=== PATIENT | male | born 1965 | race Caucasian/White ===

== ENCOUNTER 2018-03-26 11:37 | Emergency (ER) | payer OTHER ==
[2018-03-26] MEDS ORDERED: LACTATED RINGERS 2,000 ML IV ONE (14:16)
[2018-03-26] MEDS ORDERED: ONDANSETRON 4 MG/2 ML VIAL IVP STA (14:18)
[2018-03-26 14:56] LABS: BASOPHILS % (AUTO) 0.3 %; EOSINOPHILS # (AUTO) 0.1 10^3/uL (0.0-0.7); EOSINOPHILS % (AUTO) 0.7 %; HGB - HEMOGLOBIN 13.1 g/dL (14.0-18.0); LYMPHOCYTES # (AUTO) 2.2 10^3/uL (1.5-3.5); LYMPHOCYTES % (AUTO) 20.8 %; MEAN CORPUSCULAR HEMOGLOBIN 31.8 pg (27.0-31.0); MEAN CORPUSCULAR HGB CONC 33.4 g/dL (32.0-36.0); MEAN CORPUSCULAR VOLUME 95.2 fL (80.0-94.0); MEAN PLATELET VOLUME 7.7 fL (7.4-11.4); MONOCYTES # (AUTO) 0.6 10^3/uL (0.0-1.0); MONOCYTES % (AUTO) 5.6 %; NEUTROPHILS # (AUTO) 7.8 10^3/uL (1.5-6.6); NEUTROPHILS % (AUTO) 72.6 %; PLT - PLATELET COUNT 188 10^3/uL (130-450); RED BLOOD COUNT 4.12 10^6/uL (4.70-6.10); RED CELL DISTRIBUTION WIDTH 14.1 % (12.0-15.0); WHITE BLOOD COUNT 10.7 x10^3/uL (4.8-10.8)
[2018-03-26 15:07] LABS: ALBUMIN 4.1 g/dL (3.2-5.5); ALBUMIN/GLOBULIN RATIO 0.9 (1.0-2.2); BILIRUBIN,TOTAL 1.1 mg/dL (0.2-1.0); CALCIUM 7.1 mg/dL (8.5-10.3); CREATININE 2.9 mg/dL (0.6-1.2); TOTAL PROTEIN 8.6 g/dL (6.7-8.2)
[2018-03-26 15:08] LABS: MAGNESIUM 0.7 mg/dL (1.7-2.8)
[2018-03-26] MEDS ORDERED: MAGNESIUM SULFATE 2 GRAM 2 GM/50 ML BAG IV ONE (15:35)
--- NOTE | 2018-03-26 16:18 | ED Physician Documentation ---
PD HPI NVD - Stated complaint Stated Complaint: ABNORMAL LABS - Chief complaint Chief Complaint: General - History obtained from History obtained from: Patient - History of Present Illness Timing - onset: How many days ago (he has had Crohns flare up the past several days and was seen by PCP with labs drawn yeesterday. It was noted his creatinine was elelvated to 3.3 (with last one 2.5 4 days prior, and was below 2 prior to that. Has had less oral intake the past week or more, and feeling was that it was dehydration.) Timing - duration: Days Timing - details: Gradual onset Associated symptoms: Dizzy, Loss of appetite. No: Fever, Weight loss, Dysuria Contributing factors: Other (in Crohns flare up currently.). 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 Has not had elevated creatinine previously.) Recently seen: Clinic Review of Systems Constitutional: reports: Myalgias, Fatigue. denies: Fever, Chills Nose: denies: Rhinorrhea / runny nose, Congestion Throat: denies: Sore throat Cardiac: denies: Chest pain / pressure Respiratory: denies: Dyspnea PD PAST MEDICAL HISTORY - Past Medical History Past Medical History: No Cardiovascular: None Respiratory: None Neuro: None Endocrine/Autoimmune: None GI: Crohn's disease : None HEENT: None Psych: None Musculoskeletal: None Derm: None - Past Surgical History Past Surgical History: No General: Other HEENT: Detached retina repair - Present Medications Home Medications: Ambulatory Orders Medication Instructions Recorded Confirmed Magnesium Oxide [Mag Ox] 400 mg PO DAILY #30 tablet 03/26/18 - Allergies Allergies/Adverse Reactions: Allergies Allergy/AdvReac Type Severity Reaction Status Date / Time No Known Drug Allergies Allergy Verified 03/27/18 11:05 - Social History Does the pt smoke?: No Smoking Status: Never smoker Does the pt drink ETOH?: Yes Does the pt have substance abuse?: Yes Substance Use and Type: Marijuana - Immunizations Immunizations are current?: Yes - POLST Patient has POLST: No PD ED PE NORMAL - Vitals Vital signs reviewed: Yes - General General: Alert and oriented X 3, No acute distress, Well developed/nourished - HEENT HEENT: Pharynx benign - Neck Neck: Supple, no meningeal sign, No adenopathy - Cardiac Cardiac: RRR, No murmur - Respiratory Respiratory: Clear bilaterally - Abdomen Abdomen: Normal bowel sounds, Soft, Non distended, No organomegaly - Male Male : Deferred - Derm Derm: Normal color, Warm and dry - Extremities Extremities: No tenderness to palpate, Normal ROM s pain, No edema, No calf tenderness / cord - Neuro Neuro: Alert and oriented X 3, No motor deficit, Normal speech Eye Opening: Spontaneous Motor: Obeys Commands Verbal: Oriented GCS Score: 15 Results - Vitals Vitals: Oxygen O2 Source Room air - Labs Labs: Laboratory Tests 03/26/18 03/26/18 03/26/18 14:30 14:30 14:30 WBC 10.7 RBC 4.12 L Hgb 13.1 L Hct 39.3 L MCV 95.2 H MCH 31.8 H MCHC 33.4 RDW 14.1 Plt Count 188 MPV 7.7 Neut # (Auto) 7.8 H Lymph # (Auto) 2.2 [place] # (Auto) 0.6 Eos # (Auto) 0.1 Baso # (Auto) 0.0 Absolute Nucleated RBC 0.01 Nucleated RBC % 0.1 Sodium 137 Potassium 3.6 Chloride 111 Carbon Dioxide 13 L Anion Gap 13.0 BUN 31 H Creatinine 2.9 H Estimated GFR (MDRD) 23 L Glucose 145 H Calcium 7.1 L Phosphorus 2.0 L Magnesium 0.7 L* Total Bilirubin 1.1 H AST 55 H ALT 37 Alkaline Phosphatase 501 H Total Protein 8.6 H Albumin 4.1 Globulin 4.5 H Albumin/Globulin Ratio 0.9 L Lipase 34 PD MEDICAL DECISION MAKING - ED course Complexity details: considered differential (given IV fluids and also some Mag replacement. He is feeling okay. He is wanting to get going. Can have him back tomorrow to recheck labs and see if more IVs needed. ), d/w patient Departure - Departure Disposition: 01 Home, Self Care Clinical Impression: Dehydration, Elevated serum creatinine, Hypomagnesemia Condition: Stable Record reviewed to determine appropriate education?: Yes Instructions: ED Dehydration Follow-Up: Jordy Ramos MD [Primary Care Provider] - Prescriptions: Magnesium Oxide [Mag Ox] 400 mg PO DAILY #30 tablet Comments: Recheck your labs in a day to ensure that you are having improvement in your creatinine level with the fluids and such. Drink lots of fluids. Hold your potassium supplement for now while you are under hydrated. Your magnesium level was low as well and you will want to start a supplement of that though again I would hold it until tomorrow since she got a dose here today. Assuming your kidney function is improved on repeat tests, would have you resume your normal medications and follow-up with your primary care. Discharge Date/Time: 03/26/18 16:42
[2018-03-26 16:37] VITALS: BP 99/79
== END 2018-03-26 16:42 | disposition home or self-care (01) ==
LOC: ED 11:37
DX: E86.0 Dehydration (principal); R79.89 Other specified abnormal findings of blood chemistry; E83.42 Hypomagnesemia
CPT/HCPCS: 36415; 80053; 83690; 83735; 84100; 85025; 96365; 96375; 99283; J7120

== ENCOUNTER 2018-03-27 10:55 | Emergency (ER) | payer OTHER ==
[2018-03-27 11:05] VITALS: BP 113/83
--- NOTE | 2018-03-27 11:38 | ED Physician Documentation ---
PD HPI NVD - Stated complaint Stated Complaint: LAB - Chief complaint Chief Complaint: General - History obtained from History obtained from: Patient - History of Present Illness Timing - duration: Other (chronic diarrhea) Recently seen: Emergency Dept, Other (He was here yesterday to do dehydration and elevated creatinine. He has ongoing diarrhea from colitis and irritable b owel. He had been referred in for IV fluids. His creatinine was starting to decrease from 3.3-2.9. I had him return today for repeat blood test to ensure its still improving and to evaluate his electrolytes as well.) PD PAST MEDICAL HISTORY - Past Medical History Cardiovascular: None Respiratory: None Neuro: None Endocrine/Autoimmune: None GI: Crohn's disease : None HEENT: None Psych: None Musculoskeletal: None Derm: None - Past Surgical History Past Surgical History: No General: Other HEENT: Detached retina repair - Present Medications Home Medications: Ambulatory Orders Medication Instructions Recorded Confirmed Magnesium Oxide [Mag Ox] 400 mg PO DAILY #30 tablet 03/26/18 - Allergies Allergies/Adverse Reactions: Allergies Allergy/AdvReac Type Severity Reaction Status Date / Time No Known Drug Allergies Allergy Verified 03/27/18 11:05 - Social History Does the pt smoke?: No Smoking Status: Never smoker Does the pt drink ETOH?: Yes Does the pt have substance abuse?: Yes - Immunizations Immunizations are current?: Yes - POLST Patient has POLST: No Results - Vitals Vitals: Vital Signs - 24 hr 03/27/18 11:04 Temperature 36.0 C L Heart Rate 94 Respiratory 15 Rate Blood Pressure 113/83 H O2 Saturation 100 Oxygen O2 Source Room air - Labs Labs: Laboratory Tests 03/27/18 11:29 Sodium 139 Potassium 3.1 L Chloride 113 H Carbon Dioxide 15 L Anion Gap 11.0 BUN 28 H Creatinine 2.2 H Estimated GFR (MDRD) 32 L Glucose 138 H Calcium 7.1 L Magnesium 1.2 L Total Bilirubin 0.9 AST 40 ALT 30 Alkaline Phosphatase 407 H Total Protein 7.2 Albumin 3.6 Globulin 3.6 Albumin/Globulin Ratio 1.0 Lipase 43 PD MEDICAL DECISION MAKING - ED course Complexity details: reviewed results, other (The patient eloped from the waiting room after bloods were drawn and asked that we call him. I will have the nurses call him and tell him to resume his potassium supplement and add the magnesium supplement. His creatinine is improving so hydration is better and he should continue good hydration. The elevated creatinine presumably was just from dehydration. He should follow-up with his primary care in the next several days for a recheck again.) Departure - Departure Disposition: 01 Home, Self Care Clinical Impression: Elevated serum creatinine, Electrolyte and fluid disorder Condition: Stable Record reviewed to determine appropriate education?: Yes Follow-Up: Jordy Ramos MD [Primary Care Provider] - Comments: Your creatinine level is improving down to 2.2 today. He still want to continue with good hydration. Your electrolytes replacement can be resumed of the potassium as usual and also add a magnesium supplement. That level is also improved from yesterday. Follow-up with your primary care in the next few days for a check again to ensure things are still improving.
[2018-03-27 11:45] LABS: ALBUMIN 3.6 g/dL (3.2-5.5); BILIRUBIN,TOTAL 0.9 mg/dL (0.2-1.0); CALCIUM 7.1 mg/dL (8.5-10.3); CREATININE 2.2 mg/dL (0.6-1.2); MAGNESIUM 1.2 mg/dL (1.7-2.8); TOTAL PROTEIN 7.2 g/dL (6.7-8.2)
== END 2018-03-27 12:00 | disposition home or self-care (01) ==
LOC: ED 10:55
DX: E87.8 Other disorders of electrolyte and fluid balance, not elsewhere classified (principal); E86.0 Dehydration; R79.89 Other specified abnormal findings of blood chemistry
CPT/HCPCS: 36415; 80053; 83690; 83735; 99281; 99282

== ENCOUNTER 2018-04-01 13:38 | Outpatient (CLI) | payer OTHER ==
[2018-04-01 18:57] LABS: CALCIUM 8.2 mg/dL (8.5-10.3); CREATININE 3.1 mg/dL (0.6-1.2); MAGNESIUM 1.1 mg/dL (1.7-2.8)
== END 2018-04-01 13:39 | disposition home or self-care (01) ==
LOC: LAB.F 13:38
PROVIDERS: ATTEND Internal Medicine
DX: K50.812 Crohn's disease of both small and large intestine with intestinal obstruction (principal)
CPT/HCPCS: 36415; 80048; 83735

== ENCOUNTER 2018-10-10 10:30 | Outpatient (CLI) | payer MEDICARE, BC ==
[2018-10-10 12:45] LABS: CALCIUM 7.9 mg/dL (8.5-10.3); CREATININE 2.5 mg/dL (0.6-1.2)
== END 2018-10-10 23:59 | disposition home or self-care (01) ==
LOC: LAB.R 10:30
PROVIDERS: ATTEND Surgery
DX: K50.813 Crohn's disease of both small and large intestine with fistula (principal)
CPT/HCPCS: 80048

== ENCOUNTER 2018-11-05 08:00 | Outpatient (CLI) | payer MEDICARE, BC ==
[2018-11-05 17:00] LABS: CALCIUM 7.9 mg/dL (8.5-10.3); CREATININE 2.1 mg/dL (0.6-1.2); PHOSPHORUS 1.9 mg/dL (2.5-4.6)
[2018-11-05 17:01] LABS: MAGNESIUM 0.9 mg/dL (1.7-2.8)
== END 2018-11-05 23:59 | disposition home or self-care (01) ==
LOC: LAB.R 08:00
DX: K50.813 Crohn's disease of both small and large intestine with fistula (principal)
CPT/HCPCS: 80048; 83735; 84100

== ENCOUNTER 2018-12-02 09:32 | Outpatient (CLI) | payer MEDICARE, BC ==
[2018-12-02 17:22] LABS: BASOPHILS % (AUTO) 0.4 %; EOSINOPHILS # (AUTO) 0.3 10^3/uL (0.0-0.7); EOSINOPHILS % (AUTO) 2.9 %; HGB - HEMOGLOBIN 9.8 g/dL (14.0-18.0); LYMPHOCYTES # (AUTO) 1.6 10^3/uL (1.5-3.5); LYMPHOCYTES % (AUTO) 18.4 %; MEAN CORPUSCULAR HEMOGLOBIN 25.9 pg (27.0-31.0); MEAN CORPUSCULAR HGB CONC 29.8 g/dL (32.0-36.0); MEAN PLATELET VOLUME 10.1 fL (7.4-11.4); MONOCYTES # (AUTO) 0.6 10^3/uL (0.0-1.0); MONOCYTES % (AUTO) 7.2 %; NEUTROPHILS % (AUTO) 70.7 %; PLT - PLATELET COUNT 219 10^3/uL (130-450); RED BLOOD COUNT 3.78 10^6/uL (4.70-6.10); RED CELL DISTRIBUTION WIDTH 19.5 % (12.0-15.0); WHITE BLOOD COUNT 8.5 x10^3/uL (4.8-10.8)
[2018-12-02 18:41] LABS: ALBUMIN 3.4 g/dL (3.2-5.5); ALBUMIN/GLOBULIN RATIO 0.9 (1.0-2.2); BILIRUBIN,TOTAL 0.5 mg/dL (0.2-1.0); CALCIUM 8.8 mg/dL (8.5-10.3); CREATININE 2.1 mg/dL (0.6-1.2); MAGNESIUM 1.6 mg/dL (1.7-2.8)
== END 2018-12-02 09:33 | disposition home or self-care (01) ==
LOC: LAB.S 09:32
PROVIDERS: ATTEND Internal Medicine
DX: K50.812 Crohn's disease of both small and large intestine with intestinal obstruction (principal); E83.42 Hypomagnesemia; E83.51 Hypocalcemia; K50.90 Crohn's disease, unspecified, without complications
CPT/HCPCS: 36415; 80053; 83735; 85025

== ENCOUNTER 2018-12-30 | Outpatient (CLI) | payer MEDICARE, BC | END 2018-12-30 09:32 | disposition home or self-care (01) | DX: N18.2 Chronic kidney disease, stage 2 (mild) (principal) ==

== ENCOUNTER 2018-12-30 11:21 | Emergency (ER) | payer MEDICARE, BC ==
--- NOTE | 2018-12-30 11:43 | ED Physician Documentation ---
History of Present Illness - Stated complaint Stated Complaint: TINGLING IN HANDS AND FEET - Chief complaint Chief Complaint: General - Additonal information Additional information: This is a 53-year-old male with a history of Crohn's disease status post multiple abdominal resections who presents with some tingling in his hands and concern for electrolyte abnormality. Patient has a extensive history of malabsorption as well as hypokalemia, he takes 45 mEq of potassium daily. He also takes magnesium and calcium. He states that when he gets low potassium and magnesium he oftentimes will have tingling in his fingertips. He typically has labs weekly, but recently got a new PCP and changed to [facility]. His symptoms have been progressive over several days, so he came in today for evaluation. He also feels dehydrated and nauseated. He denies any abdominal pain, he has not vomited yet. He denies any weakness or numbness. He follows with physicians at [facility]. Review of Systems Constitutional: denies: Fever Cardiac: denies: Chest pain / pressure GI: reports: Nausea. denies: Abdominal Pain Neurologic: reports: Other (paresthesia in distal fingers) PD PAST MEDICAL HISTORY - Past Medical History Cardiovascular: None Respiratory: None Neuro: None Endocrine/Autoimmune: None GI: Crohn's disease : None HEENT: None Psych: None Musculoskeletal: None Derm: None - Past Surgical History Past Surgical History: No General: Other HEENT: Detached retina repair - Present Medications Home Medications: Ambulatory Orders Medication Instructions Recorded Confirmed Magnesium Oxide [Mag Ox] 400 mg PO DAILY #30 tablet 03/26/18 RX: Calcium Citrate 400 mg PO BID #30 tablet 12/30/18 RX: Potassium Chloride 45 meq PO DAILY #200 ml 12/30/18 - Allergies Allergies/Adverse Reactions: Allergies Allergy/AdvReac Type Severity Reaction Status Date / Time No Known Drug Allergies Allergy Verified 12/30/18 11:31 - Social History Does the pt smoke?: No Smoking Status: Never smoker Does the pt drink ETOH?: Yes Does the pt have substance abuse?: Yes - Immunizations Immunizations are current?: Yes - POLST Patient has POLST: No PD ED PE NORMAL - Vitals Vital signs reviewed: Yes - General General: Alert and oriented X 3 - Cardiac Cardiac: RRR - Respiratory Respiratory: Clear bilaterally - Abdomen Abdomen: Soft, Non tender, Other (Multiple well-healed surgical incisional scars) - Derm Derm: Warm and dry - Extremities Extremities: No deformity - Neuro Neuro: Alert and oriented X 3, No motor deficit, Other (Sensation is intact to light touch over all fingers. Patient states he has an paresthesias over the distal fingertips. Strength of hands agrees to your abduction elbow flexion extension is 5 out of 5.) - Psych Psych: Normal mood, Normal affect Results - Vitals Vitals: Vital Signs - 24 hr 12/30/18 12/30/18 12/30/18 11:27 14:09 16:40 Temperature 36.4 C L Heart Rate 101 H 50 L 74 Respiratory 16 19 19 Rate Blood Pressure 116/90 H 139/81 H 128/78 O2 Saturation 100 99 99 12/30/18 18:12 Temperature Heart Rate 86 Respiratory 18 Rate Blood Pressure 129/77 O2 Saturation 98 Oxygen O2 Source Room air - EKG (time done) 11:30 Rate: Rate (enter#) (96) Rhythm: NSR [place]: LAD Intervals: Normal LA QRS: Normal Ischemia: Normal ST segments - Labs Labs: Laboratory Tests 12/30/18 12/30/18 12/30/18 11:45 11:45 13:40 WBC 9.6 RBC 3.87 L Hgb 10.6 L Hct 33.7 L MCV 87.1 MCH 27.4 MCHC 31.5 L RDW 19.9 H Plt Count 158 MPV 8.9 Neut # (Auto) 6.9 H Lymph # (Auto) 1.8 [place] # (Auto) 0.7 Eos # (Auto) 0.1 Baso # (Auto) 0.0 Absolute Nucleated RBC 0.00 Nucleated RBC % 0.0 VBG pH 7.306 L VBG pCO2 34.1 L VBG pO2 25.2 VBG HCO3 16.6 L VBG Total CO2 17.7 L VBG O2 Saturation 44.1 L VBG Base Excess -8.8 L Sodium 142 Potassium 3.6 Chloride 112 H Carbon Dioxide 15 L Anion Gap 15.0 H BUN 17 Creatinine 2.0 H Estimated GFR (MDRD) 35 L Glucose 118 H Calcium 6.0 L* Phosphorus 1.9 L Magnesium 0.3 L* Total Bilirubin 0.7 AST 33 ALT 19 Alkaline Phosphatase 318 H Total Protein 7.0 Albumin 3.1 L Globulin 3.9 Albumin/Globulin Ratio 0.8 L Lipase 21 L 12/30/18 16:51 WBC RBC Hgb Hct MCV MCH MCHC RDW Plt Count MPV Neut # (Auto) Lymph # (Auto) [place] # (Auto) Eos # (Auto) Baso # (Auto) Absolute Nucleated RBC Nucleated RBC % VBG pH VBG pCO2 VBG pO2 VBG HCO3 VBG Total CO2 VBG O2 Saturation VBG Base Excess Sodium 143 Potassium 3.3 L Chloride 114 H Carbon Dioxide 16 L Anion Gap 13.0 BUN 16 Creatinine 1.8 H Estimated GFR (MDRD) 40 L Glucose 102 H Calcium 7.2 L Phosphorus 2.4 L Magnesium 2.2 Total Bilirubin 0.8 AST 26 ALT 17 Alkaline Phosphatase 285 H Total Protein 6.1 L Albumin 2.7 L Globulin 3.4 Albumin/Globulin Ratio 0.8 L Lipase 22 PD MEDICAL DECISION MAKING - ED course Complexity details: considered differential (electrolyte abnormality, dehydration, ACS, neuropathy) ED course: On exam patient is neurologically intact,but he does have paresthesias in his fingertips and bottoms of his feet. He is mildly tachycardic, IV inserted and zofran and LR given. EKG shows no obvious signs of hyper or hypokalemia, normal QRS interval. Labs are notable for severe hypocalcemia, hypomagnesemia. He also has hypophosphatemia and mild hypokalemia. These were repleted IV PO. Patient was given a total of 4g magnesium and g calcium gluconate. After repletion he is feeling back to normal, paresthesias have resolved, and he would like to go home. Repeat electrolytes showed normal magnesium, mild hypokalemia, but continued hypocalcemia. An additional 2 g calcium gluconate given. I prescribed him calcium citrate and refilled his potassium. He is taking magnesium supplements, which he should continue. He will follow up with repeat labs with his PCP this week, and return to the ED with any new or worsening symptoms. Departure - Departure Disposition: 01 Home, Self Care Clinical Impression: Hypokalemia, Hypocalcemia, Hypomagnesemia Condition: Good Instructions: Hypokalemia Dc, Hypomagnesemia Dc Prescriptions: RX: Calcium Citrate 400 mg PO BID #30 tablet RX: Potassium Chloride 45 meq PO DAILY #200 ml Comments: You have a possible left upper lobe pulmonary nodule. Please follow up on this with your PCP. You had low potassium, calcium, phosphorus, and magnesium. These were repleted today. Please continue taking your magnesium and potassium supplements as prescribed. Follow-up for repeat labs this week, and return to emergency department if you are having any recurrent or worsening symptoms Discharge Date/Time: 12/30/18 18:48
[2018-12-30 11:51] LABS: BASOPHILS % (AUTO) 0.2 %; EOSINOPHILS # (AUTO) 0.1 10^3/uL (0.0-0.7); EOSINOPHILS % (AUTO) 1.4 %; HGB - HEMOGLOBIN 10.6 g/dL (14.0-18.0); LYMPHOCYTES # (AUTO) 1.8 10^3/uL (1.5-3.5); MEAN CORPUSCULAR HEMOGLOBIN 27.4 pg (27.0-31.0); MEAN CORPUSCULAR HGB CONC 31.5 g/dL (32.0-36.0); MEAN CORPUSCULAR VOLUME 87.1 fL (80.0-94.0); MEAN PLATELET VOLUME 8.9 fL (7.4-11.4); MONOCYTES # (AUTO) 0.7 10^3/uL (0.0-1.0); MONOCYTES % (AUTO) 7.1 %; NEUTROPHILS # (AUTO) 6.9 10^3/uL (1.5-6.6); NEUTROPHILS % (AUTO) 71.6 %; PLT - PLATELET COUNT 158 10^3/uL (130-450); RED BLOOD COUNT 3.87 10^6/uL (4.70-6.10); RED CELL DISTRIBUTION WIDTH 19.9 % (12.0-15.0); WHITE BLOOD COUNT 9.6 x10^3/uL (4.8-10.8)
--- NOTE | 2018-12-30 12:22 | XRAY Report ---
Reason: numbness/tingling Procedure Date: 12/30/2018 Accession Number: [id number] / [id number] Procedure: XR - Chest 1 View X-Ray CPT Code: 56635 FULL RESULT: EXAM: CHEST RADIOGRAPHY EXAM DATE: 12/30/2018 11:58 AM. CLINICAL HISTORY: Numbness/tingling. COMPARISON: None. TECHNIQUE: 1 view. FINDINGS: Lungs/Pleura: Bronchial wall thickening. Possible 1.2 cm right upper lobe nodule. No new consolidation, effusion or pneumothorax. Mediastinum: No cardiac enlargement. Atheromatous disease is noted in the thoracic aorta. Other: None. IMPRESSION: 1. Nonspecific bronchial wall thickening could represent bronchitis or reactive airways disease. No consolidation, effusions or pneumothorax. 2. Possible 1.2 cm right upper lobe nodule. Recommend contrast enhanced CT for further evaluation on an outpatient basis. RADIA
[2018-12-30] MEDS ORDERED: LACTATED RINGERS 1,000 ML IV STA (13:03)
[2018-12-30] MEDS ORDERED: ONDANSETRON 4 MG/2 ML VIAL IVP STA (13:03)
[2018-12-30 13:05] LABS: PHOSPHORUS 1.9 mg/dL (2.5-4.6)
[2018-12-30 13:06] LABS: ALBUMIN 3.1 g/dL (3.2-5.5); ALBUMIN/GLOBULIN RATIO 0.8 (1.0-2.2); BILIRUBIN,TOTAL 0.7 mg/dL (0.2-1.0)
[2018-12-30 13:09] LABS: MAGNESIUM 0.3 mg/dL (1.7-2.8)
[2018-12-30] MEDS ORDERED: MAGNESIUM SULFATE 2 GRAM 2 GM/50 ML BAG IV ONE ×2 (13:30→13:53)
[2018-12-30] MEDS ORDERED: CALCIUM GLUCONATE IV STA (13:33)
[2018-12-30] MEDS ORDERED: SODIUM CHLORIDE 0.9% IV STA (13:33)
[2018-12-30 13:49] LABS: VBG BASE EXCESS -8.8 mmol/L (-2 - +2); VBG PH 7.306 (7.31-7.41); VBG PO2 25.2 mmHg (25-47); VBG TOTAL CO2 17.7 mmol/L (24-29)
[2018-12-30 13:50] LABS: VBG PCO2 34.1 mmHg (41-51)
[2018-12-30] MEDS ORDERED: CALCIUM GLUCONATE 1000 MG/10 ML VIAL ONE (14:03)
[2018-12-30] MEDS ORDERED: NEUTRA-PHOS 250 MG TABLET PO ONE (15:00)
[2018-12-30 17:12] LABS: ALBUMIN 2.7 g/dL (3.2-5.5); ALBUMIN/GLOBULIN RATIO 0.8 (1.0-2.2); BILIRUBIN,TOTAL 0.8 mg/dL (0.2-1.0); CALCIUM 7.2 mg/dL (8.5-10.3); CREATININE 1.8 mg/dL (0.6-1.2); MAGNESIUM 2.2 mg/dL (1.7-2.8); PHOSPHORUS 2.4 mg/dL (2.5-4.6); TOTAL PROTEIN 6.1 g/dL (6.7-8.2)
[2018-12-30] MEDS ORDERED: CALCIUM GLUCONATE 2,000 MG in SODIUM CHLORIDE 0.9% 100ML 100 ML IV STA (17:38)
[2018-12-30 18:14] VITALS: BP 129/77
== END 2018-12-30 18:48 | disposition home or self-care (01) ==
LOC: ED 11:21
DX: E83.51 Hypocalcemia (principal); E83.42 Hypomagnesemia; E87.6 Hypokalemia; E83.39 Other disorders of phosphorus metabolism; R00.0 Tachycardia, unspecified; R91.8 Other nonspecific abnormal finding of lung field; K50.90 Crohn's disease, unspecified, without complications; K91.2 Postsurgical malabsorption, not elsewhere classified; N18.2 Chronic kidney disease, stage 2 (mild)
CPT/HCPCS: 36415; 71045; 80053; 82803; 83690; 83735; 84100; 85025; 93005; 96365; 96368; 96375; 99284; A9270; J7120; 81001; 81003; 81599; 82570; 84133; 84156; 84300; 84484

== ENCOUNTER 2019-01-15 13:23 | Emergency (ER) | payer MEDICARE, BC ==
[2019-01-15 13:55] LABS: BASOPHILS % (AUTO) 0.2 %; EOSINOPHILS # (AUTO) 0.2 10^3/uL (0.0-0.7); EOSINOPHILS % (AUTO) 1.5 %; HGB - HEMOGLOBIN 9.5 g/dL (14.0-18.0); LYMPHOCYTES # (AUTO) 1.6 10^3/uL (1.5-3.5); LYMPHOCYTES % (AUTO) 16.5 %; MEAN CORPUSCULAR HEMOGLOBIN 28.6 pg (27.0-31.0); MEAN CORPUSCULAR HGB CONC 31.3 g/dL (32.0-36.0); MEAN CORPUSCULAR VOLUME 91.6 fL (80.0-94.0); MEAN PLATELET VOLUME 8.8 fL (7.4-11.4); MONOCYTES # (AUTO) 0.7 10^3/uL (0.0-1.0); MONOCYTES % (AUTO) 6.9 %; NEUTROPHILS # (AUTO) 7.2 10^3/uL (1.5-6.6); NEUTROPHILS % (AUTO) 74.4 %; PLT - PLATELET COUNT 126 10^3/uL (130-450); RED BLOOD COUNT 3.32 10^6/uL (4.70-6.10); WHITE BLOOD COUNT 9.7 x10^3/uL (4.8-10.8)
--- NOTE | 2019-01-15 14:07 | ED Physician Documentation ---
History of Present Illness - Stated complaint Stated Complaint: [id number] TINGLY,PRESSURE - Chief complaint Chief Complaint: Cardiac - Additonal information Additional information: This is a 53-year-old male who is known to me from a previous visit, with a history of inflammatory bowel disease with a history of multiple abdominal surgeries and resections and resultant poor absorption, who has frequent electrolyte disturbances. He presents today because he has had some tingling over his fingers, and somewhat over his chest and lips, which is been present for the last day. When he feels this way he typically has low calcium, mag nesium or potassium. He presented several weeks ago with similar complaints and was found to be severely low and his calcium and magnesium, as well as potassium. He denies any palpitations, chest pain, shortness of breath. He does feel some generalized weakness. He is established with a primary care provider, he saw him recently but at that time he was asymptomatic. Patient is currently taking 20 mEq of potassium citrate, 800 mg of magnesium, and calcium citrate. Review of Systems Constitutional: denies: Fever Cardiac: denies: Chest pain / pressure Respiratory: denies: Dyspnea GI: denies: Abdominal Pain, Vomiting Skin: denies: Rash Neurologic: reports: Generalized weakness, Other (Tingling over fingertips) PD PAST MEDICAL HISTORY - Past Medical History Cardiovascular: None Respiratory: None Neuro: None Endocrine/Autoimmune: None GI: Crohn's disease : None HEENT: None Psych: None Musculoskeletal: None Derm: None - Past Surgical History Past Surgical History: No General: Other HEENT: Detached retina repair - Present Medications Home Medications: Ambulatory Orders Medication Instructions Recorded Confirmed Magnesium Oxide [Mag Ox] 400 mg PO DAILY #30 tablet 03/26/18 Calcium Citrate 400 mg PO BID #30 tablet 12/30/18 Potassium Chloride 45 meq PO DAILY #200 ml 12/30/18 - Allergies Allergies/Adverse Reactions: Allergies Allergy/AdvReac Type Severity Reaction Status Date / Time No Known Drug Allergies Allergy Verified 12/30/18 11:31 - Social History Does the pt smoke?: No Smoking Status: Never smoker Does the pt drink ETOH?: Yes Does the pt have substance abuse?: Yes - Immunizations Immunizations are current?: Yes - POLST Patient has POLST: No PD ED PE NORMAL - Vitals Vital signs reviewed: Yes - General General: Alert and oriented X 3, No acute distress - HEENT HEENT: PERRL - Cardiac Cardiac: RRR - Respiratory Respiratory: No respiratory distress - Abdomen Abdomen: Soft, Non tender, Non distended, Other (Multiple well-healed abdominal incisional scars) - Derm Derm: Warm and dry - Extremities Extremities: No deformity - Neuro Neuro: Alert and oriented X 3, Other (5 out of 5 strength with fingerAbduction,/hand squeeze, finger elbow extension. 5 out of 5 strength ankle dorsiflexion and plantarflexion. Sensation to light touch is intact over the bilateral hands and feet. ) - Psych Psych: Normal mood, Normal affect Results - Vitals Vitals: Vital Signs - 24 hr 01/15/19 01/15/19 01/15/19 15:48 20:31 20:41 Temperature 36.8 C Heart Rate 65 61 59 L Respiratory 20 20 20 Rate Blood Pressure 113/68 132/95 H 138/85 H O2 Saturation 99 99 100 01/15/19 21:21 Temperature 36.8 C Heart Rate 59 L Respiratory 20 Rate Blood Pressure 138/85 H O2 Saturation 100 Oxygen O2 Source Room air - EKG (time done) 13:31 Other comments: Other comments (Rate 67, rhythm sinus, borderline left axis deviation. There is no U wave, no ST segment elevation or depression, QTC 446. QRS is 87 ms) - Labs Labs: Laboratory Tests 01/15/19 01/15/19 01/15/19 13:46 13:46 14:24 WBC 9.7 RBC 3.32 L Hgb 9.5 L Hct 30.4 L MCV 91.6 MCH 28.6 MCHC 31.3 L RDW 19.0 H Plt Count 126 L MPV 8.8 Neut # (Auto) 7.2 H Lymph # (Auto) 1.6 [place] # (Auto) 0.7 Eos # (Auto) 0.2 Baso # (Auto) 0.0 Absolute Nucleated RBC 0.00 Nucleated RBC % 0.0 VBG pH 7.285 L Ionized Calcium 0.75 L* Sodium 141 Potassium 4.2 Chloride 111 Carbon Dioxide 18 L Anion Gap 12.0 BUN 16 Creatinine 2.4 H Estimated GFR (MDRD) 29 L Glucose 100 Calcium 5.5 L* Phosphorus 2.2 L Magnesium 0.3 L* Total Bilirubin 0.9 AST 23 ALT 14 Alkaline Phosphatase 251 H Total Protein 6.8 Albumin 3.2 Globulin 3.6 Albumin/Globulin Ratio 0.9 L Lipase 24 01/15/19 01/15/19 18:30 18:30 WBC RBC Hgb Hct MCV MCH MCHC RDW Plt Count MPV Neut # (Auto) Lymph # (Auto) [place] # (Auto) Eos # (Auto) Baso # (Auto) Absolute Nucleated RBC Nucleated RBC % VBG pH 7.317 Ionized Calcium YES 1.08 L Sodium 140 Potassium 4.1 Chloride 111 Carbon Dioxide 17 L Anion Gap 12.0 BUN 15 Creatinine 2.3 H Estimated GFR (MDRD) 30 L Glucose 102 H Calcium 7.5 L Phosphorus Magnesium 1.9 Total Bilirubin AST ALT Alkaline Phosphatase Total Protein Albumin Globulin Albumin/Globulin Ratio Lipase PD MEDICAL DECISION MAKING - ED course Complexity details: considered differential (Hypomagnesemia, hypocalcemia, hypokalemia, electrolyte disturbance, dehydration) ED course: Pt presents with symptoms of electrolyte disturbance. EKG shows no acute ch anges. Labs reveal a severe hypocalcemia, and hypomagnesemia, as well as mild hypophosphotemia. He also has creatinine that is slightly above his baseline. He declines admission. He was given calcium gluconate 4g, magnesium sulfate 4g, his symptoms resolved and electrolytes were rechecked. His magnesium was within normal range and his calcium improved, but still slightly low. He was given an additional 2g calcium gluconate. He is now feeling well and would like to go home. We discussed that he should probably have electrolytes checked weekly until he has stability in his electrolytes, as this is a recurring problem and his electrolyte disturbances were severe. It sounds like he has been unable to develop an adequate plan with his PCP to address this as-of-yet. He would likely benefit from consultation with a foundry technician as well given the complexity of his history. He is already on extensive supplementation but has poor absorption. I discussed that he should talk with his PCP again, and if he is unable to have labs drawn for a recheck this week he can return to the ED for a recheck and potential supplementation. Pt agrees with this plan. He will also return if he develops any new symptoms. Patient was discharged in the care of his . Departure - Departure Disposition: 01 Home, Self Care Clinical Impression: Hypocalcemia, Hypomagnesemia Condition: Stable Follow-Up: Ryan Bergeron MD [Primary Care Provider] - Within 1 week (For recheck of electrolytes and discussion of careful monitoring. It seems prudent to get labs weekly until a stable regimen of oral repletion is established.) Comments: Your potassium and magnesium levels were severely low today. These were repleted. Please follow-up with your primary care provider within the week for discussion of your electrolytes and for repeat testing. Return to the emergency department if you develop any of your symptoms of electrolyte disturbance, Or if she cannot get into see your primary care. Discharge Date/Time: 01/15/19 21:21
[2019-01-15 14:11] LABS: ALBUMIN 3.2 g/dL (3.2-5.5); ALBUMIN/GLOBULIN RATIO 0.9 (1.0-2.2); BILIRUBIN,TOTAL 0.9 mg/dL (0.2-1.0); CREATININE 2.4 mg/dL (0.6-1.2); PHOSPHORUS 2.2 mg/dL (2.5-4.6); TOTAL PROTEIN 6.8 g/dL (6.7-8.2)
[2019-01-15 14:12] LABS: CALCIUM 5.5 mg/dL (8.5-10.3); MAGNESIUM 0.3 mg/dL (1.7-2.8)
[2019-01-15] MEDS ORDERED: MAGNESIUM SULFATE 2 GRAM 2 GM/50 ML BAG IV ONE ×2 (14:13→14:57)
[2019-01-15] MEDS ORDERED: CALCIUM GLUCONATE 2,000 MG in SODIUM CHLORIDE 0.9% 100ML 100 ML IV STA ×3 (14:13→19:32)
[2019-01-15 14:37] LABS: VBG PH 7.285 (7.31-7.41)
[2019-01-15 19:10] LABS: BUN - BLOOD UREA NITROGEN 15 mg/dL (6-20); CALCIUM 7.5 mg/dL (8.5-10.3); CARBON DIOXIDE - CO2 17 mmol/L (21-32); CHLORIDE 111 mmol/L (101-111); CREATININE 2.3 mg/dL (0.6-1.2); GFR - MDRD 30 (>89); GLUCOSE 102 mg/dL (70-100); MAGNESIUM 1.9 mg/dL (1.7-2.8); SODIUM 140 mmol/L (135-145)
[2019-01-15 19:19] LABS: VBG PH 7.317 (7.31-7.41)
[2019-01-15 20:41] VITALS: BP 138/85
== END 2019-01-15 21:21 | disposition home or self-care (01) ==
LOC: ED 13:23
DX: E83.51 Hypocalcemia (principal); E83.42 Hypomagnesemia; E83.39 Other disorders of phosphorus metabolism; R79.89 Other specified abnormal findings of blood chemistry
CPT/HCPCS: 36415; 80048; 80053; 82330; 83690; 83735; 84100; 85025; 93005; 96365; 96366; 96368; 99284

== ENCOUNTER 2019-01-20 12:47 | Outpatient (CLI) | payer MEDICARE, BC ==
[2019-01-20 13:34] LABS: CALCIUM 7.3 mg/dL (8.5-10.3)
[2019-01-20 13:36] LABS: MAGNESIUM 0.7 mg/dL (1.7-2.8)
== END 2019-01-20 12:48 | disposition home or self-care (01) ==
LOC: LAB 12:47
PROVIDERS: ATTEND Internal Medicine
DX: K50.812 Crohn's disease of both small and large intestine with intestinal obstruction (principal); Z79.899 Other long term (current) drug therapy; K50.813 Crohn's disease of both small and large intestine with fistula; E46 Unspecified protein-calorie malnutrition; K86.1 Other chronic pancreatitis
CPT/HCPCS: 36415; 80048; 83735

== ENCOUNTER 2019-01-21 10:32 | Emergency (ER) | payer MEDICARE, BC ==
[2019-01-21] MEDS ORDERED: CALCIUM GLUCONATE 1,000 MG in SODIUM CHLORIDE 0.9% 50 ML IV STA (11:10)
[2019-01-21] MEDS ORDERED: MAGNESIUM SULFATE 4 GM in SODIUM CHLORIDE 0.9% 50 ML IV ONE (11:10)
[2019-01-21] MEDS ORDERED: SODIUM PHOSPHATE 15 MMOL in SODIUM CHLORIDE 0.9% 250 ML IV ONE (11:11)
--- NOTE | 2019-01-21 12:56 | ED Physician Documentation ---
PD HPI FOCAL NEURO - Stated complaint Stated Complaint: BLOOD WORK RESULTS LOW - Chief complaint Chief Complaint: General - History obtained from History obtained from: Patient - History of Present Illness Timing - onset: Yesterday (had routine labs done yesterday due to history of frequent electrolyte problems. Had low Mag and Ca. Here for infusions. Does not have symptoms of weakness nor numbness like with prior times of even lower levels. He is hoping to get replacement of lytes prior to symptoms.) Timing - details: Gradual onset Weakness: No: Arm, Hand, Leg Numbness: No: Arm, Hand, Leg Associated symptoms: No: Headache, Nausea / vomiting, Syncope Baseline status: positive: A&OX3, ambulatory, indep Similar symptoms before: Diagnosis (electrolyte problems due to malabsorption from UC.) Recently seen: Clinic (labs yesterday), Emergency Dept (couple weeks ago.) Review of Systems Constitutional: denies: Chills, Myalgias, Fatigue Nose: denies: Rhinorrhea / runny nose, Congestion Throat: denies: Sore throat Cardiac: denies: Chest pain / pressure Respiratory: denies: Dyspnea Neurologic: denies: Generalized weakness, Focal weakness, Numbness, Near syncope, Headache PD PAST MEDICAL HISTORY - Past Medical History Cardiovascular: None Respiratory: None Neuro: None Endocrine/Autoimmune: None GI: Crohn's disease : None HEENT: None Psych: None Musculoskeletal: None Derm: None - Past Surgical History Past Surgical History: No General: Other HEENT: Detached retina repair - Present Medications Home Medications: Ambulatory Orders Medication Instructions Recorded Confirmed Magnesium Oxide [Mag Ox] 400 mg PO DAILY #30 tablet 03/26/18 Calcium Citrate 400 mg PO BID #30 tablet 12/30/18 Potassium Chloride 45 meq PO DAILY #200 ml 12/30/18 - Allergies Allergies/Adverse Reactions: Allergies Allergy/AdvReac Type Severity Reaction Status Date / Time No Known Drug Allergies Allergy Verified 01/21/19 10:40 - Social History Does the pt smoke?: No Smoking Status: Never smoker Does the pt drink ETOH?: Yes Does the pt have substance abuse?: Yes - Immunizations Immunizations are current?: Yes - POLST Patient has POLST: No PD ED PE NORMAL - Vitals Vital signs reviewed: Yes - General General: Alert and oriented X 3, Well developed/nourished - HEENT HEENT: Atraumatic, Pharynx benign - Neck Neck: Supple, no meningeal sign, No adenopathy - Cardiac Cardiac: RRR, No murmur - Respiratory Respiratory: Clear bilaterally - Abdomen Abdomen: Soft, Non tender - Derm Derm: Normal color, Warm and dry - Extremities Extremities: No tenderness to palpate, No edema, No calf tenderness / cord - Neuro Neuro: Alert and oriented X 3, magento web developer 2-12 intact, No motor deficit, No sensory deficit, Normal speech Results - Vitals Vitals: Vital Signs - 24 hr 01/21/19 01/21/19 01/21/19 10:37 11:48 13:00 Temperature 36.4 C L Heart Rate 99 85 83 Respiratory 19 18 20 Rate Blood Pressure 130/87 H 118/89 H 125/78 O2 Saturation 99 100 10 L Oxygen O2 Source Room air - Labs Labs: Laboratory Tests 01/21/19 13:04 Calcium 7.4 L Magnesium 2.4 PD MEDICAL DECISION MAKING - ED course Complexity details: reviewed old records, reviewed results, considered differential (given IV supplements to Mag and Ca. ), d/w patient Departure - Departure Disposition: 01 Home, Self Care Clinical Impression: Hypomagnesemia, Electrolyte and fluid disorder, Hypocalcemia Condition: Stable Record reviewed to determine appropriate education?: Yes Follow-Up: Ryan Bergeron MD [Primary Care Provider] - Comments: Continue with usual medications. Follow-up with your primary care and doubler helper regarding ongoing electrolyte replacements. Discharge Date/Time: 01/21/19 13:21
[2019-01-21 13:01] VITALS: BP 125/78
[2019-01-21 13:17] LABS: CALCIUM 7.4 mg/dL (8.5-10.3); MAGNESIUM 2.4 mg/dL (1.7-2.8)
== END 2019-01-21 13:21 | disposition home or self-care (01) ==
LOC: ED 10:32
DX: E83.42 Hypomagnesemia (principal); E83.51 Hypocalcemia
CPT/HCPCS: 36415; 82310; 83735; 96365; 96368; 99283; 99284; J7040

== ENCOUNTER 2019-01-30 09:05 | Outpatient (CLI) | payer MEDICARE, BC ==
[2019-01-30 09:26] LABS: CALCIUM 8.2 mg/dL (8.5-10.3); MAGNESIUM 1.4 mg/dL (1.7-2.8)
== END 2019-01-30 09:06 | disposition home or self-care (01) ==
LOC: LAB 09:05
PROVIDERS: ATTEND Internal Medicine
DX: K50.812 Crohn's disease of both small and large intestine with intestinal obstruction (principal); K50.813 Crohn's disease of both small and large intestine with fistula; E46 Unspecified protein-calorie malnutrition; K86.1 Other chronic pancreatitis; K63.2 Fistula of intestine; Z79.899 Other long term (current) drug therapy
CPT/HCPCS: 36415; 80048; 83735

== ENCOUNTER 2019-02-06 10:36 | Outpatient (CLI) | payer MEDICARE, BC ==
[2019-02-06 11:13] LABS: CALCIUM 7.3 mg/dL (8.5-10.3); CREATININE 1.9 mg/dL (0.6-1.2)
[2019-02-06 12:05] LABS: MAGNESIUM 0.9 mg/dL (1.7-2.8)
== END 2019-02-06 10:37 | disposition home or self-care (01) ==
LOC: LAB 10:36
PROVIDERS: ATTEND Internal Medicine
DX: K50.813 Crohn's disease of both small and large intestine with fistula (principal); K50.812 Crohn's disease of both small and large intestine with intestinal obstruction; Z79.899 Other long term (current) drug therapy; E46 Unspecified protein-calorie malnutrition; K86.1 Other chronic pancreatitis; K63.2 Fistula of intestine
CPT/HCPCS: 36415; 80048; 83735

== ENCOUNTER 2019-02-12 11:46 | Outpatient (CLI) | payer MEDICARE, BC ==
[2019-02-12 17:49] LABS: ALBUMIN 2.9 g/dL (3.2-5.5); ALBUMIN/GLOBULIN RATIO 0.8 (1.0-2.2); BILIRUBIN,TOTAL 0.4 mg/dL (0.2-1.0); CALCIUM 7.2 mg/dL (8.5-10.3); CREATININE 2.1 mg/dL (0.6-1.2); TOTAL PROTEIN 6.4 g/dL (6.7-8.2)
== END 2019-02-12 11:47 | disposition home or self-care (01) ==
LOC: LAB.S 11:46
PROVIDERS: ATTEND Internal Medicine
DX: E83.42 Hypomagnesemia (principal); E83.51 Hypocalcemia; K50.90 Crohn's disease, unspecified, without complications
CPT/HCPCS: 36415; 80053; 83735

== ENCOUNTER 2019-02-19 13:45 | Emergency (ER) | payer MEDICARE, BC ==
[2019-02-19 14:16] LABS: BASOPHILS % (AUTO) 0.4 %; EOSINOPHILS # (AUTO) 0.2 10^3/uL (0.0-0.7); EOSINOPHILS % (AUTO) 1.8 %; HGB - HEMOGLOBIN 9.9 g/dL (14.0-18.0); LYMPHOCYTES # (AUTO) 1.4 10^3/uL (1.5-3.5); LYMPHOCYTES % (AUTO) 16.2 %; MEAN CORPUSCULAR HEMOGLOBIN 29.2 pg (27.0-31.0); MEAN CORPUSCULAR HGB CONC 31.1 g/dL (32.0-36.0); MEAN CORPUSCULAR VOLUME 93.8 fL (80.0-94.0); MEAN PLATELET VOLUME 8.7 fL (7.4-11.4); MONOCYTES # (AUTO) 0.4 10^3/uL (0.0-1.0); MONOCYTES % (AUTO) 4.5 %; NEUTROPHILS # (AUTO) 6.4 10^3/uL (1.5-6.6); NEUTROPHILS % (AUTO) 76.6 %; PLT - PLATELET COUNT 116 10^3/uL (130-450); RED BLOOD COUNT 3.39 10^6/uL (4.70-6.10); RED CELL DISTRIBUTION WIDTH 16.3 % (12.0-15.0); WHITE BLOOD COUNT 8.3 x10^3/uL (4.8-10.8)
[2019-02-19 14:21] LABS: VBG BASE EXCESS -8.7 mmol/L (-2 - +2); VBG PCO2 41.9 mmHg (41-51); VBG PH 7.251 (7.31-7.41); VBG PO2 22.5 mmHg (25-47); VBG TOTAL CO2 19.3 mmol/L (24-29)
[2019-02-19] MEDS ORDERED: CALCIUM GLUCONATE 1,000 MG in SODIUM CHLORIDE 0.9% 50 ML IV STA (14:25)
[2019-02-19] MEDS ORDERED: MAGNESIUM SULFATE 2 GRAM 2 GM/50 ML BAG IV ONE (14:25)
[2019-02-19] MEDS ORDERED: CALCIUM GLUCONATE 2,000 MG in SODIUM CHLORIDE 0.9% 100ML 100 ML IV STA (14:25)
--- NOTE | 2019-02-19 14:27 | ED Physician Documentation ---
History of Present Illness - Stated complaint Stated Complaint: TINGLING - Chief complaint Chief Complaint: General - History obtained from History obtained from: Patient - History of Present Illness Timing: Today (53-year-old gentleman with long-standing Crohn's disease, several bowel resections. He presents with tingling and generalized weakness consistent with prior episodes of severe hypomagnesemia and hypocalcemia. He is taking supplementation, but it is often not enough.) Review of Systems Constitutional: reports: Fatigue. denies: Fever, Chills Throat: reports: Reviewed and negative Cardiac: reports: Reviewed and negative PD PAST MEDICAL HISTORY - Past Medical History Cardiovascular: None Respiratory: None Neuro: None Endocrine/Autoimmune: None GI: Crohn's disease : None HEENT: None Psych: None Musculoskeletal: None Derm: None - Past Surgical History Past Surgical History: No General: Other HEENT: Detached retina repair - Present Medications Home Medications: Ambulatory Orders Medication Instructions Recorded Confirmed Magnesium Oxide [Mag Ox] 400 mg PO DAILY #30 tablet 03/26/18 Calcium Citrate 400 mg PO BID #30 tablet 12/30/18 Potassium Chloride 45 meq PO DAILY #200 ml 12/30/18 Calcium Citrate/Vitamin D3 5 ml PO QID #600 ml 02/19/19 [Calcium Citrate-Vitamin D3 Liq] - Allergies Allergies/Adverse Reactions: Allergies Allergy/AdvReac Type Severity Reaction Status Date / Time No Known Drug Allergies Allergy Verified 02/19/19 13:52 - Social History Does the pt smoke?: No Smoking Status: Never smoker Does the pt drink ETOH?: Yes Does the pt have substance abuse?: Yes - Immunizations Immunizations are current?: Yes - POLST Patient has POLST: No PD ED PE NORMAL - Vitals Vital signs reviewed: Yes - General General: Alert and oriented X 3, No acute distress - Abdomen Abdomen: Soft, Non tender - Extremities Extremities: Other (Almost absent lower extremity reflexes) - Neuro Neuro: Alert and oriented X 3, Normal speech Results - Vitals Vitals: Vital Signs - 24 hr 02/19/19 02/19/19 02/19/19 13:52 14:46 16:59 Temperature 36.7 C 36.4 C L Heart Rate 66 62 61 Respiratory 17 18 15 Rate Blood Pressure 130/74 130/90 H 128/90 H O2 Saturation 100 100 100 Oxygen O2 Source Room air - Labs Labs: Laboratory Tests 02/19/19 02/19/19 02/19/19 14:12 14:12 14:12 WBC 8.3 RBC 3.39 L Hgb 9.9 L Hct 31.8 L MCV 93.8 MCH 29.2 MCHC 31.1 L RDW 16.3 H Plt Count 116 L MPV 8.7 Neut # (Auto) 6.4 Lymph # (Auto) 1.4 L [place] # (Auto) 0.4 Eos # (Auto) 0.2 Baso # (Auto) 0.0 Absolute Nucleated RBC 0.00 Nucleated RBC % 0.0 VBG pH 7.251 L VBG pCO2 41.9 VBG pO2 22.5 L VBG HCO3 18.0 L VBG Total CO2 19.3 L VBG O2 Saturation 33.2 L VBG Base Excess -8.7 L Sodium 142 Potassium 4.4 Chloride 113 H Carbon Dioxide 20 L Anion Gap 9.0 BUN 14 Creatinine 2.4 H Estimated GFR (MDRD) 29 L Glucose 139 H Calcium 6.2 L* Phosphorus 3.1 Magnesium 0.6 L* Total Bilirubin 0.6 AST 42 ALT 25 Alkaline Phosphatase 276 H Total Protein 6.7 Albumin 3.0 L Globulin 3.7 Albumin/Globulin Ratio 0.8 L Lipase 25 PD MEDICAL DECISION MAKING - ED course ED course: 53-year-old gentleman with recurrent significant electrolyte abnormalities presents for same and he received 3 g of calcium and 2 g of magnesium IV here with improvement in his symptoms. Departure - Departure Disposition: 01 Home, Self Care Clinical Impression: Electrolyte and fluid disorder, Hypomagnesemia, Hypocalcemia Condition: Good Record reviewed to determine appropriate education?: Yes Prescriptions: Calcium Citrate/Vitamin D3 [Calcium Citrate-Vitamin D3 Liq] 5 ml PO QID #600 ml Comments: Talk with your physician about potentially report and standing orders for electrolyte replacement. Return for new worsening symptoms. With the litigation counsel as discussed given the chronic renal insufficiency and potential electrolyte replacement needs. Discharge Date/Time: 02/19/19 17:02
[2019-02-19] MEDS ORDERED: CALCIUM GLUCONATE 3,000 MG in SODIUM CHLORIDE 0.9% 250 ML IV STA (14:30)
[2019-02-19 14:36] LABS: ALBUMIN/GLOBULIN RATIO 0.8 (1.0-2.2); BILIRUBIN,TOTAL 0.6 mg/dL (0.2-1.0); CREATININE 2.4 mg/dL (0.6-1.2); PHOSPHORUS 3.1 mg/dL (2.5-4.6); TOTAL PROTEIN 6.7 g/dL (6.7-8.2)
[2019-02-19 14:37] LABS: CALCIUM 6.2 mg/dL (8.5-10.3); MAGNESIUM 0.6 mg/dL (1.7-2.8)
[2019-02-19 16:59] VITALS: BP 128/90
== END 2019-02-19 17:02 | disposition home or self-care (01) ==
LOC: ED 13:45
DX: E83.42 Hypomagnesemia (principal); E83.51 Hypocalcemia; K50.90 Crohn's disease, unspecified, without complications; Z90.49 Acquired absence of other specified parts of digestive tract
CPT/HCPCS: 36415; 80053; 82803; 83690; 83735; 84100; 85025; 96365; 96366; 96368; 99283

== ENCOUNTER 2019-02-27 10:32 | Outpatient (CLI) | payer MEDICARE, BC ==
[2019-02-27 11:33] LABS: ALBUMIN 3.4 g/dL (3.2-5.5); ALBUMIN/GLOBULIN RATIO 0.9 (1.0-2.2); BILIRUBIN,TOTAL 0.6 mg/dL (0.2-1.0); CALCIUM 7.7 mg/dL (8.5-10.3); CREATININE 2.1 mg/dL (0.6-1.2); TOTAL PROTEIN 7.1 g/dL (6.7-8.2)
[2019-02-27 11:34] LABS: MAGNESIUM 0.7 mg/dL (1.7-2.8)
== END 2019-02-27 10:33 | disposition home or self-care (01) ==
LOC: LAB 10:32
PROVIDERS: ATTEND Internal Medicine
DX: E83.42 Hypomagnesemia (principal); E83.51 Hypocalcemia; K50.90 Crohn's disease, unspecified, without complications
CPT/HCPCS: 36415; 80053; 83735

== ENCOUNTER 2019-03-07 09:57 | Outpatient (CLI) | payer MEDICARE, BC ==
[2019-03-07 10:28] LABS: ALBUMIN 3.2 g/dL (3.2-5.5); ALBUMIN/GLOBULIN RATIO 0.8 (1.0-2.2); BILIRUBIN,TOTAL 0.6 mg/dL (0.2-1.0); CALCIUM 8.5 mg/dL (8.5-10.3); CREATININE 2.2 mg/dL (0.6-1.2); MAGNESIUM 1.2 mg/dL (1.7-2.8)
== END 2019-03-07 09:58 | disposition home or self-care (01) ==
LOC: LAB 09:57
PROVIDERS: ATTEND Internal Medicine
DX: E83.42 Hypomagnesemia (principal); E83.51 Hypocalcemia; K50.90 Crohn's disease, unspecified, without complications
CPT/HCPCS: 36415; 80053; 83735

== ENCOUNTER 2019-03-13 10:08 | Outpatient (CLI) | payer MEDICARE, BC ==
[2019-03-13 10:57] LABS: ALBUMIN 3.1 g/dL (3.2-5.5); ALBUMIN/GLOBULIN RATIO 0.9 (1.0-2.2); BILIRUBIN,TOTAL 0.8 mg/dL (0.2-1.0); CREATININE 2.2 mg/dL (0.6-1.2); MAGNESIUM 0.9 mg/dL (1.7-2.8); TOTAL PROTEIN 6.7 g/dL (6.7-8.2)
== END 2019-03-13 10:09 | disposition home or self-care (01) ==
LOC: LAB 10:08
PROVIDERS: ATTEND Internal Medicine
DX: E83.42 Hypomagnesemia (principal); E83.51 Hypocalcemia; K50.90 Crohn's disease, unspecified, without complications
CPT/HCPCS: 36415; 80053; 83735

== ENCOUNTER 2019-03-21 18:22 | Emergency (ER) | payer MEDICARE, BC ==
[2019-03-21] MEDS ORDERED: CALCIUM GLUCONATE 2,000 MG in SODIUM CHLORIDE 0.9% 100ML 100 ML IV STA (18:30)
[2019-03-21] MEDS ORDERED: MAGNESIUM SULFATE 2 GRAM 2 GM/50 ML BAG IV ONE (18:30)
[2019-03-21 18:45] LABS: BASOPHILS % (AUTO) 0.5 %; EOSINOPHILS # (AUTO) 0.2 10^3/uL (0.0-0.7); HGB - HEMOGLOBIN 11.3 g/dL (14.0-18.0); LYMPHOCYTES # (AUTO) 1.4 10^3/uL (1.5-3.5); LYMPHOCYTES % (AUTO) 18.1 %; MEAN CORPUSCULAR HGB CONC 30.4 g/dL (32.0-36.0); MEAN CORPUSCULAR VOLUME 92.1 fL (80.0-94.0); MONOCYTES # (AUTO) 0.7 10^3/uL (0.0-1.0); MONOCYTES % (AUTO) 8.4 %; NEUTROPHILS # (AUTO) 5.5 10^3/uL (1.5-6.6); NEUTROPHILS % (AUTO) 70.6 %; PLT - PLATELET COUNT 148 10^3/uL (130-450); RED BLOOD COUNT 4.04 10^6/uL (4.70-6.10); RED CELL DISTRIBUTION WIDTH 14.4 % (12.0-15.0); WHITE BLOOD COUNT 7.8 x10^3/uL (4.8-10.8)
[2019-03-21 19:08] LABS: ALBUMIN 3.8 g/dL (3.2-5.5); ALBUMIN/GLOBULIN RATIO 0.9 (1.0-2.2); BILIRUBIN,TOTAL 1.3 mg/dL (0.2-1.0); CALCIUM 8.5 mg/dL (8.5-10.3); CREATININE 3.5 mg/dL (0.6-1.2); PHOSPHORUS 2.9 mg/dL (2.5-4.6); TOTAL PROTEIN 7.9 g/dL (6.7-8.2)
[2019-03-21 19:11] LABS: VBG PH 7.585 (7.31-7.41)
[2019-03-21] MEDS ORDERED: SODIUM CHLORIDE 0.9% 1,000 ML IV ONE ×2 (19:15)
--- NOTE | 2019-03-21 19:20 | ED Physician Documentation ---
History of Present Illness - Stated complaint Stated Complaint: NUMBESS & DIARRHEA - Chief complaint Chief Complaint: General - History obtained from History obtained from: Patient - History of Present Illness Timing: Today Pain level max: 0 Pain level now: 0 - Additonal information Additional information: 53-year-old gentleman with long-standing Crohn's disease, several bowel resections and recurrent hypomagnesemia and hypocalcemia. He is feeling tingling in his fingers and hands again today. Has had diarrhea as well. Review of Systems Ten Systems: 10 systems reviewed and negative Constitutional: denies: Fever, Chills Ears: denies: Ear pain Nose: denies: Rhinorrhea / runny nose, Congestion Cardiac: denies: Chest pain / pressure Respiratory: denies: Cough GI: reports: Diarrhea. denies: Nausea, Vomiting Skin: denies: Rash Musculoskeletal: denies: Neck pain, Back pain Neurologic: denies: Headache PD PAST MEDICAL HISTORY - Past Medical History Cardiovascular: None Respiratory: None Neuro: None Endocrine/Autoimmune: None GI: Crohn's disease : None HEENT: None Psych: None Musculoskeletal: None Derm: None - Past Surgical History Past Surgical History: No General: Other HEENT: Detached retina repair - Present Medications Home Medications: Ambulatory Orders Medication Instructions Recorded Confirmed Magnesium Oxide [Mag Ox] 400 mg PO DAILY #30 tablet 03/26/18 Calcium Citrate 400 mg PO BID #30 tablet 12/30/18 Potassium Chloride 45 meq PO DAILY #200 ml 12/30/18 Calcium Citrate/Vitamin D3 5 ml PO QID #600 ml 02/19/19 [Calcium Citrate-Vitamin D3 Liq] - Allergies Allergies/Adverse Reactions: Allergies Allergy/AdvReac Type Severity Reaction Status Date / Time No Known Drug Allergies Allergy Verified 03/21/19 18:26 - Social History Does the pt smoke?: No Smoking Status: Never smoker Does the pt drink ETOH?: Yes Does the pt have substance abuse?: Yes - Immunizations Immunizations are current?: Yes - POLST Patient has POLST: No PD ED PE NORMAL - Vitals Vital signs reviewed: Yes - General General: Alert and oriented X 3, No acute distress - HEENT HEENT: Moist mucous membranes - Neck Neck: Supple, no meningeal sign - Cardiac Cardiac: RRR - Respiratory Respiratory: No respiratory distress, Clear bilaterally - Abdomen Abdomen: Soft, Non tender, Non distended - Derm Derm: Warm and dry - Extremities Extremities: No edema - Neuro Neuro: Alert and oriented X 3, No motor deficit, No sensory deficit - Psych Psych: Normal mood, Normal affect Results - Vitals Vitals: Oxygen O2 Source Room air - Labs Labs: Laboratory Tests 03/21/19 03/21/19 03/21/19 18:40 18:40 19:03 WBC 7.8 RBC 4.04 L Hgb 11.3 L Hct 37.2 L MCV 92.1 MCH 28.0 MCHC 30.4 L RDW 14.4 Plt Count 148 MPV 9.0 Neut # (Auto) 5.5 Lymph # (Auto) 1.4 L [place] # (Auto) 0.7 Eos # (Auto) 0.2 Baso # (Auto) 0.0 Absolute Nucleated RBC 0.00 Nucleated RBC % 0.0 VBG pH 7.585 H Ionized Calcium 0.92 L Sodium 139 Potassium 3.3 L Chloride 82 L Carbon Dioxide 41 H* Anion Gap 16.0 H BUN 25 H Creatinine 3.5 H Estimated GFR (MDRD) 19 L Glucose 162 H Calcium 8.5 Phosphorus 2.9 Magnesium 2.0 Total Bilirubin 1.3 H AST 26 ALT 16 Alkaline Phosphatase 308 H Total Protein 7.9 Albumin 3.8 Globulin 4.1 Albumin/Globulin Ratio 0.9 L Lipase 33 PD MEDICAL DECISION MAKING - ED course Complexity details: reviewed results, considered differential, d/w patient ED course: Patient with hypocalcemia and dehydration. Feels better after replacement of magnesium, calcium and IV fluids. Does have chronic renal insufficiency. He would like to go home at this time. Patient counseled regarding signs and symptoms for which I believe and urgent re-evaluation would be necessary. Patient with good understanding of and agreement to plan and is comfortable going home at this time This document was made in part using voice recognition software. While efforts are made to proofread this document, sound alike and grammatical errors may occur. Departure - Departure Disposition: 01 Home, Self Care Clinical Impression: Hypocalcemia, Hypomagnesemia, Dehydration, Elevated serum creatinine Condition: Good Instructions: ED Dehydration Follow-Up: Ryan Bergeron MD [Primary Care Provider] - Within 1 week Comments: Follow-up with your doctor for further care. Return if you worsen. You should have your electrolytes and creatinine rechecked in a week with your doctor Discharge Date/Time: 03/21/19 22:52
[2019-03-21 19:57] VITALS: BP 118/78
== END 2019-03-21 22:52 | disposition home or self-care (01) ==
LOC: ED 18:22
DX: E83.51 Hypocalcemia (principal); E86.0 Dehydration; E83.42 Hypomagnesemia; N18.9 Chronic kidney disease, unspecified; K50.90 Crohn's disease, unspecified, without complications; Z90.49 Acquired absence of other specified parts of digestive tract; Z79.899 Other long term (current) drug therapy
CPT/HCPCS: 36415; 80053; 82330; 83690; 83735; 84100; 85025; 96365; 96366; 96368; 99284

== ENCOUNTER 2019-03-26 11:52 | Outpatient (CLI) | payer MEDICARE, BC ==
[2019-03-26 12:30] LABS: ALBUMIN 3.5 g/dL (3.2-5.5); ALBUMIN/GLOBULIN RATIO 0.9 (1.0-2.2); BILIRUBIN,TOTAL 0.7 mg/dL (0.2-1.0); CALCIUM 8.7 mg/dL (8.5-10.3); CREATININE 2.2 mg/dL (0.6-1.2); MAGNESIUM 1.9 mg/dL (1.7-2.8); TOTAL PROTEIN 7.2 g/dL (6.7-8.2)
== END 2019-03-26 11:53 | disposition home or self-care (01) ==
LOC: LAB 11:52
PROVIDERS: ATTEND Internal Medicine
DX: E83.42 Hypomagnesemia (principal); E83.51 Hypocalcemia; K50.90 Crohn's disease, unspecified, without complications
CPT/HCPCS: 36415; 80053; 83735

== ENCOUNTER 2019-03-31 07:00 | Outpatient (CLI) | payer MEDICARE, BC | END 2019-03-31 23:59 | disposition home or self-care (01) | LOC: LAB.R 07:00 | PROVIDERS: ATTEND Internal Medicine | DX: K50.812 Crohn's disease of both small and large intestine with intestinal obstruction (principal); Z79.899 Other long term (current) drug therapy | CPT/HCPCS: 81599; 83993 ==

== ENCOUNTER 2019-05-06 10:28 | Outpatient (CLI) | payer MEDICARE, BC ==
[2019-05-06 11:01] LABS: ALBUMIN 3.4 g/dL (3.2-5.5); ALBUMIN/GLOBULIN RATIO 0.9 (1.0-2.2); BILIRUBIN,TOTAL 0.8 mg/dL (0.2-1.0); CREATININE 2.2 mg/dL (0.6-1.2); MAGNESIUM 1.6 mg/dL (1.7-2.8); TOTAL PROTEIN 7.1 g/dL (6.7-8.2)
== END 2019-05-06 10:29 | disposition home or self-care (01) ==
LOC: LAB 10:28
PROVIDERS: ATTEND Internal Medicine
DX: E83.42 Hypomagnesemia (principal); E83.51 Hypocalcemia; K50.90 Crohn's disease, unspecified, without complications
CPT/HCPCS: 36415; 80053; 83735

== ENCOUNTER 2019-05-09 14:14 | Emergency (ER) | payer MEDICARE, BC ==
[2019-05-09] MEDS ORDERED: HYDROmorphone 1 MG/ML CARPUJECT IVP STA ×2 (14:42→20:39)
--- NOTE | 2019-05-09 14:44 | ED Physician Documentation ---
PD HPI ABD PAIN - Stated complaint Stated Complaint: ABD PX - Chief complaint Chief Complaint: Abd Pain - History obtained from History obtained from: Patient (54-year-old gentleman with history of severe Crohn's, he developed epigastric pain after quite a bit of lifting 3 to 4 days ago. It is worse when stretching out his ribs and worse after swallowing. Yesterday he had upper and lower endoscopies done with biopsies. Its not worse since the endoscopies, but it certainly is not better either. He is been trying Tylenol without relief. Of note he cannot take NSAIDs due to chronic renal insufficiency.) Review of Systems Constitutional: denies: Fever, Chills Cardiac: denies: Chest pain / pressure, Palpitations Respiratory: denies: Dyspnea, Cough GI: reports: Abdominal Pain. denies: Nausea, Vomiting, Diarrhea PD PAST MEDICAL HISTORY - Past Medical History Cardiovascular: None Respiratory: None Neuro: None Endocrine/Autoimmune: None GI: Crohn's disease : None HEENT: None Psych: None Musculoskeletal: None Derm: None - Past Surgical History Past Surgical History: No General: Other HEENT: Detached retina repair - Present Medications Home Medications: Ambulatory Orders Medication Instructions Recorded Confirmed Magnesium Oxide [Mag Ox] 400 mg PO DAILY #30 tablet 03/26/18 Calcium Citrate 400 mg PO BID #30 tablet 12/30/18 Potassium Chloride 45 meq PO DAILY #200 ml 12/30/18 Calcium Citrate/Vitamin D3 5 ml PO QID #600 ml 02/19/19 [Calcium Citrate-Vitamin D3 Liq] - Allergies Allergies/Adverse Reactions: Allergies Allergy/AdvReac Type Severity Reaction Status Date / Time No Known Drug Allergies Allergy Verified 05/09/19 14:27 - Social History Does the pt smoke?: No Smoking Status: Never smoker Does the pt drink ETOH?: Yes Does the pt have substance abuse?: Yes - Immunizations Immunizations are current?: Yes - POLST Patient has POLST: No PD ED PE NORMAL - Vitals Vital signs reviewed: Yes - General General: Alert and oriented X 3, No acute distress - HEENT HEENT: PERRL, EOMI - Neck Neck: Supple, no meningeal sign, No bony TTP - Cardiac Cardiac: RRR, No murmur - Respiratory Respiratory: No respiratory distress, Clear bilaterally, Other (Tender to the low sternum and it reproduces his pain if you press on the lower ribs anteriorly) - Abdomen Abdomen: Other (Mild upper abdominal tenderness, no surgical signs, multiple old surgical scars, slightly hyperactive bowel tones.) - Neuro Neuro: Alert and oriented X 3, Normal speech Results - Vitals Vitals: Vital Signs - 24 hr 05/09/19 05/09/19 05/09/19 14:27 15:24 16:45 Temperature 37 C Heart Rate 95 73 73 Respiratory 17 18 18 Rate Blood Pressure 123/87 H 115/84 H 113/80 O2 Saturation 99 100 98 05/09/19 17:16 Temperature Heart Rate 68 Respiratory 18 Rate Blood Pressure 124/93 H O2 Saturation 98 Oxygen O2 Source Room air - EKG (time done) 1451 Rate: Rate (enter#) (83) Rhythm: NSR [place]: Normal Intervals: Normal [place] QRS: Normal Ischemia: Non specific changes. No: ST elevation c/w ischemia, ST depression Computer interpretation: Agree with computer - Labs Labs: Laboratory Tests 05/09/19 05/09/19 05/09/19 14:48 14:48 14:48 WBC 9.2 RBC 4.01 L Hgb 11.1 L Hct 35.5 L MCV 88.5 MCH 27.7 MCHC 31.3 L RDW 15.3 H Plt Count 150 MPV 8.9 Neut # (Auto) 7.0 H Lymph # (Auto) 0.9 L [place] # (Auto) 1.1 H Eos # (Auto) 0.0 Baso # (Auto) 0.0 Absolute Nucleated RBC 0.00 Nucleated RBC % 0.0 Sodium 142 Potassium 3.7 Chloride 101 Carbon Dioxide 29 Anion Gap 12.0 BUN 19 Creatinine 2.2 H Estimated GFR (MDRD) 32 L Glucose 119 H Calcium 9.3 Magnesium 1.9 Total Bilirubin 1.8 H AST 21 ALT 14 Alkaline Phosphatase 331 H Troponin I High Sens 4.7 Total Protein 8.6 H Albumin 4.1 Globulin 4.5 H Albumin/Globulin Ratio 0.9 L Lipase 26 - Rads (name of study) CT A/P Radiology: EMP read contemporaneously (Cholecystitis, left renal obstruction due to obstructing calculus in the mid left ureter there) Sono Radiology: EMP read contemporaneously (Cholecystitis, normal bile duct) PD MEDICAL DECISION MAKING - ED course ED course: 54-year-old gentleman with history of severe Crohn's on immunosuppressants presents with epigastric pain that he thought was musculoskeletal. Started before upper and lower endoscopies which were done yesterday. CT concerning for cholecystitis, also probably a chronic left renal obstruction from a stone. Confirmed on ultrasound without evidence of common bile duct dilatation. Case discussed by phone with Dr. Webb the surgeon here who felt that given his comorbidities, history of complicated surgeries, renal insufficiency he would be better served at a tertiary facility and after discussion with the patient a call was placed to [facility] at about 5:07 PM. He was administered Cipro. He declined Flagyl noting previous side effects. Spoke with the hospitalist at 1743, deferred to the surgery team for admit. Accepted by Dr. Boo, the surgeon to [facility] at 5:57 PM. Cobras were completed. He is stable to transport for higher level of care given his complicated nature. Departure - Departure Disposition: 02 Transfer Acute Care Hosp Clinical Impression: Cholecystitis, Elevated serum creatinine, Ureteral obstruction, left Condition: Serious
[2019-05-09 14:57] LABS: BASOPHILS % (AUTO) 0.2 %; EOSINOPHILS % (AUTO) 0.4 %; HGB - HEMOGLOBIN 11.1 g/dL (14.0-18.0); LYMPHOCYTES # (AUTO) 0.9 10^3/uL (1.5-3.5); LYMPHOCYTES % (AUTO) 10.2 %; MEAN CORPUSCULAR HEMOGLOBIN 27.7 pg (27.0-31.0); MEAN CORPUSCULAR HGB CONC 31.3 g/dL (32.0-36.0); MEAN CORPUSCULAR VOLUME 88.5 fL (80.0-94.0); MEAN PLATELET VOLUME 8.9 fL (7.4-11.4); MONOCYTES # (AUTO) 1.1 10^3/uL (0.0-1.0); MONOCYTES % (AUTO) 12.1 %; NEUTROPHILS % (AUTO) 76.7 %; PLT - PLATELET COUNT 150 10^3/uL (130-450); RED BLOOD COUNT 4.01 10^6/uL (4.70-6.10); RED CELL DISTRIBUTION WIDTH 15.3 % (12.0-15.0); WHITE BLOOD COUNT 9.2 x10^3/uL (4.8-10.8)
[2019-05-09 15:10] LABS: ALBUMIN 4.1 g/dL (3.2-5.5); ALBUMIN/GLOBULIN RATIO 0.9 (1.0-2.2); BILIRUBIN,TOTAL 1.8 mg/dL (0.2-1.0); CALCIUM 9.3 mg/dL (8.5-10.3); CREATININE 2.2 mg/dL (0.6-1.2); MAGNESIUM 1.9 mg/dL (1.7-2.8); TOTAL PROTEIN 8.6 g/dL (6.7-8.2)
--- NOTE | 2019-05-09 15:59 | CT Report ---
Reason: Post c scope pain Procedure Date: 05/09/2019 Accession Number: [id number] / [id number] Procedure: CT - Abdomen/Pelvis WO CPT Code: Final Report FULL RESULT: EXAM: CT ABDOMEN AND PELVIS EXAM DATE: 05/09/2019 03:18 PM. CLINICAL HISTORY: History of Crohn's. Recent colonoscopy. Upper abdominal pain inferior to sternum today. COMPARISONS: None. TECHNIQUE: Routine helical CT imaging was performed through the abdomen and pelvis. IV contrast: None. Enteric contrast: No. Reconstructions: Coronal and sagittal. In accordance with CT protocol optimization, one or more of the following dose reduction techniques were utilized for this exam: automated exposure control, adjustment of mA and/or KV based on patient size, or use of iterative reconstructive technique. FINDINGS: Lung Bases: Unremarkable. Liver: Normal. No masses. Gallbladder/Bile Ducts: Gallbladder is markedly distended and demonstrates cholelithiasis. A few calcifications are seen in the region of the pancreatic head near the displaced second duodenum, choledocholithiasis would be difficult to exclude. Spleen: Mild splenomegaly, 13 cm. Pancreas: Atrophied and calcified, chronic pancreatitis. Adrenal Glands: Normal. Kidneys: Nonobstructing right lower pole calculus, 1.1 cm. 3 mm nonobstructing left lower pole calculus with moderate left-sided hydronephrosis due to 1.3 cm obstructing calculi in the left ureter with partial atrophy of the left kidney, presumed to be known and chronic. Peritoneal Cavity/Bowel: The patient is status post partial ascending colectomy as well as partial small bowel section. There is focal fat stranding near the surgical bed. Small amount of fluid is seen near the inferior margin of the liver without surrounding stranding, appearances subcapsular 2.7 x 4.0 cm on image 25/5. No large quantity of free fluid. No extraintestinal gas. No bowel obstruction. Pelvic Organs: Bladder is within normal limits. Vasculature: No aneurysms or other significant abnormality. Bones: No significant abnormality. Other: None. IMPRESSION: Markedly distended gallbladder with surrounding stranding. Potentially chronic left renal obstruction at the mid ureter due to obstructing calculi as above. RADIA The call report notification system was initiated by Dr. Amos Valencia at 03:49 PM on 05/09/2019. The above call report findings were discussed with Sai Cramer by Dr. Amos Valencia at 03:54 PM on 05/09/2019.
--- NOTE | 2019-05-09 16:40 | Ultrasound Report ---
Reason: upper abd pain Procedure Date: 05/09/2019 Accession Number: [id number] / [id number] Procedure: US - Abdomen Limited CPT Code: Final Report FULL RESULT: EXAM: ABDOMEN ULTRASOUND LIMITED, RUQ EXAM DATE: 05/09/2019 04:28 PM. CLINICAL HISTORY: Upper abd pain. COMPARISON: ABDOMEN/PELVIS W/O 05/09/2019 3:13 PM. TECHNIQUE: Real-time scanning was performed with static images obtained. FINDINGS: Liver: Coarse liver parenchyma. No definite mass. Normal overall size, 17.2 cm. Main portal vein flow: Hepatopetal. Gallbladder: Distended, with sludge, stones, wall thickening measuring 4.1 mm, small amounts of pericholecystic fluid, and localized tenderness over the gallbladder. Biliary System: CBD measures 6 mm. No intrahepatic or extrahepatic ductal dilatation. Other: Right kidney with nonobstructing stone measuring 5 mm. No hydronephrosis. Pancreas not well seen. IMPRESSION: 1. Cholelithiasis with associated findings of cholecystitis. 2. Coarse liver parenchyma, nonobstructing right renal stone. RADIA
[2019-05-09] MEDS ORDERED: CIPROFLOXACIN 400 MG/200 ML 200 ML IV ONE (17:04)
[2019-05-09] MEDS ORDERED: HYDROmorphone 2 MG/ML VIAL IVP STA (17:04)
[2019-05-09] MEDS ORDERED: ONDANSETRON 4 MG/2 ML VIAL IVP STA (18:03)
[2019-05-09 20:21] VITALS: BP 116/74
== END 2019-05-09 20:48 | disposition short-term general hospital (02) ==
LOC: ED 14:14
DX: N13.2 Hydronephrosis with renal and ureteral calculous obstruction (principal); K80.10 Calculus of gallbladder with chronic cholecystitis without obstruction; R79.89 Other specified abnormal findings of blood chemistry; N18.9 Chronic kidney disease, unspecified; K50.90 Crohn's disease, unspecified, without complications; Z79.899 Other long term (current) drug therapy
CPT/HCPCS: 36415; 74176; 76705; 80053; 83690; 83735; 84484; 85025; 93005; 96365; 96375; 96376; 99284; 99285; J1170

== ENCOUNTER 2019-05-09 20:48 | Outpatient (CLI) | payer MEDICARE, BC | END 2019-05-09 20:49 | disposition short-term general hospital (02) | LOC: EMS 20:48 | PROVIDERS: ATTEND Surgery | DX: K80.10 Calculus of gallbladder with chronic cholecystitis without obstruction (principal); K50.90 Crohn's disease, unspecified, without complications | CPT/HCPCS: A0425; A0426 ==

== ENCOUNTER 2019-08-25 08:00 | Outpatient (CLI) | payer MEDICARE, BC | END 2019-08-25 23:59 | disposition home or self-care (01) | LOC: LAB.R 08:00 | PROVIDERS: ATTEND Physician Assistant | DX: T81.43XA Infection following a procedure, organ and space surgical site, initial encounter (principal) | CPT/HCPCS: 81599; 87070; 87075; 87147; 87186; 87205 ==

== ENCOUNTER 2019-09-18 10:04 | Outpatient (CLI) | payer MEDICARE, BC ==
[2019-09-18 10:47] LABS: ALBUMIN 3.6 g/dL (3.2-5.5); BILIRUBIN,TOTAL 0.7 mg/dL (0.2-1.0); CREATININE 2.5 mg/dL (0.6-1.2); TOTAL PROTEIN 7.3 g/dL (6.7-8.2)
[2019-09-18 10:54] LABS: CALCIUM 5.7 mg/dL (8.5-10.3); MAGNESIUM 0.4 mg/dL (1.7-2.8)
== END 2019-09-18 10:05 | disposition home or self-care (01) ==
LOC: LAB 10:04
PROVIDERS: ATTEND Internal Medicine
DX: R19.7 Diarrhea, unspecified (principal); E83.42 Hypomagnesemia; E83.51 Hypocalcemia; K50.90 Crohn's disease, unspecified, without complications; Z79.2 Long term (current) use of antibiotics
CPT/HCPCS: 36415; 80053; 83735; 87493

== ENCOUNTER 2019-09-18 14:35 | Emergency (ER) | payer MEDICARE, BC ==
--- NOTE | 2019-09-18 14:51 | ED Physician Documentation ---
History of Present Illness - Stated complaint Stated Complaint: TINGLING IN HANDS / FACE - Chief complaint Chief Complaint: General - History obtained from History obtained from: Patient (This is a very pleasant 54-year-old gentleman with longstanding Crohn's disease. To some extent your has some dumping and has chronic renal insufficiency from same. He had a routine lab draw this morning that he looked up on the patient portal notable for a potassium of 2.9, chloride 121, bicarb of 12, calcium 5.7, magnesium 0.4. He has not heard from his physician yet but was thinking he should probably come in and get this treated. Of note he has had similar electrolyte abnormalities in the past and says he does not feel as bad as he usually does with such significant abnormalities and as such did not want to be hospitalized.) Review of Systems Constitutional: denies: Fever, Chills, Myalgias, Fatigue GI: reports: Diarrhea (No worse than normal). denies: Abdominal Pain, Nausea, Vomiting PD PAST MEDICAL HISTORY - Past Medical History Cardiovascular: None Respiratory: None Neuro: None Endocrine/Autoimmune: None GI: Crohn's disease : None HEENT: None Psych: None Musculoskeletal: None Derm: None - Past Surgical History Past Surgical History: No General: Other HEENT: Detached retina repair - Present Medications Home Medications: Ambulatory Orders Medication Instructions Recorded Confirmed Magnesium Oxide [Mag Ox] 400 mg PO DAILY #30 tablet 03/26/18 09/17/19 Calcium Citrate/Vitamin D3 5 ml PO QID #600 ml 02/19/19 09/17/19 [Calcium Citrate-Vitamin D3 Liq] Calcium Citrate 3,000 mg PO BID 09/17/19 09/17/19 Potassium Chloride 10 meq PO DAILY 09/17/19 09/17/19 - Allergies Allergies/Adverse Reactions: Allergies Allergy/AdvReac Type Severity Reaction Status Date / Time No Known Drug Allergies Allergy Verified 09/17/19 16:07 - Social History Does the pt smoke?: No Smoking Status: Never smoker Does the pt drink ETOH?: Yes Does the pt have substance abuse?: Yes - Immunizations Immunizations are current?: Yes - POLST Patient has POLST: No PD ED PE NORMAL - Vitals Vital signs reviewed: Yes - General General: Alert and oriented X 3, No acute distress - HEENT HEENT: PERRL, EOMI - Neck Neck: Supple, no meningeal sign, No bony TTP - Cardiac Cardiac: RRR, No murmur - Abdomen Abdomen: Non tender - Neuro Neuro: Alert and oriented X 3, Normal speech Results - Vitals Vitals: Vital Signs - 24 hr 09/18/19 09/18/19 09/18/19 14:39 16:03 16:44 Temperature 36.4 C L Heart Rate 68 69 67 Respiratory 17 16 16 Rate Blood Pressure 123/74 113/82 H 113/82 H O2 Saturation 100 97 100 Oxygen O2 Source Room air PD MEDICAL DECISION MAKING - ED course ED course: 54-year-old gentleman with chronic electrolyte abnormalities presents with a worsening of same due to an increase in diarrhea recently and had outpatient labs notable for significant hypokalemia, hypomagnesemia, hyperchloremia. In the emergency department he received 1 L of D5 with 3 A of sodium bicarbonate and 20 mEq of potassium, 4 g of magnesium sulfate and 2 g of calcium gluconate. His electrolyte abnormalities are profound and I recommended hospitalization. He did not want to be hospitalized so we compromised and he will return to the department tomorrow for recheck of his labs. Departure - Departure Disposition: 01 Home, Self Care Clinical Impression: Hypomagnesemia, Hypocalcemia, Electrolyte and fluid disorder, Elevated serum creatinine, Dehydration Condition: Good Instructions: ED Dehydration Comments: Return tomorrow for repeat labs, sooner if feeling more symptomatic or worsenin g.
[2019-09-18] MEDS ORDERED: DEXTROSE 5% IV ONE (14:52)
[2019-09-18] MEDS ORDERED: POTASSIUM CHLORIDE IV ONE (14:52)
[2019-09-18] MEDS ORDERED: SODIUM BICARBONATE IV ONE (14:52)
[2019-09-18] MEDS ORDERED: CALCIUM GLUCONATE 2,000 MG in SODIUM CHLORIDE 0.9% 100ML 100 ML IV STA (14:53)
[2019-09-18] MEDS ORDERED: MAGNESIUM SULFATE 2 GRAM 2 GM/50 ML BAG IV ONE ×2 (14:53)
[2019-09-18 17:47] VITALS: BP 111/78
== END 2019-09-18 18:12 | disposition home or self-care (01) ==
LOC: ED 14:35
DX: E86.0 Dehydration (principal); E87.6 Hypokalemia; E83.42 Hypomagnesemia; E87.8 Other disorders of electrolyte and fluid balance, not elsewhere classified; R79.89 Other specified abnormal findings of blood chemistry; N18.9 Chronic kidney disease, unspecified; K50.90 Crohn's disease, unspecified, without complications; R19.7 Diarrhea, unspecified; E83.51 Hypocalcemia; Z79.2 Long term (current) use of antibiotics
CPT/HCPCS: 36415; 80053; 83735; 87493; 96365; 96366; 96368; 99283

== ENCOUNTER 2019-09-19 10:29 | Emergency (ER) | payer MEDICARE, BC ==
[2019-09-19 11:25] LABS: BASOPHILS % (AUTO) 0.5 %; EOSINOPHILS # (AUTO) 0.1 10^3/uL (0.0-0.7); EOSINOPHILS % (AUTO) 1.7 %; HGB - HEMOGLOBIN 9.1 g/dL (14.0-18.0); LYMPHOCYTES # (AUTO) 1.3 10^3/uL (1.5-3.5); LYMPHOCYTES % (AUTO) 18.8 %; MEAN CORPUSCULAR HEMOGLOBIN 29.8 pg (27.0-31.0); MEAN CORPUSCULAR VOLUME 90.5 fL (80.0-94.0); MEAN PLATELET VOLUME 9.3 fL (7.4-11.4); MONOCYTES # (AUTO) 0.4 10^3/uL (0.0-1.0); MONOCYTES % (AUTO) 6.6 %; NEUTROPHILS # (AUTO) 4.8 10^3/uL (1.5-6.6); NEUTROPHILS % (AUTO) 71.8 %; PLT - PLATELET COUNT 115 10^3/uL (130-450); RED BLOOD COUNT 3.05 10^6/uL (4.70-6.10); RED CELL DISTRIBUTION WIDTH 20.9 % (12.0-15.0); WHITE BLOOD COUNT 6.6 x10^3/uL (4.8-10.8)
[2019-09-19 11:38] LABS: ALBUMIN 3.6 g/dL (3.2-5.5); BILIRUBIN,TOTAL 0.7 mg/dL (0.2-1.0); CALCIUM 6.7 mg/dL (8.5-10.3); CREATININE 2.3 mg/dL (0.6-1.2); TOTAL PROTEIN 7.2 g/dL (6.7-8.2)
[2019-09-19 11:49] LABS: PLATELET ESTIMATE, MANUAL DECREASED (<130,000) (NORMAL); PLATELET MORPHOLOGY NORMAL APPEARANCE (NORMAL); RBC MORPHOLOGY (MULTIPLE) 2+ ANISOCYTOSIS (NORMAL)
[2019-09-19] MEDS ORDERED: SODIUM CHLORIDE 0.9% 1,000 ML IV ONE (12:19)
[2019-09-19] MEDS ORDERED: CALCIUM GLUCONATE 1,000 MG in SODIUM CHLORIDE 0.9% 50 ML IV STA (12:20)
[2019-09-19] MEDS ORDERED: POTASSIUM CHLOR 10 MEQ/100 ML 10 MEQ/100 ML BAG IV ONE (12:20)
[2019-09-19] MEDS ORDERED: MAGNESIUM SULFATE 2 GRAM 2 GM/50 ML BAG IV ONE (12:20)
--- NOTE | 2019-09-19 12:23 | ED Physician Documentation ---
History of Present Illness - Stated complaint Stated Complaint: FOLLOW UP - Chief complaint Chief Complaint: General - History obtained from History obtained from: Patient - History of Present Illness Timing: Yesterday - Additonal information Additional information: 54-year-old male with a history of Crohn's disease has chronic diarrhea and periodically have electrolyte abnormalities requiring intravenous infusions. He was here in the emergency department yesterday with symptoms his symptoms generally consist of tingling in his fingers his potassium calcium and magnesium were all low. He was given calcium and magnesium as well as D5 and bicarbonate. He has complete resolution of his symptoms feels well today has come back at the insistence of the prior physician for repeat of his labs. On discussion with the patient today his values he would like further IV infusion. It is not currently ill beyond his usual. Review of Systems Constitutional: denies: Fever Eyes: denies: Decreased vision Ears: denies: Ear pain Nose: denies: Congestion Throat: denies: Sore throat Cardiac: denies: Chest pain / pressure, Palpitations Respiratory: denies: Dyspnea, Cough GI: reports: Diarrhea. denies: Abdominal Pain, Nausea, Vomiting : denies: Dysuria, Frequency Skin: denies: Rash Musculoskeletal: denies: Neck pain, Back pain, Extremity pain Neurologic: denies: Generalized weakness, Focal weakness, Numbness PD PAST MEDICAL HISTORY - Past Medical History Cardiovascular: None Respiratory: None Neuro: None Endocrine/Autoimmune: None GI: Crohn's disease : None HEENT: None Psych: None Musculoskeletal: None Derm: None - Past Surgical History Past Surgical History: No General: Other HEENT: Detached retina repair - Present Medications Home Medications: Ambulatory Orders Medication Instructions Recorded Confirmed Magnesium Oxide [Mag Ox] 400 mg PO DAILY #30 tablet 03/26/18 09/17/19 Calcium Citrate/Vitamin D3 5 ml PO QID #600 ml 02/19/19 09/17/19 [Calcium Citrate-Vitamin D3 Liq] Calcium Citrate 3,000 mg PO BID 09/17/19 09/17/19 Potassium Chloride 10 meq PO DAILY 09/17/19 09/17/19 - Allergies Allergies/Adverse Reactions: Allergies Allergy/AdvReac Type Severity Reaction Status Date / Time No Known Drug Allergies Allergy Verified 09/19/19 10:44 - Social History Does the pt smoke?: No Smoking Status: Never smoker Does the pt drink ETOH?: Yes Does the pt have substance abuse?: Yes - Immunizations Immunizations are current?: Yes - POLST Patient has POLST: No PD ED PE NORMAL - Vitals Vital signs reviewed: Yes (hyopertensive mild) - General General: Alert and oriented X 3, No acute distress, Well developed/nourished - HEENT HEENT: Atraumatic, PERRL, EOMI - Neck Neck: Supple, no meningeal sign, No bony TTP - Cardiac Cardiac: RRR, No murmur - Respiratory Respiratory: No respiratory distress, Clear bilaterally - Abdomen Abdomen: Normal bowel sounds, Soft, Non tender, Non distended, No organomegaly, Other (well healed surgical scars. ) - Back Back: No CVA TTP - Derm Derm: Normal color, No rash - Extremities Extremities: No deformity, No edema, No calf tenderness / cord - Neuro Neuro: Alert and oriented X 3, research management associate 2-12 intact, No motor deficit, No sensory deficit, Normal speech Eye Opening: Spontaneous Motor: Obeys Commands Verbal: Oriented GCS Score: 15 - Psych Psych: Normal mood, Normal affect Results - Vitals Vitals: Vital Signs - 24 hr 09/19/19 10:35 Temperature 35.9 C L Heart Rate 68 Respiratory 16 Rate Blood Pressure 114/82 H O2 Saturation 100 Oxygen O2 Source Room air - Labs Labs: Laboratory Tests 09/19/19 09/19/19 11:00 11:00 WBC 6.6 RBC 3.05 L Hgb 9.1 L Hct 27.6 L MCV 90.5 MCH 29.8 MCHC 33.0 RDW 20.9 H Plt Count 115 L MPV 9.3 Neut # (Auto) 4.8 Lymph # (Auto) 1.3 L [place] # (Auto) 0.4 Eos # (Auto) 0.1 Baso # (Auto) 0.0 Absolute Nucleated RBC 0.00 Nucleated RBC % 0.0 Manual Slide Review Indicated Platelet Estimate DECREASED (<130,000) Platelet Morphology NORMAL APPEARANCE RBC Morph Micro Appear 2+ ANISOCYTOSIS Sodium 142 Potassium 2.9 L Chloride 119 H Carbon Dioxide 14 L Anion Gap 9.0 BUN 18 Creatinine 2.3 H Estimated GFR (MDRD) 30 L Glucose 115 H Calcium 6.7 L Total Bilirubin 0.7 AST 55 H ALT 42 Alkaline Phosphatase 537 H Total Protein 7.2 Albumin 3.6 Globulin 3.6 Albumin/Globulin Ratio 1.0 Lipase 29 PD MEDICAL DECISION MAKING - ED course Complexity details: reviewed old records, reviewed results, re-evaluated patient, considered differential, d/w patient ED course: 54-year-old male with Crohn's electrolyte abnormalities returns to the emergency department today for reevaluation and he continues to have low calcium and bicarbonate as well as potassium. He is administered calcium gluconate intravenously as well as magnesium potassium and bicarbonate. Departure - Departure Disposition: 01 Home, Self Care Clinical Impression: Electrolyte and fluid disorder Condition: Stable Instructions: Electrolytes Follow-Up: DONOVAN SOUZA PA-C [Primary Care Provider] - Stella Cunningham MD [Provider Admit Priv/Credential] -
[2019-09-19] MEDS ORDERED: SODIUM BICARBONATE 100 MEQ in DEXTROSE 5% 1,000 ML IV STA (12:25)
[2019-09-19] MEDS ORDERED: SODIUM BICARBONATE 8.4% 50 MEQ/50 ML VIAL ONE (12:31)
[2019-09-19 15:14] VITALS: BP 111/74
== END 2019-09-19 15:10 | disposition home or self-care (01) ==
LOC: ED 10:29
DX: E87.6 Hypokalemia (principal); E83.42 Hypomagnesemia; E83.51 Hypocalcemia; E87.8 Other disorders of electrolyte and fluid balance, not elsewhere classified; K50.90 Crohn's disease, unspecified, without complications
CPT/HCPCS: 36415; 80053; 83690; 85025; 96374; 96375; 99284; J7040

== ENCOUNTER 2019-10-01 11:01 | Outpatient (CLI) | payer MEDICARE, BC ==
[2019-10-01 11:27] LABS: ALBUMIN 3.4 g/dL (3.2-5.5); ALBUMIN/GLOBULIN RATIO 0.9 (1.0-2.2); BILIRUBIN,TOTAL 0.7 mg/dL (0.2-1.0); CALCIUM 7.4 mg/dL (8.5-10.3); CREATININE 2.3 mg/dL (0.6-1.2); TOTAL PROTEIN 7.2 g/dL (6.7-8.2)
[2019-10-01 11:32] LABS: MAGNESIUM 0.8 mg/dL (1.7-2.8)
== END 2019-10-01 11:02 | disposition home or self-care (01) ==
LOC: LAB 11:01
PROVIDERS: ATTEND Internal Medicine
DX: E83.42 Hypomagnesemia (principal); E83.51 Hypocalcemia; K50.90 Crohn's disease, unspecified, without complications
CPT/HCPCS: 36415; 80053; 83735

== ENCOUNTER 2019-10-13 12:00 | Emergency (ER) | payer MEDICARE, BC ==
[2019-10-13 13:14] LABS: BASOPHILS % (AUTO) 0.4 %; EOSINOPHILS # (AUTO) 0.1 10^3/uL (0.0-0.7); HGB - HEMOGLOBIN 10.7 g/dL (14.0-18.0); LYMPHOCYTES # (AUTO) 1.6 10^3/uL (1.5-3.5); LYMPHOCYTES % (AUTO) 21.2 %; MEAN CORPUSCULAR HEMOGLOBIN 29.7 pg (27.0-31.0); MEAN CORPUSCULAR HGB CONC 31.1 g/dL (32.0-36.0); MEAN CORPUSCULAR VOLUME 95.6 fL (80.0-94.0); MEAN PLATELET VOLUME 8.4 fL (7.4-11.4); MONOCYTES # (AUTO) 0.5 10^3/uL (0.0-1.0); MONOCYTES % (AUTO) 5.9 %; NEUTROPHILS # (AUTO) 5.5 10^3/uL (1.5-6.6); NEUTROPHILS % (AUTO) 70.9 %; PLT - PLATELET COUNT 103 10^3/uL (130-450); RED CELL DISTRIBUTION WIDTH 16.7 % (12.0-15.0); WHITE BLOOD COUNT 7.7 x10^3/uL (4.8-10.8)
[2019-10-13 13:28] LABS: ALBUMIN 3.4 g/dL (3.2-5.5); ALBUMIN/GLOBULIN RATIO 0.9 (1.0-2.2); BILIRUBIN,TOTAL 0.5 mg/dL (0.2-1.0); CALCIUM 7.1 mg/dL (8.5-10.3); CREATININE 2.3 mg/dL (0.6-1.2)
[2019-10-13] MEDS ORDERED: MAGNESIUM SULFATE 2 GRAM 2 GM/50 ML BAG IV ONE ×2 (13:51→13:52)
[2019-10-13] MEDS ORDERED: CALCIUM GLUCONATE 1,000 MG in SODIUM CHLORIDE 0.9% 50 ML IV STA (13:59)
--- NOTE | 2019-10-13 14:01 | ED Physician Documentation ---
History of Present Illness - Stated complaint Stated Complaint: TINGLING HANDS/FEET - Chief complaint Chief Complaint: General - History obtained from History obtained from: Patient (54-year-old gentleman with chronic recurrent electrolyte abnormalities from Crohn's disease presents with tingling hands similar to prior episodes of electrolyte abnormalities particularly hypomagnesemia.) Review of Systems Constitutional: reports: Reviewed and negative Cardiac: reports: Reviewed and negative Respiratory: reports: Reviewed and negative PD PAST MEDICAL HISTORY - Past Medical History Cardiovascular: None Respiratory: None Neuro: None Endocrine/Autoimmune: None GI: Crohn's disease : None HEENT: None Psych: None Musculoskeletal: None Derm: None - Past Surgical History Past Surgical History: No General: Other HEENT: Detached retina repair - Present Medications Home Medications: Ambulatory Orders Medication Instructions Recorded Confirmed Magnesium Oxide [Mag Ox] 400 mg PO DAILY #30 tablet 03/26/18 09/17/19 Calcium Citrate/Vitamin D3 5 ml PO QID #600 ml 02/19/19 09/17/19 [Calcium Citrate-Vitamin D3 Liq] Calcium Citrate 3,000 mg PO BID 09/17/19 09/17/19 Potassium Chloride 10 meq PO DAILY 09/17/19 09/17/19 Magnesium Oxide 2 tab PO TID #120 tablet 10/13/19 - Allergies Allergies/Adverse Reactions: Allergies Allergy/AdvReac Type Severity Reaction Status Date / Time No Known Drug Allergies Allergy Verified 10/13/19 12:32 - Social History Does the pt smoke?: No Smoking Status: Never smoker Does the pt drink ETOH?: Yes Does the pt have substance abuse?: Yes - Immunizations Immunizations are current?: Yes - POLST Patient has POLST: No PD ED PE NORMAL - Vitals Vital signs reviewed: Yes - General General: Alert and oriented X 3, No acute distress - Derm Derm: Normal color, Warm and dry - Extremities Extremities: No edema, No calf tenderness / cord - Neuro Neuro: Alert and oriented X 3, No motor deficit, No sensory deficit, Normal speech - Psych Psych: Normal mood, Normal affect Results - Vitals Vitals: Vital Signs - 24 hr 10/13/19 12:32 Temperature 36.5 C Heart Rate 75 Respiratory 14 Rate Blood Pressure 123/86 H O2 Saturation 100 Oxygen O2 Source Room air - Labs Labs: Laboratory Tests 10/13/19 10/13/19 10/13/19 13:05 13:05 13:05 WBC 7.7 RBC 3.60 L Hgb 10.7 L Hct 34.4 L MCV 95.6 H MCH 29.7 MCHC 31.1 L RDW 16.7 H Plt Count 103 L MPV 8.4 Neut # (Auto) 5.5 Lymph # (Auto) 1.6 [place] # (Auto) 0.5 Eos # (Auto) 0.1 Baso # (Auto) 0.0 Absolute Nucleated RBC 0.00 Nucleated RBC % 0.0 Sodium 141 Potassium 4.0 Chloride 114 H Carbon Dioxide 20 L Anion Gap 7.0 BUN 18 Creatinine 2.3 H Estimated GFR (MDRD) 30 L Glucose 131 H Calcium 7.1 L Magnesium 0.7 L* Total Bilirubin 0.5 AST 22 ALT 15 Alkaline Phosphatase 421 H Total Protein 7.0 Albumin 3.4 Globulin 3.6 Albumin/Globulin Ratio 0.9 L Lipase 26 PD MEDICAL DECISION MAKING - ED course ED course: This is a gentleman with well-known and recurrent significant electrolyte abnormalities presents today with severe hypomagnesemia and modest hypocalcemia. Potassium is okay. He is administered 4 g of magnesium sulfate and 1 g of calcium gluconate IV. Departure - Departure Disposition: 01 Home, Self Care Clinical Impression: Hypocalcemia, Electrolyte and fluid disorder, Hypomagnesemia Condition: Stable Record reviewed to determine appropriate education?: Yes Instructions: Electrolytes Prescriptions: Magnesium Oxide 2 tab PO TID #120 tablet Comments: I would substitute the higher dose magnesium oxide supplements for the [id number] when you are taking. Continue your calcium supplementation. Follow-up with the test tech as scheduled. Return for new or worsening symptoms.
[2019-10-13 15:40] VITALS: BP 118/74
[2019-10-13 16:17] LABS: BILIRUBIN,URINE NEGATIVE (NEGATIVE); GLUCOSE, URINE (UA) NEGATIVE (NEGATIVE); KETONES,URINE (UA) NEGATIVE (NEGATIVE); LEUKOCYTE ESTERASE, URINE NEGATIVE (NEGATIVE); NITRITE,URINE NEGATIVE (NEGATIVE); OCCULT BLOOD,URINE TRACE-INTA (NEGATIVE); PH,URINE 5.5 PH (5.0-7.5); PROTEIN,URINE TRACE mg/dL (NEGATIVE); UROBILINOGEN,URINE 0.2 (NORMAL) E.U./dL (NORMAL)
[2019-10-13 16:25] LABS: CLARITY,URINE CLEAR (CLEAR)
== END 2019-10-13 15:45 | disposition home or self-care (01) ==
LOC: ED 12:00
DX: E83.51 Hypocalcemia (principal); E83.42 Hypomagnesemia; K50.90 Crohn's disease, unspecified, without complications
CPT/HCPCS: 36415; 80053; 81003; 83690; 83735; 85025; 96365; 96367; 99283; 99284; J7040; 81001; 87086

== ENCOUNTER 2019-10-21 11:38 | Outpatient (CLI) | payer MEDICARE, BC ==
[2019-10-21 12:09] LABS: CREATININE,URINE 210.4 mg/dL; PROTEIN/CREATININE RATIO,URINE 0.6 (<=0.2)
== END 2019-10-21 11:39 | disposition home or self-care (01) ==
LOC: LAB 11:38
PROVIDERS: ATTEND Internal Medicine Nephrology
DX: D70.9 Neutropenia, unspecified (principal); R80.9 Proteinuria, unspecified; D63.1 Anemia in chronic kidney disease; N18.9 Chronic kidney disease, unspecified
CPT/HCPCS: 82570; 84156

== ENCOUNTER 2019-11-26 07:00 | Outpatient (CLI) | payer MEDICARE, BC | END 2019-11-26 23:59 | disposition home or self-care (01) | LOC: LAB.R 07:00 | PROVIDERS: ATTEND Physician Assistant | DX: K65.1 Peritoneal abscess (principal); T81.42XD Infection following a procedure, deep incisional surgical site, subsequent encounter | CPT/HCPCS: 87070; 87075; 87181; 87205 ==

== ENCOUNTER 2019-11-29 14:44 | Emergency (ER) | payer MEDICARE, BC ==
[2019-11-29] MEDS ORDERED: MAGNESIUM SULFATE 2 GRAM 2 GM/50 ML BAG IV ONE ×2 (15:03→15:44)
--- NOTE | 2019-11-29 15:14 | ED Physician Documentation ---
History of Present Illness - Stated complaint Stated Complaint: TINGLING HANDS/LIPS - Chief complaint Chief Complaint: General - History obtained from History obtained from: Patient - History of Present Illness Timing: Today Pain level max: 0 Pain level now: 0 - Additonal information Additional information: 54-year-old male with a history of Crohn's disease, has recurrent hypomagnesemia, hypocalcemia and often other electrolyte abnormalities. Having tingling in his hands and lips again. Nothing makes it better or worse. No fevers. No recent trauma. Review of Systems Ten Systems: 10 systems reviewed and negative Constitutional: denies: Fever, Chills Respiratory: denies: Cough GI: reports: Diarrhea (Chronic and unchanged). denies: Nausea, Vomiting, Hematemesis, Bloody / black stool Skin: denies: Rash Musculoskeletal: denies: Neck pain, Back pain Neurologic: denies: Headache PD PAST MEDICAL HISTORY - Past Medical History Cardiovascular: None Respiratory: None Neuro: None Endocrine/Autoimmune: None GI: Crohn's disease : None HEENT: None Psych: None Musculoskeletal: None Derm: None - Past Surgical History Past Surgical History: Yes General: Other HEENT: Detached retina repair - Present Medications Home Medications: Ambulatory Orders Medication Instructions Recorded Confirmed Calcium Citrate/Vitamin D3 5 ml PO QID #600 ml 02/19/19 09/17/19 [Calcium Citrate-Vitamin D3 Liq] Calcium Citrate 3,000 mg PO BID 09/17/19 09/17/19 Potassium Chloride 10 meq PO DAILY 09/17/19 09/17/19 Magnesium Oxide 2 tab PO TID #120 tablet 10/13/19 Colestipol HCl 1 gm ORAL DAILY 11/12/19 11/12/19 Ergocalciferol (Vitamin D2) 1 cap ORAL DAILY 11/12/19 11/12/19 [Vitamin D2] Lipase/Protease/Amylase [Creon Dr 1 tab ORAL DAILY 11/12/19 11/12/19 12,000 Units Capsule] Magnesium Oxide [Mag Ox] 1,200 mg PO TID 11/12/19 11/12/19 Mirtazapine 45 mg ORAL DAILY 11/12/19 11/12/19 Pantoprazole Sodium [Protonix] 40 mg PO DAILY 11/12/19 11/12/19 Potassium Citrate/Citric Acid 10 ml ORAL BID 11/12/19 11/12/19 [Potassium Cit-Citric Acid Soln] Zolpidem Tartrate 10 mg ORAL DAILY 11/12/19 11/12/19 - Allergies Allergies/Adverse Reactions: Allergies Allergy/AdvReac Type Severity Reaction Status Date / Time No Known Drug Allergies Allergy Verified 11/29/19 14:49 - Social History Does the pt smoke?: No Smoking Status: Never smoker Does the pt drink ETOH?: Yes Does the pt have substance abuse?: Yes - Immunizations Immunizations are current?: Yes - POLST Patient has POLST: No PD ED PE NORMAL - Vitals Vital signs reviewed: Yes - General General: Alert and oriented X 3, No acute distress - HEENT HEENT: PERRL, Moist mucous membranes - Neck Neck: Supple, no meningeal sign - Cardiac Cardiac: RRR, Strong equal pulses - Respiratory Respiratory: No respiratory distress, Clear bilaterally - Abdomen Abdomen: Soft, Non tender, Non distended - Derm Derm: Warm and dry - Extremities Extremities: No edema - Neuro Neuro: Alert and oriented X 3, mosaic technician 2-12 intact, No motor deficit, No sensory deficit - Psych Psych: Normal mood, Normal affect Results - Vitals Vitals: Vital Signs - 24 hr 11/29/19 11/29/19 11/29/19 14:49 15:52 17:00 Temperature 36.2 C L Heart Rate 78 75 72 Respiratory 18 16 16 Rate Blood Pressure 92/60 101/65 111/68 O2 Saturation 100 100 100 11/29/19 18:51 Temperature 36.8 C Heart Rate 55 L Respiratory 16 Rate Blood Pressure 109/65 O2 Saturation 100 Oxygen O2 Source Room air - Labs Labs: Laboratory Tests 11/29/19 11/29/19 11/29/19 15:27 15:27 15:27 WBC 10.4 RBC 3.28 L Hgb 10.1 L Hct 31.2 L MCV 95.1 H MCH 30.8 MCHC 32.4 RDW 16.0 H Plt Count 106 L MPV 9.2 Neut # (Auto) 7.3 H Lymph # (Auto) 2.2 [place] # (Auto) 0.6 Eos # (Auto) 0.2 Baso # (Auto) 0.0 Absolute Nucleated RBC 0.00 Nucleated RBC % 0.0 VBG pH 7.242 L Ionized Calcium 0.85 L Sodium 139 Potassium 3.6 Chloride 114 H Carbon Dioxide 16 L Anion Gap 9.0 BUN 19 Creatinine 2.3 H Estimated GFR (MDRD) 30 L Glucose 90 Calcium 6.0 L* Phosphorus 2.8 Magnesium 0.4 L* Total Bilirubin 0.5 AST 21 ALT 17 Alkaline Phosphatase 426 H Total Protein 7.1 Albumin 3.5 Globulin 3.6 Albumin/Globulin Ratio 1.0 Lipase 33 PD MEDICAL DECISION MAKING - ED course Complexity details: reviewed old records, reviewed results, re-evaluated patient, considered differential, d/w patient ED course: 54 year old male with hypomagnesemia, hypocalcemia. These were both replaced. Symptoms resolved. This is a chronic condition for the patient. He does not want to stay in the hospital. Given IV fluids as well. He will follow-up with his doctor for further care. Patient counseled regarding signs and symptoms for which I believe and urgent re-evaluation would be necessary. Patient with good understanding of and agreement to plan and is comfortable going home at this time This document was made in part using voice recognition software. While efforts are made to proofread this document, sound alike and grammatical errors may occur. Departure - Departure Disposition: 01 Home, Self Care Clinical Impression: Hypomagnesemia, Hypocalcemia, Dehydration Condition: Good Instructions: ED Dehydration Follow-Up: Ryan Bergeron MD [Primary Care Provider] - George Webb MD [Provider Admit Priv/Credential] - Comments: Follow-up with your doctor within the next week. He can refer you to a general surgeon, such as Dr. Webb, who can discuss with you port placement. This will likely be much easier for you and you can get set up in the [facility] for infusions of magnesium and calcium every 2 weeks. Return if you worsen Discharge Date/Time: 11/29/19 18:52
[2019-11-29 15:32] LABS: BASOPHILS % (AUTO) 0.4 %; EOSINOPHILS # (AUTO) 0.2 10^3/uL (0.0-0.7); EOSINOPHILS % (AUTO) 1.8 %; HGB - HEMOGLOBIN 10.1 g/dL (14.0-18.0); LYMPHOCYTES # (AUTO) 2.2 10^3/uL (1.5-3.5); MEAN CORPUSCULAR HEMOGLOBIN 30.8 pg (27.0-31.0); MEAN CORPUSCULAR HGB CONC 32.4 g/dL (32.0-36.0); MEAN CORPUSCULAR VOLUME 95.1 fL (80.0-94.0); MEAN PLATELET VOLUME 9.2 fL (7.4-11.4); MONOCYTES # (AUTO) 0.6 10^3/uL (0.0-1.0); MONOCYTES % (AUTO) 5.4 %; NEUTROPHILS # (AUTO) 7.3 10^3/uL (1.5-6.6); NEUTROPHILS % (AUTO) 70.7 %; PLT - PLATELET COUNT 106 10^3/uL (130-450); RED BLOOD COUNT 3.28 10^6/uL (4.70-6.10); VBG PH 7.242 (7.31-7.41); WHITE BLOOD COUNT 10.4 x10^3/uL (4.8-10.8)
[2019-11-29] MEDS ORDERED: CALCIUM GLUCONATE 2,000 MG in SODIUM CHLORIDE 0.9% 100ML 100 ML IV STA (15:44)
[2019-11-29 15:46] LABS: ALBUMIN 3.5 g/dL (3.2-5.5); BILIRUBIN,TOTAL 0.5 mg/dL (0.2-1.0); CREATININE 2.3 mg/dL (0.6-1.2); PHOSPHORUS 2.8 mg/dL (2.5-4.6); TOTAL PROTEIN 7.1 g/dL (6.7-8.2)
[2019-11-29 15:50] LABS: MAGNESIUM 0.4 mg/dL (1.7-2.8)
[2019-11-29] MEDS ORDERED: SODIUM CHLORIDE 0.9% 1,000 ML IV STA (16:16)
[2019-11-29 18:52] VITALS: BP 109/65
== END 2019-11-29 18:52 | disposition home or self-care (01) ==
LOC: ED 14:44
DX: E83.42 Hypomagnesemia (principal); E83.51 Hypocalcemia; E86.0 Dehydration; K50.90 Crohn's disease, unspecified, without complications
CPT/HCPCS: 36415; 80053; 82330; 83690; 83735; 84100; 85025; 96365; 96366; 96368; 99284

== ENCOUNTER 2019-12-26 13:07 | Inpatient (IN) | payer MEDICARE, BC ==
[2019-12-26] MEDS ORDERED: ONDANSETRON 4 MG/2 ML VIAL IVP STA ×2 (13:18→13:59)
--- NOTE | 2019-12-26 13:21 | ED Physician Documentation ---
PD HPI DYSPNEA - Stated complaint Stated Complaint: SOA, FATIGUE, NAUSEA - History obtained from History obtained from: Patient - Additional information Additional information: 54-year-old gentleman with Crohn's disease and short gut syndrome, comes to the emergency department relatively frequently for electrolyte imbalances. Was here for same a few days ago. Since then he says he is just has felt like "crap." He says he is short of breath, especially exertional and while Supine. There is no associated cough, fevers, or chest pain. He relates that he is felt bad also for the last month because he is been on a prolonged course of Bactrim for an MRSA wound infection.No pedal edema or calf pain. No history of heart or lung disease. Review of Systems Constitutional: reports: Fatigue. denies: Fever, Chills Nose: denies: Rhinorrhea / runny nose, Congestion Throat: denies: Sore throat Cardiac: denies: Chest pain / pressure, Palpitations, Pedal edema, Calf pain Respiratory: reports: Dyspnea. denies: Cough, Hemoptysis, Wheezing GI: reports: Nausea. denies: Abdominal Pain (mild ruq) PD PAST MEDICAL HISTORY - Past Medical History Cardiovascular: None Respiratory: None Neuro: None Endocrine/Autoimmune: None GI: Crohn's disease : None HEENT: None Psych: None Musculoskeletal: None Derm: None - Past Surgical History Past Surgical History: Yes General: Other HEENT: Detached retina repair - Present Medications Home Medications: Ambulatory Orders Medication Instructions Recorded Confirmed Calcium Citrate/Vitamin D3 5 ml PO QID #600 ml 02/19/19 09/17/19 [Calcium Citrate-Vitamin D3 Liq] Calcium Citrate 3,000 mg PO BID 09/17/19 09/17/19 Potassium Chloride 10 meq PO DAILY 09/17/19 09/17/19 Magnesium Oxide 2 tab PO TID #120 tablet 10/13/19 Colestipol HCl 1 gm ORAL DAILY 11/12/19 11/12/19 Ergocalciferol (Vitamin D2) 1 cap ORAL DAILY 11/12/19 11/12/19 [Vitamin D2] Lipase/Protease/Amylase [Creon Dr 1 tab ORAL DAILY 11/12/19 11/12/19 12,000 Units Capsule] Magnesium Oxide [Mag Ox] 1,200 mg PO TID 11/12/19 11/12/19 Mirtazapine 45 mg ORAL DAILY 11/12/19 11/12/19 Pantoprazole Sodium [Protonix] 40 mg PO DAILY 11/12/19 11/12/19 Potassium Citrate/Citric Acid 10 ml ORAL BID 11/12/19 11/12/19 [Potassium Cit-Citric Acid Soln] Zolpidem Tartrate 10 mg ORAL DAILY 11/12/19 11/12/19 - Allergies Allergies/Adverse Reactions: Allergies Allergy/AdvReac Type Severity Reaction Status Date / Time No Known Drug Allergies Allergy Verified 12/26/19 13:21 - Social History Does the pt smoke?: No Smoking Status: Never smoker Does the pt drink ETOH?: Yes Does the pt have substance abuse?: Yes - Family History Family history: reports: Non contributory - Immunizations Immunizations are current?: Yes - POLST Patient has POLST: No PD ED PE NORMAL - Vitals Vital signs reviewed: Yes - General General: Alert and oriented X 3, No acute distress - HEENT HEENT: PERRL, EOMI - Neck Neck: Supple, no meningeal sign, No bony TTP - Cardiac Cardiac: RRR, No murmur - Respiratory Respiratory: No respiratory distress, Clear bilaterally - Abdomen Abdomen: Other (Extensive surgical scars, soft and nontender.) - Back Back: No CVA TTP, No spinal TTP - Derm Derm: Normal color, Warm and dry, No rash - Extremities Extremities: No edema, No calf tenderness / cord - Neuro Neuro: Alert and oriented X 3, Normal speech Results - Vitals Vitals: Vital Signs - 24 hr 12/26/19 12/26/19 12/26/19 13:10 13:21 14:12 Temperature 36.5 C Heart Rate 97 90 89 Respiratory 19 16 20 Rate Blood Pressure 119/94 H 122/65 105/84 H O2 Saturation 100 100 100 Oxygen O2 Source Room air - EKG (time done) 1314 Rate: Rate (enter#) (87) Rhythm: NSR [place]: Normal Intervals: Other (lafb) QRS: Normal Ischemia: Normal ST segments Computer interpretation: Agree with computer - Labs Labs: Laboratory Tests 12/26/19 12/26/19 12/26/19 13:23 13:23 13:23 WBC 19.3 H RBC 3.94 L Hgb 12.8 L Hct 38.8 L MCV 98.5 H MCH 32.5 H MCHC 33.0 RDW 18.2 H Plt Count 218 MPV 9.2 Neut # (Auto) 15.5 H Lymph # (Auto) 2.5 [place] # (Auto) 1.1 H Eos # (Auto) 0.1 Baso # (Auto) 0.1 Absolute Nucleated RBC 0.00 Nucleated RBC % 0.0 Sodium 134 L Potassium 3.0 L Chloride 102 Carbon Dioxide 14 L Anion Gap 18.0 H BUN 40 H Creatinine 5.7 H Estimated GFR (MDRD) 11 L Glucose 138 H Calcium 8.4 L Magnesium 1.4 L Total Bilirubin 1.1 H AST 33 ALT 23 Alkaline Phosphatase 654 H Troponin I High Sens < 2.3 L B-Natriuretic Peptide Total Protein 9.7 H Albumin 4.8 Globulin 4.9 H Albumin/Globulin Ratio 1.0 Lipase 25 Ethyl Alcohol < 5.0 12/26/19 13:23 WBC RBC Hgb Hct MCV MCH MCHC RDW Plt Count MPV Neut # (Auto) Lymph # (Auto) [place] # (Auto) Eos # (Auto) Baso # (Auto) Absolute Nucleated RBC Nucleated RBC % Sodium Potassium Chloride Carbon Dioxide Anion Gap BUN Creatinine Estimated GFR (MDRD) Glucose Calcium Magnesium Total Bilirubin AST ALT Alkaline Phosphatase Troponin I High Sens B-Natriuretic Peptide 15 Total Protein Albumin Globulin Albumin/Globulin Ratio Lipase Ethyl Alcohol - Rads (name of study) 1v chest Radiology: EMP read contemporaneously (NAD) PD MEDICAL DECISION MAKING - ED course ED course: 54-year-old gentleman with history of Crohn's disease, chronic renal insufficiency, short gut syndrome, and chronic electrolyte abnormalities presents with complaints that are atypical for him with shortness of breath and nausea and general ill feeling. Work-up demonstrates no evidence of acute cardiopulmonary process but he is in acute on chronic renal failure. His creatinine today is 5.7, it usually in the low twos. His BUN is 40, it is usually normal. His electrolytes are not too bad with a potassium of 3 and a magnesium of 1.4. Note made of the alkaline phosphatase, but this is chronically elevated in this gentleman. He was placed on IV fluids and magnesium and potassium are needed IV. Call was made to the hospitalist and a message left for admission at 2 PM. 14:25- Spoke with Dr. Blank for admission, she was little worried about the lack of obvious reason for him to be short of breath since his cardiopulmonary testing at this point has been negative. D-dimer would be unlikely to be helpful and we cannot CT him because of his renal function, it is early enough in the day to do a VQ scan and she requested I order this. Also pending on admission is retroperitoneal ultrasound. 14:30- per Louie, nuc tech, not enough nuc dye to do VQ today. Departure - Departure Disposition: [facility] DC/Xfer Clinical Impression: Electrolyte and fluid disorder ARF (acute renal failure) Qualifiers: Acute renal failure type: unspecified Qualified Code(s): N17.9 - Acute kidney failure, unspecified Condition: Serious
[2019-12-26 13:29] LABS: BASOPHILS # (AUTO) 0.1 10^3/uL (0.0-0.1); BASOPHILS % (AUTO) 0.4 %; EOSINOPHILS # (AUTO) 0.1 10^3/uL (0.0-0.7); EOSINOPHILS % (AUTO) 0.3 %; HGB - HEMOGLOBIN 12.8 g/dL (14.0-18.0); LYMPHOCYTES # (AUTO) 2.5 10^3/uL (1.5-3.5); LYMPHOCYTES % (AUTO) 12.9 %; MEAN CORPUSCULAR HEMOGLOBIN 32.5 pg (27.0-31.0); MEAN CORPUSCULAR VOLUME 98.5 fL (80.0-94.0); MEAN PLATELET VOLUME 9.2 fL (7.4-11.4); MONOCYTES # (AUTO) 1.1 10^3/uL (0.0-1.0); MONOCYTES % (AUTO) 5.5 %; NEUTROPHILS # (AUTO) 15.5 10^3/uL (1.5-6.6); PLT - PLATELET COUNT 218 10^3/uL (130-450); RED BLOOD COUNT 3.94 10^6/uL (4.70-6.10); RED CELL DISTRIBUTION WIDTH 18.2 % (12.0-15.0); WHITE BLOOD COUNT 19.3 x10^3/uL (4.8-10.8)
--- NOTE | 2019-12-26 13:35 | XRAY Report ---
PROCEDURE: Chest 1 View X-Ray INDICATIONS: dyspnea TECHNIQUE: One view of the chest was acquired. COMPARISON: None. FINDINGS: Surgical changes and devices: None. Lungs and pleura: No pleural effusions or pneumothorax. Lungs are clear. Mediastinum: Mediastinal contours appear normal. Heart size is normal. Bones and chest wall: No suspicious bony lesions. Overlying soft tissues appear unremarkable. IMPRESSION: No acute disease Reviewed by: Jared Gaston MD on 12/26/2019 1:34 PM PDT Approved by: Jared Gaston MD on 12/26/2019 1:34 PM PDT Station ID: [id number]
[2019-12-26 13:41] LABS: ALBUMIN 4.8 g/dL (3.2-5.5); ALKALINE PHOSPHATASE 654 IU/L (42-121); ALT ALANINE AMINOTRANSFERASE 23 IU/L (10-60); AST ASPARTATE AMINOTRANSFERASE 33 IU/L (10-42); BILIRUBIN,TOTAL 1.1 mg/dL (0.2-1.0); BUN - BLOOD UREA NITROGEN 40 mg/dL (6-20); CALCIUM 8.4 mg/dL (8.5-10.3); CARBON DIOXIDE - CO2 14 mmol/L (21-32); CHLORIDE 102 mmol/L (101-111); CREATININE 5.7 mg/dL (0.6-1.2); LIPASE 25 U/L (22-51); MAGNESIUM 1.4 mg/dL (1.7-2.8); SODIUM 134 mmol/L (135-145); TOTAL PROTEIN 9.7 g/dL (6.7-8.2)
[2019-12-26] MEDS ORDERED: SODIUM CHLORIDE 0.9% 1,000 ML IV STA (13:59)
[2019-12-26] MEDS ORDERED: MORPHINE 2 MG/ML CARPUJECT IVP STA (13:59)
[2019-12-26] MEDS ORDERED: POTASSIUM CHLOR 10 MEQ/100 ML 10 MEQ/100 ML BAG IV ONE (13:59)
[2019-12-26] MEDS ORDERED: MAGNESIUM SULFATE 2 GRAM 2 GM/50 ML BAG IV ONE (13:59)
[2019-12-26 14:21] LABS: GLUCOSE 138 mg/dL (70-100)
[2019-12-26] MEDS ORDERED: SODIUM CHLORIDE FLUSH 0.9% 10 ML SYRINGE IVP PRN (14:37)
[2019-12-26] MEDS ORDERED: ACETAMINOPHEN 325 MG TABLET PO PRN (14:37)
[2019-12-26] MEDS: POTASSIUM CHLORIDE 20 MEQ TABLET PO ONE ×2 (15:06→16:29)
--- NOTE | 2019-12-26 15:32 | HISTORY & PHYSICAL EXAMINATION ---
Chief Complaint - Chief Complaint Chief Complaint: SOB History of Present Illness - History of Present Illness HPI Comment/Other: this is a 54-year-old gentleman with a past medical history significant of Crohn's disease, chronic renal insufficiency, short gut syndrome, and chronic electrolyte abnormalities, hx of alcoholism, who presents with complaints of shortness of breath, nausea and general ill feeling. pt report this is atypical to him. Pt reports since this Sunday he has had nausea without vomiting but causing poor PO intake, and shortness of breath on exertion, fatigue and weight loss. Pt report he has chronic electrolytes imbalance medical issue but he reports that this is off from his baseline. he feel weakness he can not walk. he denies chest pain, fever, chill, cough, abdominal pain, diarrhea. Route lab show his creatinine today is 5.7, it usually is about 2 to 2.5. His BUN is 40, it is usually normal. His potassium of 3 and a magnesium of 1.4 and elevated alkaline phosphatase, WBC is 19. UA analysis does not indicate infeciton, and chest x-ray was unremarkable. Patient is afebrile and hemodynamically stable at this point. Patient is admitted for further medical management. Discussed the care goal with the patient, patient want full code. History - Past Medical History Cardiovascular: reports: None Respiratory: reports: None Neuro: reports: None Endocrine/Autoimmune: reports: None GI: reports: Crohn's disease : reports: None HEENT: reports: None Psych: reports: None Musculoskeletal: reports: None Derm: reports: None MRSA Hx?: No - Past Surgical History General: reports: Other HEENT: reports: Detached retina repair - Family & Social History Family History Comment/Other: Patient stated he was adopted so he does not know his parents medical condition Social History Notes: Patient report he quit cigarette smoking 5 years ago, he stated he drinks alcohol 1 to 2 ounces every day but he denies he has withdrawal problem before. He is Disability status and living at the [facility] POL Patient has POLST: No Meds/Allgy - Home Medications Home Medications: Ambulatory Orders Medication Instructions Recorded Confirmed Calcium Citrate 3,000 mg PO BID 09/17/19 09/17/19 Potassium Chloride 10 meq PO DAILY 09/17/19 09/17/19 Colestipol HCl 1 gm ORAL DAILY 11/12/19 11/12/19 Ergocalciferol (Vitamin D2) 1 cap ORAL DAILY 11/12/19 11/12/19 [Vitamin D2] Lipase/Protease/Amylase [Creon Dr 1 tab ORAL DAILY 11/12/19 11/12/19 12,000 Units Capsule] Magnesium Oxide [Mag Ox] 1,200 mg PO TID 11/12/19 11/12/19 Mirtazapine 45 mg ORAL DAILY 11/12/19 11/12/19 Pantoprazole Sodium [Protonix] 40 mg PO DAILY 11/12/19 11/12/19 Potassium Citrate/Citric Acid 10 ml ORAL BID 11/12/19 11/12/19 [Potassium Cit-Citric Acid Soln] Zolpidem Tartrate 10 mg PO QPM PRN 11/12/19 12/26/19 - Allergies Allergies/Adverse Reactions: Allergies Allergy/AdvReac Type Severity Reaction Status Date / Time No Known Drug Allergies Allergy Verified 12/26/19 13:21 Review of Systems - Constitutional Constitutional: denies: Fatigue, Fever, Chills, Malaise, Weakness, Poor appetite, Diaphoresis, Night sweats - Eyes Eyes: denies: Pain, Blurred vision, Spots in vision, Field loss, Vision loss, Dipolpia - Ears, Nose & Throat Ears, Nose & Throat: denies: Ear pain, Vertigo, Nasal discharge, Nosebleeds, Nasal congestion, Postnasal drainage, Mouth lesions - Cardiovascular Cariovascular: reports: Exertional dyspnea, Decr. exercise tolerance. denies: Irregular heart rate, Palpitations, Chest pain, Edema, Lightheadedness, Syncope - Respiratory Respiratory: reports: SOB with exertion. denies: Cough, Sputum production, Wheezing, Snoring, Hemoptysis, Orthopnea, SOB at rest - Gastrointestinal Gastrointestinal: reports: Nausea. denies: Abdominal pain, Abdominal distention, Constipation, Diarrhea, Change in bowel habits, Rectal bleeding, Black stools, Bloody stools, Vomiting, Bile emesis, Chin blood emesis, Coffee grounds emesis, Reflux/heartburn - Genitourinary Genitourinary: denies: Dysuria, Frequency, Urgency, Hematuria, Incontinence, Flank pain, Urethral discharge - Musculoskeletal Musculoskeletal: denies: Muscle pain, Back pain, Muscle aches, Stiffness, Limited range of motion, Muscle weakness, Gout - Integumentary Integumentary: denies: Rash, Lesions, Dryness, Lumps - Neurological Neurological: denies: General weakness, Focal weakness, Headache, Dizziness, Numbness, Memory problems, Pre-existing deficit, Abnormal gait, Seizures, Incoordination, Slurred speech - Psychiatric Psychiatric: denies: Anxiety, Suicidal, Delusions, Hallucinations, Homicidal - Endocrine Endocrine: denies: Polyuria, Polydypsia, Polyphagia - Hematologic/Lymphatic Hematologic/Lymphatic: denies: Bruising, Petechiae, Lymphadenopathy, Bleeding tendencies Exam - Vital Signs Vital Signs: Vital Signs x48h Temp Pulse Resp BP Pulse Ox 12/26/19 15:03 90 16 110/75 98 12/26/19 14:12 89 20 105/84 H 100 12/26/19 13:21 90 16 122/65 100 12/26/19 13:10 36.5 C 97 19 119/94 H 100 - Physical Exam General Appearance: positive: No acute distress, Alert. negative: Lethargic Eyes Bilateral: positive: Normal inspection, PERRL, No lid inflammation ENT: positive: ENT inspection nml, Pharynx nml, No signs of dehydration. negative: Purulent nasal drainage Neck: positive: Nml inspection, Thyroid nml, Trachea midline. negative: Thyromegaly, Stiff neck, Tracheal deviation Respiratory: negative: Chest non-tender, No respiratory distress, Breath sounds nml, Wheezes, Rales, Rhonchi Cardiovascular: positive: No murmur. negative: Regular rate & rhythm, Tachycardia, Bradycardia, Systolic murmur, Diastolic murmur Peripheral Pulses: positive: 2+ Abdomen: positive: Non-tender, No organomegaly, Nml bowel sounds, No distention. negative: Tenderness, Guarding, Rebound Back: positive: Nml inspection. negative: CVA tenderness (R), CVA tenderness (L) Skin: positive: Color nml, No rash, Warm, Dry. negative: Cyanosis, Diaphoresis, Pallor Extremities: positive: Non-tender, Full ROM, Nml appearance. negative: Calf tenderness, Ty's sign/cords Neurologic/Psychiatric: positive: Oriented x3, Motor nml, Sensation nml, Mood/affect nml. negative: Weakness, Sensory loss, Facial droop, Slurred/abnml speech, Depressed mood/affect Sepsis Event Note (H) - Evaluation Current Stage of Sepsis: Ruled out Conclusion/Plan - Problem List (1) Acute kidney injury Conclusion/Plan: Patient creatinine 5.7 on today, usually he is a creatinine is 2-2.5. Patient reported nausea but no vomiting, patient reported He is dehydrated. however, patient EF 40 to 45% in echo, And patient present SOB although CXR is un remarkable. We will give the patient 100 cc/h intravenous IV fluids, potline monitor patient, avoid of Nephrogenic toxic agent. (2) Shortness of breath Conclusion/Plan: Patient report he has shortness of breathing in the home. He denies fever or chill or cough. Chest x-ray is unremarkable, Because the patient have a acute kidney injury, patient cannot have CTA, VQ scan is not enough radiation material. Echo show patient has reduced the EF to 40-45%. heart failure is suspicion for patient to have short of breathing. We will start a low dosage of Coreg and may start Lisinopril if patient blood pressure can tolerate, Continue ekg monitor patient, Advised patient follow-up with inspector golf ball as out patient, order lipid panel (3) Systolic heart failure Conclusion/Plan: Patient does not know he have a history of heart failure. today echo show patient has reduced the EF to 40 to 45% patient. Patient's blood pressure is slightly in the low range. We will start with Coreg now, Precaution fluids overloaded. Continue ekg monitor patient, and follow-up with inspector golf ball as outpatient (4) Short gut syndrome Conclusion/Plan: Patient has a history of short gut syndrome and hx of crohn's disease. Patient reported he has multiple surgery with resection off his bowel. Patient frequently has electrolyte imbalance and poor absorption because of this, Consult with cad engineer, Replacement of electrolytes,potline monitor (5) Hypokalemia Conclusion/Plan: Today's potassium is 3.0, we will replace and dental laboratory technician apprentice (6) Hypomagnesemia Conclusion/Plan: He have multiple time Admission because severe hypomagnesiumia. Today's magnesium is 1.4, will replace and dental laboratory technician apprentice (7) Leukocytosis Conclusion/Plan: Today patient WBC is 19, usually WBC is below 10, patient chest x-ray is unremarkable, clinically does not indication patient has a respiratory infection, urinalysis does not indication patient have a urine tract infection. It is likely distress reaction. We will continue laboratory and vital signs monitor patient - Lab Results Fish Bones: 07/31/20 13:23 12/26/19 13:23 Core Measures - Anticipated LOS I expect patient to be DC'd or transferred within 96 hours.: Yes - DVT/VTE - Prophylaxis VTE/DVT Device ordered at admit?: Yes VTE/DVT Prophylaxis med ordered at admit?: Yes
[2019-12-26] MEDS ORDERED: SODIUM CHLORIDE 0.9% 1,000 ML IV SCH (16:00)
[2019-12-26] MEDS: POTASSIUM CHLOR 10 MEQ/100 ML 10 MEQ/100 ML BAG IV SCH ×2 (16:29→18:07)
[2019-12-26] MEDS: MORPHINE 2 MG/ML CARPUJECT IVP PRN ×2 (16:29→20:49)
[2019-12-26] MEDS: SODIUM CHLORIDE FLUSH 0.9% 10 ML SYRINGE IVP SCH (16:30)
[2019-12-26 17:01] LABS: BILIRUBIN,URINE NEGATIVE (NEGATIVE); CLARITY,URINE CLEAR (CLEAR); GLUCOSE, URINE (UA) NEGATIVE (NEGATIVE); KETONES,URINE (UA) NEGATIVE (NEGATIVE); LEUKOCYTE ESTERASE, URINE NEGATIVE (NEGATIVE); NITRITE,URINE NEGATIVE (NEGATIVE); OCCULT BLOOD,URINE MODERATE (NEGATIVE); PH,URINE 5.5 PH (5.0-7.5); PROTEIN,URINE 30 mg/dL (NEGATIVE); UROBILINOGEN,URINE 0.2 (NORMAL) E.U./dL (NORMAL)
[2019-12-26 17:11] LABS: AMORPHOUS SEDIMENT,UR Rare /LPF; BACTERIA,URINE Few /HPF (None Seen); CASTS, URINE 11-25 Hyaline Casts /LPF; SQUAMOUS EPITHELIAL CELL,UR FEW Squamous (<= Few)
[2019-12-26] MEDS ORDERED: PROCHLORPERAZINE 10 MG/2 ML VIAL IVP PRN (17:46)
[2019-12-26] MEDS: SODIUM CHLORIDE 0.9% 1,000 ML IV SCH (18:07)
[2019-12-26] MEDS: carvediloL 3.125 MG TABLET PO SCH (20:48)
[2019-12-26] MEDS: ZOLPIDEM 5 MG TABLET PO PRN (20:48)
[2019-12-26] MEDS: PRENATAL VITAMIN TABLET PO SCH (20:48)
[2019-12-26] MEDS: HEPARIN 5,000 UNIT/ML VIAL SUBQ SCH (20:48)
[2019-12-26] MEDS: MAGNESIUM OXIDE 400 MG TABLET PO SCH (20:48)
[2019-12-26] MEDS: THIAMINE 100 MG TABLET PO SCH (20:48)
[2019-12-27] MEDS: SODIUM CHLORIDE FLUSH 0.9% 10 ML SYRINGE IVP SCH ×3 (00:51→17:36)
[2019-12-27] MEDS: PANTOPRAZOLE 40 MG TABLET PO SCH (05:12)
[2019-12-27 05:23] LABS: BASOPHILS % (AUTO) 0.3 %; EOSINOPHILS # (AUTO) 0.1 10^3/uL (0.0-0.7); EOSINOPHILS % (AUTO) 0.9 %; HGB - HEMOGLOBIN 8.4 g/dL (14.0-18.0); LYMPHOCYTES % (AUTO) 25.8 %; MEAN CORPUSCULAR HEMOGLOBIN 31.9 pg (27.0-31.0); MEAN CORPUSCULAR HGB CONC 31.5 g/dL (32.0-36.0); MEAN CORPUSCULAR VOLUME 101.5 fL (80.0-94.0); MEAN PLATELET VOLUME 8.7 fL (7.4-11.4); MONOCYTES # (AUTO) 0.6 10^3/uL (0.0-1.0); MONOCYTES % (AUTO) 7.3 %; NEUTROPHILS % (AUTO) 64.9 %; PLT - PLATELET COUNT 111 10^3/uL (130-450); RED BLOOD COUNT 2.63 10^6/uL (4.70-6.10); RED CELL DISTRIBUTION WIDTH 18.1 % (12.0-15.0); WHITE BLOOD COUNT 7.7 x10^3/uL (4.8-10.8)
[2019-12-27 05:39] LABS: BILIRUBIN,TOTAL 0.6 mg/dL (0.2-1.0); CALCIUM 7.5 mg/dL (8.5-10.3); CREATININE 4.6 mg/dL (0.6-1.2); PHOSPHORUS 3.2 mg/dL (2.5-4.6)
[2019-12-27 05:40] LABS: CHOL/HDL RATIO 2.2 (<5.0); CHOLESTEROL 81 mg/dL; HDL CHOLESTEROL 37 mg/dL; LDL CHOLESTEROL,CALCULATED 23 mg/dL; LDL/HDL RATIO 0.6 (<3.6); VLDL CHOLESTEROL 21 mg/dL
--- NOTE | 2019-12-27 09:31 | Ultrasound Report ---
PROCEDURE: Retroperitoneal INDICATIONS: arf TECHNIQUE: Real-time scanning was performed of the retroperitoneal organs, with image documentation. COMPARISON: Correlation is made with abdomen ultrasound 05/09/[address] 05/09/2019. FINDINGS: Kidneys: Kidneys are normal in size. Right kidney measures 9.8 cm long; left kidney measures 8.7 cm long. Right renal cortical thickness is 1.6 cm; left renal cortical thickness is 1 cm. No solid ma sses or hydronephrosis. Stones are seen at the inferior pole of the left kidney that measure up to 1.1 and up to 1.2 cm on th rodriguez images. Within the mid right kidney, there is a 1.5 cm stone seen. The prevoid bladder volume is 62 cc. The patient said he was unable to void for a postvoid measuremen t. Both ureteral jets can be seen. IMPRESSION: Nonobstructing bilateral renal stones. No hydronephrosis. Small left kidney. Likely urinary retention, with the patient unable to void, despite a prevoid bladder volume measureme nt of 62 cc. Note: No significant discrepancy from the preliminary report. Reviewed by: Zaire Bueno MD on 12/27/2019 8:30 AM YEIMI Approved by: Zaire Bueno MD on 12/27/2019 8:30 AM YEIMI Station ID: [id number]
[2019-12-27] MEDS: THIAMINE 100 MG TABLET PO SCH (10:15)
[2019-12-27] MEDS: MAGNESIUM OXIDE 400 MG TABLET PO SCH (10:15)
[2019-12-27] MEDS: PRENATAL VITAMIN TABLET PO SCH (10:15)
[2019-12-27] MEDS: carvediloL 3.125 MG TABLET PO SCH ×2 (10:15→20:57)
[2019-12-27] MEDS: HEPARIN 5,000 UNIT/ML VIAL SUBQ SCH ×2 (10:17→20:57)
[2019-12-27] MEDS ORDERED: LORazepam 2 MG/ML VIAL IVP PRN (10:22)
[2019-12-27] MEDS: SODIUM CHLORIDE 0.9% 1,000 ML IV SCH ×2 (10:23→20:06)
--- NOTE | 2019-12-27 11:36 | PROVIDER PROGRESS NOTE ---
Assessment/Plan - Problem List (1) Acute renal failure superimposed on chronic kidney disease Assessment/Plan: He has never been hospitalized here for this type of problem but described to me today that he has had admissions in [facility] and [facility] in the past and required LR for rehydration. 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 I will try to contact his specialists for updating them, I told him this (but today is Sunday and they may not be able to be reached). Will order a renal diet, but because of his short gut syndrome, he does need sodium and potassium in his food. Continue with IV hydration. Because of the new findings of systolic heart failure, careful monitoring of fluids and I's and O's is needed, to avoid fluid overload but continue hydration for improving his creatinine. He will therefore be made an Inpatient. I suspect he will need 2 more days of rehydration to achieve his baseline creatinine of 2.5. When I first told him about this plan, he was not interested in staying, but after rapport was established, he agreed to stay and was less irritable. 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 He estimated that he puts in about 5 miles of walking per day because of this job. He is not surprised that he is dehydrated after working the past 2 days in the hot daytime sunshine. Continue with oral and IV fluids for rehydration. Follow BUN/creatinine daily. (3) Short gut syndrome Assessment/Plan: Patient has had multiple prior surgeries because of his Crohn's disease and has short gut syndrome. He presents often with electrolyte abnormalities and needs replacement of potassium or magnesium. The patient also describes that he is on frequent small meals, not 3 meals a day. It was upsetting to him that this has not yet been ordered. I reassured him that I can adjust his diet to help with frequent snacks between meals. Continue his usual home medications for Crohn's disease while here. Follow BMP, magnesium, calcium and phosphorus daily. Replace if low. Nutrition consult hwas ordered last evening, but we have no RD here on the weekend (today is Sat). 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 There was no sudden onset of dyspnea however and he has no shortness of breath at rest orthopnea. There was no calf tenderness. He did not undergo work-up in the ER for PE therefore. Need pulmonary work-up, PFTs etc. should be done by his PCP. Troponins were done here and he ruled out for an CA, to explain the dyspnea. A resting Echo was done here, this shows LVEF of 40%. The patient is surprised that he has this finding. He will need work-up for ischemic heart disease, as an outpatient after discharge. He has been started on Coreg for this diagnosis. He needs careful observation of fluid status while rehydrating. I told him that alcohol use can also cause this depressed ejection fraction and that he should not be drinking more than 1-22 alcoholic drinks per day. (5) Systolic heart failure Assessment/Plan: The Echo done yesterday showed a new finding of LVEF 40%. He has been started on Coreg 3.125 twice daily. He is not on DUDLEY inhibitor because of the severely elevated creatinine. He is not on spironolactone because he is currently dehydrated. This hospital does not have Entresto on formulary. He needs to stay for management of fluid status which will be a very narrow range, not to overload him with his new cardiomyopathy, to hydrate him adequately because of his acute on chronic kidney disease with dehydration. He will be made an Inpatient as of today. Continue telemetry I will attempt to reach out to his lap checker who is his main specialists or his mis manager, who are both at [facility], to discuss this new finding (but today is a Sat and may not be able to reach them. The patient requested that he not be transferred to [place] by ambulance because he "cannot afford it", he said. He will need work-up for ischemic heart disease, as an outpatient after discharge. I told him that alcohol use can also cause this depressed ejection fraction and that he should not be drinking more than 1-22 alcoholic drinks per day. (6) Alcohol use Assessment/Plan: Patient told his admitting [employer] that he has 2 drinks per day. I requested more details of what he takes in; he drinks 2 beers per day but occasionally can go "up to 5 beers a day on a hot day", he said. LFTs have been normal on his CMP. The platelet count is low today at 111. No INR was done at admission, will obtain an INR today. Will order a CIWA protocol. He may have been getting fidgety and demanding this morning because of starting withdrawal, having had no beer yesterday. We will order beer with dinner for him, to prevent alcohol withdrawal. Daily Thiamine p.o. has been started. (7) Anemia Assessment/Plan: The admission hemoglobin was 12 which decreased to 8. He is 2.5 L positive and fluid balance since admission. This patient may have anemia of chronic disease because of his CKD. Will order B12, folate levels and check iron stores and guaiac stool. Replace if low. (8) Electrolyte and fluid disorder Assessment/Plan: Patient often gets hypomagnesemia, hypokalemia and hypocalcemia because of his short gut syndrome. He reports today that when he takes magnesium oxide he gets diarrhea. We will stop the magnesium oxide replacement. Follow his BMP, magnesium, calcium, phosphorus daily and replace if low. (9) Hx of Crohn's disease Assessment/Plan: As per history. He has had multiple surgeries resulting in short gut syndrome. Continue with his usual Crohn's meds while here. - Current Meds Current Meds: Current Medications Generic Name Dose Route Start Last Admin Trade Name Freq PRN Reason Stop Dose Admin Carvedilol 3.125 mg 12/26/19 21:00 12/27/19 10:15 Coreg PO 3.125 mg BID KAROLYN Administration Heparin Sodium (Porcine) 5,000 unit 12/26/19 21:00 12/27/19 10:17 SUBQ Not Given BID KAROLYN Sodium Chloride 1,000 mls @ 100 mls/hr 12/26/19 17:37 12/27/19 10:23 Normal Saline 0.9% IV 12/27/19 13:36 100 mls/hr .Q10H KAROLYN Administration Magnesium Oxide 400 mg 12/26/19 21:00 12/27/19 10:15 Mag Ox PO 400 mg BID KAROLYN Administration Morphine Sulfate 2 mg 12/26/19 14:37 12/26/19 20:49 Morphine (Carpuject) IVP 2 mg Q2HR PRN Administration Pain 8 to 10 Pantoprazole Sodium 40 mg 12/27/19 07:00 12/27/19 05:12 Protonix PO Not Given QDAC KAROLYN Multivit/Folic Acid/Iron 1 tab 12/26/19 18:00 12/27/19 10:15 Trinatal Rx 1 PO 1 tab DAILYWM KAROLYN Administration Sodium Chloride 10 ml 12/26/19 17:00 12/27/19 10:17 Normal Saline Flush 0.9% IVP 10 ml 0100,0900,1700 KAROLYN Administration Thiamine HCl 100 mg 12/26/19 17:44 12/27/19 10:15 Vitamin B-1 PO 100 mg DAILY KAROLYN Administration Zolpidem Tartrate 10 mg 12/26/19 20:28 12/26/19 20:48 Ambien PO 10 mg QPM PRN Administration Insomnia - Lab Result Fish Bone Diagrams: 12/27/19 05:00 12/27/19 05:00 - Additional Planning My Orders: My Active Orders 12/27/19 10:22 CIWA - AR Score Card [RC] Routine Routine Neuro Check [RC] Routine Routine Social Work Consult [CONS] Routine LORazepam INJ [Ativan Inj (Vial)] 1 mg IVP Q30M PRN 12/27/19 Lunch DIET [Hepatic/Renal Diet] [DIET] 12/27/19 Dinner DIET [Soft (Low Fiber) Diet] [DIET] 12/27/19 17:30 Beer 480 ml PO 1730 Subjective - Subjective Patient Reports: Other (Upset about not getting frequent small meals, upset about having to stay longer for IV hydration, upset that he did not get LR and instead normal saline for hydration.) Objective Vital Signs: Vital Signs - 24 hr 12/26/19 12/26/19 12/26/19 13:10 13:21 14:12 Temperature 36.5 C Heart Rate 97 90 89 Heart Rate [ Brachial] Respiratory 19 16 20 Rate Blood Pressure 119/94 H 122/65 105/84 H Blood Pressure [Right Brachial artery] O2 Saturation 100 100 100 12/26/19 12/26/19 12/26/19 15:03 16:00 20:49 Temperature 36.4 C L 36.4 C L Heart Rate 90 Heart Rate [ 70 63 Brachial] Respiratory 16 18 14 Rate Blood Pressure 110/75 Blood Pressure 103/74 106/64 [Right Brachial artery] O2 Saturation 98 99 100 0712/27/19 12/27/19 23:25 04:30 05:07 Temperature 36.4 C L 36.3 C L Heart Rate Heart Rate [ 54 L 47 L Brachial] Respiratory 16 16 Rate Blood Pressure Blood Pressure 90/59 L 88/60 L 102/57 L [Right Brachial artery] O2 Saturation 98 98 12/27/19 07:45 Temperature 36.4 C L Heart Rate Heart Rate [ 54 L Brachial] Respiratory 16 Rate Blood Pressure Blood Pressure 90/58 L [Right Brachial artery] O2 Saturation 100 Oxygen O2 Source Room air I&O (Last 24 Hrs): Intake and Output Totals x24h 12/25/19 12/26/19 12/27/19 23:59 23:59 23:59 Intake Total 1657 1860 Output Total 500 300 Balance 1157 1560 General: Alert, Oriented x3 HEENT: Mucous membr. moist/pink Neck: Supple Neuro: Alert, Non Focal Cardiovascular: Regular rate Respiratory: No respiratory distress Abdomen: Soft Extremities: No edema - Results Results: Laboratory Results WBC 7.7 x10^3/uL (4.8-10.8) 12/27/19 05:00 RBC 2.63 10^6/uL (4.70-6.10) L 12/27/19 05:00 Hgb 8.4 g/dL (14.0-18.0) L 12/27/19 05:00 Hct 26.7 % (42.0-52.0) L 12/27/19 05:00 MCV 101.5 fL (80.0-94.0) H 12/27/19 05:00 MCH 31.9 pg (27.0-31.0) H 12/27/19 05:00 MCHC 31.5 g/dL (32.0-36.0) L 12/27/19 05:00 RDW 18.1 % (12.0-15.0) H 12/27/19 05:00 Plt Count 111 10^3/uL (130-450) L 12/27/19 05:00 MPV 8.7 fL (7.4-11.4) 12/27/19 05:00 Neut # (Auto) 5.0 10^3/uL (1.5-6.6) 12/27/19 05:00 Lymph # (Auto) 2.0 10^3/uL (1.5-3.5) 12/27/19 05:00 [place] # (Auto) 0.6 10^3/uL (0.0-1.0) 12/27/19 05:00 Eos # (Auto) 0.1 10^3/uL (0.0-0.7) 12/27/19 05:00 Baso # (Auto) 0.0 10^3/uL (0.0-0.1) 12/27/19 05:00 Absolute Nucleated RBC 0.00 x10^3/uL 12/27/19 05:00 Nucleated RBC % 0.0 /100WBC 12/27/19 05:00 Sodium 135 mmol/L (135-145) 12/27/19 05:00 Potassium 3.6 mmol/L (3.5-5.0) 12/27/19 05:00 Chloride 114 mmol/L (101-111) H 12/27/19 05:00 Carbon Dioxide 15 mmol/L (21-32) L 12/27/19 05:00 Anion Gap 6.0 (6-13) 12/27/19 05:00 BUN 39 mg/dL (6-20) H 12/27/19 05:00 Creatinine 4.6 mg/dL (0.6-1.2) H 12/27/19 05:00 Estimated GFR (MDRD) 13 (>89) L 12/27/19 05:00 Glucose 96 mg/dL (70-100) 12/27/19 05:00 Calcium 7.5 mg/dL (8.5-10.3) L 12/27/19 05:00 Phosphorus 3.2 mg/dL (2.5-4.6) 12/27/19 05:00 Magnesium 2.0 mg/dL (1.7-2.8) 12/27/19 05:00 Total Bilirubin 0.6 mg/dL (0.2-1.0) 12/27/19 05:00 AST 19 IU/L (10-42) 12/27/19 05:00 ALT 15 IU/L (10-60) 12/27/19 05:00 Alkaline Phosphatase 412 IU/L (42-121) H 12/27/19 05:00 Troponin I High Sens 2.6 ng/L (2.3-19.7) 12/27/19 05:00 B-Natriuretic Peptide 15 pg/mL (5-100) 12/26/19 13:23 Total Protein 6.0 g/dL (6.7-8.2) L 12/27/19 05:00 Albumin 3.0 g/dL (3.2-5.5) L 12/27/19 05:00 Globulin 3.0 g/dL (2.1-4.2) 12/27/19 05:00 Albumin/Globulin Ratio 1.0 (1.0-2.2) 12/27/19 05:00 Triglycerides 107 mg/dL (-149) 12/27/19 05:00 Cholesterol 81 mg/dL (-199) 12/27/19 05:00 LDL Cholesterol, Calc 23 mg/dL (-129) 12/27/19 05:00 VLDL Cholesterol 21 mg/dL 12/27/19 05:00 HDL Cholesterol 37 mg/dL (60-) L 12/27/19 05:00 LDL/HDL Ratio 0.6 (<3.6) 12/27/19 05:00 Cholesterol/HDL Ratio 2.2 (<5.0) 12/27/19 05:00 Lipase 25 U/L (22-51) 12/26/19 13:23 Urine Color DARK YELLOW 12/26/19 16:50 Urine Clarity CLEAR (CLEAR) 12/26/19 16:50 Urine pH 5.5 PH (5.0-7.5) 12/26/19 16:50 Ur Specific [place] >=1.030 (1.002-1.030) H 12/26/19 16:50 Urine Protein 30 mg/dL (NEGATIVE) H 12/26/19 16:50 Urine Glucose (UA) NEGATIVE mg/dL (NEGATIVE) 12/26/19 16:50 Urine Ketones NEGATIVE mg/dL (NEGATIVE) 12/26/19 16:50 Urine Occult Blood MODERATE (NEGATIVE) H 12/26/19 16:50 Urine Nitrite NEGATIVE (NEGATIVE) 12/26/19 16:50 Urine Bilirubin NEGATIVE (NEGATIVE) 12/26/19 16:50 Urine Urobilinogen 0.2 (NORMAL) E.U./dL (NORMAL) 12/26/19 16:50 Ur Leukocyte Esterase NEGATIVE (NEGATIVE) 12/26/19 16:50 Urine RBC 11-25 /HPF (0-5) H 12/26/19 16:50 Urine WBC 11-25 /HPF (0-3) H 12/26/19 16:50 Ur Squamous Epith Cells FEW Squamous (<= Few) 12/26/19 16:50 Amorphous Sediment Rare /LPF 12/26/19 16:50 Urine Bacteria Few /HPF (None Seen) 12/26/19 16:50 Urine Casts 11-25 Hyaline Casts /LPF 12/26/19 16:50 Ur Microscopic Review INDICATED 12/26/19 16:50 Urine Culture Comments INDICATED 12/26/19 16:50 Ethyl Alcohol < 5.0 mg/dL 12/26/19 13:23 Coronavirus (PCR) NEGATIVE 12/26/19 13:46 Sepsis Event Note (H) - Evaluation Current Stage of Sepsis: Ruled out
[2019-12-27] MEDS ORDERED: ZOLPIDEM TARTRATE 10 MG PO PRN (12:03)
[2019-12-27] MEDS ORDERED: BEER 480 ML CAN PO SCH (17:30)
[2019-12-27] MEDS: BEER 355 ML BOTTLE PO SCH (17:36)
[2019-12-27] MEDS ORDERED: LIQUOR 50 ML BOTTLE PO SCH (18:00)
[2019-12-27] MEDS: ONDANSETRON 4 MG/2 ML VIAL IVP PRN (19:28)
[2019-12-27] MEDS: ZOLPIDEM 5 MG TABLET PO PRN (20:57)
[2019-12-27] MEDS ORDERED: CALCIUM CITRATE 250 MG TABLET PO SCH (21:00)
[2019-12-28] MEDS: SODIUM CHLORIDE FLUSH 0.9% 10 ML SYRINGE IVP SCH ×3 (01:28→17:28)
[2019-12-28 05:08] LABS: BASOPHILS % (AUTO) 0.3 %; EOSINOPHILS # (AUTO) 0.1 10^3/uL (0.0-0.7); HGB - HEMOGLOBIN 8.3 g/dL (14.0-18.0); LYMPHOCYTES # (AUTO) 1.8 10^3/uL (1.5-3.5); LYMPHOCYTES % (AUTO) 26.4 %; MEAN CORPUSCULAR HEMOGLOBIN 32.2 pg (27.0-31.0); MEAN CORPUSCULAR HGB CONC 31.8 g/dL (32.0-36.0); MEAN CORPUSCULAR VOLUME 101.2 fL (80.0-94.0); MEAN PLATELET VOLUME 8.7 fL (7.4-11.4); MONOCYTES # (AUTO) 0.6 10^3/uL (0.0-1.0); MONOCYTES % (AUTO) 8.2 %; NEUTROPHILS # (AUTO) 4.4 10^3/uL (1.5-6.6); NEUTROPHILS % (AUTO) 63.4 %; PLT - PLATELET COUNT 113 10^3/uL (130-450); RED BLOOD COUNT 2.58 10^6/uL (4.70-6.10); RED CELL DISTRIBUTION WIDTH 18.6 % (12.0-15.0); WHITE BLOOD COUNT 6.9 x10^3/uL (4.8-10.8)
[2019-12-28] MEDS: PANTOPRAZOLE 40 MG TABLET PO SCH (05:20)
[2019-12-28 05:32] LABS: ALBUMIN/GLOBULIN RATIO 1.1 (1.0-2.2); BILIRUBIN,TOTAL 0.7 mg/dL (0.2-1.0); MAGNESIUM 1.9 mg/dL (1.7-2.8); PHOSPHORUS 3.2 mg/dL (2.5-4.6); TOTAL PROTEIN 5.8 g/dL (6.7-8.2)
[2019-12-28] MEDS: SODIUM CHLORIDE 0.9% 1,000 ML IV SCH ×2 (05:33→19:35)
[2019-12-28] MEDS: HEPARIN 5,000 UNIT/ML VIAL SUBQ SCH ×2 (08:01→22:14)
[2019-12-28] MEDS: PRENATAL VITAMIN TABLET PO SCH (08:21)
[2019-12-28] MEDS: THIAMINE 100 MG TABLET PO SCH (08:21)
[2019-12-28] MEDS: POTASSIUM CHLOR 10 MEQ/100 ML 10 MEQ/100 ML BAG IV SCH ×4 (10:53→18:04)
[2019-12-28] MEDS ORDERED: HEPARIN 5,000 UNIT/ML VIAL SUBQ SCH (11:00)
--- NOTE | 2019-12-28 11:03 | PHARMACY PROGRESS NOTE ---
- Best Possible Medication History Admit Date and Time: 12/27/19813 Processed by: Pharmacy Medication History completed: Yes Patient Interview: Completed Secondary Source(s): Physician records, Insurance records As the person ultimately responsible for medication therapy, providers are able to order a medication from an existing home medication list in [facility] via the "Reconcile Routine" prior to Confirmation of that medication by account support associate. Such practice is discouraged except when the physician, in their clinical judgment, deems that a medical need exists for a medication without regard to previous use.
[2019-12-28] MEDS ORDERED: FERROUS SULFATE 300 MG/5 ML UDC PO SCH (12:00)
[2019-12-28] MEDS: carvediloL 3.125 MG TABLET PO SCH ×2 (12:39→20:30)
[2019-12-28] MEDS ORDERED: IRON DEXTRAN 1,000 MG in SODIUM CHLORIDE 0.9% 250 ML IV ONE (12:43)
--- NOTE | 2019-12-28 12:46 | PROVIDER PROGRESS NOTE ---
Assessment/Plan - Problem List (1) Acute renal failure superimposed on chronic kidney disease Assessment/Plan: No signs of pulmonary edema while getting rehydration via IV. Creatinine has improved daily since admission. Follow BMP daily. Plan is to achieve a creatinine near his baseline of 2.0-2.5 (2) Dehydration after exertion Assessment/Plan: Even though he knows about hydration especially in the summer, because of his 4- 6 diarrheal bowel movements a day, he gets easily dehydrated. Continue with IV hydration (3) Short gut syndrome Assessment/Plan: He has difficulty absorbing certain nutrients and minerals. He knows to take frequent meals. 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 B12 and folate levels are adequate. Frequent small meals have been ordered while here. (4) ESCALANTE (dyspnea on exertion) Assessment/Plan: LVEF was found to be 40 to 45%. He needs a work-up for CAD. Another etiology could be from alcoholic cardiomyopathy. He could also be dyspneic because of the significant anemia now. Will treat with IV iron since work-up has shown significant low iron stores. He also will need PFTs for working up dyspnea (5) Systolic heart failure Assessment/Plan: VEF was found to be 40 to 45%. He needs a work-up for CAD. Another etiology could be from alcoholic cardiomyopathy. DUDLEY inhibitor cannot be started because of his elevated creatinine. He cannot get spironolactone because of dehydration and CKD. Coreg has been started but his blood pressure is low today therefore hold parameters are in effect (6) Alcohol use Assessment/Plan: He admits to 2-5 beers a day. He has been ordered to get thiamine while here. He has been ordered to get 1 beer with dinner, to prevent alcohol withdrawal. CIWA protocol has been ordered with PRN Ativan, just in case it is needed (7) Anemia Qualifiers: Anemia type: iron deficiency Assessment/Plan: B12 and folate levels are adequate. Iron stores are extremely low. Patient stated he has had treatment with IV iron in the past because p.o. iron is poorly absorbed. We will try iron liquid form for replacement. We will also give 1 dose of IV iron. Follow CBC, if hemoglobin is under 8 and he is symptomatic (such as shortness of breath with walking) then will transfuse PRBCs. If hemoglobin goes under 7 will transfuse. (8) Electrolyte and fluid disorder Assessment/Plan: Needs replacement of potassium, magnesium and phosphate frequently, due to short gut syndrome. Today the potassium is very low at 2.9, and we will give IV K riders and p.o. potassium Follow these labs and BMP day (9) Hx of Crohn's disease Assessment/Plan: As per hx. He has a gastroenterology specialist at [facility]. - Current Meds Current Meds: Current Medications Generic Name Dose Route Start Last Admin Trade Name Freq PRN Reason Stop Dose Admin Acetaminophen 650 mg 12/26/19 14:37 12/27/19 19:26 Tylenol PO 650 mg Q4HR PRN Administration Pain 1 to 4 Beer 355 ml 12/27/19 17:30 12/27/19 17:36 Beer PO Not Given 1730 KAROLYN Carvedilol 3.125 mg 12/26/19 21:00 12/28/19 12:39 Coreg PO Not Given BID KAROLYN Ferrous Sulfate 300 mg 12/28/19 12:00 12/28/19 12:39 Feosol Liquid PO Not Given DAILYWM KAROLYN Heparin Sodium (Porcine) 5,000 unit 12/26/19 21:00 12/28/19 08:01 SUBQ Not Given BID KAROLYN Sodium Chloride 1,000 mls @ 100 mls/hr 12/26/19 17:37 12/28/19 05:33 Normal Saline 0.9% IV 12/29/19 08:00 100 mls/hr .Q10H KAROLYN Administration Potassium Chloride 10 meq in 100 mls @ 100 mls/hr 12/28/19 10:00 12/28/19 10:53 Potassium Chloride IV 12/28/19 13:59 100 mls/hr Q1H KAROLYN Administration Ondansetron HCl 4 mg 12/26/19 14:37 12/27/19 19:28 Zofran Inj IVP 4 mg Q6HR PRN Administration Nausea / Vomiting Pantoprazole Sodium 40 mg 12/27/19 07:00 12/28/19 05:20 Protonix PO Not Given QDAC KAROLYN Multivit/Folic Acid/Iron 1 tab 12/26/19 18:00 12/28/19 08:21 Trinatal Rx 1 PO 1 tab DAILYWM KAROLYN Administration Sodium Chloride 10 ml 12/26/19 17:00 12/28/19 10:42 Normal Saline Flush 0.9% IVP Not Given 0100,0900,1700 KAROLYN Thiamine HCl 100 mg 12/26/19 17:44 12/28/19 08:21 Vitamin B-1 PO 100 mg DAILY KAROLYN Administration Zolpidem Tartrate 10 mg 12/26/19 20:28 12/27/19 20:57 Ambien PO 10 mg QPM PRN Administration Insomnia - Lab Result Fish Bone Diagrams: 12/28/19 04:35 12/28/19 04:35 - Additional Planning My Orders: My Active Orders 12/27/19 Dinner DIET [Regular Diet] [DIET] 12/27/19 17:30 Beer 355 ml PO 1730 12/28/19 10:00 Potassium Chlor 10 Meq/100 ml [Potassium Chloride] 10 meq in 100 ml IV Q1H 12/28/19 10:39 Calcium Citrate 1,000 mg PO TID 12/28/19 12:00 Ferrous Sulfate Liquid [Feosol Liquid] 300 mg PO DAILYWM 12/28/19 12:43 Iron Dextran [Infed] 1,000 mg Sodium Chloride 0.9% [Normal Saline 0.9%] 250 ml IV ONCE 12/28/19 14:00 Lipase/Protease/Amylase [Pancrelipase Dr 5,000/17,000/27,000 Correction] 3 - 4 cap PO TID 12/28/19 21:00 Mirtazapine [Remeron] 45 mg PO QPM PRN Patient Own Med [Patient Own Medication] 1 each PO BID Subjective - Subjective Patient Reports: Resting Comfortably, Other (Does not like the taste of the hospital food, usually eats fresh fruits and vegetables, snharp not bland cheeses.) Objective Vital Signs: Vital Signs - 24 hr 12/27/19 12/27/19 12/27/19 13:00 15:44 20:57 Temperature 36.5 C 37.1 C 37.0 C Heart Rate [ 47 L 56 L 49 L Brachial] Respiratory 18 14 16 Rate Blood Pressure 95/59 L 97/57 L 111/67 [Right Brachial artery] O2 Saturation 100 100 99 12/27/19 12/28/19 12/28/19 23:30 04:40 08:15 Temperature 36.5 C 36.7 C 36.4 C L Heart Rate [ 88 52 L 60 Brachial] Respiratory 16 16 16 Rate Blood Pressure 94/54 L 99/60 110/62 [Right Brachial artery] O2 Saturation 99 100 100 12/28/19 08:18 Temperature Heart Rate [ 60 Brachial] Respiratory Rate Blood Pressure 99/57 L [Right Brachial artery] O2 Saturation Oxygen O2 Source Room air I&O (Last 24 Hrs): Intake and Output Totals x24h 12/26/19 12/27/19 12/28/19 23:59 23:59 23:59 Intake Total 1657 3430 1245 Output Total 500 1250 750 Balance 1157 2180 495 General: Alert, Oriented x3 HEENT: Mucous membr. moist/pink Neck: Supple, No JVD Neuro: Alert, Non Focal Cardiovascular: Regular rate, No murmurs Respiratory: No respiratory distress Abdomen: Normal bowel sounds, Soft Extremities: No edema - Results Results: Laboratory Results WBC 6.9 x10^3/uL (4.8-10.8) 12/28/19 04:35 RBC 2.58 10^6/uL (4.70-6.10) L 12/28/19 04:35 Hgb 8.3 g/dL (14.0-18.0) L 12/28/19 04:35 Hct 26.1 % (42.0-52.0) L 12/28/19 04:35 MCV 101.2 fL (80.0-94.0) H 12/28/19 04:35 MCH 32.2 pg (27.0-31.0) H 12/28/19 04:35 MCHC 31.8 g/dL (32.0-36.0) L 12/28/19 04:35 RDW 18.6 % (12.0-15.0) H 12/28/19 04:35 Plt Count 113 10^3/uL (130-450) L 12/28/19 04:35 MPV 8.7 fL (7.4-11.4) 12/28/19 04:35 Neut # (Auto) 4.4 10^3/uL (1.5-6.6) 12/28/19 04:35 Lymph # (Auto) 1.8 10^3/uL (1.5-3.5) 12/28/19 04:35 [place] # (Auto) 0.6 10^3/uL (0.0-1.0) 12/28/19 04:35 Eos # (Auto) 0.1 10^3/uL (0.0-0.7) 12/28/19 04:35 Baso # (Auto) 0.0 10^3/uL (0.0-0.1) 12/28/19 04:35 Absolute Nucleated RBC 0.00 x10^3/uL 12/28/19 04:35 Nucleated RBC % 0.0 /100WBC 12/28/19 04:35 Whole Blood INR 1.3 (0.8-1.2) H 12/27/19 12:40 Sodium 138 mmol/L (135-145) 12/28/19 04:35 Potassium 2.9 mmol/L (3.5-5.0) L 12/28/19 04:35 Chloride 113 mmol/L (101-111) H 12/28/19 04:35 Carbon Dioxide 15 mmol/L (21-32) L 12/28/19 04:35 Anion Gap 10.0 (6-13) 12/28/19 04:35 BUN 33 mg/dL (6-20) H 12/28/19 04:35 Creatinine 3.0 mg/dL (0.6-1.2) H 12/28/19 04:35 Estimated GFR (MDRD) 22 (>89) L 12/28/19 04:35 Glucose 97 mg/dL (70-100) 12/28/19 04:35 Calcium 8.0 mg/dL (8.5-10.3) L 12/28/19 04:35 Phosphorus 3.2 mg/dL (2.5-4.6) 12/28/19 04:35 Magnesium 1.9 mg/dL (1.7-2.8) 12/28/19 04:35 Iron 35 ug/dL (45-182) L 12/28/19 04:35 TIBC 223 ug/dL (250-450) L 12/28/19 04:35 % Saturation 16 % (20-50) L 12/28/19 04:35 Transferrin 159 mg/dL (180-329) L 12/28/19 04:35 Total Bilirubin 0.7 mg/dL (0.2-1.0) 12/28/19 04:35 AST 18 IU/L (10-42) 12/28/19 04:35 ALT 14 IU/L (10-60) 12/28/19 04:35 Alkaline Phosphatase 362 IU/L (42-121) H 12/28/19 04:35 Troponin I High Sens 2.6 ng/L (2.3-19.7) 12/27/19 05:00 B-Natriuretic Peptide 15 pg/mL (5-100) 12/26/19 13:23 Total Protein 5.8 g/dL (6.7-8.2) L 12/28/19 04:35 Albumin 3.0 g/dL (3.2-5.5) L 12/28/19 04:35 Globulin 2.8 g/dL (2.1-4.2) 12/28/19 04:35 Albumin/Globulin Ratio 1.1 (1.0-2.2) 12/28/19 04:35 Triglycerides 107 mg/dL (-149) 12/27/19 05:00 Cholesterol 81 mg/dL (-199) 12/27/19 05:00 LDL Cholesterol, Calc 23 mg/dL (-129) 12/27/19 05:00 VLDL Cholesterol 21 mg/dL 12/27/19 05:00 HDL Cholesterol 37 mg/dL (60-) L 12/27/19 05:00 LDL/HDL Ratio 0.6 (<3.6) 12/27/19 05:00 Cholesterol/HDL Ratio 2.2 (<5.0) 12/27/19 05:00 Lipase 25 U/L (22-51) 12/26/19 13:23 Vitamin B12 937 pg/mL (180-914) H 12/28/19 04:35 Folate 32.00 ng/mL (5.90 - >24.8) 12/28/19 04:35 Urine Color DARK YELLOW 12/26/19 16:50 Urine Clarity CLEAR (CLEAR) 12/26/19 16:50 Urine pH 5.5 PH (5.0-7.5) 12/26/19 16:50 Ur Specific [place] >=1.030 (1.002-1.030) H 12/26/19 16:50 Urine Protein 30 mg/dL (NEGATIVE) H 12/26/19 16:50 Urine Glucose (UA) NEGATIVE mg/dL (NEGATIVE) 12/26/19 16:50 Urine Ketones NEGATIVE mg/dL (NEGATIVE) 12/26/19 16:50 Urine Occult Blood MODERATE (NEGATIVE) H 12/26/19 16:50 Urine Nitrite NEGATIVE (NEGATIVE) 12/26/19 16:50 Urine Bilirubin NEGATIVE (NEGATIVE) 12/26/19 16:50 Urine Urobilinogen 0.2 (NORMAL) E.U./dL (NORMAL) 12/26/19 16:50 Ur Leukocyte Esterase NEGATIVE (NEGATIVE) 12/26/19 16:50 Urine RBC 11-25 /HPF (0-5) H 12/26/19 16:50 Urine WBC 11-25 /HPF (0-3) H 12/26/19 16:50 Ur Squamous Epith Cells FEW Squamous (<= Few) 12/26/19 16:50 Amorphous Sediment Rare /LPF 12/26/19 16:50 Urine Bacteria Few /HPF (None Seen) 12/26/19 16:50 Urine Casts 11-25 Hyaline Casts /LPF 12/26/19 16:50 Ur Microscopic Review INDICATED 12/26/19 16:50 Urine Culture Comments INDICATED 12/26/19 16:50 Ethyl Alcohol < 5.0 mg/dL 12/26/19 13:23 Coronavirus (PCR) NEGATIVE 12/26/19 13:46 Sepsis Event Note (H) - Evaluation Current Stage of Sepsis: Ruled out
[2019-12-28] MEDS: FERRIC GLUCONATE 125 MG in SODIUM CHLORIDE 0.9% 100ML 100 ML IV SCH (13:35)
[2019-12-28] MEDS ORDERED: LIPASE/PROTEASE/AMYLASE CAPSULE PO SCH (14:00)
[2019-12-28] MEDS: CALCIUM CITRATE 250 MG TABLET PO SCH ×2 (14:04→20:30)
[2019-12-28] MEDS: LIPASE/PROTEASE/AMYLASE CAPSULE PO SCH (16:41)
[2019-12-28] MEDS: ONDANSETRON 4 MG/2 ML VIAL IVP PRN (16:41)
[2019-12-28] MEDS: BEER 355 ML BOTTLE PO SCH (17:29)
[2019-12-28] MEDS ORDERED: MIRTAZAPINE 15 MG TABLET PO PRN (21:00)
[2019-12-28] MEDS: CITRIC ACID PO SCH (22:14)
[2019-12-28] MEDS: POTASSIUM CITRATE PO SCH (22:14)
[2019-12-28] MEDS: ZOLPIDEM 5 MG TABLET PO PRN (22:15)
[2019-12-29] MEDS: SODIUM CHLORIDE FLUSH 0.9% 10 ML SYRINGE IVP SCH ×3 (01:26→17:09)
[2019-12-29] MEDS: SODIUM CHLORIDE 0.9% 1,000 ML IV SCH ×2 (04:54→17:07)
[2019-12-29] MEDS: PANTOPRAZOLE 40 MG TABLET PO SCH (05:00)
[2019-12-29 05:44] LABS: BASOPHILS % (AUTO) 0.5 %; EOSINOPHILS # (AUTO) 0.1 10^3/uL (0.0-0.7); EOSINOPHILS % (AUTO) 1.2 %; HGB - HEMOGLOBIN 8.4 g/dL (14.0-18.0); LYMPHOCYTES # (AUTO) 1.8 10^3/uL (1.5-3.5); LYMPHOCYTES % (AUTO) 30.3 %; MEAN CORPUSCULAR HEMOGLOBIN 31.9 pg (27.0-31.0); MEAN CORPUSCULAR HGB CONC 31.8 g/dL (32.0-36.0); MEAN CORPUSCULAR VOLUME 100.4 fL (80.0-94.0); MEAN PLATELET VOLUME 8.8 fL (7.4-11.4); MONOCYTES # (AUTO) 0.5 10^3/uL (0.0-1.0); MONOCYTES % (AUTO) 9.2 %; NEUTROPHILS # (AUTO) 3.4 10^3/uL (1.5-6.6); NEUTROPHILS % (AUTO) 58.1 %; PLT - PLATELET COUNT 110 10^3/uL (130-450); RED BLOOD COUNT 2.63 10^6/uL (4.70-6.10); RED CELL DISTRIBUTION WIDTH 18.6 % (12.0-15.0); WHITE BLOOD COUNT 5.9 x10^3/uL (4.8-10.8)
[2019-12-29 06:09] LABS: ALBUMIN 3.1 g/dL (3.2-5.5); BILIRUBIN,TOTAL 0.8 mg/dL (0.2-1.0); CALCIUM 8.3 mg/dL (8.5-10.3); CREATININE 2.5 mg/dL (0.6-1.2); MAGNESIUM 1.7 mg/dL (1.7-2.8); TOTAL PROTEIN 6.1 g/dL (6.7-8.2)
[2019-12-29] MEDS: CALCIUM CITRATE 250 MG TABLET PO SCH ×3 (06:18→21:20)
[2019-12-29] MEDS: HEPARIN 5,000 UNIT/ML VIAL SUBQ SCH ×2 (10:41→21:21)
[2019-12-29] MEDS: LIPASE/PROTEASE/AMYLASE CAPSULE PO SCH ×3 (10:43→17:14)
[2019-12-29] MEDS: carvediloL 3.125 MG TABLET PO SCH ×2 (10:43→20:50)
[2019-12-29] MEDS: PRENATAL VITAMIN TABLET PO SCH (10:43)
[2019-12-29] MEDS: THIAMINE 100 MG TABLET PO SCH (10:43)
[2019-12-29] MEDS: POTASSIUM CITRATE PO SCH ×2 (10:45→17:50)
[2019-12-29] MEDS: CITRIC ACID PO SCH ×2 (10:45→17:50)
[2019-12-29] MEDS ORDERED: FERRIC GLUCONATE 125 MG in SODIUM CHLORIDE 0.9% 100ML 100 ML IV SCH (11:00)
[2019-12-29] MEDS: POTASSIUM CHLOR 10 MEQ/100 ML 10 MEQ/100 ML BAG IV SCH ×4 (12:50→19:57)
[2019-12-29] MEDS: FERRIC GLUCONATE 125 MG in SODIUM CHLORIDE 0.9% 100ML 100 ML IV SCH (12:59)
[2019-12-29] MEDS ORDERED: SODIUM CHLORIDE 0.9% 1,000 ML IV ONE (15:02)
[2019-12-29] MEDS ORDERED: SODIUM CHLORIDE 0.9% 1,000 ML IV SCH (16:00)
[2019-12-29] MEDS: BEER 355 ML BOTTLE PO SCH (17:16)
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
[2019-12-29] MEDS ORDERED: POTASSIUM CHLOR 10 MEQ/100 ML 10 MEQ/100 ML BAG IV ONE (19:55)
[2019-12-29] MEDS: ZOLPIDEM 5 MG TABLET PO PRN (21:27)
[2019-12-30] MEDS: SODIUM CHLORIDE FLUSH 0.9% 10 ML SYRINGE IVP SCH ×2 (01:30→11:54)
[2019-12-30] MEDS: PANTOPRAZOLE 40 MG TABLET PO SCH (01:59)
[2019-12-30 05:39] LABS: BASOPHILS % (AUTO) 0.3 %; EOSINOPHILS # (AUTO) 0.2 10^3/uL (0.0-0.7); EOSINOPHILS % (AUTO) 1.8 %; HGB - HEMOGLOBIN 10.2 g/dL (14.0-18.0); LYMPHOCYTES % (AUTO) 22.8 %; MEAN CORPUSCULAR HGB CONC 32.9 g/dL (32.0-36.0); MEAN CORPUSCULAR VOLUME 100.3 fL (80.0-94.0); MEAN PLATELET VOLUME 8.4 fL (7.4-11.4); MONOCYTES # (AUTO) 0.8 10^3/uL (0.0-1.0); MONOCYTES % (AUTO) 9.3 %; NEUTROPHILS # (AUTO) 5.6 10^3/uL (1.5-6.6); NEUTROPHILS % (AUTO) 64.9 %; PLT - PLATELET COUNT 126 10^3/uL (130-450); RED BLOOD COUNT 3.09 10^6/uL (4.70-6.10); RED CELL DISTRIBUTION WIDTH 18.6 % (12.0-15.0); WHITE BLOOD COUNT 8.7 x10^3/uL (4.8-10.8)
[2019-12-30] MEDS: CALCIUM CITRATE 250 MG TABLET PO SCH (05:43)
[2019-12-30 05:55] LABS: ALBUMIN 3.6 g/dL (3.2-5.5); BILIRUBIN,TOTAL 0.5 mg/dL (0.2-1.0); CALCIUM 8.7 mg/dL (8.5-10.3); CREATININE 2.6 mg/dL (0.6-1.2); MAGNESIUM 1.6 mg/dL (1.7-2.8); TOTAL PROTEIN 7.1 g/dL (6.7-8.2)
[2019-12-30] MEDS ORDERED: MAGNESIUM OXIDE 400 MG TABLET PO SCH (08:00)
[2019-12-30] MEDS ORDERED: POTASSIUM CHLORIDE 20 MEQ/15 ML UDC PO SCH (08:00)
[2019-12-30] MEDS: carvediloL 3.125 MG TABLET PO SCH (08:06)
[2019-12-30] MEDS: THIAMINE 100 MG TABLET PO SCH (08:06)
[2019-12-30] MEDS: PRENATAL VITAMIN TABLET PO SCH (08:06)
[2019-12-30] MEDS: LIPASE/PROTEASE/AMYLASE CAPSULE PO SCH (08:07)
[2019-12-30] MEDS: CITRIC ACID PO SCH (08:08)
[2019-12-30] MEDS: HEPARIN 5,000 UNIT/ML VIAL SUBQ SCH (08:08)
[2019-12-30] MEDS: POTASSIUM CITRATE PO SCH (08:08)
--- NOTE | 2019-12-30 09:11 | Discharge Plan ---
Discharge Plan Problem Reviewed?: Yes Disposition: Home, Self Care Condition: Stable Prescriptions: carvediloL [Coreg] 3.125 mg PO BID #60 tablet Magnesium l-Lactate [Magnesium l-Lactate Dihyd Sr] 84 mg PO DAILY #30 tablet.er Diet: Regular Activity Restrictions: Activity as Tolerated Shower Restrictions: No Driving Restrictions: No Health Concerns: You were admitted to the hospital because of renal failure due to dehydration. Your kidney numbers were significantly elevated compared to your baseline. You were treated with IV fluids and your renal function has improved back to your baseline. Your magnesium and potassium levels were also low. This has been supplemented with IV potassium and oral potassium. During this hospitalization, we did an ultrasound of your heart which showed your heart function is a little weaker compared to normal. Your heart is pumping at 40 to 45% when normally it is around 55%. We have started you on a new medication called carvedilol which you need to take twice a day. This can lower your blood pressure a little bit so if you do feel dizzy or lightheaded then please call your primary care provider. Plan of Treatment: Please take potassium citrate 10 mL twice daily. If your potassium levels remain low in the future then you may need a higher dose of this. Please continue to take the magnesium supplementation. Please take the new medication, carvedilol twice daily as prescribed. Please have repeat blood work done later this week to make sure your potassium, magnesium, kidney functions are stable. Care Goals: He is follow-up with your primary care provider in 1 to 2 weeks. It is also recommended you follow-up with your kidney specialist. Additional Instructions or Follow Up instructions: Patient expressed understanding of the treatment plan. No Smoking: If you smoke, Please STOP! Call for help. Follow-up with: Ryan Bergeron MD [Primary Care Provider] -
--- NOTE | 2019-12-30 10:49 | DISCHARGE SUMMARY ---
"Discharge Summary Admit Date: 12/26/19 Discharge Date: 12/30/19 Discharging Provider: Haroon Juarez Primary Care Provider: Ryan Bergeron Code Status: Attempt Resuscitation Condition at Discharge: Stable Discharge Disposition: 01 Home, Self Care - DIAGNOSES Admission Diagnoses: Acute kidney injury Shortness of breath Systolic heart failure Short gut syndrome Hypokalemia Hypomagnesemia Leukocytosis Discharge Diagnoses with Status of Each Condition: Acute kidney injury on chronic kidney disease - stable. Chronic systolic heart failure - stable. Anemia - stable. History of Crohn's disease - stable. Hypokalemia - stable. Hypomagnesia - stable. - HPI History of Present Illness: H&P per ASIA Faulkner: this is a 54-year-old gentleman with a past medical history significant of Crohn's disease, chronic renal insufficiency, short gut syndrome, and chronic electrolyte abnormalities, hx of alcoholism, who presents with complaints of shortness of breath, nausea and general ill feeling. pt report this is atypical to him. Pt reports since this Sunday he has had nausea without vomiting but causing poor PO intake, and shortness of breath on exertion, fatigue and weight loss. Pt report he has chronic electrolytes imbalance medical issue but he reports that this is off from his baseline. he feel weakness he can not walk. he denies chest pain, fever, chill, cough, abdominal pain, diarrhea. Route lab show his creatinine today is 5.7, it usually is about 2 to 2.5. His BUN is 40, it is usually normal. His potassium of 3 and a magnesium of 1.4 and elevated alkaline phosphatase, WBC is 19. UA analysis does not indicate infeciton, and chest x-ray was unremarkable. Patient is afebrile and hemodynamically stable at this point. Patient is admitted for further medical management. Discussed the care goal with the patient, patient want full code. - CONSULTS | PROCEDURES Consultations: Social Work Nutrition. Procedures: Echocardiogram on December 25 showed an EF of 40 to 45% with mild global hypokinesis. The left ventricle was normal in size. There was normal right ventricular size with mildly reduced function. Pulmonary pressure was normal. No significant valvular disease. - HOSPITAL COURSE Hospital Course: He was admitted for acute kidney injury on chronic kidney disease. He was treated with IV fluids with improvement in his renal function. It was felt that this was secondary to the severe diarrhea he had been having as well as overexertion in the summer heat. He unfortunate does have diarrhea at baseline due to small bowel resection for his Crohn's disease. An echocardiogram was obtained which showed ejection fraction was approximately 40 to 45%. He was started on carvedilol given these findings but at a low dose of 3.125 mg twice daily given his blood pressure is on the lower end at baseline. He was not started on spironolactone or lisinopril given his chronic kidney disease. His hemoglobin did decrease from 12.8 on admission to 8.4 the following day. This was likely due to hemoconcentration as all of his cell counts dropped significantly. His hemoglobin has since remained stable and actually increased on day of discharge. Has been no evidence of bleeding during this hospitalization. Stool was negative for occult blood. Iron studies were obtained and were suggestive of iron deficiency anemia. He was started on IV iron during this hospitalization. He had significant electrolyte derangements predominantly hypokalemia and hypomagnesemia which required intravenous replacements. On discharge, his magnesium is 1.6 and his potassium is 3.0. The patient is eager to go home and I feel this is reasonable given electrolytes have improved. I have asked him to continue his potassium supplementation at home I provided him with a pre scription for magnesium supplementation. I asked him to have labs obtained in 4 days and to follow-up with his primary care provider as he may need to increase his potassium supplementation. - ALLERGIES Allergies/Adverse Reactions: Allergies Allergy/AdvReac Type Severity Reaction Status Date / Time No Known Drug Allergies Allergy Verified 12/26/19 13:21 - MEDICATIONS Home Medications: Ambulatory Orders Medication Instructions Recorded Confirmed Calcium Citrate 1,000 mg PO TID 09/17/19 12/27/19 Ergocalciferol (Vitamin D2) 1 cap ORAL .WEEKLY 11/12/19 12/27/19 [Vitamin D2] Lipase/Protease/Amylase [Nick Yuan 3 - 4 cap ORAL TID 11/12/19 12/27/19 12,000 Units Capsule] Mirtazapine 45 mg ORAL QPM PRN 11/12/19 12/27/19 Potassium Citrate/Citric Acid 10 ml ORAL BID 11/12/19 12/27/19 [Potassium Cit-Citric Acid Soln] Zolpidem Tartrate 10 mg PO QPM PRN 11/12/19 12/26/19 Magnesium l-Lactate [Magnesium 84 mg PO DAILY #30 tablet.er 12/30/19 l-Lactate Dihyd Sr] Vitamin [Trinatal Rx 1] 1 tab PO DAILYWM tablet 12/30/19 carvediloL [Coreg] 3.125 mg PO BID #60 tablet 12/30/19 - PHYSICAL EXAM AT DISCHARGE General Appearance: positive: No acute distress, Alert Eyes Bilateral: positive: Normal inspection, Conjunctivae nml ENT: positive: ENT inspection nml Neck: positive: Nml inspection Respiratory: positive: No respiratory distress. negative: Wheezes, Rales Cardiovascular: positive: Regular rate & rhythm, No murmur. negative: Tachycardia, Systolic murmur Abdomen: positive: Non-tender, No distention, Abnml bowel sounds (Hyperactive.), Other (Prior incisional scars noted). negative: Tenderness Skin: positive: Warm, Dry Extremities: positive: Full ROM, No pedal edema Neurologic/Psychiatric: positive: Oriented x3, Motor nml. negative: Disoriented to person, Disoriented to place, Disoriented to time - LABS Result Diagrams: 12/30/19 05:31 12/30/19 05:31 - SEPSIS Current Stage of Sepsis: Ruled out - FOLLOW UP Follow Up: He was asked to follow-up with his primary care provider within 1 week and to obtain labs in 4 days. He was also asked to follow-up with his continuity coordinator at [facility]. - TIME SPENT Time Spent in Discharge (Minutes): 35"
[2019-12-30 11:46] VITALS: BP 92/73
== END 2019-12-30 13:05 | disposition home or self-care (01) | DRG 292 ==
LOC: ED 13:07 → MS2 14:37 → OBSVTOIN 12-27 08:14
PROVIDERS: ADMIT Nurse Practitioner Gerontology; ATTEND Internal Medicine
DX: I50.22 Chronic systolic (congestive) heart failure (principal); I50.20 Unspecified systolic (congestive) heart failure; N17.9 Acute kidney failure, unspecified; K91.2 Postsurgical malabsorption, not elsewhere classified; K50.90 Crohn's disease, unspecified, without complications; N18.9 Chronic kidney disease, unspecified; D72.829 Elevated white blood cell count, unspecified; E87.6 Hypokalemia; Z20.828 Contact with and (suspected) exposure to other viral communicable diseases; E83.42 Hypomagnesemia; E86.0 Dehydration; D63.1 Anemia in chronic kidney disease; D50.9 Iron deficiency anemia, unspecified; F10.20 Alcohol dependence, uncomplicated; Z79.899 Other long term (current) drug therapy; Z87.891 Personal history of nicotine dependence; Z86.14 Personal history of Methicillin resistant Staphylococcus aureus infection; Z90.49 Acquired absence of other specified parts of digestive tract
CPT/HCPCS: 36415; 71045; 76770; 80053; 80061; 81001; 82272; 82607; 82746; 83540; 83690; 83735; 83880; 84100; 84466; 84484; 85025; 85610; 87086; 87640; 93005; 93306; 96361; 96365; 96366; 96368; 96375; 96376; 99284; 99285; A9270; G0378; J2916; U0004; 80048; 80069; 80320; 81003; 83721; 84132

== ENCOUNTER 2020-01-07 09:04 | Outpatient (CLI) | payer MEDICARE, BC ==
[2020-01-07 10:05] LABS: ALBUMIN 3.9 g/dL (3.2-5.5); BILIRUBIN,TOTAL 0.8 mg/dL (0.2-1.0); CREATININE 4.7 mg/dL (0.6-1.2); TOTAL PROTEIN 7.8 g/dL (6.7-8.2)
[2020-01-07 10:13] LABS: MAGNESIUM 0.9 mg/dL (1.7-2.8)
== END 2020-01-07 09:05 | disposition home or self-care (01) ==
LOC: LAB 09:04
PROVIDERS: ATTEND Internal Medicine
DX: E83.42 Hypomagnesemia (principal); E83.51 Hypocalcemia; K50.90 Crohn's disease, unspecified, without complications
CPT/HCPCS: 36415; 80053; 83735

== ENCOUNTER 2020-01-20 13:59 | Emergency (ER) | payer MEDICARE, BC ==
[2020-01-20] MEDS ORDERED: FOLIC ACID INJ 1 MG, THIAMINE INJ 100 MG, MAGNESIUM SULFATE 2 GM, MULTIVITAMIN 10 ML in... IV STA ×5 (14:38)
--- NOTE | 2020-01-20 14:41 | ED Physician Documentation ---
History of Present Illness - Stated complaint Stated Complaint: LIGHT HEADED/POOR BALANCE - Chief complaint Chief Complaint: General - History obtained from History obtained from: Patient, Family - History of Present Illness Timing: How many weeks ago (4) - Additonal information Additional information: 54-year-old male with a history of Crohn's colitis has developed a Crohn's flare and this is been after he is taken some antibiotic for wounds on his abdominal wall. He has been into the [facility] clinic for infusion once a week and today he is presenting to the emergency department early feeling that he needs IV hydration. He is lightheaded and dizzy anytime he stands up and he feels nauseous and withdrawn. Review of Systems Constitutional: reports: Fatigue, Sweats. denies: Fever Eyes: denies: Decreased vision Ears: denies: Ear pain Nose: denies: Rhinorrhea / runny nose, Congestion Throat: denies: Sore throat Cardiac: denies: Chest pain / pressure, Palpitations Respiratory: denies: Dyspnea, Cough GI: reports: Abdominal Pain, Nausea, Vomiting, Diarrhea : denies: Dysuria, Frequency Skin: denies: Rash Musculoskeletal: denies: Neck pain, Back pain, Extremity pain Neurologic: reports: Generalized weakness. denies: Focal weakness, Numbness, Difficulty speaking Psychiatric: reports: Depressed, Anxiety PD PAST MEDICAL HISTORY - Past Medical History Cardiovascular: None Respiratory: None Neuro: None Endocrine/Autoimmune: None GI: Crohn's disease : None HEENT: None Psych: None Musculoskeletal: None Derm: None - Past Surgical History Past Surgical History: Yes General: Other HEENT: Detached retina repair - Present Medications Home Medications: Ambulatory Orders Medication Instructions Recorded Confirmed Calcium Citrate 1,000 mg PO TID 09/17/19 12/27/19 Ergocalciferol (Vitamin D2) 1 cap ORAL .WEEKLY 11/12/19 12/27/19 [Vitamin D2] Lipase/Protease/Amylase [Nick Yuan 3 - 4 cap ORAL TID 11/12/19 12/27/19 12,000 Units Capsule] Mirtazapine 45 mg ORAL QPM PRN 11/12/19 12/27/19 Potassium Citrate/Citric Acid 10 ml ORAL BID 11/12/19 12/27/19 [Potassium Cit-Citric Acid Soln] Zolpidem Tartrate 10 mg PO QPM PRN 11/12/19 12/26/19 Magnesium l-Lactate [Magnesium 84 mg PO DAILY #30 tablet.er 12/30/19 l-Lactate Dihyd Sr] Vitamin [Trinatal Rx 1] 1 tab PO DAILYWM tablet 12/30/19 carvediloL [Coreg] 3.125 mg PO BID #60 tablet 12/30/19 - Allergies Allergies/Adverse Reactions: Allergies Allergy/AdvReac Type Severity Reaction Status Date / Time No Known Drug Allergies Allergy Verified 01/20/20 14:04 - Social History Does the pt smoke?: No Smoking Status: Never smoker Does the pt drink ETOH?: Yes Does the pt have substance abuse?: Yes - Immunizations Immunizations are current?: Yes - POLST Patient has POLST: No PD ED PE NORMAL - Vitals Vital signs reviewed: Yes (Normal) - General General: Alert and oriented X 3, Well developed/nourished, Other (The patient appears withdrawn and is tearful) - HEENT HEENT: Atraumatic, PERRL, EOMI - Neck Neck: Supple, no meningeal sign, No bony TTP - Cardiac Cardiac: RRR, No murmur - Respiratory Respiratory: No respiratory distress, Clear bilaterally - Abdomen Abdomen: Soft, Other (There is tenderness to the abdomen especially over the areas of the wounds that are healing. 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, No motor deficit, No sensory deficit, Normal speech Eye Opening: Spontaneous Motor: Obeys Commands Verbal: Oriented GCS Score: 15 - Psych Psych: Normal mood, Normal affect Results - Vitals Vitals: Vital Signs - 24 hr 01/20/20 01/20/20 01/20/20 14:04 14:15 17:09 Temperature 36.3 C L 36.3 C L Heart Rate 97 97 72 Respiratory 18 18 Rate Blood Pressure 94/62 94/62 100/65 O2 Saturation 99 99 100 01/20/20 19:19 Temperature Heart Rate 72 Respiratory 12 Rate Blood Pressure 98/69 O2 Saturation 100 Oxygen O2 Source Room air - Labs Labs: Laboratory Tests 01/20/20 01/20/20 01/20/20 15:08 15:08 15:08 WBC 15.7 H RBC 3.66 L Hgb 11.9 L Hct 35.9 L MCV 98.1 H MCH 32.5 H MCHC 33.1 RDW 14.7 Plt Count 198 MPV 8.6 Neut # (Auto) 12.2 H Lymph # (Auto) 2.3 [place] # (Auto) 0.9 Eos # (Auto) 0.1 Baso # (Auto) 0.1 Absolute Nucleated RBC 0.00 Nucleated RBC % 0.0 Sodium 136 Potassium 4.0 Chloride 101 Carbon Dioxide 18 L Anion Gap 17.0 H BUN 47 H Creatinine 3.4 H Estimated GFR (MDRD) 19 L Glucose 110 H Lactic Acid 1.4 Calcium 8.0 L Magnesium 1.0 L* Total Bilirubin 1.0 AST 51 H ALT 49 Alkaline Phosphatase 503 H Total Protein 8.3 H Albumin 4.1 Globulin 4.2 Albumin/Globulin Ratio 1.0 Lipase 30 Urine Color Urine Clarity Urine pH Ur Specific [place] Urine Protein Urine Glucose (UA) Urine Ketones Urine Occult Blood Urine Nitrite Urine Bilirubin Urine Urobilinogen Ur Leukocyte Esterase Urine RBC Urine WBC Ur Squamous Epith Cells Urine Bacteria Urine Casts Ur Microscopic Review Urine Culture Comments 01/20/20 18:15 WBC RBC Hgb Hct MCV MCH MCHC RDW Plt Count MPV Neut # (Auto) Lymph # (Auto) [place] # (Auto) Eos # (Auto) Baso # (Auto) Absolute Nucleated RBC Nucleated RBC % Sodium Potassium Chloride Carbon Dioxide Anion Gap BUN Creatinine Estimated GFR (MDRD) Glucose Lactic Acid Calcium Magnesium Total Bilirubin AST ALT Alkaline Phosphatase Total Protein Albumin Globulin Albumin/Globulin Ratio Lipase Urine Color YELLOW Urine Clarity CLEAR Urine pH 5.0 Ur Specific [place] 1.025 Urine Protein TRACE Urine Glucose (UA) NEGATIVE Urine Ketones NEGATIVE Urine Occult Blood MODERATE H Urine Nitrite NEGATIVE Urine Bilirubin NEGATIVE Urine Urobilinogen 0.2 (NORMAL) Ur Leukocyte Esterase NEGATIVE Urine RBC 0-5 Urine WBC 0-3 Ur Squamous Epith Cells NONE SEEN Urine Bacteria None Seen Urine Casts 6-10 Hyaline Casts Ur Microscopic Review INDICATED Urine Culture Comments NOT INDICATED Procedures - IVC sono (time) 1430 Bedside IVC sono: IVC measures (cm) (0.72), IVC collapsed c insp (cm) (complete), Significant dehydration (est 3 liter deficit) PD MEDICAL DECISION MAKING - ED course Complexity details: reviewed old records, reviewed results, re-evaluated patient, considered differential, d/w patient, d/w family ED course: 54-year-old male with a history of Crohn's disease has fluid electrolyte imbalance and he is administered a banana bag here in the emergency department and we will check his electrolytes.He is extremely dehydrated and initially we have administered a banana bag following that a liter of saline and he also received a gram of calcium gluconate intravenously in the banana bag has 2 g of magnesium he did have a low magnesium today as well as calcium. He was administered 500ml of lactated ringers as well. At the conclusion of treatment he feels much improved. Departure - Departure Disposition: 01 Home, Self Care Clinical Impression: Dehydration, Hypomagnesemia, Hypocalcemia Condition: Stable Instructions: ED Dehydration, Hypomagnesemia Dc, ED Hypocalcemia Follow-Up: Ryan Bergeron MD [Primary Care Provider] -
[2020-01-20] MEDS ORDERED: ONDANSETRON 4 MG/2 ML VIAL IVP STA (14:47)
[2020-01-20 15:15] LABS: BASOPHILS # (AUTO) 0.1 10^3/uL (0.0-0.1); BASOPHILS % (AUTO) 0.4 %; EOSINOPHILS # (AUTO) 0.1 10^3/uL (0.0-0.7); EOSINOPHILS % (AUTO) 0.6 %; HGB - HEMOGLOBIN 11.9 g/dL (14.0-18.0); LYMPHOCYTES # (AUTO) 2.3 10^3/uL (1.5-3.5); LYMPHOCYTES % (AUTO) 14.8 %; MEAN CORPUSCULAR HEMOGLOBIN 32.5 pg (27.0-31.0); MEAN CORPUSCULAR HGB CONC 33.1 g/dL (32.0-36.0); MEAN CORPUSCULAR VOLUME 98.1 fL (80.0-94.0); MEAN PLATELET VOLUME 8.6 fL (7.4-11.4); MONOCYTES # (AUTO) 0.9 10^3/uL (0.0-1.0); MONOCYTES % (AUTO) 5.9 %; NEUTROPHILS # (AUTO) 12.2 10^3/uL (1.5-6.6); NEUTROPHILS % (AUTO) 77.5 %; PLT - PLATELET COUNT 198 10^3/uL (130-450); RED BLOOD COUNT 3.66 10^6/uL (4.70-6.10); RED CELL DISTRIBUTION WIDTH 14.7 % (12.0-15.0); WHITE BLOOD COUNT 15.7 x10^3/uL (4.8-10.8)
[2020-01-20 15:30] LABS: ALBUMIN 4.1 g/dL (3.2-5.5); CREATININE 3.4 mg/dL (0.6-1.2); TOTAL PROTEIN 8.3 g/dL (6.7-8.2)
[2020-01-20] MEDS ORDERED: CALCIUM GLUCONATE 1000 MG/10 ML VIAL IVP STA (16:15)
[2020-01-20] MEDS ORDERED: SODIUM CHLORIDE 0.9% 1,000 ML IV STA (16:16)
[2020-01-20] MEDS ORDERED: CALCIUM GLUCONATE 1,000 MG in SODIUM CHLORIDE 0.9% 50 ML IV STA (16:31)
[2020-01-20 18:29] LABS: BILIRUBIN,URINE NEGATIVE (NEGATIVE); GLUCOSE, URINE (UA) NEGATIVE (NEGATIVE); KETONES,URINE (UA) NEGATIVE (NEGATIVE); LEUKOCYTE ESTERASE, URINE NEGATIVE (NEGATIVE); NITRITE,URINE NEGATIVE (NEGATIVE); OCCULT BLOOD,URINE MODERATE (NEGATIVE); PROTEIN,URINE TRACE mg/dL (NEGATIVE); UROBILINOGEN,URINE 0.2 (NORMAL) E.U./dL (NORMAL)
[2020-01-20 18:31] LABS: CLARITY,URINE CLEAR (CLEAR)
[2020-01-20] MEDS ORDERED: LACTATED RINGERS 500 ML IV ONE (18:34)
[2020-01-20 18:52] LABS: BACTERIA,URINE None Seen /HPF (None Seen); CASTS, URINE 6-10 Hyaline Casts /LPF; RBC,URINE 0-5 /HPF (0-5); SQUAMOUS EPITHELIAL CELL,UR NONE SEEN (<= Few)
[2020-01-20 19:20] VITALS: BP 98/69
== END 2020-01-20 19:53 | disposition home or self-care (01) ==
LOC: ED 13:59
DX: E86.0 Dehydration (principal); E83.42 Hypomagnesemia; E83.51 Hypocalcemia; K50.10 Crohn's disease of large intestine without complications
CPT/HCPCS: 36415; 80053; 81001; 83605; 83690; 83735; 85025; 96365; 96366; 96367; 96375; 99284; J3411; J7040; J7120; 81003; 87086

== ENCOUNTER 2020-01-23 14:12 | Inpatient (IN) | payer MEDICARE, BC ==
[2020-01-23] MEDS ORDERED: SODIUM CHLORIDE 0.9% 2,000 ML IV STA (14:25)
[2020-01-23] MEDS ORDERED: MAGNESIUM SULFATE 2 GRAM 2 GM/50 ML BAG IV ONE (15:03)
[2020-01-23 15:07] LABS: BASOPHILS # (AUTO) 0.1 10^3/uL (0.0-0.1); BASOPHILS % (AUTO) 0.4 %; EOSINOPHILS % (AUTO) 0.4 %; LYMPHOCYTES # (AUTO) 3.1 10^3/uL (1.5-3.5); LYMPHOCYTES % (AUTO) 14.7 %; MEAN PLATELET VOLUME 9.6 fL (7.4-11.4)
[2020-01-23 15:09] LABS: EOSINOPHILS # (AUTO) 0.1 10^3/uL (0.0-0.7); HGB - HEMOGLOBIN 11.9 g/dL (14.0-18.0); MEAN CORPUSCULAR HEMOGLOBIN 32.2 pg (27.0-31.0); MEAN CORPUSCULAR HGB CONC 33.3 g/dL (32.0-36.0); MEAN CORPUSCULAR VOLUME 96.5 fL (80.0-94.0); MONOCYTES # (AUTO) 1.5 10^3/uL (0.0-1.0); NEUTROPHILS % (AUTO) 76.6 %; PLT - PLATELET COUNT 257 10^3/uL (130-450); RED CELL DISTRIBUTION WIDTH 14.8 % (12.0-15.0); WHITE BLOOD COUNT 20.9 x10^3/uL (4.8-10.8)
--- NOTE | 2020-01-23 15:14 | ED Physician Documentation ---
History of Present Illness - Stated complaint Stated Complaint: NAUSEA/BACK PX - Chief complaint Chief Complaint: General - History obtained from History obtained from: Patient - History of Present Illness Timing: Today Pain level max: 0 Pain level now: 0 - Additonal information Additional information: 54-year-old male with chronic hypomagnesemia, hypocalcemia and dehydration presents to the emergency department stating he did not eat or drink 2 days ago [place] He states he feels dehydrated and weak again. Nothing makes it better or worse. Has chronic diarrhea. No fevers. No vomiting. Review of Systems Ten Systems: 10 systems reviewed and negative Constitutional: denies: Fever, Chills Throat: denies: Sore throat Cardiac: denies: Chest pain / pressure, Palpitations Respiratory: denies: Dyspnea, Cough, Hemoptysis GI: reports: Diarrhea. denies: Abdominal Pain, Nausea, Vomiting, Hematemesis, Bloody / black stool : denies: Dysuria, Frequency, Hesitancy Skin: denies: Rash Musculoskeletal: denies: Neck pain, Back pain Neurologic: denies: Headache PD PAST MEDICAL HISTORY - Past Medical History Cardiovascular: None Respiratory: None Neuro: None Endocrine/Autoimmune: None GI: Crohn's disease : None HEENT: None Psych: None Musculoskeletal: None Derm: None Other Past Medical History: Hs of Crones dx., Elevated creatinine - Past Surgical History Past Surgical History: Yes General: Other HEENT: Detached retina repair - Present Medications Home Medications: Ambulatory Orders Medication Instructions Recorded Confirmed Calcium Citrate 1,000 mg PO TID 09/17/19 12/27/19 Ergocalciferol (Vitamin D2) 1 cap ORAL .WEEKLY 11/12/19 12/27/19 [Vitamin D2] Lipase/Protease/Amylase [Nick Yuan 3 - 4 cap ORAL TID 11/12/19 12/27/19 12,000 Units Capsule] Mirtazapine 45 mg ORAL QPM PRN 11/12/19 12/27/19 Potassium Citrate/Citric Acid 10 ml ORAL BID 11/12/19 12/27/19 [Potassium Cit-Citric Acid Soln] Zolpidem Tartrate 10 mg PO QPM PRN 11/12/19 12/26/19 Magnesium l-Lactate [Magnesium 84 mg PO DAILY #30 tablet.er 12/30/19 l-Lactate Dihyd Sr] Vitamin [Trinatal Rx 1] 1 tab PO DAILYWM tablet 12/30/19 carvediloL [Coreg] 3.125 mg PO BID #60 tablet 12/30/19 - Allergies Allergies/Adverse Reactions: Allergies Allergy/AdvReac Type Severity Reaction Status Date / Time No Known Drug Allergies Allergy Verified 01/23/20 14:20 - Social History Does the pt smoke?: No Smoking Status: Former smoker Does the pt drink ETOH?: Yes ETOH Use: Beer Does the pt have substance abuse?: Yes Substance Use and Type: Marijuana - Immunizations Immunizations are current?: Yes - POLST Patient has POLST: No PD ED PE NORMAL - Vitals Vital signs reviewed: Yes - General General: Alert and oriented X 3, No acute distress - HEENT HEENT: PERRL, Other (Dry lips) - Neck Neck: Supple, no meningeal sign - Cardiac Cardiac: RRR - Respiratory Respiratory: No respiratory distress, Clear bilaterally - Abdomen Abdomen: Soft, Non tender, Non distended - Derm Derm: Warm and dry - Extremities Extremities: No edema - Neuro Neuro: Alert and oriented X 3 - Psych Psych: Normal mood, Normal affect Results - Vitals Vitals: Vital Signs - 24 hr 01/23/20 14:14 Temperature 36.4 C L Heart Rate 99 Respiratory 18 Rate Blood Pressure 94/74 O2 Saturation 100 Oxygen O2 Source Room air - Labs Labs: Laboratory Tests 01/23/20 01/23/20 01/23/20 15:00 15:00 15:40 WBC 20.9 H RBC 3.70 L Hgb 11.9 L Hct 35.7 L MCV 96.5 H MCH 32.2 H MCHC 33.3 RDW 14.8 Plt Count 257 MPV 9.6 Neut # (Auto) 16.0 H Lymph # (Auto) 3.1 [place] # (Auto) 1.5 H Eos # (Auto) 0.1 Baso # (Auto) 0.1 Absolute Nucleated RBC 0.00 Band Neuts % (Manual) Not Reportable Abnorm Lymph % (Manual) Not Reportable Nucleated RBC % 0.0 Neutrophils # (Manual) Not Reportable Lymphocytes # (Manual) Not Reportable Monocytes # (Manual) Not Reportable Eosinophils # (Manual) Not Reportable Basophils # (Manual) Not Reportable Differential Comment MANUAL=AUTO DIFF Manual Slide Review Indicated Platelet Estimate NORMAL (130-450,000) Platelet Morphology 1+ LARGE PLATELETS RBC Morph Micro Appear NORMAL APPEARANCE VBG pH 7.267 L Ionized Calcium 1.05 L Sodium 135 Potassium 4.5 Chloride 102 Carbon Dioxide 17 L Anion Gap 16.0 H BUN 47 H Creatinine 4.2 H Estimated GFR (MDRD) 15 L Glucose 117 H Calcium 9.0 Phosphorus 5.5 H Magnesium 1.5 L Total Bilirubin 1.0 AST 42 ALT 45 Alkaline Phosphatase 555 H Total Protein 8.8 H Albumin 4.4 Globulin 4.4 H Albumin/Globulin Ratio 1.0 Lipase 24 PD MEDICAL DECISION MAKING - ED course Complexity details: reviewed results, re-evaluated patient, considered differential, d/w patient, d/w industrial rehabilitation consultant ED course: Patient with acute renal failure, significantly above his baseline. Also has hypomagnesemia, hypocalcemia, these are chronic, but will also need correction. Given IV fluids and magnesium. Discussed the case with Dr. Blank, hospitalist who accepts This document was made in part using voice recognition software. While efforts are made to proofread this document, sound alike and grammatical errors may occur. Departure - Departure Disposition: 66 [facility] DC/Xfer Clinical Impression: Hypocalcemia, Hypomagnesemia ARF (acute renal failure) Qualifiers: Acute renal failure type: unspecified Qualified Code(s): N17.9 - Acute kidney failure, unspecified Condition: Stable Discharge Date/Time: 01/23/20 17:12
[2020-01-23 15:29] LABS: ALBUMIN 4.4 g/dL (3.2-5.5); CREATININE 4.2 mg/dL (0.6-1.2); MAGNESIUM 1.5 mg/dL (1.7-2.8); PHOSPHORUS 5.5 mg/dL (2.5-4.6); TOTAL PROTEIN 8.8 g/dL (6.7-8.2)
[2020-01-23 15:46] LABS: VBG PH 7.267 (7.31-7.41)
[2020-01-23 16:01] LABS: PLATELET ESTIMATE, MANUAL NORMAL (130-450,000) (NORMAL); PLATELET MORPHOLOGY 1+ LARGE PLATELETS (NORMAL); RBC MORPHOLOGY (MULTIPLE) NORMAL APPEARANCE (NORMAL)
[2020-01-23 16:02] LABS: DIFFERENTIAL COMMENT MANUAL=AUTO DIFF
[2020-01-23] MEDS ORDERED: SODIUM CHLORIDE FLUSH 0.9% 10 ML SYRINGE IVP PRN (16:27)
[2020-01-23 17:34] LABS: BILIRUBIN,URINE NEGATIVE (NEGATIVE); GLUCOSE, URINE (UA) NEGATIVE (NEGATIVE); KETONES,URINE (UA) NEGATIVE (NEGATIVE); LEUKOCYTE ESTERASE, URINE NEGATIVE (NEGATIVE); NITRITE,URINE NEGATIVE (NEGATIVE); OCCULT BLOOD,URINE MODERATE (NEGATIVE); PH,URINE 5.5 PH (5.0-7.5); PROTEIN,URINE 30 mg/dL (NEGATIVE); UROBILINOGEN,URINE 0.2 (NORMAL) E.U./dL (NORMAL)
[2020-01-23 17:39] LABS: CLARITY,URINE CLEAR (CLEAR)
--- NOTE | 2020-01-23 17:40 | HISTORY & PHYSICAL EXAMINATION ---
Chief Complaint - Chief Complaint Chief Complaint: have been feeling horrible, had no intake day before History of Present Illness - Admitted From Admitted From:: ED [facility] - History Obtained From Records Reviewed: from ED and d/w Dr Adamson History obtained from: patient and ED physician - History of Present Illness HPI Comment/Other: Patient is a 54 yo male who wtih 40 year hx of fistulizing Crohns disease with recent history of frequent presentations for volume depletion, JASMIN, electrolyte imbalance which responds to volume presented again today feeling "dehyrated, weak and horrible", In ED found to again have JASMIN on CKD with BUN Cr 47/4.2 On 01/19 BUN/Cr was 47/3.4 w/ a similar presentation when he got a banana bag and 2 g Mag. (his magnesium was only 1.0 on 01/19, and was repleted IV (he does take 84 mg PO Mac lactate at home daily, but while I was writing this history, RN informs me patient is already declinicng 4 gram IV mag since admission despite his depleted stores) . Per Dr Agudelo notes when pt presented several x in December 01, 12/21 w/ hypoCa, hypoMag w/ tingling paresthesias " seems to beed ~ q 2-3 wks" Of note his Cr 01/2019 was 1.9. Over the past year his GFR has reduced to 24 in late November 2019 (GFR 15 today) and was GFR 38 last January 2020. He tries to take supplements e.g boost, but bowel movements vary from minimal to 20 / day. No blood, Currently no abdominal pain or cramping. Yesterday he took the [facility] to [place] for cardiology appt and didnt eat or drink since no facilities at the [facility] during cov . In the ED today K stable at 4.5 , Mag 1.5 (but was only 1.0 on 01/19 ), WBC 20.9 with no s/s of infection and in recent past leukocytosis has improved with volume repletion He denies fevers, rigors, cough, shortness of breath or chest pain. 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 Got Entyvio ordered by Dr Ramos/GI 01/21 He reports ~ 15 lb wt loss since November. Despite hx of resections he reports he has never had a "formal diagnosis of short gut syndrome". Sometimes has few BM's / some days as many as 20, no blood, To reduce stooling he takes takes Pau YUAN (a pancreatic enzyme replacement like Creon ~ 2 tabs w/ meals and immodium 2 TID to help bulk stool) He has been maintaining is electrolies (not yet reconciled) with CaCitrate 1000 TID, Lactate Mag 84 gram daily, Na bicarb 650 bid, Potassium citrate 10 mg once daily. Per ED notes he had been getting IVF in the [facility] PCP is Rubio but he primarily seess Montez Ramos / Lyric [employer] Since October has been consulted with a can machine operator, only online/ has never met hime History - Past Medical History Cardiovascular: reports: None Respiratory: reports: None Neuro: reports: None Endocrine/Autoimmune: reports: None GI: reports: Crohn's disease : reports: None HEENT: reports: None Psych: reports: None Musculoskeletal: reports: None Derm: reports: None MRSA Hx?: No Other Past Medical History: Hs of Crones dx., Elevated creatinine - Past Surgical History General: reports: Bowel surgery (reports multiple bowel surgeries, 1980 resection w/ eleostomy, , 2018 had mucuous fistula and another ileostomy and takedown. Fistula near umbilicus late 2018, another takedown ~ 2019. ), Other HEENT: reports: Detached retina repair - Family & Social History Family History: Mother: Alive and Well (he lives w/ them in [place], in their 80's), Father: Alive and Well Family History Comment/Other: Patient stated he was adopted so he does not know his parents medical condition Living arrangement: At home Living Situation: With family (lives with his parents) Social History Notes: No longer smoking (quit 5 yrs ago), used to drink heavily, a few wkks ago DID have 1-6 beers but asiant had a beer in several weeks. 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 Financially strapped due to his chronic illness - POLST Patient has POLST: No Meds/Allgy - Home Medications Home Medications: Ambulatory Orders Medication Instructions Recorded Confirmed Calcium Citrate 1,000 mg PO TID 09/17/19 12/27/19 Ergocalciferol (Vitamin D2) 1 cap ORAL .WEEKLY 11/12/19 12/27/19 [Vitamin D2] Lipase/Protease/Amylase [Nick Yuan 3 - 4 cap ORAL TID 11/12/19 12/27/19 12,000 Units Capsule] Mirtazapine 45 mg ORAL QPM PRN 11/12/19 12/27/19 Potassium Citrate/Citric Acid 10 ml ORAL BID 11/12/19 12/27/19 [Potassium Cit-Citric Acid Soln] Zolpidem Tartrate 10 mg PO QPM PRN 11/12/19 12/26/19 Magnesium l-Lactate [Magnesium 84 mg PO DAILY #30 tablet.er 12/30/19 l-Lactate Dihyd Sr] Vitamin [Trinatal Rx 1] 1 tab PO DAILYWM tablet 12/30/19 carvediloL [Coreg] 3.125 mg PO BID #60 tablet 12/30/19 - Allergies Allergies/Adverse Reactions: Allergies Allergy/AdvReac Type Severity Reaction Status Date / Time No Known Drug Allergies Allergy Verified 01/23/20 14:20 Review of Systems - Constitutional Constitutional: reports: Weight loss (reports 15 lb wt loss since November). denies: Fever, Chills, Diaphoresis - Ears, Nose & Throat Ears, Nose & Throat: reports: Dental decay. denies: Sore throat - Cardiovascular Cariovascular: denies: Irregular heart rate, Palpitations, Chest pain, Edema - Respiratory Respiratory: reports: Other (occas rhinnorhea w allergies). denies: Cough, Sputum production, Wheezing - Gastrointestinal Gastrointestinal: reports: Other (as per HPI) - Musculoskeletal Musculoskeletal: reports: Other (has had tingling at times when Ca low) - Neurological Neurological: reports: General weakness. denies: Headache Exam - Vital Signs Reviewed Vital Signs: Yes Vital Signs: Vital Signs x48h Temp Pulse Resp BP Pulse Ox 01/23/20 14:14 36.4 C L 99 18 94/74 100 - Physical Exam General Appearance: positive: No acute distress, Alert, Other (thin male, w/ sl temporal wastingvery conversant and forthcoming re: his history) Eyes Bilateral: positive: Normal inspection, PERRL, EOMI, Other (glasses) ENT: negative: ENT inspection nml (poor dentition, some missing, decaying, yellowed teeth, tongue sl dry) Neck: positive: No JVD. negative: Lymphadenopathy (R), Lymphadenopathy (L) Respiratory: positive: Chest non-tender, No respiratory distress, Breath sounds nml Cardiovascular: positive: Regular rate & rhythm (very distant heart sounds given small size), No murmur. negative: Extrasystoles, JVD present Peripheral Pulses: positive: 2+ Abdomen: positive: Nml bowel sounds, No distention, Other (scaphoid abdomen, + BS, non tender, multiple scars, one diagonal, old healed punctate wounds (old fistulas vs drain sites). No oozing currently). negative: No organomegaly (scrotum with old healed scars, some mucoid discharge, no fistula , no stool), Tenderness Back: negative: CVA tenderness (R), CVA tenderness (L) Skin: positive: Warm, Dry, Other (abdominal scarring and scrotal seepage as above) Extremities: positive: Other (generalized muscle wasting, very thin extremitites). negative: Pedal edema Neurologic/Psychiatric: positive: Oriented x3, Motor nml, Mood/affect nml Conclusion/Plan - Problem List (1) Acute renal failure superimposed on chronic kidney disease Conclusion/Plan: As per HPI , his GFR is progressively declining with each "hit" of prerenal failure Due to GI volume losses and not adequately taking PO Volume repletion got 2 L wide open in ED Continue NS at 125 cc/hr Hold coreg (started last admit for EF 40-45%, ideally should have higher MAP for renal perfusion. Systolic ~100 right now ? IF has had some element of ATN w/ the degree of volume depletion mild gap acidosis c/w values in past, r/t JASMIN, he is taking Nabicarb 650 bid at home, of note is taking Kcitrate which may contribute Recheck in AM (2) Intravascular volume depletion Conclusion/Plan: As above, due to GI losses REplete as above Patient does have a "plan" by PCP and renal to tr to maintain hydration PO at home and reduce stool volume, cont pancrease and immodiu;m (3) Crohn's disease Conclusion/Plan: L Lyric Writer is Montez Ramos in [place] Last order for Entyvio/Vedolizumab (I believe given in [facility]) 01/21 (4) Hypomagnesemia Conclusion/Plan: taking high dose PO at home (nonformulary here, will give IV) i will give 4 grm mag to get over 2.0 (RN noted patient did not want additonal 2 grams; Recheck in am Since he was 1.0 01/19, stores likely deplete and will need more Iv even though 1.5 serum K and Ca currently ok (did get IV Ca in ED earlier this week (5) Protein-calorie malnutrition, severe Conclusion/Plan: I suspect patient not following recommended diet Will have nutrition consult supplements ordered between meals (prefers boost, we dont have) Code status ; Full code (6) Leukocytosis Conclusion/Plan: likey r/t to hemoconcentration With hydration has already reduced to 9.8 from 20.9 this evening (7) Anemia Conclusion/Plan: H/H 35.7/32.2 when hemoconcentrated, with repeat CBC at 9pm, 9.7//7 which likely reflects ~ baseline no evident bleeding, likely ACD recheck in am w/ further hemodilution hemocult stool x 1 (he denies blood) Ferrtin in October was 181 Qualifiers: Anemia type: iron deficiency - Lab Results Lab results reviewed: Yes Fish Bones: 01/24/20 04:20 01/24/20 04:20
[2020-01-23 17:42] LABS: AMORPHOUS SEDIMENT,UR Rare /LPF; BACTERIA,URINE Many /HPF (None Seen); CRYSTALS,URINE 0-2 Uric Acid /LPF; MUCUS,URINE Few Strands; SQUAMOUS EPITHELIAL CELL,UR MANY Squamous (<= Few)
[2020-01-23] MEDS ORDERED: MIRTAZAPINE 45 MG ORAL PRN (18:40)
[2020-01-23] MEDS: SODIUM CHLORIDE 0.9% 1,000 ML IV SCH (18:44)
[2020-01-23] MEDS: SODIUM CHLORIDE FLUSH 0.9% 10 ML SYRINGE IVP SCH (18:45)
[2020-01-23] MEDS ORDERED: MAGNESIUM SULFATE 2 GRAM 2 GM/50 ML BAG IV SCH ×4 (19:00→22:00)
[2020-01-23 20:52] LABS: BASOPHILS % (AUTO) 0.4 %; EOSINOPHILS # (AUTO) 0.1 10^3/uL (0.0-0.7); EOSINOPHILS % (AUTO) 0.7 %; HGB - HEMOGLOBIN 9.7 g/dL (14.0-18.0); LYMPHOCYTES # (AUTO) 1.9 10^3/uL (1.5-3.5); MEAN CORPUSCULAR HEMOGLOBIN 32.8 pg (27.0-31.0); MEAN CORPUSCULAR HGB CONC 33.8 g/dL (32.0-36.0); MEAN PLATELET VOLUME 8.7 fL (7.4-11.4); MONOCYTES # (AUTO) 0.8 10^3/uL (0.0-1.0); MONOCYTES % (AUTO) 8.3 %; NEUTROPHILS % (AUTO) 71.2 %; PLT - PLATELET COUNT 141 10^3/uL (130-450); RED BLOOD COUNT 2.96 10^6/uL (4.70-6.10); RED CELL DISTRIBUTION WIDTH 14.6 % (12.0-15.0); WHITE BLOOD COUNT 9.8 x10^3/uL (4.8-10.8)
[2020-01-23] MEDS ORDERED: POTASSIUM CITRATE ORAL SCH (21:00)
[2020-01-23] MEDS ORDERED: CITRIC ACID ORAL SCH (21:00)
[2020-01-23] MEDS ORDERED: [UNRECOGNIZED DRUG - OTHER] ORAL SCH (21:00)
[2020-01-23] MEDS: POTASSIUM CITRATE 5 MEQ TABLET PO SCH (21:16)
[2020-01-23] MEDS: MIRTAZAPINE 15 MG TABLET PO SCH (21:16)
[2020-01-23] MEDS: ZOLPIDEM 5 MG TABLET PO PRN (21:17)
[2020-01-23] MEDS: CALCIUM CITRATE 250 MG TABLET PO SCH (21:17)
[2020-01-23] MEDS: SODIUM BICARBONATE 650 MG TABLET PO SCH (21:18)
[2020-01-23] MEDS ORDERED: LOPERAMIDE 2 MG CAPSULE PO SCH (22:00)
[2020-01-23] MEDS ORDERED: LIPASE/PROTEASE/AMYLASE CAPSULE PO SCH (22:00)
[2020-01-23] MEDS: LOPERAMIDE 2 MG CAPSULE PO SCH (22:23)
[2020-01-23] MEDS: buPROPion XL 150 MG TABLET PO SCH (22:24)
[2020-01-23] MEDS ORDERED: LIPASE/PROTEASE/AMYLASE CAPSULE PO PRN (23:43)
[2020-01-24] MEDS: ethyl alcohoL 62% SWAB AMPULE NAS SCH ×3 (00:11→22:23)
[2020-01-24] MEDS ORDERED: ACETAMINOPHEN 325 MG TABLET PO PRN (01:11)
[2020-01-24] MEDS: SODIUM CHLORIDE 0.9% 1,000 ML IV SCH ×3 (01:51→17:22)
[2020-01-24] MEDS: SODIUM CHLORIDE FLUSH 0.9% 10 ML SYRINGE IVP SCH ×3 (01:51→16:20)
[2020-01-24 04:58] LABS: BASOPHILS % (AUTO) 0.3 %; EOSINOPHILS # (AUTO) 0.1 10^3/uL (0.0-0.7); EOSINOPHILS % (AUTO) 0.9 %; HGB - HEMOGLOBIN 8.5 g/dL (14.0-18.0); LYMPHOCYTES # (AUTO) 1.8 10^3/uL (1.5-3.5); LYMPHOCYTES % (AUTO) 23.5 %; MEAN CORPUSCULAR HEMOGLOBIN 32.4 pg (27.0-31.0); MEAN CORPUSCULAR HGB CONC 33.3 g/dL (32.0-36.0); MEAN CORPUSCULAR VOLUME 97.3 fL (80.0-94.0); MEAN PLATELET VOLUME 8.6 fL (7.4-11.4); MONOCYTES # (AUTO) 0.7 10^3/uL (0.0-1.0); MONOCYTES % (AUTO) 9.1 %; NEUTROPHILS # (AUTO) 5.2 10^3/uL (1.5-6.6); NEUTROPHILS % (AUTO) 65.8 %; PLT - PLATELET COUNT 122 10^3/uL (130-450); RED BLOOD COUNT 2.62 10^6/uL (4.70-6.10); RED CELL DISTRIBUTION WIDTH 14.8 % (12.0-15.0); WHITE BLOOD COUNT 7.8 x10^3/uL (4.8-10.8)
[2020-01-24 05:28] LABS: CALCIUM 8.3 mg/dL (8.5-10.3); CREATININE 2.8 mg/dL (0.6-1.2); MAGNESIUM 2.3 mg/dL (1.7-2.8)
[2020-01-24] MEDS: LOPERAMIDE 2 MG CAPSULE PO SCH ×3 (06:35→22:34)
[2020-01-24] MEDS: CALCIUM CITRATE 250 MG TABLET PO SCH ×3 (06:36→22:24)
[2020-01-24] MEDS: LIPASE/PROTEASE/AMYLASE CAPSULE PO SCH ×3 (08:06→17:21)
[2020-01-24] MEDS: buPROPion XL 150 MG TABLET PO SCH ×2 (08:32→22:23)
[2020-01-24] MEDS: POTASSIUM CITRATE 5 MEQ TABLET PO SCH ×2 (08:33→22:23)
[2020-01-24] MEDS: POTASSIUM CHLOR 10 MEQ/100 ML 10 MEQ/100 ML BAG IV SCH ×2 (08:34→09:47)
[2020-01-24] MEDS: SODIUM BICARBONATE 650 MG TABLET PO SCH ×2 (08:36→22:24)
[2020-01-24] MEDS ORDERED: buPROPion XL 150 MG TABLET PO SCH (09:00)
[2020-01-24] MEDS ORDERED: LACTATE PO SCH (09:00)
[2020-01-24] MEDS ORDERED: MAGNESIUM PO SCH (09:00)
[2020-01-24] MEDS ORDERED: POTASSIUM CHLOR 10 MEQ/100 ML 10 MEQ/100 ML BAG IV ONE (09:00)
--- NOTE | 2020-01-24 10:18 | PROVIDER PROGRESS NOTE ---
Assessment/Plan - Problem List (1) Acute renal failure superimposed on chronic kidney disease Assessment/Plan: As per HPI , his GFR is progressively declining with each "hit" of prerenal failure due to GI volume losses and not adequately taking PO Volume repletion got 2 L wide open in ED, and continues on NS at 125 cc/hr Hold coreg (started last admit for EF 40-45%, ideally should have higher MAP for renal perfusion. Systolic ~100 still His creat of 4.2 improved to 2.8 today Follow BMP daily. (2) Intravascular volume depletion Assessment/Plan: As above, due to GI losses BP is still "soft" at 100. Patient does have a "plan" by PCP and renal to try to maintain hydration PO at home and reduce stool volume Continue iv hydration Not ready for [facility] today. (3) Crohn's disease Assessment/Plan: His Change Management Director is Dr Montez Ramos at in [place] Last order for Entyvio/Vedolizumab (I believe given in [facility] clinic) 01/21 Continue his enzymes Will change diet to 6 small meals a day, which he needs (4) Hypokalemia due to excessive gastrointestinal loss of potassium Assessment/Plan: Despite having CKD, he actually needs potassium replacement twice daily, because of the significant GI losses every day. Will order IV potassium riders because of serum Potassium of 3.3 today, and will continue his 10 mEq p.o. twice daily (5) Hypomagnesemia Assessment/Plan: He is taking high dose PO Mg at home (nonformulary here), will give IV plus replacement here. Follow Mg daily (6) Protein-calorie malnutrition, severe Assessment/Plan: I suspect patient not following recommended diet Will have nutrition consult supplements ordered between meals (prefers boost, we dont have), and will order 6 meals a day by ordering snacks 3 times a day (7) Anemia Assessment/Plan: Hemoglobin was 11 yesterday which dropped to 8 today. This could likely reflects ~ baseline (anemia of chrinic disease plus poor intestinal absorption) No evident bleeding; guaic stool is neg result Ferrtin in October was 181 Follow CBC daily Will check B12, ferritin levels and iron stores and replace if low. (8) Leukocytosis Assessment/Plan: Resolved. This was probably a phase reactant or due to hemoconcentration. - Current Meds Current Meds: Current Medications Generic Name Dose Route Start Last Admin Trade Name Freq PRN Reason Stop Dose Admin Alcohol 1 amp 01/23/20 23:00 01/24/20 08:33 Nozin MAXX 1 amp BID KAROLYN Administration Lipase/Protease/Amylase 3 - 4 cap 01/23/20 23:41 01/24/20 08:[address] 5,000/17,000/27,000 Assisted PO 2 cap TIDWM KAROLYN Administration Bupropion HCl 150 mg 01/23/20 22:00 01/24/20 08:32 Wellbutrin Xl PO 150 mg BID KAROLYN Administration Calcium Citrate 1,000 mg 01/23/20 22:00 01/24/20 06:36 PO 1,000 mg TID KAROLYN Administration Sodium Chloride 1,000 mls @ 125 mls/hr 01/23/20 17:00 01/24/20 09:28 Normal Saline 0.9% IV 125 mls/hr .Q8H KAROLYN Administration Potassium Chloride 10 meq in 100 mls @ 100 mls/hr 01/24/20 08:30 01/24/20 09:47 Potassium Chloride IV 01/24/20 10:29 100 mls/hr Q1H KAROLYN Administration Loperamide HCl 4 mg 01/23/20 22:00 01/24/20 06:35 Imodium PO 4 mg TID KAROLYN Administration Mirtazapine 45 mg 01/23/20 21:00 01/23/20 21:16 Remeron PO 45 mg QPM KAROLYN Administration Potassium Citrate 10 meq 01/23/20 21:00 01/24/20 08:33 Urocit-K PO 10 meq BID KAROLYN Administration Sodium Bicarbonate 650 mg 01/23/20 21:00 01/24/20 08:36 Sodium Bicarbonate PO 650 mg BID KAROLYN Administration Sodium Chloride 10 ml 01/23/20 17:00 01/24/20 08:36 Normal Saline Flush 0.9% IVP 10 ml 0100,0900,1700 KAROLYN Administration Zolpidem Tartrate 10 mg 01/23/20 18:40 01/23/20 21:17 Ambien PO 10 mg QPM PRN Administration Insomnia - Lab Result Fish Bone Diagrams: 01/24/20 04:20 01/24/20 04:20 - Additional Planning My Orders: My Active Orders 01/24/20 08:30 Potassium Chlor 10 Meq/100 ml [Potassium Chloride] 10 meq in 100 ml IV Q1H 01/24/20 10:30 Vitamin [Trinatal Rx 1] 1 tab PO DAILYWM 01/24/20 14:00 Psyllium [Metamucil] 1 packet PO TID 01/25/20 05:00 FOLATE [IAI] DAILYLAB IRON TIBC PANEL [CHEM] DAILYLAB VITAMIN B12 [IAI] DAILYLAB Subjective - Subjective Patient Reports: Resting Comfortably Objective Vital Signs: Vital Signs - 24 hr 01/23/20 01/23/20 01/24/20 14:14 17:40 00:00 Temperature 36.4 C L 36.3 C L 36.8 C Heart Rate 99 Heart Rate [ 73 83 Brachial] Respiratory 18 20 16 Rate Blood Pressure 94/74 Blood Pressure 106/71 96/62 [Right Brachial artery] O2 Saturation 100 100 100 01/24/20 01/24/20 07:48 08:43 Temperature 36.7 C Heart Rate Heart Rate [ 67 67 Brachial] Respiratory Rate Blood Pressure Blood Pressure 89/59 L 93/63 [Right Brachial artery] O2 Saturation 100 Oxygen O2 Source Room air I&O (Last 24 Hrs): Intake and Output Totals x24h 01/22/20 01/23/20 01/24/20 23:59 23:59 23:59 Intake Total 2900.000 2301.666 Output Total 200 Balance 2700.000 2301.666 General: Alert, Oriented x3 HEENT: Mucous membr. moist/pink Neck: Supple Neuro: Alert, Non Focal Cardiovascular: Regular rate Respiratory: No respiratory distress Abdomen: No tenderness Extremities: No edema - Results Results: Laboratory Results WBC 7.8 x10^3/uL (4.8-10.8) 01/24/20 04:20 RBC 2.62 10^6/uL (4.70-6.10) L 01/24/20 04:20 Hgb 8.5 g/dL (14.0-18.0) L 01/24/20 04:20 Hct 25.5 % (42.0-52.0) L 01/24/20 04:20 MCV 97.3 fL (80.0-94.0) H 01/24/20 04:20 MCH 32.4 pg (27.0-31.0) H 01/24/20 04:20 MCHC 33.3 g/dL (32.0-36.0) 01/24/20 04:20 RDW 14.8 % (12.0-15.0) 01/24/20 04:20 Plt Count 122 10^3/uL (130-450) L 01/24/20 04:20 MPV 8.6 fL (7.4-11.4) 01/24/20 04:20 Neut # (Auto) 5.2 10^3/uL (1.5-6.6) 01/24/20 04:20 Lymph # (Auto) 1.8 10^3/uL (1.5-3.5) 01/24/20 04:20 [place] # (Auto) 0.7 10^3/uL (0.0-1.0) 01/24/20 04:20 Eos # (Auto) 0.1 10^3/uL (0.0-0.7) 01/24/20 04:20 Baso # (Auto) 0.0 10^3/uL (0.0-0.1) 01/24/20 04:20 Absolute Nucleated RBC 0.00 x10^3/uL 01/24/20 04:20 Band Neuts % (Manual) Not Reportable 01/23/20 15:00 Abnorm Lymph % (Manual) Not Reportable 01/23/20 15:00 Nucleated RBC % 0.0 /100WBC 01/24/20 04:20 Neutrophils # (Manual) Not Reportable 01/23/20 15:00 Lymphocytes # (Manual) Not Reportable 01/23/20 15:00 Monocytes # (Manual) Not Reportable 01/23/20 15:00 Eosinophils # (Manual) Not Reportable 01/23/20 15:00 Basophils # (Manual) Not Reportable 01/23/20 15:00 Differential Comment MANUAL=AUTO DIFF 01/23/20 15:00 Manual Slide Review Indicated 01/23/20 15:00 Platelet Estimate NORMAL (130-450,000) (NORMAL) 01/23/20 15:00 Platelet Morphology 1+ LARGE PLATELETS (NORMAL) 01/23/20 15:00 RBC Morph Micro Appear NORMAL APPEARANCE (NORMAL) 01/23/20 15:00 VBG pH 7.267 (7.31-7.41) L 01/23/20 15:40 Ionized Calcium 1.05 mmol/L (1.15-1.33) L 01/23/20 15:40 Sodium 137 mmol/L (135-145) 01/24/20 04:20 Potassium 3.3 mmol/L (3.5-5.0) L 01/24/20 04:20 Chloride 111 mmol/L (101-111) 01/24/20 04:20 Carbon Dioxide 17 mmol/L (21-32) L 01/24/20 04:20 Anion Gap 9.0 (6-13) 01/24/20 04:20 BUN 35 mg/dL (6-20) H 01/24/20 04:20 Creatinine 2.8 mg/dL (0.6-1.2) H 01/24/20 04:20 Estimated GFR (MDRD) 24 (>89) L 01/24/20 04:20 Glucose 109 mg/dL (70-100) H 01/24/20 04:20 Calcium 8.3 mg/dL (8.5-10.3) L 01/24/20 04:20 Phosphorus 5.5 mg/dL (2.5-4.6) H 01/23/20 15:00 Magnesium 2.3 mg/dL (1.7-2.8) 01/24/20 04:20 Total Bilirubin 1.0 mg/dL (0.2-1.0) 01/23/20 15:00 AST 42 IU/L (10-42) 01/23/20 15:00 ALT 45 IU/L (10-60) 01/23/20 15:00 Alkaline Phosphatase 555 IU/L (42-121) H 01/23/20 15:00 Total Protein 8.8 g/dL (6.7-8.2) H 01/23/20 15:00 Albumin 4.4 g/dL (3.2-5.5) 01/23/20 15:00 Globulin 4.4 g/dL (2.1-4.2) H 01/23/20 15:00 Albumin/Globulin Ratio 1.0 (1.0-2.2) 01/23/20 15:00 Lipase 24 U/L (22-51) 01/23/20 15:00 Urine Color YELLOW 01/23/20 17:29 Urine Clarity CLEAR (CLEAR) 01/23/20 17:29 Urine pH 5.5 PH (5.0-7.5) 01/23/20 17:29 Ur Specific [place] >=1.030 (1.002-1.030) H 01/23/20 17:29 Urine Protein 30 mg/dL (NEGATIVE) H 01/23/20 17:29 Urine Glucose (UA) NEGATIVE mg/dL (NEGATIVE) 01/23/20 17:29 Urine Ketones NEGATIVE mg/dL (NEGATIVE) 01/23/20 17:29 Urine Occult Blood MODERATE (NEGATIVE) H 01/23/20 17:29 Urine Nitrite NEGATIVE (NEGATIVE) 01/23/20 17:29 Urine Bilirubin NEGATIVE (NEGATIVE) 01/23/20 17:29 Urine Urobilinogen 0.2 (NORMAL) E.U./dL (NORMAL) 01/23/20 17:29 Ur Leukocyte Esterase NEGATIVE (NEGATIVE) 01/23/20 17:29 Urine RBC 6-10 /HPF (0-5) H 01/23/20 17:29 Urine WBC 11-25 /HPF (0-3) H 01/23/20 17:29 Ur Squamous Epith Cells MANY Squamous (<= Few) H 01/23/20 17:29 Urine Crystals 0-2 Uric Acid /LPF 01/23/20 17:29 Amorphous Sediment Rare /LPF 01/23/20 17:29 Urine Bacteria Many /HPF (None Seen) H 01/23/20 17:29 Urine Casts 6-10 Hyaline Casts /LPF0-2 Granular Casts /LPF 01/23/20 17:29 Urine Casts 6-10 Hyaline Casts /LPF0-2 Granular Casts /LPF 01/23/20 17:29 Urine Mucus Few Strands 01/23/20 17:29 Ur Microscopic Review INDICATED 01/23/20 17:29 Urine Culture Comments NOT INDICATED 01/23/20 17:29 Nasal Screen MRSA (PCR) POSITIVE (NEGATIVE) A* 01/23/20 20:41
[2020-01-24] MEDS: PRENATAL VITAMIN TABLET PO SCH (10:33)
[2020-01-24] MEDS: PSYLLIUM PACKET PO SCH ×2 (14:17→22:35)
--- NOTE | 2020-01-24 15:21 | PHARMACY PROGRESS NOTE ---
- Best Possible Medication History Admit Date and Time: 01/23/20 1627 Processed by: Pharmacy Medication History completed: Yes Patient Interview: Pt unable to participate Secondary Source(s): Physician records, Pharmacy records, Insurance records Patient refused to be interviewed by phlebotomy technician. As the person ultimately responsible for medication therapy, providers are able to order a medication from an existing home medication list in [facility] via the "Reconcile Routine" prior to Confirmation of that medication by account support rep. Such practice is discouraged except when the physician, in their clinical judgment, deems that a medical need exists for a medication without regard to previous use.
[2020-01-24] MEDS: MIRTAZAPINE 15 MG TABLET PO SCH (22:23)
[2020-01-24] MEDS: ZOLPIDEM 5 MG TABLET PO PRN (22:24)
[2020-01-25] MEDS: SODIUM CHLORIDE 0.9% 1,000 ML IV SCH ×2 (01:18→09:20)
[2020-01-25] MEDS: SODIUM CHLORIDE FLUSH 0.9% 10 ML SYRINGE IVP SCH ×3 (01:19→17:02)
[2020-01-25 05:22] LABS: BASOPHILS % (AUTO) 0.5 %; EOSINOPHILS # (AUTO) 0.1 10^3/uL (0.0-0.7); EOSINOPHILS % (AUTO) 0.8 %; HGB - HEMOGLOBIN 7.8 g/dL (14.0-18.0); LYMPHOCYTES # (AUTO) 1.4 10^3/uL (1.5-3.5); LYMPHOCYTES % (AUTO) 22.7 %; MEAN CORPUSCULAR HEMOGLOBIN 32.8 pg (27.0-31.0); MEAN CORPUSCULAR HGB CONC 32.9 g/dL (32.0-36.0); MEAN CORPUSCULAR VOLUME 99.6 fL (80.0-94.0); MEAN PLATELET VOLUME 8.4 fL (7.4-11.4); MONOCYTES # (AUTO) 0.6 10^3/uL (0.0-1.0); MONOCYTES % (AUTO) 10.4 %; NEUTROPHILS % (AUTO) 65.3 %; PLT - PLATELET COUNT 103 10^3/uL (130-450); RED BLOOD COUNT 2.38 10^6/uL (4.70-6.10); WHITE BLOOD COUNT 6.1 x10^3/uL (4.8-10.8)
[2020-01-25 05:43] LABS: CALCIUM 8.1 mg/dL (8.5-10.3); CREATININE 1.9 mg/dL (0.6-1.2)
[2020-01-25] MEDS: PRENATAL VITAMIN TABLET PO SCH (08:01)
[2020-01-25] MEDS: LIPASE/PROTEASE/AMYLASE CAPSULE PO SCH ×3 (08:01→16:59)
[2020-01-25] MEDS: CALCIUM CITRATE 250 MG TABLET PO SCH ×3 (08:01→19:57)
[2020-01-25] MEDS: PSYLLIUM PACKET PO SCH ×3 (08:02→19:57)
[2020-01-25] MEDS ORDERED: LIPASE/PROTEASE/AMYLASE CAPSULE PO SCH (08:30)
[2020-01-25] MEDS ORDERED: PRENATAL VITAMIN TABLET PO SCH (08:30)
[2020-01-25] MEDS ORDERED: ONDANSETRON 4 MG/2 ML VIAL IVP PRN (08:31)
[2020-01-25] MEDS ORDERED: LACTOBACILLUS RHAMNOSUS GG CAPSULE PO SCH (09:00)
[2020-01-25] MEDS ORDERED: CHOLESTYRAMINE 4 GM PACKET PO SCH (09:00)
[2020-01-25] MEDS: LOPERAMIDE 2 MG CAPSULE PO SCH ×3 (09:00→19:57)
[2020-01-25] MEDS ORDERED: SODIUM BICARBONATE 650 MG TABLET PO SCH (09:00)
[2020-01-25] MEDS ORDERED: buPROPion XL 150 MG TABLET PO SCH (09:00)
[2020-01-25] MEDS: POTASSIUM CHLOR 10 MEQ/100 ML 10 MEQ/100 ML BAG IV SCH ×4 (09:02→12:24)
[2020-01-25] MEDS ORDERED: SODIUM CHLORIDE 0.9% 1,000 ML IV SCH ×2 (10:30→18:26)
[2020-01-25] MEDS: POTASSIUM CITRATE 5 MEQ TABLET PO SCH ×2 (11:59→13:32)
[2020-01-25] MEDS: buPROPion XL 150 MG TABLET PO SCH (12:00)
[2020-01-25] MEDS: SODIUM BICARBONATE 650 MG TABLET PO SCH (12:01)
[2020-01-25] MEDS: ethyl alcohoL 62% SWAB AMPULE NAS SCH (12:02)
[2020-01-25 14:36] LABS: CALCIUM 8.1 mg/dL (8.5-10.3); CREATININE 1.9 mg/dL (0.6-1.2)
--- NOTE | 2020-01-25 15:02 | Discharge Plan ---
Discharge Plan Problem Reviewed?: Yes Disposition: Home, Self Care Condition: Fair Diet: Soft (Please eat the diet that best suits you and prevents frequent diarrhea. Stay well-hydrated with electrolyte liquids.) Activity Restrictions: Activity as Tolerated Health Concerns: You were admitted with worsening kidney function related to volume depletion/dehydration and had electrolyte abnormalities. It is very likely that you will need a better plan for rehydrating yourself then via your liquid oral intake. Please talk to your rd scientist and PCP for managing this (you could get a PICC line or a central port and come in once a week to the [facility] for IV fluid infusions). Please resume all your usual medications. The potassium replacement should be 3 times a day, not just twice a day. Plan of Treatment: As above. Care Goals: Improvement in symptoms and stabilization are the goals. Assessment: Patient understands. Follow-Up Care: Dietitian, [facility] - Medical No Smoking: If you smoke, Please STOP! Call for help. Follow-up with: Ryan Bergeron MD [Primary Care Provider] -
[2020-01-25] MEDS ORDERED: POTASSIUM CHLORIDE 20 MEQ/15 ML UDC PO SCH (15:45)
[2020-01-25] MEDS ORDERED: POTASSIUM CHLOR 10 MEQ/100 ML 10 MEQ/100 ML BAG IV ONE (16:00)
--- NOTE | 2020-01-25 17:40 | PROVIDER PROGRESS NOTE ---
Assessment/Plan - Problem List (1) Acute renal failure superimposed on chronic kidney disease Assessment/Plan: The creatinine has improved daily. It is 1.9 today. He is eleven liters positive in fluid balance since admission. This morning he specifically wanted to know what rate of hydration per hour he has needed to keep him stable, and the maple syrup maker calculated that he is getting 200 cc an hour and told him that. The patient requested to be discharged since the creatinine is better. I told him I would decrease the IV rate by hals, to see if he can keep up with hydration and not create excessive diarrhea with this plan. The afternoon creat was still 1.9. Because the afternoon potassium level is worse than the morning potassium level, he will not be discharged today. (2) Intravascular volume depletion Assessment/Plan: As above, his high fluid output in GI losses required 4-5l/day iv replacement. Patient said that he drinks chicken broth, diluted Gatorade and knows what other liquids he can take but many of them cause immediate diarrhea. He specifically decreases his oral intake when he needs to go to doctors appointments, to decrease the amount of diarrhea. He does not get into being dehydrated and needing to be hospitalized. Will try to have the patient transferred to higher level of care because of his GI fluid losses, persistent hypokalemia and CKD. (3) Crohn's disease Assessment/Plan: Patient is started to get Entyvio here, comes to the [facility] about once a month. He also comes to [facility] for electrolyte checks and returns the next day for his treatment he says. We discussed the possibility of him coming weekly and being set up for weekly IV fluid replacement. He had a PICC line in the past. He currently has no cramping or pain, fever or white count with his liquid bowel movements. The current 3 times a day psyllium and prn Immodium are not controlling his high output and diarrhea. Patient requested to be transferred for higher level of care. His commercial loan closer is Dr. [facility]. I will reach out to [facility] with this request. (4) Hypokalemia due to excessive gastrointestinal loss of potassium Assessment/Plan: Patient usually gets liquid potassium 10 mEq twice daily. Here he is received IV K riders every single day. Potassium was 3.3 this morning and despite replacement both IV and p.o. the potassium dropped to 3.1 this afternoon. He is not ready for discharge because of this. He requested transfer for higher level of care which I will request at [facility] where he has GI and nephrology specialists. (5) Protein-calorie malnutrition, severe Assessment/Plan: He actually has excellent intake, has a good appetite, eats 6 meals a day, sounds like he takes a lot of protein with his meals but he has extremely high losses in his diarrhea. (6) Hypomagnesemia Assessment/Plan: Resolved on yest labs. (7) Anemia Qualifiers: Anemia type: iron deficiency Assessment/Plan: His B12 and folate levels are adequate, iron stores are low. I ordered liquid oral iron replacement. Follow CBC daily, the goal is transfuse if under 7 or if under 8 with symptoms like orthostasis. (8) Leukocytosis Assessment/Plan: Resolved. This was either hemoconcentration or a phase reactants - Current Meds Current Meds: Current Medications Generic Name Dose Route Start Last Admin Trade Name Freq PRN Reason Stop Dose Admin Alcohol 1 amp 01/23/20 23:00 01/25/20 12:02 Nozin MAXX 1 amp BID KAROLYN Administration Lipase/Protease/Amylase 3 - 4 cap 01/23/20 23:41 01/25/20 16:[address] 5,000/17,000/27,000 Long-Term PO 3 cap TIDWM KAROLYN Administration Bupropion HCl 150 mg 01/23/20 22:00 01/25/20 12:00 Wellbutrin Xl PO 150 mg BID KAROLYN Administration Calcium Citrate 1,000 mg 01/25/20 08:00 01/25/20 11:54 PO 1,000 mg TIDWM KAROLYN Administration Cholestyramine/Sucrose 4 gm 01/25/20 09:00 01/25/20 12:02 Questran PO 4 gm BID KAROLYN Administration Sodium Chloride 1,000 mls @ 60 mls/hr 01/25/20 10:30 01/25/20 11:21 Normal Saline 0.9% IV 60 mls/hr .[id number] KAROLYN Administration Lactobacillus Rhamnosus 1 cap 01/25/20 09:00 01/25/20 12:00 Culturelle PO 1 cap BID KAROLYN Administration Loperamide HCl 4 mg 01/25/20 09:00 01/25/20 11:59 Imodium PO 4 mg 0900,1300,1800 KAROLYN Administration Mirtazapine 45 mg 01/23/20 21:00 01/24/20 22:23 Remeron PO 45 mg QPM KAROLYN Administration Ondansetron HCl 4 mg 01/25/20 08:31 01/25/20 09:02 Zofran Inj IVP 4 mg Q4HR PRN Administration Nausea / Vomiting Potassium Chloride 40 meq 01/25/20 15:45 01/25/20 15:30 PO 40 meq DAILYWM KAROLYN Administration Potassium Citrate 10 meq 01/25/20 08:30 01/25/20 13:32 Urocit-K PO Not Given TID KAROLYN Multivit/Folic Acid/Iron 1 tab 01/24/20 10:30 01/25/20 08:01 Trinatal Rx 1 PO 1 tab DAILYWM KAROLYN Administration Psyllium Hydrophilic Mucilloid 1 packet 01/25/20 08:00 01/25/20 12:02 Metamucil PO 1 packet TIDWM KAROLYN Administration Sodium Bicarbonate 650 mg 01/23/20 21:00 01/25/20 12:01 Sodium Bicarbonate PO 650 mg BID KAROLYN Administration Sodium Chloride 10 ml 01/23/20 17:00 01/25/20 17:02 Normal Saline Flush 0.9% IVP Not Given 0100,0900,1700 KAROLYN Zolpidem Tartrate 10 mg 01/23/20 18:40 01/24/20 22:24 Ambien PO 10 mg QPM PRN Administration Insomnia - Lab Result Fish Bone Diagrams: 01/25/20 05:00 01/25/20 14:24 - Additional Planning My Orders: My Active Orders 01/25/20 08:00 Psyllium [Metamucil] 1 packet PO TIDWM 01/25/20 08:30 Potassium Citrate [Urocit-K] 10 meq PO TID 01/25/20 08:31 Ondansetron Inj [Zofran Inj] 4 mg IVP Q4HR PRN 01/25/20 09:00 Cholestyramine [Questran] 4 gm PO BID Lactobacillus Rhamnosus GG [Culturelle] 1 cap PO BID 01/25/20 10:30 Sodium Chloride 0.9% [Normal Saline 0.9%] 1,000 ml IV 60 mls/hr 01/25/20 15:45 Potassium Chloride Oral Soln 40 meq PO DAILYWM Subjective - Subjective Patient Reports: Resting Comfortably, Other (Patient requested transfer this afternoon for higher level of care. His spiral gear generator Dr. Paulson is at [facility] and he also sees his GI specialist Dr. Ramos at [facility].) Objective Vital Signs: Vital Signs - 24 hr 01/24/20 01/25/20 01/25/20 23:51 07:42 08:07 Temperature 36.3 C L 36.8 C Heart Rate [ 82 72 74 Brachial] Respiratory 18 Rate Blood Pressure 101/64 92/63 93/65 [Right Brachial artery] O2 Saturation 100 100 01/25/20 16:00 Temperature 36.9 C Heart Rate [ 74 Brachial] Respiratory 18 Rate Blood Pressure 109/76 [Right Brachial artery] O2 Saturation 100 Oxygen O2 Source Room air I&O (Last 24 Hrs): Intake and Output Totals x24h 01/23/20 01/24/20 01/25/20 23:59 23:59 23:59 Intake Total 2900.000 5279.166 4063.667 Output Total 200 1 Balance 2700.000 5279.166 4062.667 General: Alert, Oriented x3 HEENT: Mucous membr. moist/pink, Other (Cachectic) Neck: Supple, No JVD Neuro: Alert, Non Focal Cardiovascular: Regular rate Respiratory: No respiratory distress Abdomen: Normal bowel sounds, Soft Extremities: No edema - Results Results: Laboratory Results WBC 6.1 x10^3/uL (4.8-10.8) 01/25/20 05:00 RBC 2.38 10^6/uL (4.70-6.10) L 01/25/20 05:00 Hgb 7.8 g/dL (14.0-18.0) L 01/25/20 05:00 Hct 23.7 % (42.0-52.0) L 01/25/20 05:00 MCV 99.6 fL (80.0-94.0) H 01/25/20 05:00 MCH 32.8 pg (27.0-31.0) H 01/25/20 05:00 MCHC 32.9 g/dL (32.0-36.0) 01/25/20 05:00 RDW 15.0 % (12.0-15.0) 01/25/20 05:00 Plt Count 103 10^3/uL (130-450) L 01/25/20 05:00 MPV 8.4 fL (7.4-11.4) 01/25/20 05:00 Neut # (Auto) 4.0 10^3/uL (1.5-6.6) 01/25/20 05:00 Lymph # (Auto) 1.4 10^3/uL (1.5-3.5) L 01/25/20 05:00 [place] # (Auto) 0.6 10^3/uL (0.0-1.0) 01/25/20 05:00 Eos # (Auto) 0.1 10^3/uL (0.0-0.7) 01/25/20 05:00 Baso # (Auto) 0.0 10^3/uL (0.0-0.1) 01/25/20 05:00 Absolute Nucleated RBC 0.00 x10^3/uL 01/25/20 05:00 Band Neuts % (Manual) Not Reportable 01/23/20 15:00 Abnorm Lymph % (Manual) Not Reportable 01/23/20 15:00 Nucleated RBC % 0.0 /100WBC 01/25/20 05:00 Neutrophils # (Manual) Not Reportable 01/23/20 15:00 Lymphocytes # (Manual) Not Reportable 01/23/20 15:00 Monocytes # (Manual) Not Reportable 01/23/20 15:00 Eosinophils # (Manual) Not Reportable 01/23/20 15:00 Basophils # (Manual) Not Reportable 01/23/20 15:00 Differential Comment MANUAL=AUTO DIFF 01/23/20 15:00 Manual Slide Review Indicated 01/23/20 15:00 Platelet Estimate NORMAL (130-450,000) (NORMAL) 01/23/20 15:00 Platelet Morphology 1+ LARGE PLATELETS (NORMAL) 01/23/20 15:00 RBC Morph Micro Appear NORMAL APPEARANCE (NORMAL) 01/23/20 15:00 VBG pH 7.267 (7.31-7.41) L 01/23/20 15:40 Ionized Calcium 1.05 mmol/L (1.15-1.33) L 01/23/20 15:40 Sodium 140 mmol/L (135-145) 01/25/20 14:24 Potassium 3.1 mmol/L (3.5-5.0) L 01/25/20 14:24 Chloride 115 mmol/L (101-111) H 01/25/20 14:24 Carbon Dioxide 14 mmol/L (21-32) L 01/25/20 14:24 Anion Gap 11.0 (6-13) 01/25/20 14:24 BUN 17 mg/dL (6-20) 01/25/20 14:24 Creatinine 1.9 mg/dL (0.6-1.2) H 01/25/20 14:24 Estimated GFR (MDRD) 37 (>89) L 01/25/20 14:24 Glucose 126 mg/dL (70-100) H 01/25/20 14:24 Calcium 8.1 mg/dL (8.5-10.3) L 01/25/20 14:24 Phosphorus 5.5 mg/dL (2.5-4.6) H 01/23/20 15:00 Magnesium 2.3 mg/dL (1.7-2.8) 01/24/20 04:20 Iron 15 ug/dL (45-182) L 01/25/20 05:00 TIBC 203 ug/dL (250-450) L 01/25/20 05:00 % Saturation 7 % (20-50) L 01/25/20 05:00 Transferrin 145 mg/dL (180-329) L 01/25/20 05:00 Total Bilirubin 1.0 mg/dL (0.2-1.0) 01/23/20 15:00 AST 42 IU/L (10-42) 01/23/20 15:00 ALT 45 IU/L (10-60) 01/23/20 15:00 Alkaline Phosphatase 555 IU/L (42-121) H 01/23/20 15:00 Total Protein 8.8 g/dL (6.7-8.2) H 01/23/20 15:00 Albumin 4.4 g/dL (3.2-5.5) 01/23/20 15:00 Globulin 4.4 g/dL (2.1-4.2) H 01/23/20 15:00 Albumin/Globulin Ratio 1.0 (1.0-2.2) 01/23/20 15:00 Lipase 24 U/L (22-51) 01/23/20 15:00 Vitamin B12 432 pg/mL (180-914) 01/25/20 05:00 Folate 29.00 ng/mL (5.90 - >24.8) 01/25/20 05:00 Urine Color YELLOW 01/23/20 17:29 Urine Clarity CLEAR (CLEAR) 01/23/20 17:29 Urine pH 5.5 PH (5.0-7.5) 01/23/20 17:29 Ur Specific [place] >=1.030 (1.002-1.030) H 01/23/20 17:29 Urine Protein 30 mg/dL (NEGATIVE) H 01/23/20 17:29 Urine Glucose (UA) NEGATIVE mg/dL (NEGATIVE) 01/23/20 17: Urine Ketones NEGATIVE mg/dL (NEGATIVE) 01/23/20 17:29 Urine Occult Blood MODERATE (NEGATIVE) H 01/23/20 17:29 Urine Nitrite NEGATIVE (NEGATIVE) 01/23/20 17:29 Urine Bilirubin NEGATIVE (NEGATIVE) 01/23/20 17:29 Urine Urobilinogen 0.2 (NORMAL) E.U./dL (NORMAL) 01/23/20 17:29 Ur Leukocyte Esterase NEGATIVE (NEGATIVE) 01/23/20 17:29 Urine RBC 6-10 /HPF (0-5) H 01/23/20 17:29 Urine WBC 11-25 /HPF (0-3) H 01/23/20 17:29 Ur Squamous Epith Cells MANY Squamous (<= Few) H 01/23/20 17:29 Urine Crystals 0-2 Uric Acid /LPF 01/23/20 17:29 Amorphous Sediment Rare /LPF 01/23/20 17:29 Urine Bacteria Many /HPF (None Seen) H 01/23/20 17:29 Urine Casts 6-10 Hyaline Casts /LPF0-2 Granular Casts /LPF 01/23/20 17:29 Urine Casts 6-10 Hyaline Casts /LPF0-2 Granular Casts /LPF 01/23/20 17:29 Urine Mucus Few Strands 01/23/20 17:29 Ur Microscopic Review INDICATED 01/23/20 17:29 Urine Culture Comments NOT INDICATED 01/23/20 17:29 Nasal Screen MRSA (PCR) POSITIVE (NEGATIVE) A* 01/23/20 20:41
[2020-01-25] MEDS ORDERED: diazePAM 5 MG TABLET PO ONE (18:15)
[2020-01-25 19:43] VITALS: BP 105/70
--- NOTE | 2020-01-26 07:37 | DISCHARGE SUMMARY ---
Discharge Summary Admit Date: 01/23/20 Discharge Date: 01/25/20 Discharging Provider: Dr Caroline Blank Primary Care Provider: DEANDRE Hill Code Status: Attempt Resuscitation Condition at Discharge: Poor Discharge Disposition: 02 Transfer Acute Care Hosp - [facility] History of Present Illness: From the admission H&P of Arabella Huff ANTHROPOLOGICAL LINGUIST: This is a 54-year-old white male with a 40-year use 3 of Crohn's disease, prior bowel resections, possible short gut syndrome, CKD, recently diagnosed cardiomyopathy (EF [id number]%). He is followed by GI and Nephrology at [facility]. He is often seen in our ER for dehydration, worsening creatinine, hypokalemia, hypomagnesemia and requires iv fluid replacement and electrolyte replacement. He has been admitted here twice for severe JASMIN, the most recent about a month ago. He has started to be treated with Entyvio, has had 3 visits at the [facility] clinic here, under the orders of his Fiberglass Luggage Molder. He has very high stool output with diarrhea after any oral intake, despite being on Metamucil, Imodium, Entyvio, a pancreatic enzyme (Zenpep) and even atropine in the past. He also requires calcium citrate, lactate magnesium, sodium bicarb tablets, potassium citrate daily. He adjusts his diet and fluid intake to nothing so that he can avoid getting diarrhea when he travels to [facility] appointments by [facility] and onto the [facility]. He did this yesterday going a new appointment to a Wet Pan Mixer. He presented to the our ER today, stating that he feels horrible because he had no intake the day before. His vital signs were stable but magnesium was low and creatinine was elevated. He is being admitted for inpatient status management of acute on chronic kidney disease and multiple electrolyte abnormalities and continued high output diarrhea due to Crohn's disease. - HOSPITAL COURSE Hospital Course: (1) Acute renal failure superimposed on chronic kidney disease The creatinine improved daily: 4.2>> 2.8>> 1.9 on iv fluids running at 125 cc/hr. He was eleven liters positive in fluid balance over 3 days here. He was getting 200 cc an hour total with oral and iv fluids combined, to keep up with the losses from his excessive diarrhea. His serum bicarb was not improvin>> 13>>14. He has seen his Gas Substation Operator, Dr Paulson, only once by telemedicine visit. (2) Intravascular volume depletion As above, his high fluid output in GI losses required 4-5L per day iv replacement. Patient said that at home he drinks chicken broth, diluted Gatorade and knows what other liquids he can take but many of them cause immediate diarrhea. He specifically decreases his oral intake when he needs to go to doctors appointments, to decrease the amount of diarrhea. He then becomes dehydrated and needs to be hospitalized. (3) Crohn's disease Patient is started to get Entyvio here, comes to the [facility] about once a month. He also comes to [facility] for electrolyte checks and returns the next day for his treatment he says. We discussed the possibility of him coming weekly and being set up for weekly IV fluid replacement. He had a PICC line in the past for tpn, he reported. He gets no cramping or pain with his liquid bowel movements, has no fever or white count . The current management is not controlling his high output and diarrhea. Patient requested to be transferred for higher level of care. His Fiberglass Luggage Molder is Dr. Ramos at [facility]. I reached the covering GI at [facility] with request for transfer, who agreed, and he was accepted then on the Hospitalist team there. He was transferred in stable condition on 01/25/20. (4) Hypokalemia due to excessive gastrointestinal loss of potassium Patient usually gets liquid potassium 10 mEq twice daily. Here needed IV K riders every single day. Despite that, his serum Potassium worsened: 4.5>> 3.3>> 3.1. (5) Protein-calorie malnutrition, severe He reports a 15 pound weight loss in 6 weeks. He actually has excellent intake, has a good appetite, sips on diluted Gatorade, eats 6 meals a day, sounds like he takes a lot of protein with his meals but he has extremely high losses in his diarrhea. Serum Calcium was also worsenin.0>> 8.3>> 8.1, with serum albumen normal at 4.4. (6) Hypomagnesemia Replaced and Mg corrected: 1.5>> 2.3. (7) Anemia Hgb dropped, likley from hemodilution: 11.9>> 9.7>> 8.5>> 7.8. His B12 and folate levels were adequate, but iron stores are low. He was started on liquid oral iron replacement. (8) Leukocytosis The WBC of 20 at admission was normal the rest of this admission. This was either hemoconcentration or a phase reactants, there were no signs of infection. - ALLERGIES Allergies/Adverse Reactions: Allergies Allergy/AdvReac Type Severity Reaction Status Date / Time No Known Drug Allergies Allergy Verified 01/23/20 14:20 - MEDICATIONS Home Medications: Ambulatory Orders Medication Instructions Recorded Confirmed Calcium Citrate 1,000 mg PO TID 09/17/19 01/24/20 Ergocalciferol (Vitamin D2) 1 cap ORAL .WEEKLY 11/12/19 01/24/20 [Vitamin D2] Mirtazapine 45 mg ORAL QPM PRN 11/12/19 01/24/20 Potassium Citrate/Citric Acid 10 ml ORAL BID 11/12/19 01/24/20 [Potassium Cit-Citric Acid Soln] Zolpidem Tartrate 10 mg PO QPM PRN 11/12/19 01/24/20 Magnesium l-Lactate [Magnesium 84 mg PO DAILY #30 tablet.er 12/30/19 01/24/20 l-Lactate Dihyd Sr] Vitamin [Trinatal Rx 1] 1 tab PO DAILYWM tablet 12/30/19 01/24/20 carvediloL [Coreg] 3.125 mg PO BID #60 tablet 12/30/19 01/24/20 Acetaminophen [Tylenol Extra 1,000 mg PO Q6HR PRN 01/24/20 01/24/20 Strength] Bupropion HCl [Bupropion Xl] 300 mg PO DAILY 01/24/20 01/24/20 Cholestyramine (with Sugar) 4 gm PO BID 01/24/20 01/24/20 [Cholestyramine Packet] Lactobacil 2-S.thermo-Bifido 1 1 cap PO BID 01/24/20 01/24/20 [High Potency Probiotic 112.5 B] Lipase/Protease/Amylase [Zenpep Dr 2 cap PO TID 01/24/20 01/24/20 5,000 Unit Capsule] Loperamide HCl [Imodium A-D] 2 mg PO Q6H PRN 01/24/20 01/24/20 Ondansetron HCl [Zofran] 8 mg SL .Q6-8H PRN 01/24/20 01/24/20 Pantoprazole [Protonix] 40 mg PO DAILY 01/24/20 01/24/20 Psyllium [Metamucil] 10 - 15 g PO TID 01/24/20 01/24/20 Sodium Bicarbonate 650 mg PO BID 01/24/20 01/24/20 - PHYSICAL EXAM AT DISCHARGE General Appearance: positive: No acute distress, Alert, Other (Cachectic with temporal wasting.) Eyes Bilateral: positive: Normal inspection, EOMI ENT: positive: ENT inspection nml, Dry mucous membranes Neck: positive: Nml inspection, No JVD Respiratory: positive: No respiratory distress Cardiovascular: positive: Regular rate & rhythm, No murmur Abdomen: positive: Non-tender, Nml bowel sounds Skin: positive: Warm, Dry, Pallor Extremities: positive: No pedal edema, Other (Muscle wasting) Neurologic/Psychiatric: positive: Oriented x3 (Non-focal.) - LABS Result Diagrams: 01/25/20 05:00 01/25/20 14:24 - FOLLOW UP Follow Up: This will be determined after his discharge from [facility]. - TIME SPENT Time Spent in Discharge (Minutes): 60
--- NOTE | 2020-01-26 07:40 | Discharge Plan ---
Discharge Plan Problem Reviewed?: Yes Disposition: 02 Transfer Acute Care Hosp Condition: Poor Health Concerns: Transferring paramjit to [facility], for GI and Nephrology management. No Smoking: If you smoke, Please STOP! Call for help. Follow-up with: Ryan Bergeron MD [Primary Care Provider] -
== END 2020-01-25 20:13 | disposition short-term general hospital (02) | DRG 682 ==
LOC: ED 14:12 → MS2 16:27
PROVIDERS: ADMIT Nurse Practitioner; ATTEND Internal Medicine
DX: N17.9 Acute kidney failure, unspecified (principal); E43 Unspecified severe protein-calorie malnutrition; K50.90 Crohn's disease, unspecified, without complications; K91.2 Postsurgical malabsorption, not elsewhere classified; Z68.1 Body mass index [BMI] 19.9 or less, adult; N18.9 Chronic kidney disease, unspecified; E83.42 Hypomagnesemia; E87.6 Hypokalemia; E86.0 Dehydration; E83.51 Hypocalcemia; D64.9 Anemia, unspecified; Z79.899 Other long term (current) drug therapy; Z87.891 Personal history of nicotine dependence; Z90.49 Acquired absence of other specified parts of digestive tract
CPT/HCPCS: 36415; 80048; 80053; 81001; 82272; 82330; 82607; 82746; 83540; 83690; 83735; 84100; 84466; 85025; 87640; 96361; 96365; 96366; 99285; A9270; 81003; 87086

== ENCOUNTER 2020-01-25 19:58 | Outpatient (CLI) | payer MEDICARE, BC | END 2020-01-25 19:59 | disposition short-term general hospital (02) | LOC: EMS 19:58 | PROVIDERS: ATTEND Surgery | DX: E86.0 Dehydration (principal); K50.90 Crohn's disease, unspecified, without complications; R19.7 Diarrhea, unspecified; E87.8 Other disorders of electrolyte and fluid balance, not elsewhere classified; N18.2 Chronic kidney disease, stage 2 (mild) | CPT/HCPCS: A0425; A0426 ==

== ENCOUNTER 2020-02-02 09:03 | Outpatient (CLI) | payer MEDICARE, BC ==
[2020-02-02 10:07] LABS: VBG PH 7.354 (7.31-7.41)
[2020-02-02 10:09] LABS: CALCIUM 8.2 mg/dL (8.5-10.3)
== END 2020-02-02 09:04 | disposition home or self-care (01) ==
LOC: LAB 09:03
PROVIDERS: ATTEND Internal Medicine
DX: K52.9 Noninfective gastroenteritis and colitis, unspecified (principal); E83.42 Hypomagnesemia; E83.51 Hypocalcemia; K50.90 Crohn's disease, unspecified, without complications
CPT/HCPCS: 36415; 80048; 82306; 82330; 83735; 83970; 84443

== ENCOUNTER 2020-02-04 10:28 | Inpatient (IN) | payer MEDICARE, BC ==
[2020-02-04] MEDS ORDERED: MAGNESIUM SULFATE 2 GRAM 2 GM/50 ML BAG IV ONE (10:34)
[2020-02-04] MEDS ORDERED: SODIUM CHLORIDE 0.9% 1,000 ML IV STA ×3 (10:34→12:18)
--- NOTE | 2020-02-04 10:54 | ED Physician Documentation ---
History of Present Illness - Stated complaint Stated Complaint: TINGLING IN FINGERS - Chief complaint Chief Complaint: General - History obtained from History obtained from: Patient, Family - Additonal information Additional information: 54-year-old gentleman with long history of Crohn's disease and short gut syndrome with chronic diarrhea and electrolyte imbalances related to same presents with symptoms consistent with hypomagnesemia and dehydration from his prior experience including fingertip numbness general weakness and slightly blurry vision. [facility] and discharged about 5 days ago. He is compliant with his current regimen which includes multiple antimotility agents and electrolyte supplementation. Review of Systems Ten Systems: 10 systems reviewed and negative Constitutional: reports: Fatigue, Weight Loss (Current weight 110 pounds). denies: Fever, Chills GI: reports: Diarrhea. denies: Abdominal Pain, Nausea PD PAST MEDICAL HISTORY - Past Medical History Cardiovascular: None Respiratory: None Neuro: None Endocrine/Autoimmune: None GI: Crohn's disease : None HEENT: None Psych: None Musculoskeletal: None Derm: None - Past Surgical History Past Surgical History: Yes General: Bowel surgery, Other HEENT: Detached retina repair - Present Medications Home Medications: Ambulatory Orders Medication Instructions Recorded Confirmed Calcium Citrate 1,000 mg PO TID 09/17/19 01/24/20 Ergocalciferol (Vitamin D2) 1 cap ORAL .WEEKLY 11/12/19 01/24/20 [Vitamin D2] Mirtazapine 45 mg ORAL QPM PRN 11/12/19 01/24/20 Potassium Citrate/Citric Acid 10 ml ORAL BID 11/12/19 01/24/20 [Potassium Cit-Citric Acid Soln] Zolpidem Tartrate 10 mg PO QPM PRN 11/12/19 01/24/20 Magnesium l-Lactate [Magnesium 84 mg PO DAILY #30 tablet.er 12/30/19 01/24/20 l-Lactate Dihyd Sr] Vitamin [Trinatal Rx 1] 1 tab PO DAILYWM tablet 12/30/19 01/24/20 carvediloL [Coreg] 3.125 mg PO BID #60 tablet 12/30/19 01/24/20 Acetaminophen [Tylenol Extra 1,000 mg PO Q6HR PRN 01/24/20 01/24/20 Strength] Bupropion HCl [Bupropion Xl] 300 mg PO DAILY 01/24/20 01/24/20 Cholestyramine (with Sugar) 4 gm PO BID 01/24/20 01/24/20 [Cholestyramine Packet] Lactobacil 2-S.thermo-Bifido 1 1 cap PO BID 01/24/20 01/24/20 [High Potency Probiotic 112.5 B] Lipase/Protease/Amylase [Zenpep Dr 2 cap PO TID 01/24/20 01/24/20 5,000 Unit Capsule] Loperamide HCl [Imodium A-D] 2 mg PO Q6H PRN 01/24/20 01/24/20 Ondansetron HCl [Zofran] 8 mg SL .Q6-8H PRN 01/24/20 01/24/20 Pantoprazole [Protonix] 40 mg PO DAILY 01/24/20 01/24/20 Psyllium [Metamucil] 10 - 15 g PO TID 01/24/20 01/24/20 Sodium Bicarbonate 650 mg PO BID 01/24/20 01/24/20 - Allergies Allergies/Adverse Reactions: Allergies Allergy/AdvReac Type Severity Reaction Status Date / Time No Known Drug Allergies Allergy Verified 02/04/20 10:39 - Social History Does the pt smoke?: No Smoking Status: Never smoker Does the pt drink ETOH?: Yes Does the pt have substance abuse?: Yes - Immunizations Immunizations are current?: Yes - POLST Patient has POLST: No PD ED PE NORMAL - Vitals Vital signs reviewed: Yes - General General: Alert and oriented X 3, No acute distress - HEENT HEENT: PERRL, EOMI - Neck Neck: Supple, no meningeal sign, No bony TTP - Cardiac Cardiac: RRR, No murmur - Respiratory Respiratory: No respiratory distress, Clear bilaterally - Abdomen Abdomen: Soft, Non tender - Back Back: No CVA TTP, No spinal TTP - Derm Derm: Normal color, Warm and dry - Extremities Extremities: No edema, No calf tenderness / cord - Neuro Neuro: Alert and oriented X 3, Normal speech Results - Vitals Vitals: Vital Signs - 24 hr 02/04/20 02/04/20 10:34 12:18 Temperature 36.1 C L Heart Rate 90 67 Respiratory 18 18 Rate Blood Pressure 107/84 H 87/65 L O2 Saturation 100 99 Oxygen O2 Source Room air - Labs Labs: Laboratory Tests 02/04/20 02/04/20 02/04/20 11:12 11:12 11:43 WBC 12.7 H RBC 3.08 L Hgb 10.0 L Hct 30.3 L MCV 98.4 H MCH 32.5 H MCHC 33.0 RDW 13.9 Plt Count 182 MPV 9.1 Neut # (Auto) 9.0 H Lymph # (Auto) 2.3 Crawford # (Auto) 1.2 H Eos # (Auto) 0.1 Baso # (Auto) 0.1 Absolute Nucleated RBC 0.00 Nucleated RBC % 0.0 VBG pH 7.349 Ionized Calcium 0.87 L Sodium 138 Potassium 3.9 Chloride 99 L Carbon Dioxide 26 Anion Gap 13.0 BUN 35 H Creatinine 4.1 H Estimated GFR (MDRD) 15 L Glucose 100 Calcium 6.7 L Magnesium 1.3 L Total Bilirubin 0.7 AST 71 H ALT 65 H Alkaline Phosphatase 475 H Total Protein 7.2 Albumin 3.6 Globulin 3.6 Albumin/Globulin Ratio 1.0 Lipase 29 PD MEDICAL DECISION MAKING - ED course ED course: 54-year-old gentleman with short gut syndrome due to Crohn's presents with recurrent acute renal failure and electrolyte abnormalities. Given the renal failure will need to come in for continued hydration and management of his electrolytes and spoke with Dr. Blank for same at 12:50 PM. Departure - Departure Disposition: 66 [facility] DC/Xfer Clinical Impression: Hx of Crohn's disease, Intravascular volume depletion, Protein-calorie malnutrition, severe, Electrolyte and fluid disorder ARF (acute renal failure) Qualifiers: Acute renal failure type: unspecified Qualified Code(s): N17.9 - Acute kidney failure, unspecified Condition: Fair
[2020-02-04 11:31] LABS: BASOPHILS # (AUTO) 0.1 10^3/uL (0.0-0.1); BASOPHILS % (AUTO) 0.4 %; EOSINOPHILS # (AUTO) 0.1 10^3/uL (0.0-0.7); EOSINOPHILS % (AUTO) 0.7 %; LYMPHOCYTES # (AUTO) 2.3 10^3/uL (1.5-3.5); LYMPHOCYTES % (AUTO) 18.2 %; MEAN CORPUSCULAR HEMOGLOBIN 32.5 pg (27.0-31.0); MEAN CORPUSCULAR VOLUME 98.4 fL (80.0-94.0); MEAN PLATELET VOLUME 9.1 fL (7.4-11.4); MONOCYTES # (AUTO) 1.2 10^3/uL (0.0-1.0); PLT - PLATELET COUNT 182 10^3/uL (130-450); RED BLOOD COUNT 3.08 10^6/uL (4.70-6.10); RED CELL DISTRIBUTION WIDTH 13.9 % (12.0-15.0); WHITE BLOOD COUNT 12.7 x10^3/uL (4.8-10.8)
[2020-02-04 11:47] LABS: ALBUMIN 3.6 g/dL (3.2-5.5); BILIRUBIN,TOTAL 0.7 mg/dL (0.2-1.0); CALCIUM 6.7 mg/dL (8.5-10.3); CREATININE 4.1 mg/dL (0.6-1.2); MAGNESIUM 1.3 mg/dL (1.7-2.8); TOTAL PROTEIN 7.2 g/dL (6.7-8.2)
[2020-02-04 11:55] LABS: VBG PH 7.349 (7.31-7.41)
[2020-02-04] MEDS ORDERED: CALCIUM GLUCONATE 1,000 MG in SODIUM CHLORIDE 0.9% 50 ML IV STA (11:55)
--- NOTE | 2020-02-04 14:26 | PHARMACY PROGRESS NOTE ---
- Best Possible Medication History Admit Date and Time: 02/04/20 1300 Processed by: Pharmacy Medication History completed: Yes Patient Interview: Completed Secondary Source(s): Physician records (PATIENT UNABLE TO CONFIRM MEDICATIONS. MEDICATION RECONCILIATION DONE BASED OFF OF INSURANCE AND PHYSICIAN RECORDS ), Pharmacy records, Insurance records As the person ultimately responsible for medication therapy, providers are able to order a medication from an existing home medication list in [facility] via the "Reconcile Routine" prior to Confirmation of that medication by student support advisor. Such practice is discouraged except when the physician, in their clinical judgment, deems that a medical need exists for a medication without regard to previous use.
[2020-02-04] MEDS: D5NS W/20 MEQ KCL 1,000 ML IV SCH (18:50)
[2020-02-04] MEDS ORDERED: LOPERAMIDE 2 MG CAPSULE PO PRN (19:12)
--- NOTE | 2020-02-04 19:27 | HISTORY & PHYSICAL EXAMINATION ---
DATE OF SERVICE: 02/04/2020 Physician: Caroline Blank MD HISTORY OF PRESENT ILLNESS: This is a 54-year-old white male with a history of Crohn's disease since childhood, prior bowel resections, CKD, frequent visits to the ER for dehydration and 2 or 3 admissions for acute kidney injury on chronic kidney disease, recently diagnosed cardiomyopathy with ejection fraction of 40%. His last admission here was 01/23/2020 to 01/25/2020 and he required transfer to [facility] for higher level of care with Gastroenterology and Nephrology because of continued high output liquid diarrhea multiple times a day and inability to manage dehydration without parenteral IVs. Patient was hospitalized there and did describe several medications were changed. He says there was discussion about needing a port or PICC line for TPN, if the new diet (iso-osmotic) and change of meds do not help. We do not have the discharge summary from there. His mother accompanies him on this presentation. He states he tried doing everything as they advised, but became once again very tired, and feeling dehydrated and came to the ER. His labs and exam are again showing dehydration and acute renal failure on chronic kidney disease and he is being admitted for this. We [facility] PAST MEDICAL HISTORY 1. Crohn's disease since age 13. He has a perianal fistula and has had prior bowel surgeries. 2. Short gut syndrome. 3. Status post cholecystectomy with postop complications including MRSA wound infection. 4. CKD. 5. Recurrent dehydration due to high output diarrhea from his Crohn's disease, but not a Crohn's flare. 6. He has newly diagnosed cardiomyopathy, recently evaluated by a harness and bag inspector. 7. He is on immunosuppressants for the Crohn's disease. ALLERGIES: NONE. MEDICATIONS 1. Tylenol p.r.n. 2. Bupropion XL 300 mg daily. 3. Calcium citrate 1000 mg t.i.d. 4. Carvedilol 3.125 mg b.i.d. 5. Lomotil IS NOW SCHEDULED 1 tablet tid, not prn 6. Vitamin D3 capsule of 50,000 units weekly. 7. Lactobacillus probiotic b.i.d. 8. Protease enzymes capsule 2 caps t.i.d. 9. Imodium (Loperamide) IS NOW SCHEDULED 4 mg qid, not prn 10. Magnesium 84 mg daily. 11. Mirtazapine oral every night p.r.n. 12. Zofran p.r.n. 13. Protonix 40 mg daily. 14. Potassium citrate 10 mL oral b.i.d. 15. vitamin daily. 16. Sodium bicarbonate 650 mg b.i.d. 17. Zolpidem p.r.n. at night. NO FURTHER USE of Cholestyramine or Metamucil, since GI in-patient evaluation after the recent [facility] hospitalization. FAMILY HISTORY: No inherited diseases. SOCIAL HISTORY: He does not drink alcohol in excess, used to drink alcohol and possibly had alcoholic pancreatitis in the past. He is not a cigarette smoker, but smokes occaisional marijuana. There is no illicit drug use history. He lives with his parents. His father who was very "strict with him working out in the tan to be able to work his keep", has decreased the demands on this patient, which the mother confirms to me today. REVIEW OF SYSTEMS: A comprehensive review of systems was performed and the pertinent positives are listed, the rest are negative. PHYSICAL EXAMINATION GENERAL: Cachectic white male who appears older than his age. He is in no distress. VITAL SIGNS: Blood pressure 90/56, heart rate 76 in sinus rhythm, room air saturation 100%. HEENT: He has temporal wasting and sunken eyes. His oral mucosa is dry. NECK: No JVD in a vertical position. CHEST: Clear. HEART: Normal heart sounds. ABDOMEN: Soft, nontender. Normal bowel sounds. EXTREMITIES: No clubbing, cyanosis or edema. NEUROLOGIC: Grossly intact. LABORATORY DATA: Sodium 138, potassium 3.9, BUN 35, creatinine of 4.1. (His baseline creatinine is now around 2). calcium 6.7 with albumin of 3.6, magnesium 1.3, elevated AST of 71, ALT 65, alkaline phosphatase 475. White blood count 12.7, hemoglobin 10 with MCV of 98, platelet count 182, Venous blood gas has pH of 7.34. Ionized calcium 0.87, which is low. No imaging was done. No EKG was done. IMPRESSION/DIAGNOSES 1. Dehydration. 2. Short gut syndrome. 3. Acute kidney injury, superimposed on chronic kidney disease. 4. Crohn's disease. 5. Severe protein-calorie malnutrition. 6. Anemia. 7. Hypomagnesemia. 8. Hypocalcemia. 9. Elevated liver function tests. PLAN: Admit patient to inpatient status. Begin with IV rehydration. Follow his BUN and creatinine daily. Correct his low calcium and low magnesium levels with oral and IV replacement. Follow those levels by blood test daily. Obtain discharge summary from [facility] to follow with their intended plan as far as what they had advised for hydration and nutrition and management of his frequent watery bowel movements that lead to these above problems. CODE STATUS: FULL CODE. DEEP VENOUS THROMBOSIS PROPHYLAXIS: SCDs. ATTESTATION: Patient is expected to be discharged or transferred to another facility within 96 hours: Yes. cc: Ryley Knowles PA-C TD: 02/04/2020 19:09 [email or web address]
[2020-02-04] MEDS ORDERED: SODIUM CHLORIDE 0.9% 1,000 ML IV ONE (20:04)
[2020-02-04] MEDS: carvediloL 3.125 MG TABLET PO SCH (20:11)
[2020-02-04] MEDS ORDERED: MIRTAZAPINE 15 MG TABLET PO PRN (21:00)
[2020-02-04] MEDS ORDERED: [UNRECOGNIZED DRUG - OTHER] ORAL SCH (21:00)
[2020-02-04] MEDS ORDERED: CITRIC ACID ORAL SCH (21:00)
[2020-02-04] MEDS ORDERED: POTASSIUM CITRATE ORAL SCH (21:00)
[2020-02-04] MEDS: LOPERAMIDE 2 MG CAPSULE PO SCH (21:04)
[2020-02-04] MEDS ORDERED: CALCIUM GLUCONATE 1,000 MG in SODIUM CHLORIDE 0.9% 50 ML IV ONE (21:43)
[2020-02-04] MEDS ORDERED: LIPASE/PROTEASE/AMYLASE CAPSULE PO SCH (22:00)
[2020-02-04] MEDS: DIPHENOX/ATROPINE 2.5/0.025 MG TABLET PO SCH (22:12)
[2020-02-04] MEDS: SODIUM BICARBONATE 650 MG TABLET PO SCH (22:12)
[2020-02-04] MEDS: CALCIUM CITRATE 250 MG TABLET PO SCH (22:12)
[2020-02-04] MEDS: ZOLPIDEM 5 MG TABLET PO PRN (22:13)
[2020-02-05] MEDS: SODIUM CHLORIDE FLUSH 0.9% 10 ML SYRINGE IVP SCH ×3 (01:33→16:33)
[2020-02-05] MEDS ORDERED: SODIUM CHLORIDE 0.9% 1,000 ML IV ONE (01:45)
[2020-02-05] MEDS: D5NS W/20 MEQ KCL 1,000 ML IV SCH ×2 (05:33→13:47)
[2020-02-05] MEDS: DIPHENOX/ATROPINE 2.5/0.025 MG TABLET PO SCH ×3 (05:34→21:57)
[2020-02-05] MEDS: CALCIUM CITRATE 250 MG TABLET PO SCH ×3 (05:34→21:57)
[2020-02-05 05:45] LABS: BASOPHILS % (AUTO) 0.2 %; HGB - HEMOGLOBIN 7.1 g/dL (14.0-18.0); LYMPHOCYTES # (AUTO) 1.4 10^3/uL (1.5-3.5); LYMPHOCYTES % (AUTO) 33.3 %; MEAN CORPUSCULAR HEMOGLOBIN 31.6 pg (27.0-31.0); MEAN CORPUSCULAR HGB CONC 30.9 g/dL (32.0-36.0); MEAN CORPUSCULAR VOLUME 102.2 fL (80.0-94.0); MEAN PLATELET VOLUME 8.9 fL (7.4-11.4); MONOCYTES # (AUTO) 0.3 10^3/uL (0.0-1.0); MONOCYTES % (AUTO) 7.8 %; NEUTROPHILS # (AUTO) 2.4 10^3/uL (1.5-6.6); NEUTROPHILS % (AUTO) 57.5 %; PLT - PLATELET COUNT 88 10^3/uL (130-450); RED BLOOD COUNT 2.25 10^6/uL (4.70-6.10); WHITE BLOOD COUNT 4.2 x10^3/uL (4.8-10.8)
[2020-02-05 05:57] LABS: ALBUMIN 2.3 g/dL (3.2-5.5); BILIRUBIN,TOTAL 0.4 mg/dL (0.2-1.0); CALCIUM 7.3 mg/dL (8.5-10.3); CREATININE 2.7 mg/dL (0.6-1.2); MAGNESIUM 1.5 mg/dL (1.7-2.8); TOTAL PROTEIN 4.5 g/dL (6.7-8.2)
[2020-02-05] MEDS: LIPASE/PROTEASE/AMYLASE CAPSULE PO SCH ×3 (07:42→16:57)
[2020-02-05] MEDS: PRENATAL VITAMIN TABLET PO SCH (07:43)
[2020-02-05] MEDS ORDERED: PANTOPRAZOLE 40 MG TABLET PO SCH (09:00)
[2020-02-05] MEDS: SODIUM BICARBONATE 650 MG TABLET PO SCH ×2 (09:17→21:58)
[2020-02-05] MEDS: buPROPion XL 150 MG TABLET PO SCH (09:17)
[2020-02-05] MEDS: carvediloL 3.125 MG TABLET PO SCH ×2 (09:18→21:57)
[2020-02-05] MEDS: LOPERAMIDE 2 MG CAPSULE PO SCH ×4 (09:24→21:57)
[2020-02-05] MEDS ORDERED: MAGNESIUM SULFATE 2 GRAM 2 GM/50 ML BAG IV ONE (11:13)
[2020-02-05] MEDS: MAGNESIUM PO SCH (11:55)
[2020-02-05] MEDS: LACTATE PO SCH (11:55)
[2020-02-05] MEDS ORDERED: CALCIUM GLUCONATE 1,000 MG in SODIUM CHLORIDE 0.9% 50 ML IV ONE (12:00)
--- NOTE | 2020-02-05 12:09 | PHARMACY PROGRESS NOTE ---
- Best Possible Medication History Admit Date and Time: 02/04/20 1300 Processed by: Pharmacy Medication History completed: Yes Patient Interview: Pt unable to participate (Patient declines medication history interview - meds based on VERY recent [facility] discharge with medication adjustments.) Secondary Source(s): Facility MAR as ONLY source As the person ultimately responsible for medication therapy, providers are able to order a medication from an existing home medication list in [facility] via the "Reconcile Routine" prior to Confirmation of that medication by account support specialist. Such practice is discouraged except when the physician, in their clinical judgment, deems that a medical need exists for a medication without regard to previous use.
[2020-02-05] MEDS: POTASSIUM CHLOR 10 MEQ/100 ML 10 MEQ/100 ML BAG IV SCH ×4 (12:44→17:04)
--- NOTE | 2020-02-05 18:33 | PROVIDER PROGRESS NOTE ---
Assessment/Plan - Problem List (1) Dehydration Assessment/Plan: Improving, he has moist oral mucosa today and BUN/creatinine are improving. (2) Acute renal failure superimposed on chronic kidney disease Assessment/Plan: Creatinine of 4.1 on admission is improved to 2.8 today. Avoid nephrotoxins. Follow BMP daily (3) Short gut syndrome Assessment/Plan: This was officially diagnosed when he was at [facility] as an inpatient just 1 week ago. He has chronic (>1 month) of high output of liquidy diarrhea which he cannot k eep up with using oral hydration. Will proceed to arranging for TPN. Since he has had 2 picklines and both have had infections previously, will request port placement. I spoke to Dr. Barnett of general surgery who will plan the OR for port placement. I discussed at length what his wishes are regarding further management of this problem related to his Crohn's disease. The patient wants as much of his medical care done here on the [place]. The rural electrification engineer has reached out to [facility] who is reviewing his case, he probably does qualify under Medicare guidelines for IV fluids and TPN. The RD, Yolette, is calculating his needs for peripheral nutrition and eventual TPN. (4) Crohn's disease Assessment/Plan: We received the discharge summary and I reviewed it in detail. The patient does not have flareup of Crohn's but now has probable osmotic louis rrhea. The GI consultants recommended that he get iso-osmotic diet ordered. Will request RD to manage this. The management of his diarrhea will now be done with scheduled Lomotil and Imodium. The vocational rehab consultant also wanted to stop using cholestyramine and Metamucil, which was ordered not to use at the time of this admission. (5) Protein-calorie malnutrition, severe Assessment/Plan: This patient has lost 25 pounds over the past several monthsa He is cachectic, he has been trying his hardest to keep up with both his calorie needs and fluid needs over the past 1 month, and is not achieving these goals. (6) Anemia Assessment/Plan: During the last hospitalization, 10 days ago, his B12 and folate levels and iron stores were checked, all were normal. He was felt to have anemia of chronic disease. He now also has hemo-dilutional anemia because of the need for multiple high- volume fluid replacement admissions related to his foot short gut syndrome. He is weak partly because of dehydration, also because of this severe anemia. Follow CBC and transfuse if under 7. He was close to that today, at 7.1, and I will discuss if he would agree to transfusion. (7) Electrolyte and fluid disorder Assessment/Plan: Today he has low calcium, magnesium and potassium. We will replace all these with IV riders. The discharge summary from [facility] states to use liquid forms of replacement if not using IV replacement. We are to avoid long-acting formulations of all medicines since they will simply transit through his got quickly and not be absorbed. (8) Elevated LFTs Assessment/Plan: There was a remote history of alcohol use which he has stopped completely over the last 1 month. The discharge summary from [facility] request that he have an MRI/MRCP to evaluate the upper abdomen because of the high alk phos. I discussed with this with the patient and he agrees to undergo an MRI while here (9) Hx MRSA infection Assessment/Plan: After his cholecystectomy in June,, he had several complications with slow healing of the abdominal wound which grew MRSA. When he was last here 10 days ago, he is swab positive for MRSA and he underwent nasal treatment. The infectious disease coordinator has requested he have MRSA nasal swab testing again which I will order. (10) Cardiomyopathy Assessment/Plan: During one of his earlier admissions here, approximately 6 weeks ago, he was diagnosed with a new cardiomyopathy. He is subsequently seen a clay preparation supervisor as an outpatient just wants. The [facility] discharge summary summarizes that the clay preparation supervisor wants him to undergo Lexiscan stress testing. This can be ordered to be done at this hospital as an outpatient, [place] with his short gut syndrome. - Current Meds Current Meds: Current Medications Generic Name Dose Route Start Last Admin Trade Name Freq PRN Reason Stop Dose Admin Lipase/Protease/Amylase 2 cap 02/05/20 05:22 02/05/20 16:57 Pancrelipase 5,000/17,000/27,000 Assisted PO 2 cap TIDWM KAROLYN Administration Bupropion HCl 300 mg 02/05/20 09:00 02/05/20 09:17 Wellbutrin Xl PO 300 mg DAILY KAROLYN Administration Calcium Citrate 1,000 mg 02/04/20 22:00 02/05/20 13:46 PO 1,000 mg TID KAROLYN Administration Carvedilol 3.125 mg 02/04/20 21:00 02/05/20 09:18 Coreg PO 3.125 mg BID KAROLYN Administration Diphenoxylate HCl/Atropine 1 tab 02/04/20 22:00 02/05/20 13:47 Lomotil PO 1 tab TID KAROLYN Administration Potassium Chloride/Dextrose/Sod Cl 1,000 mls @ 125 mls/hr 02/04/20 19:00 02/05/20 13:47 IV 125 mls/hr .Q8H KAROLYN Administration Loperamide HCl 4 mg 02/04/20 21:00 02/05/20 16:57 Imodium PO 4 mg QID KAROLYN Administration Patient Own Med ( 1 each 02/05/20 09:00 02/05/20 11:55 Magnesium L-Lactate PO Not Given [Magnesium L-Lactate DAILY KAROLYN Dihyd Sr] 84 Mg) Multivit/Folic Acid/Iron 1 tab 02/05/20 08:00 02/05/20 07:43 Trinatal Rx 1 PO 1 tab DAILYWM KAROLYN Administration Sodium Bicarbonate 650 mg 02/04/20 21:00 02/05/20 09:17 Sodium Bicarbonate PO 650 mg BID KAROLYN Administration Sodium Chloride 10 ml 02/05/20 01:00 02/05/20 16:33 Normal Saline Flush 0.9% IVP Not Given 0100,0900,1700 KAROLYN Zolpidem Tartrate 10 mg 02/04/20 19:17 02/04/20 22:13 Ambien PO 10 mg QPM PRN Administration Insomnia - Lab Result Fish Bone Diagrams: 02/06/20 04:35 02/06/20 04:35 - Additional Planning My Orders: My Active Orders 02/04/20 19:00 D5ns W/20 Meq KCl 1,000 ml IV 125 mls/hr 02/04/20 19:07 Daily Weight [RC] 0600 IO [RC] IOSHIFT Initiate Bowel Care Protocol [RC] .protocol Initiate Line Care Protocol [RC] QSHIFT Initiate Personal Care Protoco [RC] .protocol Oxygen Therapy [RC] .PRN Acetaminophen [Tylenol] 650 mg PO Q4HR PRN Sodium Chloride Flush 0.9% [Normal Saline Flush 0.9%] 10 ml IVP PRN PRN DVT Prophylaxis [OTHERS] Routine 02/04/20 19:08 SCDs [RC] QSHIFT Social Work Consult [CONS] Routine 02/04/20 19:17 Zolpidem [Ambien] 10 mg PO QPM PRN 02/04/20 19:50 Nutrition Consult [CONS] Routine 02/04/20 21:00 Loperamide [Imodium] 4 mg PO QID Mirtazapine [Remeron] 45 mg PO QPM PRN Sodium Bicarbonate 650 mg PO BID carvediloL [Coreg] 3.125 mg PO BID 02/04/20 22:00 Calcium Citrate 1,000 mg PO TID Diphenoxylate/Atropine [Lomotil] 1 tab PO TID 02/05/20 01:00 Sodium Chloride Flush 0.9% [Normal Saline Flush 0.9%] 10 ml IVP 0100,0900,1700 02/05/20 05:22 Lipase/Protease/Amylase [Pancrelipase Dr 5,000/17,000/27,000 Assisted] 2 cap PO TIDWM 02/05/20 08:00 Vitamin [Trinatal Rx 1] 1 tab PO DAILYWM 02/05/20 09:00 Patient Own Med [Patient Own Medication] 1 each PO DAILY buPROPion [Wellbutrin Xl] 300 mg PO DAILY 02/05/20 09:07 Patient Own Med [Patient Own Medication] 1 each PO BID 02/05/20 16:34 Daily Weight [RC] DAILY 02/05/20 19:00 Fat Emulsion 20% [Intralipid 20%] 250 ml IV Q24H Multivitamin [Infuvite] 10 ml Trace Elements V Conc [Multitrace-5 Conc Vial] 1 ml Ppn (Clinimix E 4.25/5) [Clinimix E 4.25%-5% Solution] 2,000 ml IV Q24H 02/06/20 05:00 CBC - COMP BLD CT W/AUTO DIFF [HEME] DAILYLAB CMP [COMPREHENSIVE METABOLIC PANEL] [CHEM] DAILYLAB COMPREHENSIVE METABOLIC PANEL [CHEM] Routine MAGNESIUM [CHEM] DAILYLAB MAGNESIUM [CHEM] Routine PHOSPHORUS [CHEM] Routine PREALBUMIN [CHEM] Routine TRIGLYCERIDES [CHEM] Routine 02/07/20 05:00 CBC - COMP BLD CT W/AUTO DIFF [HEME] DAILYLAB CMP [COMPREHENSIVE METABOLIC PANEL] [CHEM] DAILYLAB MAGNESIUM [CHEM] DAILYLAB 02/08/20 05:00 COMPREHENSIVE METABOLIC PANEL [CHEM] Routine MAGNESIUM [CHEM] Routine PHOSPHORUS [CHEM] Routine PREALBUMIN [CHEM] Routine TRIGLYCERIDES [CHEM] Routine 02/10/20 05:00 COMPREHENSIVE METABOLIC PANEL [CHEM] Routine MAGNESIUM [CHEM] Routine PHOSPHORUS [CHEM] Routine PREALBUMIN [CHEM] Routine TRIGLYCERIDES [CHEM] Routine 02/13/20 05:00 COMPREHENSIVE METABOLIC PANEL [CHEM] Routine MAGNESIUM [CHEM] Routine PHOSPHORUS [CHEM] Routine PREALBUMIN [CHEM] Routine TRIGLYCERIDES [CHEM] Routine Subjective - Subjective Patient Reports: Feeling Better, Resting Comfortably Objective Vital Signs: Vital Signs - 24 hr 02/04/20 02/04/20 02/04/20 19:59 21:20 21:40 Temperature 36.2 C L Heart Rate 67 Heart Rate [ 67 75 Brachial] Respiratory 16 16 Rate Blood Pressure [Left Ankle] Blood Pressure [Left Brachial artery] Blood Pressure 87/69 L 90/60 [Right Brachial artery] O2 Saturation 100 02/05/20 02/05/20 02/05/20 01:29 02:31 03:41 Temperature 36.5 C Heart Rate Heart Rate [ 61 65 Brachial] Respiratory 16 Rate Blood Pressure 94/54 L 94/79 [Left Ankle] Blood Pressure 81/46 L [Left Brachial artery] Blood Pressure 83/49 L [Right Brachial artery] O2 Saturation 97 02/05/20 02/05/20 02/05/20 05:45 07:57 16:33 Temperature 36.2 C L 36.5 C 36.5 C Heart Rate Heart Rate [ 64 58 L Brachial] Respiratory 17 18 18 Rate Blood Pressure 117/66 [Left Ankle] Blood Pressure [Left Brachial artery] Blood Pressure 115/63 [Right Brachial artery] O2 Saturation 100 100 100 02/05/20 17:00 Temperature Heart Rate Heart Rate [ Brachial] Respiratory Rate Blood Pressure [Left Ankle] Blood Pressure [Left Brachial artery] Blood Pressure 93/61 [Right Brachial artery] O2 Saturation Oxygen O2 Source Room air I&O (Last 24 Hrs): Intake and Output Totals x24h 02/03/20 02/04/20 02/05/20 23:59 23:59 23:59 Intake Total 3876.667 4083.333 Output Total 400 Balance 3876.667 3683.333 General: Alert, Oriented x3 HEENT: Mucous membr. moist/pink Neck: Supple, No JVD Neuro: Alert, Non Focal Cardiovascular: Regular rate, No murmurs Respiratory: No respiratory distress, Breath sounds nml Abdomen: Normal bowel sounds, Soft Extremities: No edema - Results Results: Laboratory Results WBC 4.2 x10^3/uL (4.8-10.8) L 02/05/20 05:24 RBC 2.25 10^6/uL (4.70-6.10) L 02/05/20 05:24 Hgb 7.1 g/dL (14.0-18.0) L 02/05/20 05:24 Hct 23.0 % (42.0-52.0) L 02/05/20 05:24 MCV 102.2 fL (80.0-94.0) H 02/05/20 05:24 MCH 31.6 pg (27.0-31.0) H 02/05/20 05:24 MCHC 30.9 g/dL (32.0-36.0) L 02/05/20 05:24 RDW 14.0 % (12.0-15.0) 02/05/20 05:24 Plt Count 88 10^3/uL (130-450) L 02/05/20 05:24 MPV 8.9 fL (7.4-11.4) 02/05/20 05:24 Neut # (Auto) 2.4 10^3/uL (1.5-6.6) 02/05/20 05:24 Lymph # (Auto) 1.4 10^3/uL (1.5-3.5) L 02/05/20 05:24 [place]iscoe # (Auto) 0.3 10^3/uL (0.0-1.0) 02/05/20 05:24 Eos # (Auto) 0.0 10^3/uL (0.0-0.7) 02/05/20 05:24 Baso # (Auto) 0.0 10^3/uL (0.0-0.1) 02/05/20 05:24 Absolute Nucleated RBC 0.00 x10^3/uL 02/05/20 05:24 Nucleated RBC % 0.0 /100WBC 02/05/20 05:24 VBG pH 7.349 (7.31-7.41) 02/04/20 11:43 Ionized Calcium 0.87 mmol/L (1.15-1.33) L 02/04/20 11:43 Sodium 142 mmol/L (135-145) 02/05/20 05:24 Potassium 3.2 mmol/L (3.5-5.0) L 02/05/20 05:24 Chloride 118 mmol/L (101-111) H 02/05/20 05:24 Carbon Dioxide 16 mmol/L (21-32) L 02/05/20 05:24 Anion Gap 8.0 (6-13) 02/05/20 05:24 BUN 26 mg/dL (6-20) H 02/05/20 05:24 Creatinine 2.7 mg/dL (0.6-1.2) H 02/05/20 05:24 Estimated GFR (MDRD) 25 (>89) L 02/05/20 05:24 Glucose 131 mg/dL (70-100) H 02/05/20 05:24 Calcium 7.3 mg/dL (8.5-10.3) L 02/05/20 05:24 Phosphorus 4.8 mg/dL (2.5-4.6) H 02/05/20 05:24 Magnesium 1.5 mg/dL (1.7-2.8) L 02/05/20 05:24 Total Bilirubin 0.4 mg/dL (0.2-1.0) 02/05/20 05:24 AST 44 IU/L (10-42) H 02/05/20 05:24 ALT 43 IU/L (10-60) 02/05/20 05:24 Alkaline Phosphatase 308 IU/L (42-121) H 02/05/20 05:24 Total Protein 4.5 g/dL (6.7-8.2) L 02/05/20 05:24 Albumin 2.3 g/dL (3.2-5.5) L 02/05/20 05:24 Globulin 2.2 g/dL (2.1-4.2) 02/05/20 05:24 Albumin/Globulin Ratio 1.0 (1.0-2.2) 02/05/20 05:24 Lipase 29 U/L (22-51) 02/04/20 11:12
--- NOTE | 2020-02-05 18:46 | ADVANCE CARE PLANNING NOTE ---
Advance Care Planning - Planning Encounter Date: 02/05/20 Time: 16:00 Purpose: To discuss the plan and his wishes regarding each of his various diagnoses. Parties in Attendance: I spoke to the patient who was in his bed and his mother was at bedside, she is a retired RN. Decisional Capacity of the Patient: Patient is alert and oriented and has full decision-making capacity. - Diagnosis for Encounter (1) Acute renal failure superimposed on chronic kidney disease Summary: Patient developed CKD approximately half a year ago, he has renal stones, the exact etiology is not known to us. 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 The patient has only seen his custom stock maker virtually by telemedicine visit. He reports there was a visit once from Dr. Figueredo of the [facility] who threw up his hands and stated he had nothing to order but this was when the patient stated he was butting heads with everybody regarding how much IV fluids he was willing to get. The patient agrees to have as much of his care done here on the [place] (2) Short gut syndrome Summary: When he was at [facility] 1 week ago, he had GI specialists that agreed with the diagnosis of short gut syndrome, high output liquidy diarrhea, partially from hypertonic oral intake. They advised a different diet which he tried to follow. After just 4 days of this he felt the same as he did with previous dehydration and JASMIN and is admitted now. The patient feels that he has now tried all possible avenues of staying hydrated and cannot keep up with his high output liquidy diarrhea. He is interested in getting planned management of both IV hydration and protein calories for nutrition. He reports 2 prior PICC lines that both became infected. He is interested in having a port placed which would be more permanent, and would give access for infusions. I will order permanent port placement by our General Surgeon, I have contacted Dr. Miles Barnett who is the surgeon on-call who can do this tomorrow. The titrator is working with infusion solutions to arrange for TPN and IV fluids as we deem necessary. The patient wants as much of his care handled here on the [place]3) Crohn's disease Summary: This patient is adopted, I learned today. He developed Crohn's disease diagnosed at age 13 and had his first surgery at age 17. He has had multiple bowel surgeries. He discharge summary from [facility] states that he has fistula-forming Crohn's disease. There is no current Crohn's flare because he does not have an elevated sed rate or evidence of inflammatory cells when the last biopsies were done. He is on Entyvio every 3 weeks, administered at the [facility] clinic here. He wants to keep his current copier technician, Dr. Ramos, at [facility], but would like as much of his care done here on [facility] (4) Protein-calorie malnutrition, severe Summary: As above in #2 (5) Elevated LFTs Summary: There was a past history of excessive alcohol intake but not true alcohol abuse however he did once have alcoholic pancreatitis. The copier technician would like evaluation with an MRI/MRCP, To evaluate the chronically elevated alk phos. At this admission he also has elevation of AST and ALT. We will order that MRI while here. (6) Cardiomyopathy Summary: During 1 of his hospitalizations about 6 to 8 weeks ago, he was diagnosed with a new cardiomyopathy, echo showed an LVEF of 40%. The patient has seen his contact center rep once as an outpatient. The patient had already been started on low doses of carvedilol (only low-dose because of his "soft" blood pressure. The contact center rep wants a Lexiscan stress test to evaluate for coronary disease and some other test, spelled out on the [facility] discharge summary. Both of these test can be done here at [facility], as an outpatient. The patient and mother were very happy to hear this, since he would like most of his testing and care done here on the [place] - Encounter Plan: As described above and each delineated diagnosis. Additional Discussion: Patient also wishes to have change of PCP from physicians floral assistant to an MD or DO. Dr. Burch was his prior PCP but he is retiring in about a week. I have informed the terminologist, who will work on arranging an appointment to a provider that the patient requests in the upcoming outpatient visits. Code Status: Attempt Resuscitation Time spent on advance care plannin min
[2020-02-05] MEDS ORDERED: PPN IV SCH ×3 (19:00)
[2020-02-05] MEDS ORDERED: TRACE ELEMENTS V IV SCH ×3 (19:00)
[2020-02-05] MEDS ORDERED: MULTIVITAMIN IV SCH ×3 (19:00)
[2020-02-05] MEDS: PPN (CLINIMIX E 4.25/5) 2,000 ML with MULTIVITAMIN 10 ML, TRACE ELEMENTS V CONC 1 ML IV SCH ×3 (19:40)
[2020-02-05] MEDS: FAT EMULSION 20% 250 ML IV SCH (19:40)
[2020-02-05] MEDS: ZOLPIDEM 5 MG TABLET PO PRN (21:57)
[2020-02-05] MEDS: NS W/20 MEQ KCL 1,000 ML IV SCH (21:57)
[2020-02-05] MEDS: CITRIC ACID PO SCH (21:58)
[2020-02-05] MEDS: POTASSIUM CITRATE PO SCH (21:58)
[2020-02-06] MEDS ORDERED: SODIUM CHLORIDE 0.9% 1,000 ML IV ONE (01:08)
[2020-02-06] MEDS: ONDANSETRON 4 MG/2 ML VIAL IVP PRN (01:33)
[2020-02-06] MEDS: ACETAMINOPHEN 325 MG TABLET PO PRN ×2 (01:33→21:50)
[2020-02-06] MEDS: SODIUM CHLORIDE FLUSH 0.9% 10 ML SYRINGE IVP SCH ×3 (02:57→16:51)
[2020-02-06 05:10] LABS: BASOPHILS % (AUTO) 0.2 %; EOSINOPHILS % (AUTO) 0.7 %; HGB - HEMOGLOBIN 7.6 g/dL (14.0-18.0); LYMPHOCYTES # (AUTO) 0.9 10^3/uL (1.5-3.5); LYMPHOCYTES % (AUTO) 15.9 %; MEAN CORPUSCULAR HEMOGLOBIN 31.4 pg (27.0-31.0); MEAN CORPUSCULAR HGB CONC 29.7 g/dL (32.0-36.0); MEAN CORPUSCULAR VOLUME 105.8 fL (80.0-94.0); MONOCYTES # (AUTO) 0.4 10^3/uL (0.0-1.0); MONOCYTES % (AUTO) 6.4 %; NEUTROPHILS # (AUTO) 4.3 10^3/uL (1.5-6.6); NEUTROPHILS % (AUTO) 76.3 %; PLT - PLATELET COUNT 108 10^3/uL (130-450); RED BLOOD COUNT 2.42 10^6/uL (4.70-6.10); RED CELL DISTRIBUTION WIDTH 13.9 % (12.0-15.0); WHITE BLOOD COUNT 5.6 x10^3/uL (4.8-10.8)
[2020-02-06 05:26] LABS: ALBUMIN 2.3 g/dL (3.2-5.5); BILIRUBIN,TOTAL 0.3 mg/dL (0.2-1.0); CALCIUM 7.6 mg/dL (8.5-10.3); CREATININE 2.2 mg/dL (0.6-1.2); MAGNESIUM 1.6 mg/dL (1.7-2.8); PHOSPHORUS 3.9 mg/dL (2.5-4.6); TOTAL PROTEIN 4.6 g/dL (6.7-8.2)
[2020-02-06] MEDS: CALCIUM CITRATE 250 MG TABLET PO SCH (06:07)
[2020-02-06] MEDS: DIPHENOX/ATROPINE 2.5/0.025 MG TABLET PO SCH ×3 (06:07→21:53)
[2020-02-06] MEDS: carvediloL 3.125 MG TABLET PO SCH ×2 (08:19→21:55)
[2020-02-06] MEDS: LIPASE/PROTEASE/AMYLASE CAPSULE PO SCH ×3 (08:19→16:51)
[2020-02-06] MEDS: PRENATAL VITAMIN TABLET PO SCH (08:19)
[2020-02-06] MEDS: LOPERAMIDE 2 MG CAPSULE PO SCH ×4 (08:19→21:52)
[2020-02-06] MEDS: buPROPion XL 150 MG TABLET PO SCH (08:19)
[2020-02-06] MEDS: CITRIC ACID PO SCH ×2 (08:20→21:54)
[2020-02-06] MEDS: POTASSIUM CITRATE PO SCH ×2 (08:20→21:54)
[2020-02-06] MEDS: MAGNESIUM PO SCH (08:20)
[2020-02-06] MEDS: LACTATE PO SCH (08:20)
[2020-02-06] MEDS: SODIUM BICARBONATE 650 MG TABLET PO SCH ×2 (08:31→21:54)
[2020-02-06] MEDS ORDERED: SODIUM BICARBONATE 150 MEQ in DEXTROSE 5% 1,000 ML IV SCH (09:00)
--- NOTE | 2020-02-06 13:38 | PROVIDER PROGRESS NOTE ---
Assessment/Plan - Problem List (1) Dehydration Assessment/Plan: BUN and creatinine are improving, creatinine down to 2.2 after these several days of IV hydration. Clinically he does not look dehydrated and appears to have more energy. Conitnue with IV fluids, TPN, lipids, riders, at a total rate of approximately 125 cc/h (2) Acute renal failure superimposed on chronic kidney disease Assessment/Plan: Creatinine has improved to 2.2 up today. As above in #1. Follow BMP daily For nephrotoxins. (3) Short gut syndrome Assessment/Plan: This diagnosis was established at his recent inpatient stay at [facility] by his gastroenterology specialist. Had about 1 month of high-volume liquidy diarrhea, not in Crohn's flareup. He has tried different diets especially a low sugar diet and it did not help the high output fluid loss and diarrhea He will need TPN for greater than 90 days, possibly 6 months, for rehydration, electrolyte stabilization and for weight gain. He is not a candidate to try enteral nutrition like through a PEG tube because he actually can swallow and the problem is beyond the stomach and proximal small bowel and is fluid losses and rapid transit associated with his colon. Peripheral PN was started yesterday with lipids, being adjusted by registered dietitian. He is tolerating this. The total fluid input of ppn, iv fluids and riders, is at approximately 125 cc/h, in order to correct his intravascular volume depletion and to start nourishing him with protein and calories. The plan is for placement of a port tomorrow by the general surgeon, at approximately noon, under general anesthesia. Then he will be transitioned to TPN. Starting this as an outpatient is being arranged by our clinical interviewer, social workers and registered dietitian (4) Crohn's disease Assessment/Plan: This was diagnosed at age 13. He had surgery starting at age 17. He has mul tiple bowel surgeries. There is no flare up currently, as per the notes from [facility] from 1 week ago when he was hospitalized there. There is a fistula that is perianal and his diarrhea is probably exacerbating this from healing. He is getting Entyvio [place] [facility] [place], managed by his cross country and track and field coach Dr. Ramos (5) Protein-calorie malnutrition, severe Assessment/Plan: This patient has had 9% weight loss over the past 3 months and also lost muscle and fat and developed weakness and deconditioning. He has tried replacing orally and has required multiple peripheral iv replacement strategies, none have worked. The plan is to treat with TPN as described above. (6) Anemia Assessment/Plan: [facility] notes indicate they think he has anemia of chronic disease. With hemoglobin of 7.1 yesterday, he may need transfusion if it drops to that level again. I discussed this with the patient today and he is agreeable to a transfusion if he needs it. Follow CBC daily (7) Electrolyte and fluid disorder Assessment/Plan: Potassium is low today, IV riders and oral potassium have been ordered. Magnesium needs to be replaced. Calcium needs to be replaced. Today his bicarbonate was low. His citrate meds were therefore stopped. 1 L of sodium bicarbonate and D5 was ordered today. Check VBG for his pH (8) Elevated LFTs Assessment/Plan: Patient has a history of acute pancreatitis in the past. LFTs are improving. The GI specialist had wanted MRCP which will be ordered today, to look at the pancreas which has insufficiency and also the area where the gallbladder was removed (9) Hx MRSA infection Assessment/Plan: He had previous wound MRSA infections earlier this year. He is testing positive on his MRSA nasal swab here. We will order Nozin nasal swabs twice daily. (10) Pancreatic insufficiency Assessment/Plan: While at [facility], he had testing of his pancreatic levels and these returned less than 40 indicating severe deficiency. He was taking his pancreatic enzymes but probably decreased the amount he could take because they cost did a lot. We will slowly try to increase his pancreatic enzyme doses while here. (11) Cardiomyopathy Assessment/Plan: About 6 weeks ago he was diagnosed with a new cardiomyopathy, has seen a international relations professor once, is on Coreg. Outpatient work-up can be done here, after discharge and some stabilization, so he does not have to travel [place] to the [facility]. On entering him for fluid overload is also necessary, as an inpatient currently. - Current Meds Current Meds: Current Medications Generic Name Dose Route Start Last Admin Trade Name Freq PRN Reason Stop Dose Admin Acetaminophen 650 mg 02/04/20 19:07 02/06/20 01:33 Tylenol PO 650 mg Q4HR PRN Administration Pain or Fever > 38C (100.4F) Lipase/Protease/Amylase 3 cap 02/06/20 12:00 02/06/20 11:[address] 5,000/17,000/27,000 Prison PO 3 cap TIDWM KAROLYN Administration Bupropion HCl 300 mg 02/05/20 09:00 02/06/20 08:19 Wellbutrin Xl PO 300 mg DAILY KAROLYN Administration Diphenoxylate HCl/Atropine 1 tab 02/04/20 22:00 02/06/20 06:07 Lomotil PO 1 tab TID KAROLYN Administration Fat Emulsion Intravenous 250 mls @ 21 mls/hr 02/05/20 19:00 02/06/20 07:35 Intralipid 20% IV Infused Q24H KAROLYN Infusion Multivitamins 10 ml/ Chromium/ 2,011 mls @ 83 mls/hr 02/05/20 19:00 02/05/20 22:33 Copper/Manganese/Seleni/Zn 1 IV 83 mls/hr ml/ Amino Acids/Electrolytes/ Q24H KAROLYN Infusion Dextrose Protocol Potassium Chloride/Sodium Chloride 1,000 mls @ 40 mls/hr 02/05/20 20:00 02/06/20 06:30 Normal Saline 0.9% W/20 Meq Kcl IV 40 mls/hr .Q25H KAROLYN Infusion Loperamide HCl 4 mg 02/04/20 21:00 02/06/20 13:02 Imodium PO 4 mg QID KAROLYN Administration Ondansetron HCl 4 mg 02/05/20 18:36 02/06/20 01:33 Zofran Inj IVP 4 mg Q4HR PRN Administration Nausea / Vomiting Patient Own Med ( 1 each 02/05/20 09:00 02/06/20 08:20 Magnesium L-Lactate PO Not Given [Magnesium L-Lactate DAILY KAROLYN Dihyd Sr] 84 Mg) Patient Own Med ( 1 each 02/05/20 09:07 02/06/20 08:20 Potassium Citrate/ PO Not Given Citric Acid [ BID KAROLYN Potassium Cit-Citric Acid Soln] 10 Ml) Multivit/Folic Acid/Iron 1 tab 02/05/20 08:00 02/06/20 08:19 Trinatal Rx 1 PO 1 tab DAILYWM KAROLYN Administration Sodium Bicarbonate 650 mg 02/04/20 21:00 02/06/20 08:31 Sodium Bicarbonate PO 650 mg BID KAROLYN Administration Sodium Chloride 10 ml 02/05/20 01:00 02/06/20 08:20 Normal Saline Flush 0.9% IVP Not Given 0100,0900,1700 KAROLYN Zolpidem Tartrate 10 mg 02/04/20 19:17 02/05/20 21:57 Ambien PO 10 mg QPM PRN Administration Insomnia - Lab Result Fish Bone Diagrams: 02/06/20 04:35 02/06/20 04:35 - Additional Planning My Orders: My Active Orders 02/05/20 16:34 Daily Weight [RC] DAILY 02/05/20 18:36 Ondansetron Inj [Zofran Inj] 4 mg IVP Q4HR PRN 02/05/20 19:00 Fat Emulsion 20% [Intralipid 20%] 250 ml IV Q24H Multivitamin [Infuvite] 10 ml Trace Elements V Conc [Multitrace-5 Conc Vial] 1 ml Ppn (Clinimix E 4.25/5) [Clinimix E 4.25%-5% Solution] 2,000 ml IV Q24H 02/06/20 Breakfast Soft Mechanical Diet [DIET] 02/06/20 10:45 MRCP W/WO [MRI] Routine 02/06/20 12:00 Dextrose 5% [D5w] 1,000 ml Sodium Bicarbonate 150 meq IV 60 mls/hr Lipase/Protease/Amylase [Pancrelipase Dr 5,000/17,000/27,000 Prison] 3 cap PO TIDWM 02/06/20 14:00 ethyl alcohoL 62% swab [NoZin] 1 amp MAXX BID 02/06/20 21:00 Calcium Carbonate [Tums] 500 mg PO BID carvediloL [Coreg] 3.125 mg PO BID 02/07/20 05:00 CBC - COMP BLD CT W/AUTO DIFF [HEME] DAILYLAB CMP [COMPREHENSIVE METABOLIC PANEL] [CHEM] DAILYLAB MAGNESIUM [CHEM] DAILYLAB 02/08/20 05:00 COMPREHENSIVE METABOLIC PANEL [CHEM] Routine MAGNESIUM [CHEM] Routine PHOSPHORUS [CHEM] Routine PREALBUMIN [CHEM] Routine TRIGLYCERIDES [CHEM] Routine 02/10/20 05:00 COMPREHENSIVE METABOLIC PANEL [CHEM] Routine MAGNESIUM [CHEM] Routine PHOSPHORUS [CHEM] Routine PREALBUMIN [CHEM] Routine TRIGLYCERIDES [CHEM] Routine 02/13/20 05:00 COMPREHENSIVE METABOLIC PANEL [CHEM] Routine MAGNESIUM [CHEM] Routine PHOSPHORUS [CHEM] Routine PREALBUMIN [CHEM] Routine TRIGLYCERIDES [CHEM] Routine Subjective - Subjective Patient Reports: Feeling Better, Other (He has had 5-6 loose BMs today, not 20.No cramping, no blood) Objective Vital Signs: Vital Signs - 24 hr 02/05/20 02/05/20 02/05/20 16:33 17:00 21:55 Temperature 36.5 C Heart Rate [ 67 60 Brachial] Respiratory 18 Rate Blood Pressure [Right Ankle] Blood Pressure 93/61 89/51 L [Right Brachial artery] O2 Saturation 100 02/06/20 02/06/20 02/06/20 00:23 00:50 02:49 Temperature 36.1 C L Heart Rate [ 67 70 67 Brachial] Respiratory 16 Rate Blood Pressure 102/48 L [Right Ankle] Blood Pressure 85/56 L 90/56 L [Right Brachial artery] O2 Saturation 99 02/06/20 07:53 Temperature 37.0 C Heart Rate [ 68 Brachial] Respiratory Rate Blood Pressure 107/51 L [Right Ankle] Blood Pressure [Right Brachial artery] O2 Saturation 99 Oxygen O2 Source Room air I&O (Last 24 Hrs): Intake and Output Totals x24h 02/04/20 02/05/20 02/06/20 23:59 23:59 23:59 Intake Total 3876.667 5807.200 3151.783 Output Total 400 100 Balance 3876.667 5407.200 3051.783 General: Alert, Oriented x3 HEENT: Mucous membr. moist/pink Neck: Supple, No JVD Neuro: Alert, Non Focal Cardiovascular: Regular rate, No murmurs Respiratory: No respiratory distress, Breath sounds nml Abdomen: Normal bowel sounds, Soft Extremities: No edema - Results Results: Laboratory Results WBC 5.6 x10^3/uL (4.8-10.8) 02/06/20 04:35 RBC 2.42 10^6/uL (4.70-6.10) L 02/06/20 04:35 Hgb 7.6 g/dL (14.0-18.0) L 02/06/20 04:35 Hct 25.6 % (42.0-52.0) L 02/06/20 04:35 MCV 105.8 fL (80.0-94.0) H 02/06/20 04:35 MCH 31.4 pg (27.0-31.0) H 02/06/20 04:35 MCHC 29.7 g/dL (32.0-36.0) L 02/06/20 04:35 RDW 13.9 % (12.0-15.0) 02/06/20 04:35 Plt Count 108 10^3/uL (130-450) L 02/06/20 04:35 MPV 9.0 fL (7.4-11.4) 02/06/20 04:35 Neut # (Auto) 4.3 10^3/uL (1.5-6.6) 02/06/20 04:35 Lymph # (Auto) 0.9 10^3/uL (1.5-3.5) L 02/06/20 04:35 [place] # (Auto) 0.4 10^3/uL (0.0-1.0) 02/06/20 04:35 Eos # (Auto) 0.0 10^3/uL (0.0-0.7) 02/06/20 04:35 Baso # (Auto) 0.0 10^3/uL (0.0-0.1) 02/06/20 04:35 Absolute Nucleated RBC 0.00 x10^3/uL 02/06/20 04:35 Nucleated RBC % 0.0 /100WBC 02/06/20 04:35 VBG pH 7.349 (7.31-7.41) 02/04/20 11:43 Ionized Calcium 0.87 mmol/L (1.15-1.33) L 02/04/20 11:43 Sodium 137 mmol/L (135-145) 02/06/20 04:35 Potassium 3.9 mmol/L (3.5-5.0) 02/06/20 04:35 Chloride 120 mmol/L (101-111) H* 02/06/20 04:35 Carbon Dioxide 11 mmol/L (21-32) L* 02/06/20 04:35 Anion Gap 6.0 (6-13) 02/06/20 04:35 BUN 19 mg/dL (6-20) 02/06/20 04:35 Creatinine 2.2 mg/dL (0.6-1.2) H 02/06/20 04:35 Estimated GFR (MDRD) 32 (>89) L 02/06/20 04:35 Glucose 130 mg/dL (70-100) H 02/06/20 04:35 Calcium 7.6 mg/dL (8.5-10.3) L 02/06/20 04:35 Phosphorus 3.9 mg/dL (2.5-4.6) 02/06/20 04:35 Magnesium 1.6 mg/dL (1.7-2.8) L 02/06/20 04:35 Total Bilirubin 0.3 mg/dL (0.2-1.0) 02/06/20 04:35 AST 41 IU/L (10-42) 02/06/20 04:35 ALT 43 IU/L (10-60) 02/06/20 04:35 Alkaline Phosphatase 313 IU/L (42-121) H 02/06/20 04:35 Total Protein 4.6 g/dL (6.7-8.2) L 02/06/20 04:35 Albumin 2.3 g/dL (3.2-5.5) L 02/06/20 04:35 Globulin 2.3 g/dL (2.1-4.2) 02/06/20 04:35 Albumin/Globulin Ratio 1.0 (1.0-2.2) 02/06/20 04:35 Prealbumin 12 mg/dL (18-45) L 02/06/20 04:35 Triglycerides 113 mg/dL (-149) 02/06/20 04:35 Lipase 29 U/L (22-51) 02/04/20 11:12 Nasal Screen MRSA (PCR) POSITIVE (NEGATIVE) A* 02/06/20 10:59
[2020-02-06] MEDS: ethyl alcohoL 62% SWAB AMPULE NAS SCH ×2 (14:27→21:51)
[2020-02-06] MEDS: SODIUM BICARBONATE 150 MEQ in DEXTROSE 5% 1,000 ML IV SCH (15:45)
--- NOTE | 2020-02-06 16:26 | CONSULTATION NOTE ---
Referring Provider Name of Referring Provider:: Dr. Caroline Barnes MD Consult Date: 02/06/20 Chief Complaint - Chief Complaint Chief Complaint: Port placement, short gut syndrome History of Present Illness - Admitted From Admitted From:: Home - History Obtained From Records Reviewed: EMR and patient History obtained from: Patient Exam Limitations: None - History of Present Illness HPI Comment/Other: 54-year-old male with Crohn's disease diagnosed at age 13. At that time he underwent his first of several operative interventions which are as listed as follows: 1. Ileocecal section at time of diagnosis for ileal stricturing disease 2. Repeat resection to follow with further small bowel loss, patient not entirely familiar with timing however recollects it was in his 20s and/or late teens 3. Urgent operative intervention with end ileostomy and mucous fistula 4. Bahai of bowel continuity with ultimate development of fistulizing disease 5. Takedown of fistula and subsequent cholecystectomy with chronic wound secondary to MRSA In the interim and over the decades of his challenge with Crohn's he has been on multiple immune modulatory agents including Humira and he currently is on Entyvio. From a fluid nutritional standpoint he has lost significant weight and is been admitted with acute on chronic renal failure with dehydration for which now he merits TPN. He has no current and/or active Crohn's by last colonoscopy. Thus request is made for long-term reliable IV access with Mediport. Because of his recently diagnosed short gut syndrome, he has been offered Gattex as a therapeutic alternative however patient has been reluctant to consider. It is unclear whether he has been referred for bowel transplantation. Currently reports 6 bowel movements per day, nonbloody. History - Past Medical History Cardiovascular: reports: None Respiratory: reports: None Neuro: reports: None Endocrine/Autoimmune: reports: None GI: reports: Crohn's disease : reports: None HEENT: reports: None Psych: reports: None Musculoskeletal: reports: None Derm: reports: None MRSA Hx?: No - Past Surgical History General: reports: Bowel surgery, Other HEENT: reports: Detached retina repair - Family & Social History Family History: Mother: Alive and Well, Father: Alive and Well Family History Comment/Other: Patient stated he was adopted so he does not know his parents medical condition Social History Notes: No longer smoking (quit 5 yrs ago), used to drink heavily, a few wkks ago DID have 1-6 beers but hasnt had a beer in several weeks. 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 Financially strapped due to his chronic illness - POLST Patient has POLST: No Meds/Allgy - Home Medications Home Medications: Ambulatory Orders Medication Instructions Recorded Confirmed Calcium Citrate 1,000 mg PO TID 09/17/19 02/04/20 Ergocalciferol (Vitamin D2) 1 cap ORAL .WEEKLY 11/12/19 02/04/20 [Vitamin D2] Mirtazapine 45 mg ORAL QPM PRN 11/12/19 02/04/20 Potassium Citrate/Citric Acid 10 ml ORAL BID 11/12/19 02/04/20 [Potassium Cit-Citric Acid Soln] Zolpidem Tartrate 10 mg PO QPM PRN 11/12/19 02/04/20 Magnesium l-Lactate [Magnesium 84 mg PO DAILY #30 tablet.er 12/30/19 02/04/20 l-Lactate Dihyd Sr] carvediloL [Coreg] 3.125 mg PO BID #60 tablet 12/30/19 02/04/20 Acetaminophen [Tylenol Extra 500 mg PO Q4HR PRN 01/24/20 02/05/20 Strength] Lactobacil 2-S.thermo-Bifido 1 1 cap PO BID 01/24/20 02/04/20 [High Potency Probiotic 112.5 B] Loperamide HCl [Imodium A-D] 2 mg PO Q6H PRN 01/24/20 02/04/20 Sodium Bicarbonate 1,950 mg PO BID 01/24/20 01/24/20 Lipase/Protease/Amylase [Creon Dr 3 cap PO TID 02/05/20 12,000 Units Capsule] Multivitamin [Daily Multiple 1 tab PO DAILY 02/05/20 Vitamin] buPROPion HCL [Bupropion HCl] 150 mg PO BID 02/05/20 - Allergies Allergies/Adverse Reactions: Allergies Allergy/AdvReac Type Severity Reaction Status Date / Time No Known Drug Allergies Allergy Verified 02/04/20 10:39 Review of Systems - Constitutional Constitutional: reports: Fatigue, Weakness - Cardiovascular Cariovascular: denies: Irregular heart rate, Chest pain - Respiratory Respiratory: denies: Cough, Sputum production, Wheezing, Snoring - Gastrointestinal Gastrointestinal: reports: Diarrhea, Change in bowel habits. denies: Abdominal pain, Abdominal distention - Neurological Neurological: denies: General weakness, Focal weakness - Psychiatric Psychiatric: reports: Depression, Anxiety Exam - Vital Signs Vital Signs: Vital Signs x48h Temp Pulse Resp BP Pulse Ox 02/06/20 15:43 37.0 C 63 18 108/50 L 99 - Physical Exam General Appearance: positive: No acute distress, Alert Eyes Bilateral: positive: Normal inspection, PERRL, EOMI ENT: positive: ENT inspection nml Neck: positive: Nml inspection Respiratory: positive: Chest non-tender, No respiratory distress, Breath sounds nml. negative: Wheezes, Rales, Rhonchi Cardiovascular: positive: Regular rate & rhythm, No murmur, No gallop Abdomen: positive: Non-tender, No distention. negative: Tenderness, Guarding, Rebound Extremities: positive: Non-tender, Full ROM Neurologic/Psychiatric: positive: Oriented x3, CN's nml (2-12), Motor nml, Sensation nml Conclusion and Plan - Lab Results Laboratory Results 02/06/20 10:59: Nasal Screen MRSA (PCR) POSITIVE A* 02/06/20 04:35: WBC 5.6, RBC 2.42 L, Hgb 7.6 L, Hct 25.6 L, MCV 105.8 H, MCH 31.4 H, MCHC 29.7 L, RDW 13.9, Plt Count 108 L, MPV 9.0, Neut # (Auto) 4.3, Lymph # (Auto) 0.9 L, [place] # (Auto) 0.4, Eos # (Auto) 0.0, Baso # (Auto) 0.0, Absolute Nucleated RBC 0.00, Nucleated RBC % 0.0 02/06/20 04:35: Sodium 137, Potassium 3.9, Chloride 120 H*, Carbon Dioxide 11 L*, Anion Gap 6.0, BUN 19, Creatinine 2.2 H, Estimated GFR (MDRD) 32 L, Glucose 130 H, Calcium 7.6 L, Phosphorus 3.9, Magnesium 1.6 L, Total Bilirubin 0.3, AST 41, ALT 43, Alkaline Phosphatase 313 H, Total Protein 4.6 L, Albumin 2.3 L, Globulin 2.3, Albumin/Globulin Ratio 1.0, Prealbumin 12 L, Triglycerides 113 02/05/20 05:24: Phosphorus 4.8 H 02/05/20 05:24: WBC 4.2 L, RBC 2.25 L, Hgb 7.1 L, Hct 23.0 L, MCV 102.2 H, MCH 31.6 H, MCHC 30.9 L, RDW 14.0, Plt Count 88 L, MPV 8.9, Neut # (Auto) 2.4, Lymph # (Auto) 1.4 L, [place] # (Auto) 0.3, Eos # (Auto) 0.0, Baso # (Auto) 0.0, Absolute Nucleated RBC 0.00, Nucleated RBC % 0.0 02/05/20 05:24: Sodium 142, Potassium 3.2 L, Chloride 118 H, Carbon Dioxide 16 L, Anion Gap 8.0, BUN 26 H, Creatinine 2.7 H, Estimated GFR (MDRD) 25 L, Glucose 131 H, Calcium 7.3 L, Magnesium 1.5 L, Total Bilirubin 0.4, AST 44 H, ALT 43, Alkaline Phosphatase 308 H, Total Protein 4.5 L, Albumin 2.3 L, Globulin 2.2, Albumin/Globulin Ratio 1.0 - Diagnosis Diagnosis: 1. Crohn's disease. 2. Short gut syndrome. 3. Chronic dehydration. 4. Failure to thrive. 5. Immunocompromise state. 6. Postoperative state, multiple. 7. Severe protein malnutrition. 8. Need for long-term reliable central venous access - Plan Plan: 54-year-old male with multiple resections for Crohn's currently carrying diagnosis of short gut syndrome refusing at this time Gattex who is in need of central venous access reliably for parenteral nutrition. I advised the patient that this will be a bridge to him optimally if he can reconsider the medical management of his Crohn's with his director of product management. He should indeed consider the benefits of Gattex and I defer to conversations with his director of product management to this end. I like him to Crohn's of bowel to the back and count into which no deposits can be made as his fix length has been depleted following multiple surgical interventions. Moreover his recent cholecystectomy likely has exacerbated his loose stooling as well. He is attempted multiple slowing agents historically including tincture of opium, loperamide, diphenoxylate atropine AKA Lomotil, as well as cholestyramine with varying effect. He was advised of the risks and benefits associated with line placement including the infectious complications. He was also advised that given his carrying the diagnosis of Crohn's he will need to be followed closely and annually for colonoscopy to rule out malignancy. Maintain n.p.o. in anticipation of surgery and will order antibiotics to that end. We will keep line accessed so that they may use it immediately.
[2020-02-06] MEDS ORDERED: MAGNESIUM SULFATE 2 GRAM 2 GM/50 ML BAG IV ONE (17:00)
[2020-02-06] MEDS: PPN (CLINIMIX E 4.25/5) 2,000 ML with MULTIVITAMIN 10 ML, TRACE ELEMENTS V CONC 1 ML IV SCH ×3 (19:28)
[2020-02-06] MEDS: FAT EMULSION 20% 250 ML IV SCH (19:29)
[2020-02-06] MEDS: ZOLPIDEM 5 MG TABLET PO PRN (21:52)
[2020-02-06] MEDS: NS W/20 MEQ KCL 1,000 ML IV SCH (21:54)
[2020-02-06] MEDS: CALCIUM CARBONATE CHEW 500 MG TABLET PO SCH (21:54)
[2020-02-07] MEDS: ACETAMINOPHEN 325 MG TABLET PO PRN ×2 (01:56→21:39)
[2020-02-07] MEDS: SODIUM CHLORIDE FLUSH 0.9% 10 ML SYRINGE IVP SCH ×3 (02:05→17:11)
[2020-02-07] MEDS: DIPHENOX/ATROPINE 2.5/0.025 MG TABLET PO SCH ×3 (06:00→21:39)
[2020-02-07 06:40] LABS: BASOPHILS % (AUTO) 0.3 %; EOSINOPHILS # (AUTO) 0.1 10^3/uL (0.0-0.7); EOSINOPHILS % (AUTO) 1.6 %; HGB - HEMOGLOBIN 8.5 g/dL (14.0-18.0); LYMPHOCYTES # (AUTO) 1.6 10^3/uL (1.5-3.5); LYMPHOCYTES % (AUTO) 25.5 %; MEAN CORPUSCULAR HEMOGLOBIN 32.8 pg (27.0-31.0); MEAN CORPUSCULAR HGB CONC 31.5 g/dL (32.0-36.0); MEAN CORPUSCULAR VOLUME 104.2 fL (80.0-94.0); MEAN PLATELET VOLUME 9.2 fL (7.4-11.4); MONOCYTES # (AUTO) 0.5 10^3/uL (0.0-1.0); MONOCYTES % (AUTO) 7.3 %; NEUTROPHILS # (AUTO) 4.2 10^3/uL (1.5-6.6); NEUTROPHILS % (AUTO) 64.8 %; PLT - PLATELET COUNT 117 10^3/uL (130-450); RED BLOOD COUNT 2.59 10^6/uL (4.70-6.10); RED CELL DISTRIBUTION WIDTH 13.6 % (12.0-15.0); VBG PCO2 34.3 mmHg (41-51); VBG PH 7.273 (7.31-7.41); VBG PO2 37.8 mmHg (25-47); VBG TOTAL CO2 16.6 mmol/L (24-29); WHITE BLOOD COUNT 6.4 x10^3/uL (4.8-10.8)
[2020-02-07 06:41] LABS: VBG BASE EXCESS -10.4 mmol/L (-2 - +2)
[2020-02-07 06:53] LABS: ALBUMIN 2.3 g/dL (3.2-5.5); ALBUMIN/GLOBULIN RATIO 0.9 (1.0-2.2); BILIRUBIN,TOTAL 0.6 mg/dL (0.2-1.0); CALCIUM 7.6 mg/dL (8.5-10.3); CREATININE 2.1 mg/dL (0.6-1.2); MAGNESIUM 2.1 mg/dL (1.7-2.8); TOTAL PROTEIN 4.9 g/dL (6.7-8.2)
[2020-02-07] MEDS: CALCIUM CARBONATE CHEW 500 MG TABLET PO SCH ×2 (08:27→21:39)
[2020-02-07] MEDS: SODIUM BICARBONATE 650 MG TABLET PO SCH ×2 (08:27→21:40)
[2020-02-07] MEDS: ethyl alcohoL 62% SWAB AMPULE NAS SCH ×2 (08:28→21:38)
[2020-02-07] MEDS: buPROPion XL 150 MG TABLET PO SCH (08:28)
[2020-02-07] MEDS: LOPERAMIDE 2 MG CAPSULE PO SCH ×4 (08:28→21:39)
[2020-02-07] MEDS: PRENATAL VITAMIN TABLET PO SCH (08:28)
[2020-02-07] MEDS: LIPASE/PROTEASE/AMYLASE CAPSULE PO SCH ×3 (08:29→17:11)
[2020-02-07] MEDS: carvediloL 3.125 MG TABLET PO SCH ×2 (08:29→21:40)
[2020-02-07] MEDS: MAGNESIUM PO SCH (08:30)
[2020-02-07] MEDS: LACTATE PO SCH (08:30)
[2020-02-07] MEDS: CITRIC ACID PO SCH ×2 (08:30→21:40)
[2020-02-07] MEDS: POTASSIUM CITRATE PO SCH ×2 (08:30→21:40)
[2020-02-07] MEDS: SODIUM BICARBONATE 150 MEQ in DEXTROSE 5% 1,000 ML IV SCH (08:52)
[2020-02-07] MEDS: SODIUM CHLORIDE FLUSH 0.9% 10 ML SYRINGE IVP PRN ×2 (09:50→10:45)
[2020-02-07] MEDS: KETOROLAC 15 MG/ML VIAL IVP PRN ×2 (09:50→21:38)
[2020-02-07] MEDS ORDERED: LORazepam 2 MG/ML VIAL IVP SCH (10:40)
[2020-02-07] MEDS ORDERED: GADOBUTROL 7.5 MMOL/7.5 ML VIAL ONE (11:17)
[2020-02-07] MEDS ORDERED: GADOBUTROL 7.5 MMOL/7.5 ML VIAL IVP ONE (12:13)
--- NOTE | 2020-02-07 12:44 | PROVIDER PROGRESS NOTE ---
Assessment/Plan - Problem List (1) Dehydration Assessment/Plan: He still has prerenal azotemia: BUN/creatinine 26/2.1 today. Zoraida, his mouth has better oral moisture. Continue with fluids via IV, TPN and oral (2) Acute renal failure superimposed on chronic kidney disease Assessment/Plan: Creatinine has improved to 2.1 from 2.2 today. As above in #1. Follow BMP daily Avoid nephrotoxins. (3) Short gut syndrome Assessment/Plan: This diagnosis was established at his recent inpatient stay at [facility] by his gastroenterology specialist. Had about 1 month of high-volume liquidy diarrhea, not in Crohn's flareup. He has tried different diets especially a low sugar diet and it did not help the high output fluid loss and diarrhea He will need TPN for greater than 90 days, possibly 6 months, for rehydration, electrolyte stabilization and for weight gain. He is not a candidate to try enteral nutrition like through a PEG tube because he actually can swallow and the problem is beyond the stomach and proximal small bowel and is fluid losses and rapid transit associated with his colon. Peripheral PN was started yesterday with lipids, being adjusted by registered dietitian. He is tolerating this. The total fluid input of ppn, iv fluids and riders, is at approximately 125 cc/h, in order to correct his intravascular volume depletion and to start nourishing him with protein and calories. The plan is for placement of a Mediport today by the general surgeon, at approximately noon, under general anesthesia. Then he will be transitioned to TPN. Starting this as an outpatient is being arranged by our space scheduler, social workers and registered dietitian (4) Crohn's disease Assessment/Plan: This was diagnosed at age 13. He had surgery starting at age 17. He has multiple bowel surgeries. There is no flare up currently, as per the notes from [facility] from 1 week ago when he was hospitalized there. There is a fistula that is perianal and his diarrhea is probably exacerbating this from healing. He is getting Entyvio at [facility] here, managed by his red hat linux engineer Dr. Ramos (5) Protein-calorie malnutrition, severe Assessment/Plan: This patient has had 9% weight loss over the past 3 months and also lost muscle and fat and developed weakness and deconditioning. He has tried replacing orally and has required multiple peripheral iv replacement strategies, none have worked. The plan is to treat with TPN as described above. (6) Anemia Assessment/Plan: [facility] notes indicate they think he has anemia of chronic disease. I will recheck B12, folate levels since he has macrocytosis. With hemoglobin of 7.1 two days ago, he may need transfusion if it drops to that level again. I discussed this with the patient yesterday, and he is agreeable to a transfusion if he needs it. Follow CBC daily (7) Electrolyte and fluid disorder Assessment/Plan: Potassium was replaced and is normal today Magnesium was replaced and is normal today. Calcium is still low and needs to be replaced. Yesterday his bicarbonate was low. His citrate meds were therefore stopped. 1 L of sodium bicarbonate and D5 was ordered given. The serum bicarb improved from 11 to 17 today but VBG done for his serum pH shows a pH of 7.23. Will treat with another L of D5 containing 3 amps of Bicarb. He is also getting oral sodium bicarb 650mg twice daily Follow BMP and trace elements daily. Will follow VBG daily for his pH. (8) Elevated LFTs Assessment/Plan: Patient has a history of acute pancreatitis in the past. LFTs are improving. The GI specialist had wanted MRCP which was done today, to look at the pancreas which has insufficiency and also the area where the gallbladder was (9) Hx MRSA infection Assessment/Plan: He had previous wound MRSA infections earlier this year. He is testing positive on his MRSA nasal swab here. We will order Nozin nasal swabs twice daily. (10) Pancreatic insufficiency Assessment/Plan: While at [facility], he had testing of his pancreolipase levels and these returned less than 40 indicating severe deficiency (normal is >200). He was taking his pancreatic enzymes but at a decreased amount because they cost a lot. We will slowly try to increase his pancreatic enzyme doses while here. (11) Cardiomyopathy Assessment/Plan: About 6 weeks ago he was diagnosed with a new cardiomyopathy, has seen a Commercial Attache once, is on low dose Coreg (due to "soft" BP). Commercial Attache ordered a Lexiscan stress test to look for CAD and one other test. Outpatient work-up can be done on [facility], I told him and his mother at bedside, after discharge and some stabilization, so he does not have to travel by ferry to the [facility]. Monitoring him for fluid overload is necessary as an inpatient, as he gets total fluids at about 125 cc/hr. - Current Meds Current Meds: Current Medications Generic Name Dose Route Start Last Admin Trade Name Freq PRN Reason Stop Dose Admin Acetaminophen 650 mg 02/04/20 19:07 02/07/20 01:56 Tylenol PO 650 mg Q4HR PRN Administration Pain or Fever > 38C (100.4F) Alcohol 1 amp 02/06/20 14:00 02/07/20 08:28 Nozin MAXX 1 amp BID KAROLYN Administration Lipase/Protease/Amylase 3 cap 02/06/20 12:00 02/07/20 12:[address] 5,000/17,000/27,000 Mcc PO Not Given TIDWM KAROLYN Bupropion HCl 300 mg 02/05/20 09:00 02/07/20 08:28 Wellbutrin Xl PO 300 mg DAILY KAROLYN Administration Calcium Carbonate/Glycine 500 mg 02/06/20 21:00 02/07/20 08:27 Tums PO 500 mg BID KAROLYN Administration Carvedilol 3.125 mg 02/06/20 21:00 02/07/20 08:29 Coreg PO Not Given BID KAROLYN Diphenoxylate HCl/Atropine 1 tab 02/04/20 22:00 02/07/20 06:00 Lomotil PO 1 tab TID KAROLYN Administration Fat Emulsion Intravenous 250 mls @ 21 mls/hr 02/05/20 19:00 02/07/20 07:25 Intralipid 20% IV Infused Q24H KAROLYN Infusion Multivitamins 10 ml/ Chromium/ 2,011 mls @ 83 mls/hr 02/05/20 19:00 02/07/20 12:15 Copper/Manganese/Seleni/Zn 1 IV 83 mls/hr ml/ Amino Acids/Electrolytes/ Q24H KAROLYN Infusion Dextrose Protocol Potassium Chloride/Sodium Chloride 1,000 mls @ 40 mls/hr 02/05/20 20:00 02/07/20 12:15 Normal Saline 0.9% W/20 Meq Kcl IV 40 mls/hr .Q25H KAROLYN Infusion Sodium Bicarbonate 150 meq/ 1,150 mls @ 60 mls/hr 02/06/20 12:00 02/07/20 08:52 Dextrose IV Not Given .[id number] KAROLYN Ketorolac Tromethamine 15 mg 02/07/20 09:29 02/07/20 09:50 Toradol Inj (15mg) IVP 02/12/20 09:28 15 mg Q6HR PRN Administration PAIN Loperamide HCl 4 mg 02/04/20 21:00 02/07/20 08:28 Imodium PO 4 mg QID KAROLYN Administration Lorazepam 1.5 mg 02/07/20 10:40 02/07/20 10:45 Ativan Inj (Vial) IVP 02/07/20 17:00 1.5 mg ONCE KAROLYN Administration Ondansetron HCl 4 mg 02/05/20 18:36 02/06/20 01:33 Zofran Inj IVP 4 mg Q4HR PRN Administration Nausea / Vomiting Patient Own Med ( 1 each 02/05/20 09:00 02/07/20 08:30 Magnesium L-Lactate PO Not Given [Magnesium L-Lactate DAILY KAROLYN Dihyd Sr] 84 Mg) Patient Own Med ( 1 each 02/05/20 09:07 02/07/20 08:30 Potassium Citrate/ PO Not Given Citric Acid [ BID KAROLYN Potassium Cit-Citric Acid Soln] 10 Ml) Multivit/Folic Acid/Iron 1 tab 02/05/20 08:00 02/07/20 08:28 Trinatal Rx 1 PO 1 tab DAILYWM KAROLYN Administration Sodium Bicarbonate 650 mg 02/04/20 21:00 02/07/20 08:27 Sodium Bicarbonate PO 650 mg BID KAROLYN Administration Sodium Chloride 10 ml 02/04/20 19:07 02/07/20 10:45 Normal Saline Flush 0.9% IVP 20 ml PRN PRN Administration NEEDED PER PROVIDER ORDERS Sodium Chloride 10 ml 02/05/20 01:00 02/07/20 08:30 Normal Saline Flush 0.9% IVP Not Given 0100,0900,1700 KAROLYN Zolpidem Tartrate 10 mg 02/04/20 19:17 02/06/20 21:52 Ambien PO 10 mg QPM PRN Administration Insomnia - Lab Result Fish Bone Diagrams: 02/07/20 06:15 02/07/20 06:15 - Additional Planning My Orders: My Active Orders 02/06/20 12:00 Dextrose 5% [D5w] 1,000 ml Sodium Bicarbonate 150 meq IV 60 mls/hr Lipase/Protease/Amylase [Pancrelipase Dr 5,000/17,000/27,000 Mcc] 3 cap PO TIDWM 02/06/20 14:00 ethyl alcohoL 62% swab [NoZin] 1 amp MAXX BID 02/06/20 21:00 Calcium Carbonate [Tums] 500 mg PO BID carvediloL [Coreg] 3.125 mg PO BID 02/07/20 08:34 DIET [NPO except Meds] [DIET] 02/07/20 09:29 Ketorolac Inj (15Mg) [Toradol Inj (15Mg)] 15 mg IVP Q6HR PRN 02/07/20 10:40 LORazepam INJ [Ativan Inj (Vial)] 1.5 mg IVP ONCE 02/07/20 10:45 MRCP W/WO [MRI] Routine 02/08/20 05:00 COMPREHENSIVE METABOLIC PANEL [CHEM] Routine MAGNESIUM [CHEM] Routine PHOSPHORUS [CHEM] Routine PREALBUMIN [CHEM] Routine TRIGLYCERIDES [CHEM] Routine 02/10/20 05:00 COMPREHENSIVE METABOLIC PANEL [CHEM] Routine MAGNESIUM [CHEM] Routine PHOSPHORUS [CHEM] Routine PREALBUMIN [CHEM] Routine TRIGLYCERIDES [CHEM] Routine 02/13/20 05:00 COMPREHENSIVE METABOLIC PANEL [CHEM] Routine MAGNESIUM [CHEM] Routine PHOSPHORUS [CHEM] Routine PREALBUMIN [CHEM] Routine TRIGLYCERIDES [CHEM] Routine Subjective - Subjective Patient Reports: Resting Comfortably, No Complaints Objective Vital Signs: Vital Signs - 24 hr 02/06/20 02/06/20 02/07/20 15:43 21:56 02:00 Temperature 37.0 C 36.5 C Heart Rate [ 63 101 H 66 Brachial] Respiratory 18 18 Rate Blood Pressure 108/50 L 120/57 L 123/83 H [Right Ankle] O2 Saturation 99 100 02/07/20 08:33 Temperature 36.4 C L Heart Rate [ 57 L Brachial] Respiratory Rate Blood Pressure 114/58 L [Right Ankle] O2 Saturation 100 Oxygen O2 Source Room air I&O (Last 24 Hrs): Intake and Output Totals x24h 02/05/20 02/06/20 02/07/20 23:59 23:59 23:59 Intake Total 5807.200 5753.866 3100.567 Output Total 400 100 Balance 5407.200 5653.866 3100.567 General: Alert HEENT: Mucous membr. moist/pink Neck: Supple Neuro: Alert, Non Focal Cardiovascular: Regular rate Respiratory: No respiratory distress Abdomen: Soft Extremities: No edema - Results Results: Laboratory Results WBC 6.4 x10^3/uL (4.8-10.8) 02/07/20 06:15 RBC 2.59 10^6/uL (4.70-6.10) L 02/07/20 06:15 Hgb 8.5 g/dL (14.0-18.0) L 02/07/20 06:15 Hct 27.0 % (42.0-52.0) L 02/07/20 06:15 MCV 104.2 fL (80.0-94.0) H 02/07/20 06:15 MCH 32.8 pg (27.0-31.0) H 02/07/20 06:15 MCHC 31.5 g/dL (32.0-36.0) L 02/07/20 06:15 RDW 13.6 % (12.0-15.0) 02/07/20 06:15 Plt Count 117 10^3/uL (130-450) L 02/07/20 06:15 MPV 9.2 fL (7.4-11.4) 02/07/20 06:15 Neut # (Auto) 4.2 10^3/uL (1.5-6.6) 02/07/20 06:15 Lymph # (Auto) 1.6 10^3/uL (1.5-3.5) 02/07/20 06:15 Bennett # (Auto) 0.5 10^3/uL (0.0-1.0) 02/07/20 06:15 Eos # (Auto) 0.1 10^3/uL (0.0-0.7) 02/07/20 06:15 Baso # (Auto) 0.0 10^3/uL (0.0-0.1) 02/07/20 06:15 Absolute Nucleated RBC 0.00 x10^3/uL 02/07/20 06:15 Nucleated RBC % 0.0 /100WBC 02/07/20 06:15 VBG pH 7.273 (7.31-7.41) L 02/07/20 06:15 VBG pCO2 34.3 mmHg (41-51) L 02/07/20 06:15 VBG pO2 37.8 mmHg (25-47) 02/07/20 06:15 VBG HCO3 15.5 mmol/L (23-28) L 02/07/20 06:15 VBG Total CO2 16.6 mmol/L (24-29) L 02/07/20 06:15 VBG O2 Saturation 66.3 % (60-80) 02/07/20 06:15 VBG Base Excess -10.4 mmol/L (-2 - +2) L 02/07/20 06:15 Ionized Calcium 0.87 mmol/L (1.15-1.33) L 02/04/20 11:43 Sodium 135 mmol/L (135-145) 02/07/20 06:15 Potassium 3.8 mmol/L (3.5-5.0) 02/07/20 06:15 Chloride 112 mmol/L (101-111) H 02/07/20 06:15 Carbon Dioxide 17 mmol/L (21-32) L 02/07/20 06:15 Anion Gap 6.0 (6-13) 02/07/20 06:15 BUN 26 mg/dL (6-20) H 02/07/20 06:15 Creatinine 2.1 mg/dL (0.6-1.2) H 02/07/20 06:15 Estimated GFR (MDRD) 33 (>89) L 02/07/20 06:15 Glucose 108 mg/dL (70-100) H 02/07/20 06:15 Calcium 7.6 mg/dL (8.5-10.3) L 02/07/20 06:15 Phosphorus 3.9 mg/dL (2.5-4.6) 02/06/20 04:35 Magnesium 2.1 mg/dL (1.7-2.8) 02/07/20 06:15 Total Bilirubin 0.6 mg/dL (0.2-1.0) 02/07/20 06:15 AST 23 IU/L (10-42) 02/07/20 06:15 ALT 33 IU/L (10-60) 02/07/20 06:15 Alkaline Phosphatase 306 IU/L (42-121) H 02/07/20 06:15 Total Protein 4.9 g/dL (6.7-8.2) L 02/07/20 06:15 Albumin 2.3 g/dL (3.2-5.5) L 02/07/20 06:15 Globulin 2.6 g/dL (2.1-4.2) 02/07/20 06:15 Albumin/Globulin Ratio 0.9 (1.0-2.2) L 02/07/20 06:15 Prealbumin 12 mg/dL (18-45) L 02/06/20 04:35 Triglycerides 113 mg/dL (-149) 02/06/20 04:35 Lipase 29 U/L (22-51) 02/04/20 11:12 Nasal Screen MRSA (PCR) POSITIVE (NEGATIVE) A* 02/06/20 10:59
[2020-02-07] MEDS ORDERED: SODIUM BICARBONATE 150 MEQ in DEXTROSE 5% 1,000 ML IV SCH (13:00)
[2020-02-07] MEDS ORDERED: LIDOCAINE 1% 50 ML MDV ONE (13:06)
[2020-02-07] MEDS ORDERED: BUPIVACAINE 0.5% PF 30 ML VIAL ONE (13:06)
--- NOTE | 2020-02-07 14:19 | ANESTHESIA ---
Pre-Anesthesia VS, & Labs - Diagnosis Diagnosis 1. Crohn's disease 2. Short gut syndrome 3. Chronic dehydration 4. Failure to thrive 5. Immunocompromise state 6. Postoperative state, multiple 7. Severe protein malnutrition 8. Need for long-term reliable central venous access - Procedure Portacath placement Vital Signs: Temp Pulse Resp BP Pulse Ox 36.4 C L 57 L 18 114/58 L 100 02/07/20 08:33 02/07/20 08:33 02/07/20 02:00 02/07/20 08:33 02/07/20 08:33 Height 5 ft 8 in Weight (kg) 56.5 kg Body Mass Index 15.2 - Lab Results Current Lab Results: Laboratory Tests 02/07/20 06:15: VBG pH 7.273 L, VBG pCO2 34.3 L, VBG pO2 37.8, VBG HCO3 15.5 L, VBG Total CO2 16.6 L, VBG O2 Saturation 66.3, VBG Base Excess -10.4 L 02/07/20 06:15: WBC 6.4, RBC 2.59 L, Hgb 8.5 L, Hct 27.0 L, MCV 104.2 H, MCH 32.8 H, MCHC 31.5 L, RDW 13.6, Plt Count 117 L, MPV 9.2, Neut # (Auto) 4.2, Lymph # (Auto) 1.6, [place] # (Auto) 0.5, Eos # (Auto) 0.1, Baso # (Auto) 0.0, Absolute Nucleated RBC 0.00, Nucleated RBC % 0.0 02/07/20 06:15: Sodium 135, Potassium 3.8, Chloride 112 H, Carbon Dioxide 17 L, Anion Gap 6.0, BUN 26 H, Creatinine 2.1 H, Estimated GFR (MDRD) 33 L, Glucose 108 H, Calcium 7.6 L, Magnesium 2.1, Total Bilirubin 0.6, AST 23, ALT 33, Alkaline Phosphatase 306 H, Total Protein 4.9 L, Albumin 2.3 L, Globulin 2.6, Albumin/Globulin Ratio 0.9 L 02/06/20 04:35: WBC 5.6, RBC 2.42 L, Hgb 7.6 L, Hct 25.6 L, MCV 105.8 H, MCH 31.4 H, MCHC 29.7 L, RDW 13.9, Plt Count 108 L, MPV 9.0, Neut # (Auto) 4.3, Lymph # (Auto) 0.9 L, [place] # (Auto) 0.4, Eos # (Auto) 0.0, Baso # (Auto) 0.0, Absolute Nucleated RBC 0.00, Nucleated RBC % 0.0 02/06/20 04:35: Sodium 137, Potassium 3.9, Chloride 120 H*, Carbon Dioxide 11 L* , Anion Gap 6.0, BUN 19, Creatinine 2.2 H, Estimated GFR (MDRD) 32 L, Glucose 130 H, Calcium 7.6 L, Phosphorus 3.9, Magnesium 1.6 L, Total Bilirubin 0.3, AST 41, ALT 43, Alkaline Phosphatase 313 H, Total Protein 4.6 L, Albumin 2.3 L, Globulin 2.3, Albumin/Globulin Ratio 1.0, Prealbumin 12 L, Triglycerides 113 02/05/20 05:24: Phosphorus 4.8 H 02/05/20 05:24: WBC 4.2 L, RBC 2.25 L, Hgb 7.1 L, Hct 23.0 L, MCV 102.2 H, MCH 31.6 H, MCHC 30.9 L, RDW 14.0, Plt Count 88 L, MPV 8.9, Neut # (Auto) 2.4, Lymph # (Auto) 1.4 L, [place] # (Auto) 0.3, Eos # (Auto) 0.0, Baso # (Auto) 0.0, Absolute Nucleated RBC 0.00, Nucleated RBC % 0.0 02/05/20 05:24: Sodium 142, Potassium 3.2 L, Chloride 118 H, Carbon Dioxide 16 L , Anion Gap 8.0, BUN 26 H, Creatinine 2.7 H, Estimated GFR (MDRD) 25 L, Glucose 131 H, Calcium 7.3 L, Magnesium 1.5 L, Total Bilirubin 0.4, AST 44 H, ALT 43, Alkaline Phosphatase 308 H, Total Protein 4.5 L, Albumin 2.3 L, Globulin 2.2, Albumin/Globulin Ratio 1.0 02/04/20 11:43: VBG pH 7.349, Ionized Calcium 0.87 L 02/04/20 11:12: Sodium 138, Potassium 3.9, Chloride 99 L, Carbon Dioxide 26, Anion Gap 13.0, BUN 35 H, Creatinine 4.1 H, Estimated GFR (MDRD) 15 L, Glucose 100, Calcium 6.7 L, Magnesium 1.3 L, Total Bilirubin 0.7, AST 71 H, ALT 65 H, Alkaline Phosphatase 475 H, Total Protein 7.2, Albumin 3.6, Globulin 3.6, Albumin/Globulin Ratio 1.0, Lipase 29 02/04/20 11:12: WBC 12.7 H, RBC 3.08 L, Hgb 10.0 L, Hct 30.3 L, MCV 98.4 H, MCH 32.5 H, MCHC 33.0, RDW 13.9, Plt Count 182, MPV 9.1, Neut # (Auto) 9.0 H, Lymph # (Auto) 2.3, [place] # (Auto) 1.2 H, Eos # (Auto) 0.1, Baso # (Auto) 0.1, Absolute Nucleated RBC 0.00, Nucleated RBC % 0.0 Fish Bones: 02/07/20 06:15 02/07/20 06:15 Home Medications and Allergies Home Medications: Ambulatory Orders Lipase/Protease/Amylase [Creon 12,000 Units Capsule] 3 cap PO TID 02/05/20 Multivitamin [Daily Multiple Vitamin] 1 tab PO DAILY 02/05/20 buPROPion HCL [Bupropion HCl] 150 mg PO BID 02/05/20 Active Medications Acetaminophen (Tylenol) 650 mg PO Q4HR PRN PRN Reason: Pain or Fever > 38C (100.4F) Last Admin: 02/07/20 01:56 Dose: 650 mg Documented by: Alcohol (Nozin) 1 amp MAXX BID [facility] Last Admin: 02/07/20 08:28 Dose: 1 amp Documented by: Lipase/Protease/Amylase (Pancrelipase Dr 5,000/17,000/27,000 [facility]) 3 cap PO TIDWM [facility] Last Admin: 02/07/20 12:19 Dose: Not Given Documented by: Bupropion HCl (Wellbutrin Xl) 300 mg PO DAILY [facility] Last Admin: 02/07/20 08:28 Dose: 300 mg Documented by: Calcium Carbonate/Glycine (Tums) 500 mg PO BID [facility] Last Admin: 02/07/20 08:27 Dose: 500 mg Documented by: Carvedilol (Coreg) 3.125 mg PO BID [facility] Last Admin: 02/07/20 08:29 Dose: Not Given Documented by: Diphenoxylate HCl/Atropine (Lomotil) 1 tab PO TID [facility] Last Admin: 02/07/20 06:00 Dose: 1 tab Documented by: Fat Emulsion Intravenous (Intralipid 20%) 250 mls @ 21 mls/hr IV Q24H [facility] Last Infusion: 02/07/20 07:25 Dose: Infused Documented by: Multivitamins 10 ml/ Chromium/Copper/Manganese/Seleni/Zn 1 ml/ Amino Acids/Electrolytes/Dextrose 2,011 mls @ 83 mls/hr IV Q24H [facility]; Protocol Last Infusion: 02/07/20 13:50 Dose: 0 mls/hr Documented by: Potassium Chloride/Sodium Chloride (Normal Saline 0.9% W/20 Meq Kcl) 1,000 mls @ 40 mls/hr IV .Q25H [facility] Last Infusion: 02/07/20 13:50 Dose: 0 mls/hr Documented by: Sodium Bicarbonate 150 meq/ (Dextrose) 1,150 mls @ 60 mls/hr IV .[id number] [facility] Stop: 02/08/20 08:09 Last Infusion: 02/07/20 13:50 Dose: 0 mls/hr Documented by: Ketorolac Tromethamine (Toradol Inj (15mg)) 15 mg IVP Q6HR PRN PRN Reason: PAIN Stop: 02/12/20 09:28 Last Admin: 02/07/20 09:50 Dose: 15 mg Documented by: Loperamide HCl (Imodium) 4 mg PO QID [facility] Last Admin: 02/07/20 08:28 Dose: 4 mg Documented by: Lorazepam (Ativan Inj (Vial)) 1.5 mg IVP ONCE [facility] Stop: 02/07/20 17:00 Last Admin: 02/07/20 10:45 Dose: 1.5 mg Documented by: Mirtazapine (Remeron) 45 mg PO QPM PRN PRN Reason: Insomnia Ondansetron HCl (Zofran Inj) 4 mg IVP Q4HR PRN PRN Reason: Nausea / Vomiting Last Admin: 02/06/20 01:33 Dose: 4 mg Documented by: Patient Own Med ( Magnesium L-Lactate [Magnesium L-Lactate Dihyd Sr] 84 Mg) 1 each PO DAILY [facility] Last Admin: 02/07/20 08:30 Dose: Not Given Documented by: Patient Own Med ( Potassium Citrate/Citric Acid [ Potassium Cit-Citric Acid Soln] 10 Ml) 1 each PO BID [facility] Last Admin: 02/07/20 08:30 Dose: Not Given Documented by: Multivit/Folic Acid/Iron (Trinatal Rx 1) 1 tab PO DAILYWM [facility] Last Admin: 02/07/20 08:28 Dose: 1 tab Documented by: Sodium Bicarbonate (Sodium Bicarbonate) 650 mg PO BID [facility] Last Admin: 02/07/20 08:27 Dose: 650 mg Documented by: Sodium Chloride (Normal Saline Flush 0.9%) 10 ml IVP PRN PRN PRN Reason: NEEDED PER PROVIDER ORDERS Last Admin: 02/07/20 10:45 Dose: 20 ml Documented by: Sodium Chloride (Normal Saline Flush 0.9%) 10 ml IVP 0100,0900,1700 [facility] Last Admin: 02/07/20 08:30 Dose: Not Given Documented by: Zolpidem Tartrate (Ambien) 10 mg PO QPM PRN PRN Reason: Insomnia Last Admin: 02/06/20 21:52 Dose: 10 mg Documented by: Calcium Citrate 1,000 mg PO TID 09/17/19 Ergocalciferol (Vitamin D2) [Vitamin D2] 1 cap ORAL .WEEKLY 11/12/19 Mirtazapine 45 mg ORAL QPM PRN 11/12/19 Potassium Citrate/Citric Acid [Potassium Cit-Citric Acid Soln] 10 ml ORAL BID 11/12/19 Zolpidem Tartrate 10 mg PO QPM PRN 11/12/19 Acetaminophen [Tylenol Extra Strength] 500 mg PO Q4HR PRN 01/24/20 Lactobacil 2-S.thermo-Bifido 1 [High Potency Probiotic 112.5 B] 1 cap PO BID 01/24/20 Loperamide HCl [Imodium A-D] 2 mg PO Q6H PRN 01/24/20 Sodium Bicarbonate 1,950 mg PO BID 01/24/20 Lipase/Protease/Amylase [Creon Dr 12,000 Units Capsule] 3 cap PO TID 02/05/20 Multivitamin [Daily Multiple Vitamin] 1 tab PO DAILY 02/05/20 buPROPion HCL [Bupropion HCl] 150 mg PO BID 02/05/20 Allergies/Adverse Reactions: Allergies Allergy/AdvReac Type Severity Reaction Status Date / Time No Known Drug Allergies Allergy Verified 02/04/20 10:39 Anes History & Medical History - Anesthetic History Anesthesia Complications: reports: No previous complications Family history of Anesthesia Complications: Denies Family history of Malignant Hyperthermia: Denies - Medical History Cardiovascular: reports: None Pulmonary: reports: None Gastrointestinal: reports: Crohn's disease Urinary: reports: None Neuro: reports: None Musculoskeletal: reports: None Endocrine/Autoimmune: reports: None Blood Disorders: reports: None Skin: reports: None Smoking Status: Never smoker - Surgical History General: Bowel surgery, Other Eyes Ears Nose Throat (EENT): Detached retina repair Exam General: Alert Dental: WNL Mouth Opening: Greater than 4 Fingerbreadths Neck Mobility: Normal Mallampati classification: II Thyromental Distance: 4-6 cm Respiratory: Lungs clear Cardiovascular: Regular rate Mental/Cognitive Status: Alert/Oriented X3 Plan Anesthesia Type: MAC Consent for Procedure(s) Verified and Reviewed: Yes Code Status: Attempt Resuscitation ASA classification: 2-Mild systemic disease Is this case an emergency?: No
[2020-02-07] MEDS ORDERED: BUPIVACAINE 0.25% PF 30 ML VIAL SUBQ ONE ×2 (14:23)
[2020-02-07] MEDS ORDERED: LIDOCAINE 1% 50 ML MDV SUBQ ONE ×2 (14:23)
[2020-02-07] MEDS ORDERED: fentaNYL 100 MCG/2 ML VIAL IVP PRN (14:28)
[2020-02-07] MEDS ORDERED: MORPHINE 2 MG/ML CARPUJECT IVP PRN (14:28)
[2020-02-07] MEDS ORDERED: ONDANSETRON 4 MG/2 ML VIAL IVP PRN (14:28)
[2020-02-07] MEDS ORDERED: NALOXONE 0.4 MG/ML VIAL IVP PRN (14:28)
[2020-02-07] MEDS ORDERED: ATROPINE ABBOJECT 1 MG/10 ML SYRINGE IVP PRN (14:28)
[2020-02-07] MEDS ORDERED: ePHEDrine 50 MG/ML VIAL IVP PRN (14:28)
[2020-02-07] MEDS ORDERED: HYDROmorphone 0.5 MG/0.5 ML SYRINGE IVP PRN (14:28)
[2020-02-07] MEDS ORDERED: ceFAZolin 1 GM VIAL ONE (14:33)
[2020-02-07] MEDS ORDERED: LACTATED RINGERS 1,000 ML IV SCH (15:00)
[2020-02-07] MEDS ORDERED: LACTATED RINGERS 1,000 ML IV ONE (15:05)
--- NOTE | 2020-02-07 15:18 | ANESTHESIA POST OP EVALUATION ---
Anesthesia Post Eval - Post Anesthesia Eval Vitals: Last Vital Signs Temp 36.4 C L 02/07/20 08:33 Pulse 57 L 02/07/20 08:33 Resp 18 02/07/20 02:00 BP 114/58 L 02/07/20 08:33 Pulse Ox 100 02/07/20 08:33 CV Function Including HR & BP: positive: Stable Pain Control: positive: Satisfactory Nausea & Vomiting: positive: Negative Mental Status: positive: Baseline Respiratory Status: Airway Patent Hydration Status: Satisfactory Anesthesia Complications: positive: None
--- NOTE | 2020-02-07 15:20 | OPERATIVE REPORT ---
Operative Report - General Admit Date: 02/04/20 Procedure Date: 02/07/20 Planned Procedure: 1. Left ultrasound-guided internal jugular venous access 2. Fluoroscopically guided left internal jugular line placement, modified Seldinger 3. Left chest left internal jugular Mediport placement Pre-Op Diagnosis: Crohn's, short gut syndrome, protein malnutrition, need for CV access Procedure Performed: 1. Left ultrasound-guided internal jugular venous access 2. Fluoroscopically guided left internal jugular line placement, modified Seldinger 3. Left chest left internal jugular Mediport placement Post Op Diagnosis: Same, successful placement of Lt internal jugular Mediport at atriocaval jx - Procedure Note Primary Surgeon: Anibal Anesthesia Provider: Myles Anesthesia Technique: Local, MAC Pathology: None Estimated Blood Loss (mL): 10 Indications: 1. Crohn's Disease 2. Short gut syndrome 3. Severe protein malnutrition 4. long term need for CV access, reliable 5. Recurrent dehydration 6. History of multiple bowel resections Findings: Successful access of the left internal jugular vein ultrasonographically with wire noted within the venous lumen, successful passage of the wire to the atriocaval junction with abatement of ectopy and resolution of arrhythmia on appropriate placement of the wire. Passage of the wire by modified Seldinger technique to the atriocaval junction with no ectopy. This was achieved by fluoroscopic assistance. Easily flushed and aspirated multiply. The line was left accessed. Complications: None - Other Other Information/Narrative: INTRAOPERATIVE FINDINGS: Left internal jugular was noted ultrasonographically. It was passed for the guidewire without any complication, which was confirmed by fluoroscopic imaging. The catheter ultimately was placed at the junction between the SVC and the atria of the atriocaval junction without any complication. Postoperative x-ray confirmed placement. Patient tolerated the procedure well for which there was no complication. The port flushed easily, it aspirated well, and was infused for 2500 units of heparin as port lock. PROCEDURAL REPORT: Please see above for indications however in brief 54-year-old male with short gut as a consequence of multiple resections for longstanding Crohn's disease who is presented multiply for dehydration, severe protein malnutrition, and need for long-term TPN. Risk and benefits discussed questions answered informed consent was obtained to proceed with left Mediport placement. The patient was prepped for his Left neck and chest in the usual sterile fashion. Time out was called and agreed to by all in the room. The ultrasound probe was draped with a sterile sleeve, and internal jugular was noted. The patient was placed in Trendelenburg, and the vein was cannulated using the introducer needle without any complication. There was venous return. The wire was easily passed through the introducer needle without any complication. The wire placement was confirmed at the atriocaval junction by fluoroscopic guidance. At this time, the wire was secured after the needle was removed, and we proceeded to create a pocket for the Port central venous access device. A small incision approximately 3-4 cm was made in the Left upper chest, approximately 4 cm below the clavicle. This was first initially instilled with 0.5% Marcaine and incised sharply using a scalpel. The subcutaneous tissues were divided using Bovie electrocautery, and using skin rakes and a Ross retractor, a pocket was made appropriate in subcutaneous fat in order to accommodate the low- profile Port. Once this was completed, the tunneler was used to access the left internal jugular access site after the skin surrounding the wire was incised using an 11 blade. The tunneler was then attached to the catheter, which had been flushed and brought through the subcutaneous tract, which was also instilled with 0.5% Marcaine before proceeding. Once this was completed, the introducer sheath was passed over the wire, and this was confirmed for placement fluoroscopically. With this in place, we thereafter removed both the wire and the introducer, and once this was completed, we threaded the catheter with a syringe attached to the other end into the break away sheath. Once passed completely, the sheath was broken while keeping the catheter in place, and the sheath was removed. Fluoroscopic guidance was used to confirm placement at the level of the atriocaval junction, and with this completed, we reduced the loop at the left neck incision, and the catheter remained in the subcutaneous fat. The catheter was aspirated of venous blood and easily flushed using heparinized saline. Once this was completed, the catheter was cut to length appropriately for the low-profile Port, and the hub was placed over the catheter, which was kept clamped with finger pressure to prevent air embolism and at this time was inserted into the Port device. This was in turn secured using the collar. The Port was thereafter placed into the subcutaneous pocket and through eyelets, it was secured in place with 2-0 Prolene stitches into the chest wall. This was secured bilaterally and also at the level of the collar and through the superior eyelet as well. At this time, we tested the port through the skin to assure that it flushed and aspirated well, and this was confirmed using heparinized saline. At this time, we closed the wounds in layers, after extensive irrigation, first reapproximating the deep subcutaneous fat, then approximating the skin with a deep dermal stitch, and thereafter ran a subcuticular using 4-0 Monocryl. This was done both at the port insertion site in the left chest and at the access site in the neck, both sites dressed with Dermabond. The patient tolerated the procedure well for which there was no complication. The patient was taken to the recovery room in stable condition. All counts for sponges, needles, instruments were correct at the conclusion of this operative intervention. Post-op XR was reviewed without any deviation.
--- NOTE | 2020-02-07 16:14 | XRAY Report ---
PROCEDURE: Chest 1 View X-Ray INDICATIONS: POST IJ PLACEMENT TECHNIQUE: One view of the chest was acquired. COMPARISON: Chest x-ray 12/26/2019 FINDINGS: Surgical changes and devices: Left port is present with distal tip projecting over the mid/distal SVC . Lungs and pleura: Minimal right costophrenic angle blunting. Mediastinum: Mediastinal contours appear normal. Heart size is normal. Bones and chest wall: No suspicious bony lesions. Overlying soft tissues appear unremarkable. IMPRESSION: Left port placement as above. Minimal right costophrenic angle blunting possibly related to scarring versus trace effusion. Reviewed by: Kathia Mane MD on 02/07/2020 4:13 PM PDT Approved by: Kathia Mane MD on 02/07/2020 4:13 PM PDT Station ID: [id number]
[2020-02-07] MEDS ORDERED: MIDAZOLAM 2 MG/2 ML VIAL IVP ONE (16:29)
[2020-02-07] MEDS ORDERED: PROPOFOL 200 MG/20 ML VIAL IVP ONE (16:29)
[2020-02-07] MEDS ORDERED: LIDOCAINE-MPF 2% 5 ML VIAL IM ONE (16:29)
--- NOTE | 2020-02-07 16:44 | XRAY Report ---
PROCEDURE: OR C-Arm Procedure INDICATIONS: port placement TECHNIQUE: 2 intraoperative fluoroscopic views were acquired. COMPARISON: None. FINDINGS: A presumed left-sided port is present with distal tip projecting over the distal SVC/right atrial shira ction. Images are not labeled left or right. IMPRESSION: Presumed left port as above. Reviewed by: Kathia Mane MD on 02/07/2020 4:43 PM PDT Approved by: Kathia Mane MD on 02/07/2020 4:43 PM PDT Station ID: [id number]
[2020-02-07] MEDS ORDERED: SODIUM CHLORIDE FLUSH 0.9% 10 ML SYRINGE IVP PRN (18:15)
[2020-02-07] MEDS: FAT EMULSION 20% 250 ML IV SCH (19:20)
[2020-02-07] MEDS: PPN (CLINIMIX E 4.25/5) 2,000 ML with MULTIVITAMIN 10 ML, TRACE ELEMENTS V CONC 1 ML IV SCH ×3 (19:34)
[2020-02-07] MEDS: ZOLPIDEM 5 MG TABLET PO PRN (21:40)
[2020-02-08] MEDS: NS W/20 MEQ KCL 1,000 ML IV SCH (02:21)
[2020-02-08] MEDS: SODIUM CHLORIDE FLUSH 0.9% 10 ML SYRINGE IVP SCH ×3 (02:23→16:58)
[2020-02-08 06:10] LABS: ALBUMIN 2.1 g/dL (3.2-5.5); ALBUMIN/GLOBULIN RATIO 0.9 (1.0-2.2); BILIRUBIN,TOTAL 0.4 mg/dL (0.2-1.0); CALCIUM 7.5 mg/dL (8.5-10.3); CREATININE 1.9 mg/dL (0.6-1.2); MAGNESIUM 1.7 mg/dL (1.7-2.8); PHOSPHORUS 4.9 mg/dL (2.5-4.6); TOTAL PROTEIN 4.4 g/dL (6.7-8.2)
[2020-02-08] MEDS: DIPHENOX/ATROPINE 2.5/0.025 MG TABLET PO SCH ×3 (06:25→21:15)
[2020-02-08] MEDS: ACETAMINOPHEN 325 MG TABLET PO PRN (06:25)
[2020-02-08 06:34] LABS: FOLATE 9.8 ng/mL (5.90 - >24.8)
[2020-02-08] MEDS: LIPASE/PROTEASE/AMYLASE CAPSULE PO SCH ×4 (07:50→16:56)
[2020-02-08] MEDS: PRENATAL VITAMIN TABLET PO SCH (07:50)
[2020-02-08 08:18] LABS: VBG BASE EXCESS -4.9 mmol/L (-2 - +2); VBG PCO2 43.6 mmHg (41-51); VBG PH 7.303 (7.31-7.41); VBG PO2 32.9 mmHg (25-47); VBG TOTAL CO2 22.5 mmol/L (24-29)
[2020-02-08] MEDS ORDERED: CALCIUM GLUCONATE 1,000 MG in SODIUM CHLORIDE 0.9% 50 ML IV ONE (08:30)
[2020-02-08] MEDS: ethyl alcohoL 62% SWAB AMPULE NAS SCH ×2 (08:52→21:13)
[2020-02-08] MEDS: SODIUM BICARBONATE 650 MG TABLET PO SCH ×2 (08:52→21:13)
[2020-02-08] MEDS: carvediloL 3.125 MG TABLET PO SCH ×2 (08:52→21:11)
[2020-02-08] MEDS: CALCIUM CARBONATE CHEW 500 MG TABLET PO SCH ×2 (08:52→21:15)
[2020-02-08] MEDS: LOPERAMIDE 2 MG CAPSULE PO SCH ×4 (08:52→21:18)
[2020-02-08] MEDS: buPROPion XL 150 MG TABLET PO SCH (08:52)
[2020-02-08] MEDS: CITRIC ACID PO SCH ×2 (08:53→21:19)
[2020-02-08] MEDS: MAGNESIUM PO SCH (08:53)
[2020-02-08] MEDS: LACTATE PO SCH (08:53)
[2020-02-08] MEDS: POTASSIUM CITRATE PO SCH ×2 (08:53→21:19)
--- NOTE | 2020-02-08 09:17 | MRI Report ---
PROCEDURE: MRCP W/WO INDICATIONS: elevated alk phos CONTRAST: IV CONTRAST: Gadavist ml: 6 TECHNIQUE: Coronal ultra fast SE through the abdomen, axial 2-D spoiled GE in- and [id number], and breath-hold T2 FSE with fat saturation through the biliary system and pancreas. Oblique coronal and axial thin- slice ultra fast SE, radial thick-slab ultra fast SE centered on the extrahepatic bile ducts. COMPARISON: None. Correlation made to ultrasound 12/26/2019 and 05/09/2019 FINDINGS: Image quality: Decreased due to patient's somnolence, involuntary motion, and claustrophobia. Pancreas and biliary system: The pancreas is diminutive and there is diffuse main pancreatic ductal dilatation with the duct measuring up to 7 mm. The duct of Santorini is dilated and there may be intr aluminal filling defects. There is probably pancreas divisum morphology with a normal caliber duct of Wirsung. Intra- and extra-hepatic biliary ducts are non dilated. Gallbladder appears surgically abs ent and there is susceptibility artifact from clips in the gallbladder fossa. Other solid organs: There is a partially imaged, ovoid, thin-walled, potentially subcapsular fluid c ollection along the inferolateral tip of the liver measuring roughly 5.1 x 2.2 x 3.5 cm with a trace amount of adjacent fluid. There is fluid tracking along the falciform ligament. The liver is otherwis e grossly normal without large enhancing mass. The spleen is elongated measuring 16.4 cm in length. T here are multiple rounded hypointensities of varying sizes ranging from a few millimeters to 1.8 cm. The largest is relatively hypoenhancing. The left kidney is asymmetrically atrophic with decreased en hancement and cortical thinning. Nodes and vessels: The splenic and portal vein are enlarged. The splenic vein measures 16 mm in katharina claribel and the main portal vein measures 15 mm. No retroperitoneal or mesenteric adenopathy by size crit eria. Aorta and inferior vena cava are normal in size. Bowel and peritoneum: Unenhanced bowel loops are normal in caliber. No free fluid. Lung bases: Very small bilateral pleural effusions.. Heart size is normal. Bones and soft tissues: No ventral hernias. Bone marrow is of normal overall signal. IMPRESSION: 1. Diminutive pancreas with findings of chronic pancreatitis and potentially pancreatic ductal calcif ication near the ampulla. 2. Potential pancreas divisum morphology with normal caliber duct of Wirsung. 3. Postcholecystectomy changes. 4. There is fluid along the falciform ligament and focal thin-walled fluid collection adjacent to the caudal aspect of the liver. This may be residual postsurgical seroma versus biloma. No significant a mount of gallbladder fossa fluid to suggest bile leak. If this is of clinical concern, [facility] hepat[facility] imaging is recommended. 5. Splenomegaly with hypointense and hypoenhancing splenic lesions, potentially calcification or side rotic nodules. 6. Splenic and portal vein engorgement suggesting developing portal hypertension. 7. There are small bilateral pleural effusions. 8. Limited study due to motion. CT imaging at the abdomen with contrast to confirm above findings may be useful. Reviewed by: Mónica Cunningham MD on 02/08/2020 9:16 AM PDT Approved by: Mónica Cunningham MD on 02/08/2020 9:16 AM PDT Station ID: [id number]
[2020-02-08] MEDS: SODIUM BICARBONATE 150 MEQ in DEXTROSE 5% 1,000 ML IV SCH (11:32)
--- NOTE | 2020-02-08 13:12 | PROVIDER PROGRESS NOTE ---
Assessment/Plan - Problem List (1) Dehydration Assessment/Plan: This patient's BUN/creatinine ratio went up over 20 today since yesterday: 26/2.1 >> 32/1.9 today. This likely reflects several hours of being n.p.o. yesterday before going to the OR for Mediport placement. Continue with aggressive fluid replacement using TPN, IV fluids, replacement riders and oral intake at 125 cc an hour or more. He requires monitoring for pulmonary fluid overload however because of his cardiomyopathy. Follow BMP daily. (2) Acute renal failure superimposed on chronic kidney disease Assessment/Plan: As above in #1. Follow BMP daily Avoid nephrotoxins. (3) Short gut syndrome Assessment/Plan: This diagnosis was established at his recent inpatient stay at [facility] by his gastroenterology specialist. Had about 1 month of high-volume liquidy diarrhea, not in Crohn's flareup. He has tried different diets especially a low sugar diet and it did not help the high output fluid loss and diarrhea He will need TPN for greater than 90 days, possibly 6 months, for rehydration, electrolyte stabilization and for weight gain. He is not a candidate to try enteral nutrition like through a PEG tube because he actually can swallow and the problem is beyond the stomach and proximal small bowel. He has fluid losses and rapid transit associated with his colon. Peripheral PN was started with lipids, being adjusted by registered dietitian. He is tolerating this. The total fluid input of ppn, iv fluids and riders, is at approximately 125 c c/h, in order to correct his intravascular volume depletion and to start nourishing him with protein and calories. Placement of a Mediport done by the general surgeon yesterday, and was OKd to use. He will need training in using it as well. Then he will be transitioned to TPN. Administering TPN as an outpatient is being arranged by our director life sales, social workers and registered dietitian. Findings of early portal hypertension, seen on MRCP, are concerning and I have asked general surgery to comment on this, in light of needed TPN use. (4) Crohn's disease Assessment/Plan: This was diagnosed at age 13. He had surgery starting at age 17. He has mult iple bowel surgeries. There is no flare up currently, as per the notes from [facility] from 1 week ago when he was hospitalized there. There is a fistula that is perianal and his diarrhea is probably exacerbating this from healing. He is getting Entyvio at [facility] here, managed by his shoe trimmer Dr. Ramos (5) Protein-calorie malnutrition, severe Assessment/Plan: This patient has had 9% weight loss over the past 3 months and also lost muscle and fat and developed weakness and deconditioning. He has tried replacing orally and has required multiple peripheral iv replacement strategies, none have worked. The plan is to treat with TPN as described above. With findings of early portal hypertension, TPN may add to liver disease. I have asked for General Surgery consult to comment on this. I spoke to Dr. Barnett who will see the pt. (6) Anemia Assessment/Plan: [facility] notes indicate they think he has anemia of chronic disease. I rechecked B12, folate levels since he has macrocytosis, and these were normal. With hemoglobin of 7.1 two days ago, he may need transfusion if it drops to that level again. I discussed this with the patient yesterday, and he is agreeable to a transfusion if he needs it. Follow CBC daily (7) Electrolyte and fluid disorder Assessment/Plan: Potassium was replaced and is normal today Magnesium was replaced and is normal today. Calcium is still low and needs to be replaced. His pH is low again (7.3) on VBG today and bicarbonate is low. Another 1 L of sodium bicarbonate and D5 will be ordered He is also getting oral sodium bicarb 650mg twice daily Follow BMP and trace elements daily. Will follow VBG daily for his pH. (8) Elevated LFTs Assessment/Plan: Patient has a history of alcoholic pancreatitis in the past. LFTs are improving. The GI specialist had wanted MRCP which was done and was read as having early portal HTN. Gen Surgery consult bordered to comment on this. (9) Hx MRSA infection Assessment/Plan: He had previous wound MRSA infections earlier this year. He is testing positive on his MRSA nasal swab here. We ordered Nozin nasal swabs twice daily. (10) Pancreatic insufficiency Assessment/Plan: Patient has a history of acute pancreatitis in the past. While at [facility], he had testing of his pancreolipase levels and these returned less than 40 indicating severe deficiency (normal is >200). He was taking his pancreatic enzymes but at a decreased amount because they cost a lot. We will slowly try to increase his pancreatic enzyme doses while here. (11) Cardiomyopathy Assessment/Plan: About 6 weeks ago he was diagnosed with a new cardiomyopathy, has seen a Fmd Teacher once, is on low dose Coreg (due to "soft" BP). Fmd Teacher ordered a Lexiscan stress test to look for CAD and one other test. Outpatient work-up can be done on [facility], I told him and his mother at bedside, after discharge and some stabilization, so he does not have to travel by ferr to the [facility]. Monitoring him for fluid overload is necessary as an inpatient, as he gets total fluids at about 125 cc/hr. (12) Portal hypertension Assessment/Plan: New finding, reported on MRCP. General surgery consult pending. - Current Meds Current Meds: Current Medications Generic Name Dose Route Start Last Admin Trade Name Freq PRN Reason Stop Dose Admin Acetaminophen 650 mg 02/04/20 19:07 02/08/20 06:25 Tylenol PO 650 mg Q4HR PRN Administration Pain or Fever > 38C (100.4F) Alcohol 1 amp 02/06/20 14:00 02/08/20 08:52 Nozin MAXX 1 amp BID KAROLYN Administration Lipase/Protease/Amylase 3 cap 02/06/20 12:00 02/08/20 11:[address] 5,000/17,000/27,000 Halfway PO 3 cap TIDWM KAROLYN Administration Bupropion HCl 300 mg 02/05/20 09:00 02/08/20 08:52 Wellbutrin Xl PO 300 mg DAILY KAROLYN Administration Calcium Carbonate/Glycine 500 mg 02/06/20 21:00 02/08/20 08:52 Tums PO 500 mg BID KAROLYN Administration Carvedilol 3.125 mg 02/06/20 21:00 02/08/20 08:52 Coreg PO Not Given BID KAROLYN Diphenoxylate HCl/Atropine 1 tab 02/04/20 22:00 02/08/20 06:25 Lomotil PO 1 tab TID KAROLYN Administration Fat Emulsion Intravenous 250 mls @ 21 mls/hr 02/05/20 19:00 02/08/20 07:39 Intralipid 20% IV Infused Q24H KAROLYN Infusion Multivitamins 10 ml/ Chromium/ 2,011 mls @ 83 mls/hr 02/05/20 19:00 02/07/20 19:34 Copper/Manganese/Seleni/Zn 1 IV 83 mls/hr ml/ Amino Acids/Electrolytes/ Q24H KAROLYN Administration Dextrose Protocol Potassium Chloride/Sodium Chloride 1,000 mls @ 40 mls/hr 02/05/20 20:00 02/08/20 02:21 Normal Saline 0.9% W/20 Meq Kcl IV 40 mls/hr .Q25H KAROLYN Administration Sodium Bicarbonate 150 meq/ 1,150 mls @ 60 mls/hr 02/08/20 11:00 02/08/20 11:32 Dextrose IV 60 mls/hr .[id number] KAROLYN Administration Ketorolac Tromethamine 15 mg 02/07/20 09:29 02/07/20 21:38 Toradol Inj (15mg) IVP 02/12/20 09:28 15 mg Q6HR PRN Administration PAIN Loperamide HCl 4 mg 02/04/20 21:00 02/08/20 08:52 Imodium PO 4 mg QID KAROLYN Administration Ondansetron HCl 4 mg 02/05/20 18:36 02/06/20 01:33 Zofran Inj IVP 4 mg Q4HR PRN Administration Nausea / Vomiting Patient Own Med ( 1 each 02/05/20 09:00 02/08/20 08:53 Magnesium L-Lactate PO Not Given [Magnesium L-Lactate DAILY [facility] Dihyd Sr] 84 Mg) Patient Own Med ( 1 each 02/05/20 09:07 02/08/20 08:53 Potassium Citrate/ PO Not Given Citric Acid [ BID KAROLYN Potassium Cit-Citric Acid Soln] 10 Ml) Multivit/Folic Acid/Iron 1 tab 02/05/20 08:00 02/08/20 07:50 Trinatal Rx 1 PO 1 tab DAILYWM KAROLYN Administration Sodium Bicarbonate 650 mg 02/04/20 21:00 02/08/20 08:52 Sodium Bicarbonate PO 650 mg BID KAROLYN Administration Sodium Chloride 10 ml 02/04/20 19:07 02/07/20 10:45 Normal Saline Flush 0.9% IVP 20 ml PRN PRN Administration NEEDED PER PROVIDER ORDERS Sodium Chloride 10 ml 02/05/20 01:00 02/08/20 08:53 Normal Saline Flush 0.9% IVP Not Given 0100,0900,1700 KAROLYN Zolpidem Tartrate 10 mg 02/04/20 19:17 02/07/20 21:40 Ambien PO 10 mg QPM PRN Administration Insomnia - Lab Result Fish Bone Diagrams: 02/07/20 06:15 02/08/20 05:40 - Additional Planning My Orders: My Active Orders 02/07/20 Dinner Soft Mechanical Diet [DIET] 02/07/20 18:15 Heparin Flush 30 - 50 unit IVP PRN PRN Heparin Flush 300 - 500 unit IVP PRN PRN Sodium Chloride Flush 0.9% [Normal Saline Flush 0.9%] 20 ml IVP PRN PRN 02/08/20 Consult [General Surgery Consult] [CONS] Routine 02/08/20 11:00 Dextrose 5% [D5w] 1,000 ml Sodium Bicarbonate 150 meq IV 60 mls/hr 02/09/20 05:00 CALCIUM, IONIZED ([facility]) [BG] DAILYLAB CBC - COMP BLD CT W/AUTO DIFF [HEME] DAILYLAB 02/10/20 05:00 CALCIUM, IONIZED ([facility]) [BG] DAILYLAB CBC - COMP BLD CT W/AUTO DIFF [HEME] DAILYLAB COMPREHENSIVE METABOLIC PANEL [CHEM] Routine MAGNESIUM [CHEM] Routine PHOSPHORUS [CHEM] Routine PREALBUMIN [CHEM] Routine TRIGLYCERIDES [CHEM] Routine 02/13/20 05:00 COMPREHENSIVE METABOLIC PANEL [CHEM] Routine MAGNESIUM [CHEM] Routine PHOSPHORUS [CHEM] Routine PREALBUMIN [CHEM] Routine TRIGLYCERIDES [CHEM] Routine Subjective - Subjective Patient Reports: Resting Comfortably, Itching (There is an itchy painful stabbing feeling of the skin around the [facility] site) Objective Vital Signs: Vital Signs - 24 hr 02/07/20 02/07/20 02/07/20 15:05 15:10 15:15 Temperature 36 C L 36.0 C L 36.0 C L Heart Rate 46 L 50 L 62 Heart Rate [ Brachial] Respiratory 19 15 12 Rate Blood Pressure 75/51 L 78/55 L 75/55 L Blood Pressure [Right Ankle] Blood Pressure [Right Brachial artery] O2 Saturation 99 98 97 02/07/20 02/07/20 02/07/20 15:20 15:25 15:30 Temperature 36.0 C L 36.1 C L 36.2 C L Heart Rate 58 L 54 L 55 L Heart Rate [ Brachial] Respiratory 14 16 17 Rate Blood Pressure 80/60 L 79/62 L 84/61 L Blood Pressure [Right Ankle] Blood Pressure [Right Brachial artery] O2 Saturation 100 99 100 02/07/20 02/07/20 02/07/20 15:33 16:00 16:15 Temperature 36.0 C L 36.5 C Heart Rate 54 L Heart Rate [ 60 50 L Brachial] Respiratory 19 18 18 Rate Blood Pressure 80/58 L Blood Pressure 92/56 L [Right Ankle] Blood Pressure 113/58 L [Right Brachial artery] O2 Saturation 100 100 100 02/07/20 02/07/20 02/07/20 16:30 16:45 21:42 Temperature 36.5 C 36.5 C Heart Rate Heart Rate [ 52 L 66 67 Brachial] Respiratory 18 18 Rate Blood Pressure Blood Pressure 91/66 121/70 117/49 L [Right Ankle] Blood Pressure [Right Brachial artery] O2 Saturation 100 100 02/07/20 02/08/20 23:53 08:38 Temperature 36.7 C 36.9 C Heart Rate Heart Rate [ 70 67 Brachial] Respiratory 16 Rate Blood Pressure Blood Pressure 105/50 L [Right Ankle] Blood Pressure 95/59 L [Right Brachial artery] O2 Saturation 100 100 Oxygen O2 Source Room air I&O (Last 24 Hrs): Intake and Output Totals x24h 02/06/20 02/07/20 02/08/20 23:59 23:59 23:59 Intake Total 5753.866 4607.850 2360.667 Output Total 100 Balance 5653.866 4607.850 2360.667 General: Alert, Oriented x3 HEENT: Mucous membr. moist/pink Neck: Supple, No JVD Neuro: Alert, Non Focal Cardiovascular: Regular rate, No murmurs Respiratory: No respiratory distress, Other (Mediport site appears clean, no redness) Abdomen: Normal bowel sounds, Soft, No tenderness Extremities: No edema - Results Results: Laboratory Results WBC 6.4 x10^3/uL (4.8-10.8) 02/07/20 06:15 RBC 2.59 10^6/uL (4.70-6.10) L 02/07/20 06:15 Hgb 8.5 g/dL (14.0-18.0) L 02/07/20 06:15 Hct 27.0 % (42.0-52.0) L 02/07/20 06:15 MCV 104.2 fL (80.0-94.0) H 02/07/20 06:15 MCH 32.8 pg (27.0-31.0) H 02/07/20 06:15 MCHC 31.5 g/dL (32.0-36.0) L 02/07/20 06:15 RDW 13.6 % (12.0-15.0) 02/07/20 06:15 Plt Count 117 10^3/uL (130-450) L 02/07/20 06:15 MPV 9.2 fL (7.4-11.4) 02/07/20 06:15 Neut # (Auto) 4.2 10^3/uL (1.5-6.6) 02/07/20 06:15 Lymph # (Auto) 1.6 10^3/uL (1.5-3.5) 02/07/20 06:15 Coryell # (Auto) 0.5 10^3/uL (0.0-1.0) 02/07/20 06:15 Eos # (Auto) 0.1 10^3/uL (0.0-0.7) 02/07/20 06:15 Baso # (Auto) 0.0 10^3/uL (0.0-0.1) 02/07/20 06:15 Absolute Nucleated RBC 0.00 x10^3/uL 02/07/20 06:15 Nucleated RBC % 0.0 /100WBC 02/07/20 06:15 VBG pH 7.303 (7.31-7.41) L 02/08/20 08:10 VBG pCO2 43.6 mmHg (41-51) 02/08/20 08:10 VBG pO2 32.9 mmHg (25-47) 02/08/20 08:10 VBG HCO3 21.1 mmol/L (23-28) L 02/08/20 08:10 VBG Total CO2 22.5 mmol/L (24-29) L 02/08/20 08:10 VBG O2 Saturation 59.6 % (60-80) L 02/08/20 08:10 VBG Base Excess -4.9 mmol/L (-2 - +2) L 02/08/20 08:10 Ionized Calcium 0.87 mmol/L (1.15-1.33) L 02/04/20 11:43 Sodium 136 mmol/L (135-145) 02/08/20 05:40 Potassium 4.0 mmol/L (3.5-5.0) 02/08/20 05:40 Chloride 114 mmol/L (101-111) H 02/08/20 05:40 Carbon Dioxide 18 mmol/L (21-32) L 02/08/20 05:40 Anion Gap 4.0 (6-13) L 02/08/20 05:40 BUN 32 mg/dL (6-20) H 02/08/20 05:40 Creatinine 1.9 mg/dL (0.6-1.2) H 02/08/20 05:40 Estimated GFR (MDRD) 37 (>89) L 02/08/20 05:40 Glucose 124 mg/dL (70-100) H 02/08/20 05:40 Calcium 7.5 mg/dL (8.5-10.3) L 02/08/20 05:40 Phosphorus 4.9 mg/dL (2.5-4.6) H 02/08/20 05:40 Magnesium 1.7 mg/dL (1.7-2.8) 02/08/20 05:40 Total Bilirubin 0.4 mg/dL (0.2-1.0) 02/08/20 05:40 AST 15 IU/L (10-42) 02/08/20 05:40 ALT 20 IU/L (10-60) 02/08/20 05:40 Alkaline Phosphatase 257 IU/L (42-121) H 02/08/20 05:40 Total Protein 4.4 g/dL (6.7-8.2) L 02/08/20 05:40 Albumin 2.1 g/dL (3.2-5.5) L 02/08/20 05:40 Globulin 2.3 g/dL (2.1-4.2) 02/08/20 05:40 Albumin/Globulin Ratio 0.9 (1.0-2.2) L 02/08/20 05:40 Prealbumin 9 mg/dL (18-45) L 02/08/20 05:40 Triglycerides 82 mg/dL (-149) 02/08/20 05:40 Lipase 29 U/L (22-51) 02/04/20 11:12 Vitamin B12 383 pg/mL (180-914) 02/08/20 05:40 Folate 9.80 ng/mL (5.90 - >24.8) 02/08/20 05:40 Nasal Screen MRSA (PCR) POSITIVE (NEGATIVE) A* 02/06/20 10:59
--- NOTE | 2020-02-08 16:03 | PROVIDER PROGRESS NOTE ---
Progress Note Please see earlier consultation revolving around placement of the patient's central line for TPN access. The patient was evaluated again upon request from the hospitalist service per his recent MRCP. In brief this patient has the following chronic medical concerns: 1. Short gut syndrome secondary to multiple bowel resections as a consequence of his longstanding Crohn's disease 2. Immunocompromise state as it relates to ongoing Entyvio for longstanding complicated ileal stricturing Crohn's with perianal fistulizing disease as well. 3. Longstanding recurrent dehydration failing extensive medical management including slowing agents and recently necessitating increasing parenteral supplementation now including TPN. 4. Unbeknownst to me on the patient's initial consultation, longstanding history of alcohol abuse 5. Unbeknownst to me on the patient's initial consultation known developing cirrhosis unknown to which this is a consequence of his inflammatory bowel disease however undoubtedly contributed to by his known alcoholism I revisited the patient as it relates to the findings of his MRCP which include the followin. Diminutive pancreas with findings of chronic pancreatitis and potentially pancreatic ductal calcification near the ampulla 2. Potential pancreatic divisum 3. Post cholecystectomy 4. Fluid along the falciform likely residual postsurgical though no concerns for fluid within the fossa - HIDA scan recommended to rule out bile leak 5. Splenomegaly 6. Splenic and portal vein engorgement consistent with developing portal hypertension The patient remains on TPN which has a known predilection for associated hepatitis which in this patient could exacerbate his cirrhosis which apparently has revealed itself through his splenomegaly and his splenic and portal vein engorgement with associated suspected hypertension. This is exceedingly concerning in a patient who has also a history of alcohol use and abuse. A lengthy discussion was had with this patient who is already crippled from a gastrointestinal standpoint for his history of multiple resections. He has been offered Gattex which would be even more indicated given his associated pre- existing liver pathology. It would not be unreasonable to consider pathology with core needle biopsy but that is deferred to gastroenterology. I discussed the following with the patient at length: 1. Alcohol abstention especially as it relates to his risk of TPN associated hepatitis, and his pre-existing likely cirrhosis. 2. Close follow-up with gastroenterology as it relates to his need for hepatology and possible biopsies to rule out an associated IBD, including primary sclerosing cholangitis although his labs are without any evidence of hyperbilirubinemia. There is also concerns for associated medication induced hepatitis. This is over and above his ongoing concurrent TPN. 3. Again serious concern for considering Gattex as an alternative to bowel transplantation and longstanding fluid resuscitation. 4. These were cautiously and carefully discussed with the patient in a very conversational, empathic sympathetic way. He has limited resources as it relates to his support system with elderly parents and no other significant family. He would benefit from mental health referral as well. With regard to suspected cirrhosis and portal hypertension, would consider ultrasound to document velocities. Would also reiterate to the patient that TPN is only a bridge and not a long-term solution which I had mentioned to him as well. Please note that voice recognition software was used to transcribe this note and inadvertent errors might persist in spite of review and editing. I am obliged to you for your attention. I am thankful to you for allowing me to participate with you in this care of this patient. His postoperative site from his port placement left neck and left chest were clean dry and intact functional and without any complication. Chest x-ray without any concern.
[2020-02-08] MEDS: ONDANSETRON 4 MG/2 ML VIAL IVP PRN (16:58)
[2020-02-08] MEDS: KETOROLAC 15 MG/ML VIAL IVP PRN (17:57)
[2020-02-08] MEDS: SODIUM CHLORIDE FLUSH 0.9% 10 ML SYRINGE IVP PRN (17:58)
[2020-02-08] MEDS: FAT EMULSION 20% 250 ML IV SCH (18:51)
[2020-02-08] MEDS: TPN (CLINIMIX E 5/15) 2,000 ML with MULTIVITAMIN 10 ML, TRACE ELEMENTS V CONC 1 ML IV SCH ×3 (18:52)
[2020-02-08] MEDS ORDERED: KETOROLAC 15 MG/ML VIAL IVP STA (19:06)
[2020-02-08] MEDS: ZOLPIDEM 5 MG TABLET PO PRN (21:24)
[2020-02-09] MEDS: NS W/20 MEQ KCL 1,000 ML IV SCH (03:54)
[2020-02-09] MEDS: SODIUM CHLORIDE FLUSH 0.9% 10 ML SYRINGE IVP SCH ×3 (05:26→16:47)
[2020-02-09 05:42] LABS: BASOPHILS % (AUTO) 0.6 %; EOSINOPHILS # (AUTO) 0.1 10^3/uL (0.0-0.7); EOSINOPHILS % (AUTO) 1.7 %; LYMPHOCYTES # (AUTO) 0.8 10^3/uL (1.5-3.5); LYMPHOCYTES % (AUTO) 22.2 %; MEAN CORPUSCULAR HEMOGLOBIN 32.7 pg (27.0-31.0); MEAN CORPUSCULAR HGB CONC 32.3 g/dL (32.0-36.0); MEAN CORPUSCULAR VOLUME 101.4 fL (80.0-94.0); MEAN PLATELET VOLUME 9.5 fL (7.4-11.4); MONOCYTES # (AUTO) 0.4 10^3/uL (0.0-1.0); MONOCYTES % (AUTO) 9.7 %; NEUTROPHILS # (AUTO) 2.4 10^3/uL (1.5-6.6); NEUTROPHILS % (AUTO) 65.2 %; PLT - PLATELET COUNT 97 10^3/uL (130-450); RED BLOOD COUNT 2.14 10^6/uL (4.70-6.10); RED CELL DISTRIBUTION WIDTH 13.2 % (12.0-15.0); VBG PH 7.38 (7.31-7.41); WHITE BLOOD COUNT 3.6 x10^3/uL (4.8-10.8)
[2020-02-09] MEDS: DIPHENOX/ATROPINE 2.5/0.025 MG TABLET PO SCH ×3 (05:44→20:37)
[2020-02-09] MEDS: KETOROLAC 30 MG/ML VIAL IVP PRN ×2 (06:35→17:04)
[2020-02-09] MEDS: SODIUM CHLORIDE FLUSH 0.9% 10 ML SYRINGE IVP PRN ×2 (06:40→17:04)
[2020-02-09] MEDS: SODIUM BICARBONATE 150 MEQ in DEXTROSE 5% 1,000 ML IV SCH (06:41)
[2020-02-09 07:40] LABS: HGB - HEMOGLOBIN 7.5 g/dL (14.0-18.0)
[2020-02-09] MEDS: LIPASE/PROTEASE/AMYLASE CAPSULE PO SCH ×3 (08:15→16:47)
[2020-02-09] MEDS: MAGNESIUM PO SCH (08:16)
[2020-02-09] MEDS: LACTATE PO SCH (08:16)
[2020-02-09] MEDS: POTASSIUM CITRATE PO SCH ×2 (08:17→20:39)
[2020-02-09] MEDS: CITRIC ACID PO SCH ×2 (08:17→20:39)
[2020-02-09 08:30] LABS: VBG BASE EXCESS -2.2 mmol/L (-2 - +2); VBG PCO2 34.8 mmHg (41-51); VBG PH 7.419 (7.31-7.41); VBG PO2 50.2 mmHg (25-47); VBG TOTAL CO2 23.1 mmol/L (24-29)
[2020-02-09] MEDS: LOPERAMIDE 2 MG CAPSULE PO SCH ×4 (08:32→20:43)
[2020-02-09] MEDS: PRENATAL VITAMIN TABLET PO SCH (08:33)
[2020-02-09] MEDS: carvediloL 3.125 MG TABLET PO SCH ×3 (08:33→20:38)
[2020-02-09] MEDS: CALCIUM CARBONATE CHEW 500 MG TABLET PO SCH ×2 (08:33→20:37)
[2020-02-09] MEDS: SODIUM BICARBONATE 650 MG TABLET PO SCH ×2 (08:33→20:38)
[2020-02-09] MEDS: ethyl alcohoL 62% SWAB AMPULE NAS SCH ×2 (08:34→20:37)
[2020-02-09 08:42] LABS: ALBUMIN 2.1 g/dL (3.2-5.5); ALBUMIN/GLOBULIN RATIO 0.8 (1.0-2.2); BILIRUBIN,TOTAL 0.4 mg/dL (0.2-1.0); CALCIUM 7.7 mg/dL (8.5-10.3); CREATININE 1.7 mg/dL (0.6-1.2); TOTAL PROTEIN 4.8 g/dL (6.7-8.2)
[2020-02-09] MEDS: buPROPion XL 150 MG TABLET PO SCH (08:42)
[2020-02-09 08:55] LABS: MAGNESIUM 1.7 mg/dL (1.7-2.8); PHOSPHORUS 3.7 mg/dL (2.5-4.6)
--- NOTE | 2020-02-09 18:59 | PROVIDER PROGRESS NOTE ---
Assessment/Plan - Problem List (1) Acute renal failure superimposed on chronic kidney disease Assessment/Plan: Improving every day, this creatinine of 1.7 today is his best in about a month. He needs to continue to have high volume replacement daily, orally and by IV, in order to prevent JASMIN on CKD. He is still getting IV fluids, potassium riders and TPN at 40 cc an hour and iv lipids. The combination of all his parenteral fluids has not yet been consolidated, in order to have a plan ready for what to order for daily administration through his Mediport. Patient states that [facility] called him directly to his cell phone today and stated that they would be managing him starting tomorrow. The patient was wondering if that is indeed correct, because the final tpn/fluids order has not been finalized yet. We are still working on this and the Registered Dietitian will still be adjusting the TPN order. He may be ready for discharge in about 2 more days. (2) Hypotension Assessment/Plan: Patient's blood pressures been 90 systolic for nearly a day, he usually runs 100-120 systolic. The patient is not lightheaded, he states he is able to ambulate, walked in the hallway Carvedilol has had to be on hold for about 24 hours because of these "soft" blood pressures. (3) Short gut syndrome Assessment/Plan: This was established as his diagnosis when he was at [facility] as an inpatient about a week ago. After being discharged from there, and trying to stick to their advised diet and adequate fluid intake, in addition to his meds for pancreatic insufficiency and chronic diarrhea, he could not keep up with enough oral hydration because of his high output diarrhea. The patient tells me today that over the last 2 days, using Lomotil scheduled and Imodium scheduled, the frequency of stools has decreased from 20 per day before this hospitalization down to about 5 to 6 per day. (4) Crohn's disease Assessment/Plan: As per Hx (5) Protein-calorie malnutrition, severe Assessment/Plan: As per Hx (6) Anemia Qualifiers: Anemia type: unspecified type Qualified Code(s): D64.9 - Anemia, unspecified Assessment/Plan: Anemia of chronic disease, as was suspected while he was at [facility] as an inpt several weeks ago. The pt would consent to blood transfusion if needed. (7) Electrolyte and fluid disorder Assessment/Plan: He has needed Ca, Mg, K, Na and serum bicarb corrected. Follow labs daily. He needs a correct amount of each of tghe above to be standard daily order, in his tpn, before he is ready for discharge. (8) Elevated LFTs Assessment/Plan: Possibly from past alcohol use, vs fatty liver. Alcohol abstention was discussed. (9) Hx MRSA infection Assessment/Plan: He is getting nasal swab Rx. (10) Pancreatic insufficiency Assessment/Plan: He is needing pancreatic enzymes daily with meals. (11) Cardiomyopathy Assessment/Plan: This was a recent ne Dx, and he saw his new Ampoule Filler once. Outpt w/u that was ordered by the Ampoule Filler needs to await him being stable from fluid and electrolyte losses and be on a stable tpn order of those. (12) Portal hypertension Assessment/Plan: Appreciate the Gen Sugery consult from Dr Anibal buchanan. Further F/u should be by his regional clinical research associate Dr Ramos. (13) Dehydration Assessment/Plan: Resolved - Current Meds Current Meds: Current Medications Generic Name Dose Route Start Last Admin Trade Name Freq PRN Reason Stop Dose Admin Acetaminophen 650 mg 02/04/20 19:07 02/08/20 06:25 Tylenol PO 650 mg Q4HR PRN Administration Pain or Fever > 38C (100.4F) Alcohol 1 amp 02/06/20 14:00 02/09/20 08:34 Nozin MAXX 1 amp BID KAROLYN Administration Lipase/Protease/Amylase 3 cap 02/06/20 12:00 02/09/20 16:[address] 5,000/17,000/27,000 Correction PO 3 cap TIDWM KAROLYN Administration Bupropion HCl 300 mg 02/05/20 09:00 02/09/20 08:42 Wellbutrin Xl PO 300 mg DAILY KAROLYN Administration Calcium Carbonate/Glycine 500 mg 02/06/20 21:00 02/09/20 08:33 Tums PO 500 mg BID KAROLYN Administration Carvedilol 3.125 mg 02/06/20 21:00 02/09/20 10:40 Coreg PO Not Given BID KAROLYN Diphenoxylate HCl/Atropine 1 tab 02/04/20 22:00 02/09/20 14:37 Lomotil PO 1 tab TID KAROLYN Administration Fat Emulsion Intravenous 250 mls @ 21 mls/hr 02/05/20 19:00 02/09/20 10:41 Intralipid 20% IV Infused Q24H KAROLYN Infusion Potassium Chloride/Sodium Chloride 1,000 mls @ 40 mls/hr 02/05/20 20:00 02/09/20 03:54 Normal Saline 0.9% W/20 Meq Kcl IV 40 mls/hr .Q25H KAROLYN Administration Sodium Bicarbonate 150 meq/ 1,150 mls @ 60 mls/hr 02/08/20 11:00 02/09/20 06:41 Dextrose IV 60 mls/hr .[id number] KAROLYN Administration Multivitamins 10 ml/ Chromium/ 2,011 mls @ 70 mls/hr 02/08/20 19:00 02/08/20 18:52 Copper/Manganese/Seleni/Zn 1 IV 40 mls/hr ml/ Amino Ac/Electrol/Dextrose Q24H KAROLYN Administration /Calcium Protocol Ketorolac Tromethamine 30 mg 02/08/20 19:06 02/09/20 17:04 Toradol Inj (30mg) IVP 02/13/20 19:05 30 mg Q6HR PRN Administration PAIN Loperamide HCl 4 mg 02/04/20 21:00 02/09/20 16:47 Imodium PO 4 mg QID KAROLYN Administration Ondansetron HCl 4 mg 02/05/20 18:36 02/08/20 16:58 Zofran Inj IVP 4 mg Q4HR PRN Administration Nausea / Vomiting Patient Own Med ( 1 each 02/05/20 09:00 02/09/20 08:16 Magnesium L-Lactate PO Not Given [Magnesium L-Lactate DAILY KAROLYN Dihyd Sr] 84 Mg) Patient Own Med ( 1 each 02/05/20 09:07 02/09/20 08:17 Potassium Citrate/ PO Not Given Citric Acid [ BID KAROLYN Potassium Cit-Citric Acid Soln] 10 Ml) Multivit/Folic Acid/Iron 1 tab 02/05/20 08:00 02/09/20 08:33 Trinatal Rx 1 PO 1 tab DAILYWM KAROLYN Administration Sodium Bicarbonate 650 mg 02/04/20 21:00 02/09/20 08:33 Sodium Bicarbonate PO 650 mg BID KAROLYN Administration Sodium Chloride 10 ml 02/04/20 19:07 02/09/20 17:04 Normal Saline Flush 0.9% IVP 10 ml PRN PRN Administration NEEDED PER PROVIDER ORDERS Sodium Chloride 10 ml 02/05/20 01:00 02/09/20 16:47 Normal Saline Flush 0.9% IVP Not Given 0100,0900,1700 KAROLYN - Lab Result Fish Bone Diagrams: 02/11/20 07:45 02/11/20 07:45 - Additional Planning My Orders: My Active Orders 02/08/20 19:00 Multivitamin [Infuvite] 10 ml Trace Elements V Conc [Multitrace-5 Conc Vial] 1 ml TPN (Clinimix E 5/15) [Clinimix E 5%-15% Solution] 2,000 ml IV Q24H 02/08/20 19:06 Ketorolac Inj (30Mg) [Toradol Inj (30Mg)] 30 mg IVP Q6HR PRN 02/09/20 Social Work Consult [CONS] Routine 02/09/20 05:11 Blood Sugar [Blood Glucose POC] [RC] 0800,1200,1700,2100 02/09/20 Lunch DIET [Regular Diet] [DIET] 02/09/20 21:00 Mirtazapine [Remeron] 45 mg PO QPM Zolpidem [Ambien] 10 mg PO QPM 02/10/20 05:00 CALCIUM, IONIZED ([facility]) [BG] DAILYLAB CBC - COMP BLD CT W/AUTO DIFF [HEME] DAILYLAB COMPREHENSIVE METABOLIC PANEL [CHEM] Routine MAGNESIUM [CHEM] Routine PHOSPHORUS [CHEM] Routine PREALBUMIN [CHEM] Routine TRIGLYCERIDES [CHEM] Routine 02/13/20 05:00 COMPREHENSIVE METABOLIC PANEL [CHEM] Routine MAGNESIUM [CHEM] Routine PHOSPHORUS [CHEM] Routine PREALBUMIN [CHEM] Routine TRIGLYCERIDES [CHEM] Routine Subjective - Subjective Patient Reports: Resting Comfortably, Other (He still has mild itching and pain at the new Mediport insertion site of the anterior left chest but says "he can tolerate it. The Toradol did not help much.) Objective Vital Signs: Vital Signs - 24 hr 02/08/20 02/09/20 02/09/20 21:10 00:34 08:37 Temperature 36.5 C 36.9 C Heart Rate [ 61 62 59 L Brachial] Respiratory 20 20 Rate Blood Pressure 94/54 L 92/55 L 96/48 L [Right Brachial artery] O2 Saturation 99 100 02/09/20 02/09/20 08:53 16:53 Temperature 36.8 C Heart Rate [ 65 66 Brachial] Respiratory 20 Rate Blood Pressure 90/57 L 91/59 L [Right Brachial artery] O2 Saturation 100 Oxygen O2 Source Room air I&O (Last 24 Hrs): Intake and Output Totals x24h 02/07/20 02/08/20 02/09/20 23:59 23:59 23:59 Intake Total 4607.850 4950.667 3180 Balance 4607.850 4950.667 3180 General: Alert, Oriented x3 HEENT: EOMI, Mucous membr. moist/pink Neck: Supple, No JVD Neuro: Alert, Non Focal Cardiovascular: Regular rate, No murmurs Respiratory: No respiratory distress Abdomen: Normal bowel sounds, Soft Extremities: No edema - Results Results: Laboratory Results WBC 3.6 x10^3/uL (4.8-10.8) L 02/09/20 05:25 RBC 2.14 10^6/uL (4.70-6.10) L 02/09/20 05:25 Hgb 7.5 g/dL (14.0-18.0) L 02/09/20 07:35 Hct 23.3 % (42.0-52.0) L 02/09/20 07:35 MCV 101.4 fL (80.0-94.0) H 02/09/20 05:25 MCH 32.7 pg (27.0-31.0) H 02/09/20 05:25 MCHC 32.3 g/dL (32.0-36.0) 02/09/20 05:25 RDW 13.2 % (12.0-15.0) 02/09/20 05:25 Plt Count 97 10^3/uL (130-450) L 02/09/20 05:25 MPV 9.5 fL (7.4-11.4) 02/09/20 05:25 Neut # (Auto) 2.4 10^3/uL (1.5-6.6) 02/09/20 05:25 Lymph # (Auto) 0.8 10^3/uL (1.5-3.5) L 02/09/20 05:25 [place] # (Auto) 0.4 10^3/uL (0.0-1.0) 02/09/20 05:25 Eos # (Auto) 0.1 10^3/uL (0.0-0.7) 02/09/20 05:25 Baso # (Auto) 0.0 10^3/uL (0.0-0.1) 02/09/20 05:25 Absolute Nucleated RBC 0.00 x10^3/uL 02/09/20 05:25 Nucleated RBC % 0.0 /100WBC 02/09/20 05:25 VBG pH 7.419 (7.31-7.41) H 02/09/20 08:20 VBG pCO2 34.8 mmHg (41-51) L 02/09/20 08:20 VBG pO2 50.2 mmHg (25-47) H 02/09/20 08:20 VBG HCO3 22.0 mmol/L (23-28) L 02/09/20 08:20 VBG Total CO2 23.1 mmol/L (24-29) L 02/09/20 08:20 VBG O2 Saturation 82.8 % (60-80) H 02/09/20 08:20 VBG Base Excess -2.2 mmol/L (-2 - +2) L 02/09/20 08:20 Ionized Calcium 1.10 mmol/L (1.15-1.33) L 02/09/20 05:25 Sodium 137 mmol/L (135-145) 02/09/20 08:20 Potassium 3.8 mmol/L (3.5-5.0) 02/09/20 08:20 Chloride 106 mmol/L (101-111) 02/09/20 08:20 Carbon Dioxide 23 mmol/L (21-32) 02/09/20 08:20 Anion Gap 8.0 (6-13) 02/09/20 08:20 BUN 33 mg/dL (6-20) H 02/09/20 08:20 Creatinine 1.7 mg/dL (0.6-1.2) H 02/09/20 08:20 Estimated GFR (MDRD) 43 (>89) L 02/09/20 08:20 Glucose 153 mg/dL (70-100) H 02/09/20 08:20 POC Whole Bld Glucose 119 mg/dL (70 - 100) H 02/09/20 16:23 Calcium 7.7 mg/dL (8.5-10.3) L 02/09/20 08:20 Phosphorus 3.7 mg/dL (2.5-4.6) 02/09/20 08:20 Magnesium 1.7 mg/dL (1.7-2.8) 02/09/20 08:20 Total Bilirubin 0.4 mg/dL (0.2-1.0) 02/09/20 08:20 AST 33 IU/L (10-42) 02/09/20 08:20 ALT 23 IU/L (10-60) 02/09/20 08:20 Alkaline Phosphatase 331 IU/L (42-121) H 02/09/20 08:20 Total Protein 4.8 g/dL (6.7-8.2) L 02/09/20 08:20 Albumin 2.1 g/dL (3.2-5.5) L 02/09/20 08:20 Globulin 2.7 g/dL (2.1-4.2) 02/09/20 08:20 Albumin/Globulin Ratio 0.8 (1.0-2.2) L 02/09/20 08:20 Prealbumin 9 mg/dL (18-45) L 02/08/20 05:40 Triglycerides 82 mg/dL (-149) 02/08/20 05:40 Lipase 29 U/L (22-51) 02/04/20 11:12 Vitamin B12 383 pg/mL (180-914) 02/08/20 05:40 Folate 9.80 ng/mL (5.90 - >24.8) 02/08/20 05:40 Nasal Screen MRSA (PCR) POSITIVE (NEGATIVE) A* 02/06/20 10:59
[2020-02-09] MEDS: FAT EMULSION 20% 250 ML IV SCH (19:04)
[2020-02-09] MEDS: TPN (CLINIMIX E 5/15) 2,000 ML with MULTIVITAMIN 10 ML, TRACE ELEMENTS V CONC 1 ML IV SCH ×3 (19:21)
[2020-02-09] MEDS: MIRTAZAPINE 15 MG TABLET PO SCH (20:37)
[2020-02-09] MEDS: ZOLPIDEM 5 MG TABLET PO SCH (20:38)
[2020-02-10] MEDS: SODIUM CHLORIDE FLUSH 0.9% 10 ML SYRINGE IVP SCH ×3 (00:35→17:29)
[2020-02-10] MEDS ORDERED: SODIUM BICARBONATE 8.4% 50 MEQ/50 ML VIAL ONE (01:44)
[2020-02-10] MEDS ORDERED: DEXTROSE 5% 1,000 ML IV ONE (01:53)
[2020-02-10] MEDS: SODIUM BICARBONATE 150 MEQ in DEXTROSE 5% 1,000 ML IV SCH (02:01)
[2020-02-10] MEDS: NS W/20 MEQ KCL 1,000 ML IV SCH (03:44)
[2020-02-10] MEDS: KETOROLAC 30 MG/ML VIAL IVP PRN (06:49)
[2020-02-10] MEDS: SODIUM CHLORIDE FLUSH 0.9% 10 ML SYRINGE IVP PRN (06:50)
[2020-02-10] MEDS: DIPHENOX/ATROPINE 2.5/0.025 MG TABLET PO SCH ×3 (06:50→21:05)
[2020-02-10 07:06] LABS: VBG PH 7.437 (7.31-7.41)
[2020-02-10 07:09] LABS: ALBUMIN/GLOBULIN RATIO 0.8 (1.0-2.2); BILIRUBIN,TOTAL 0.6 mg/dL (0.2-1.0); CALCIUM 7.4 mg/dL (8.5-10.3); CREATININE 1.7 mg/dL (0.6-1.2); MAGNESIUM 1.5 mg/dL (1.7-2.8); PHOSPHORUS 3.1 mg/dL (2.5-4.6); TOTAL PROTEIN 4.5 g/dL (6.7-8.2)
[2020-02-10 07:36] LABS: BASOPHILS % (AUTO) 0.3 %; EOSINOPHILS # (AUTO) 0.1 10^3/uL (0.0-0.7); EOSINOPHILS % (AUTO) 2.1 %; LYMPHOCYTES # (AUTO) 0.7 10^3/uL (1.5-3.5); LYMPHOCYTES % (AUTO) 21.5 %; MEAN CORPUSCULAR HEMOGLOBIN 31.5 pg (27.0-31.0); MEAN CORPUSCULAR HGB CONC 30.8 g/dL (32.0-36.0); MEAN PLATELET VOLUME 9.6 fL (7.4-11.4); MONOCYTES # (AUTO) 0.4 10^3/uL (0.0-1.0); MONOCYTES % (AUTO) 10.7 %; NEUTROPHILS # (AUTO) 2.2 10^3/uL (1.5-6.6); NEUTROPHILS % (AUTO) 64.8 %; PLT - PLATELET COUNT 96 10^3/uL (130-450); RED BLOOD COUNT 1.97 10^6/uL (4.70-6.10); RED CELL DISTRIBUTION WIDTH 13.2 % (12.0-15.0); WHITE BLOOD COUNT 3.4 x10^3/uL (4.8-10.8)
[2020-02-10 07:50] LABS: HGB - HEMOGLOBIN 6.2 g/dL (14.0-18.0)
[2020-02-10] MEDS: LIPASE/PROTEASE/AMYLASE CAPSULE PO SCH ×3 (08:05→17:22)
[2020-02-10] MEDS: CALCIUM CARBONATE CHEW 500 MG TABLET PO SCH ×2 (08:57→21:05)
[2020-02-10] MEDS: buPROPion XL 150 MG TABLET PO SCH (08:57)
[2020-02-10] MEDS: ethyl alcohoL 62% SWAB AMPULE NAS SCH ×2 (08:58→21:05)
[2020-02-10] MEDS: LOPERAMIDE 2 MG CAPSULE PO SCH ×4 (08:58→21:09)
[2020-02-10] MEDS: MAGNESIUM PO SCH (08:58)
[2020-02-10] MEDS: CITRIC ACID PO SCH ×2 (08:58→21:07)
[2020-02-10] MEDS: POTASSIUM CITRATE PO SCH ×2 (08:58→21:07)
[2020-02-10] MEDS: PRENATAL VITAMIN TABLET PO SCH (08:58)
[2020-02-10] MEDS: LACTATE PO SCH (08:58)
[2020-02-10] MEDS: SODIUM BICARBONATE 650 MG TABLET PO SCH ×2 (09:01→21:14)
[2020-02-10] MEDS: carvediloL 3.125 MG TABLET PO SCH ×2 (09:07→20:55)
[2020-02-10] MEDS: TPN (CLINIMIX E 5/15) 2,000 ML with MULTIVITAMIN 10 ML, TRACE ELEMENTS V CONC 1 ML, MAG... IV SCH ×4 (12:01)
--- NOTE | 2020-02-10 12:19 | PROVIDER PROGRESS NOTE ---
Subjective - Prog Note Date Prog Note Date: 02/10/20 Prog Note Time: 12:17 - Subjective Pt reports feeling: Improved Subjective: he is Concerned about his diagnosis of portal hypertension, risk of liver disease, etc. He wants to know if he has a chance of recovery down the road. Nursing is also stating that he is very fixated on the drug Gattex. It was mentioned to him by the surgeon as treatment of his colitis. I have explained to him that he will need to discuss that with his snailer. Current Medications - Current Medications Current Medications: Active Medications Acetaminophen (Tylenol) 650 mg PO Q4HR PRN PRN Reason: Pain or Fever > 38C (100.4F) Last Admin: 02/08/20 06:25 Dose: 650 mg Documented by: Alcohol (Nozin) 1 amp MAXX BID [facility] Last Admin: 02/10/20 08:58 Dose: 1 amp Documented by: Lipase/Protease/Amylase (Pancrelipase Dr 5,000/17,000/27,000 Correction) 3 cap PO TIDWM [facility] Last Admin: 02/10/20 12:27 Dose: 3 cap Documented by: Bupropion HCl (Wellbutrin Xl) 300 mg PO DAILY [facility] Last Admin: 02/10/20 08:57 Dose: 300 mg Documented by: Calcium Carbonate/Glycine (Tums) 500 mg PO BID [facility] Last Admin: 02/10/20 08:57 Dose: 500 mg Documented by: Carvedilol (Coreg) 3.125 mg PO BID [facility] Last Admin: 02/10/20 09:07 Dose: Not Given Documented by: Diphenoxylate HCl/Atropine (Lomotil) 1 tab PO TID [facility] Last Admin: 02/10/20 06:50 Dose: 1 tab Documented by: Heparin Sodium (Beef Lung) () 300 - 500 unit IVP PRN PRN PRN Reason: Port Protocol (>24 hours) Heparin Sodium (Beef Lung) () 30 - 50 unit IVP PRN PRN PRN Reason: Port Protocol (<24 hours) Fat Emulsion Intravenous (Intralipid 20%) 250 mls @ 21 mls/hr IV Q24H [facility] Last Infusion: 02/10/20 12:24 Dose: Infused Documented by: Potassium Chloride/Sodium Chloride (Normal Saline 0.9% W/20 Meq Kcl) 1,000 mls @ 40 mls/hr IV .Q25H [facility] Last Admin: 02/10/20 03:44 Dose: 40 mls/hr Documented by: Sodium Bicarbonate 150 meq/ (Dextrose) 1,150 mls @ 60 mls/hr IV .[id number] [facility] Last Admin: 02/10/20 02:01 Dose: 60 mls/hr Documented by: Multivitamins 10 ml/ Chromium/Copper/Manganese/Seleni/Zn 1 ml/ Magnesium Sulfate 2 gm/Amino Ac/Electrol/Dextrose/Calcium 2,015 mls @ 70.139 mls/hr IV Q24H [facility]; Protocol Last Admin: 02/10/20 12:01 Dose: 70.139 mls/hr Documented by: Ketorolac Tromethamine (Toradol Inj (30mg)) 30 mg IVP Q6HR PRN PRN Reason: PAIN Stop: 02/13/20 19:05 Last Admin: 02/10/20 06:49 Dose: 30 mg Documented by: Loperamide HCl (Imodium) 4 mg PO QID [facility] Last Admin: 02/10/20 08:58 Dose: 4 mg Documented by: Mirtazapine (Remeron) 45 mg PO QPM [facility] Last Admin: 02/09/20 20:37 Dose: 45 mg Documented by: Ondansetron HCl (Zofran Inj) 4 mg IVP Q4HR PRN PRN Reason: Nausea / Vomiting Last Admin: 02/08/20 16:58 Dose: 4 mg Documented by: Patient Own Med ( Magnesium L-Lactate [Magnesium L-Lactate Dihyd Sr] 84 Mg) 1 each PO DAILY [facility] Last Admin: 02/10/20 08:58 Dose: Not Given Documented by: Patient Own Med ( Potassium Citrate/Citric Acid [ Potassium Cit-Citric Acid Soln] 10 Ml) 1 each PO BID [facility] Last Admin: 02/10/20 08:58 Dose: Not Given Documented by: Multivit/Folic Acid/Iron (Trinatal Rx 1) 1 tab PO DAILYWM [facility] Last Admin: 02/10/20 08:58 Dose: 1 tab Documented by: Sodium Bicarbonate (Sodium Bicarbonate) 650 mg PO BID [facility] Last Admin: 02/10/20 09:01 Dose: 650 mg Documented by: Sodium Chloride (Normal Saline Flush 0.9%) 10 ml IVP PRN PRN PRN Reason: NEEDED PER PROVIDER ORDERS Last Admin: 02/10/20 06:50 Dose: 10 ml Documented by: Sodium Chloride (Normal Saline Flush 0.9%) 10 ml IVP 0100,0900,1700 [facility] Last Admin: 02/10/20 00:35 Dose: Not Given Documented by: Sodium Chloride (Normal Saline Flush 0.9%) 20 ml IVP PRN PRN PRN Reason: After Blood Draw Zolpidem Tartrate (Ambien) 10 mg PO QPM [facility] Last Admin: 02/09/20 20:38 Dose: 10 mg Documented by: Calcium Citrate 1,000 mg PO TID 09/17/19 Ergocalciferol (Vitamin D2) [Vitamin D2] 1 cap ORAL .WEEKLY 11/12/19 Mirtazapine 45 mg ORAL QPM PRN 11/12/19 Potassium Citrate/Citric Acid [Potassium Cit-Citric Acid Soln] 10 ml ORAL BID 11/12/19 Zolpidem Tartrate 10 mg PO QPM PRN 11/12/19 Acetaminophen [Tylenol Extra Strength] 500 mg PO Q4HR PRN 01/24/20 Lactobacil 2-S.thermo-Bifido 1 [High Potency Probiotic 112.5 B] 1 cap PO BID 01/24/20 Loperamide HCl [Imodium A-D] 2 mg PO Q6H PRN 01/24/20 Sodium Bicarbonate 1,950 mg PO BID 01/24/20 Lipase/Protease/Amylase [Creon Dr 12,000 Units Capsule] 3 cap PO TID 02/05/20 Multivitamin [Daily Multiple Vitamin] 1 tab PO DAILY 02/05/20 buPROPion HCL [Bupropion HCl] 150 mg PO BID 02/05/20 Objective - Vital Signs/Intake & Output Reviewed Vital Signs: Yes Vital Signs: Vital Signs x48h Temp Pulse Pulse Resp BP BP BP 02/10/20 12:06 36.7 C 68 18 98/59 L 02/10/20 09:07 66 95/62 02/10/20 08:44 37.0 C 62 124/61 02/10/20 07:55 37 C 67 16 104/64 Pulse Ox 02/10/20 12:06 02/10/20 09:07 02/10/20 08:44 98 02/10/20 07:55 100 Intake & Output: Intake & Output 02/07/20 02/08/20 02/09/20 02/10/20 23:59 23:59 23:59 23:59 Intake Total 4607.850 4950.667 4159.333 2303.333 Output Total 225 Balance 4607.850 4950.667 4159.333 2078.333 - Objective General Appearance: positive: No acute distress, Alert, Other (5 foot 8 inch white male who weighs 61.5 kg. Cachexia is evident and a very lean body mass. Otherwise alert, talkative.) Eyes Bilateral: positive: PERRL, EOMI ENT: positive: Pharynx nml Neck: positive: No JVD. negative: Stiff neck, Carotid bruit Respiratory: positive: Chest non-tender, Other (Anterior wall port on the left side). negative: Wheezes, Rales, Rhonchi Cardiovascular: positive: Regular rate & rhythm. negative: Systolic murmur, Gallop/S4, Friction rub Abdomen: positive: No organomegaly, Nml bowel sounds, Other (Mild diffuse vague tenderness, and mild vague distention.). negative: Guarding, Rebound Skin: positive: Warm, Dry, Pallor Extremities: positive: Non-tender. negative: No pedal edema Neurologic/Psychiatric: positive: Oriented x3, CN's nml (2-12), Motor nml. negative: Mood/affect nml (Very anxious.) - Lab Results Fish Bones: 02/10/20 06:43 02/10/20 06:43 Other Labs: Lab Results x24hrs 02/10/20 02/10/20 02/10/20 Range/Units 12:02 10:20 09:35 WBC (4.8-10.8) x10^3/uL RBC (4.70-6.10) 10^6/uL Hgb (14.0-18.0) g/dL Hct (42.0-52.0) % MCV (80.0-94.0) fL MCH (27.0-31.0) pg MCHC (32.0-36.0) g/dL RDW (12.0-15.0) % Plt Count (130-450) 10^3/uL MPV (7.4-11.4) fL Neut # (Auto) (1.5-6.6) 10^3/uL Lymph # (Auto) (1.5-3.5) 10^3/uL [place] # (Auto) (0.0-1.0) 10^3/uL Eos # (Auto) (0.0-0.7) 10^3/uL Baso # (Auto) (0.0-0.1) 10^3/uL Absolute Nucleated RBC x10^3/uL Nucleated RBC % /100WBC VBG pH (7.31-7.41) Ionized Calcium (1.15-1.33) mmol/L Sodium (135-145) mmol/L Potassium (3.5-5.0) mmol/L Chloride (101-111) mmol/L Carbon Dioxide (21-32) mmol/L Anion Gap (6-13) BUN (6-20) mg/dL Creatinine (0.6-1.2) mg/dL Estimated GFR (MDRD) (>89) Glucose (70-100) mg/dL POC Whole Bld Glucose 108 H (70 - 100) mg/dL Calcium (8.5-10.3) mg/dL Phosphorus (2.5-4.6) mg/dL Magnesium (1.7-2.8) mg/dL Total Bilirubin (0.2-1.0) mg/dL AST (10-42) IU/L ALT (10-60) IU/L Alkaline Phosphatase (42-121) IU/L Total Protein (6.7-8.2) g/dL Albumin (3.2-5.5) g/dL Globulin (2.1-4.2) g/dL Albumin/Globulin Ratio (1.0-2.2) Prealbumin (18-45) mg/dL Triglycerides ( - 149) mg/dL Blood Type B POSITIVE Cancelled Blood Type Recheck Antibody Screen NEGATIVE Cancelled Crossmatch IS Only See Detail See Detail 02/10/20 02/10/20 02/10/20 Range/Units 07:25 06:43 06:43 WBC (4.8-10.8) x10^3/uL RBC (4.70-6.10) 10^6/uL Hgb (14.0-18.0) g/dL Hct (42.0-52.0) % MCV (80.0-94.0) fL MCH (27.0-31.0) pg MCHC (32.0-36.0) g/dL RDW (12.0-15.0) % Plt Count (130-450) 10^3/uL MPV (7.4-11.4) fL Neut # (Auto) (1.5-6.6) 10^3/uL Lymph # (Auto) (1.5-3.5) 10^3/uL [place] # (Auto) (0.0-1.0) 10^3/uL Eos # (Auto) (0.0-0.7) 10^3/uL Baso # (Auto) (0.0-0.1) 10^3/uL Absolute Nucleated RBC x10^3/uL Nucleated RBC % /100WBC VBG pH 7.437 H (7.31-7.41) Ionized Calcium 1.09 L (1.15-1.33) mmol/L Sodium (135-145) mmol/L Potassium (3.5-5.0) mmol/L Chloride (101-111) mmol/L Carbon Dioxide (21-32) mmol/L Anion Gap (6-13) BUN (6-20) mg/dL Creatinine (0.6-1.2) mg/dL Estimated GFR (MDRD) (>89) Glucose (70-100) mg/dL POC Whole Bld Glucose 132 H (70 - 100) mg/dL Calcium (8.5-10.3) mg/dL Phosphorus (2.5-4.6) mg/dL Magnesium (1.7-2.8) mg/dL Total Bilirubin (0.2-1.0) mg/dL AST (10-42) IU/L ALT (10-60) IU/L Alkaline Phosphatase (42-121) IU/L Total Protein (6.7-8.2) g/dL Albumin (3.2-5.5) g/dL Globulin (2.1-4.2) g/dL Albumin/Globulin Ratio (1.0-2.2) Prealbumin (18-45) mg/dL Triglycerides ( - 149) mg/dL Blood Type Blood Type Recheck B POSITIVE Antibody Screen Crossmatch IS Only 09/15/20 09/15/20 09/14/20 Range/Units 06:43 06:43 20:17 WBC 3.4 L (4.8-10.8) x10^3/uL RBC 1.97 L (4.70-6.10) 10^6/uL Hgb 6.2 L* (14.0-18.0) g/dL Hct 20.1 L (42.0-52.0) % MCV 102.0 H (80.0-94.0) fL MCH 31.5 H (27.0-31.0) pg MCHC 30.8 L (32.0-36.0) g/dL RDW 13.2 (12.0-15.0) % Plt Count 96 L (130-450) 10^3/uL MPV 9.6 (7.4-11.4) fL Neut # (Auto) 2.2 (1.5-6.6) 10^3/uL Lymph # (Auto) 0.7 L (1.5-3.5) 10^3/uL [place] # (Auto) 0.4 (0.0-1.0) 10^3/uL Eos # (Auto) 0.1 (0.0-0.7) 10^3/uL Baso # (Auto) 0.0 (0.0-0.1) 10^3/uL Absolute Nucleated RBC 0.00 x10^3/uL Nucleated RBC % 0.0 /100WBC VBG pH (7.31-7.41) Ionized Calcium (1.15-1.33) mmol/L Sodium 136 (135-145) mmol/L Potassium 4.1 (3.5-5.0) mmol/L Chloride 105 (101-111) mmol/L Carbon Dioxide 24 (21-32) mmol/L Anion Gap 7.0 (6-13) BUN 29 H (6-20) mg/dL Creatinine 1.7 H (0.6-1.2) mg/dL Estimated GFR (MDRD) 43 L (>89) Glucose 153 H (70-100) mg/dL POC Whole Bld Glucose 132 H (70 - 100) mg/dL Calcium 7.4 L (8.5-10.3) mg/dL Phosphorus 3.1 (2.5-4.6) mg/dL Magnesium 1.5 L (1.7-2.8) mg/dL Total Bilirubin 0.6 (0.2-1.0) mg/dL AST 39 (10-42) IU/L ALT 29 (10-60) IU/L Alkaline Phosphatase 345 H (42-121) IU/L Total Protein 4.5 L (6.7-8.2) g/dL Albumin 2.0 L (3.2-5.5) g/dL Globulin 2.5 (2.1-4.2) g/dL Albumin/Globulin Ratio 0.8 L (1.0-2.2) Prealbumin 12 L (18-45) mg/dL Triglycerides 102 ( - 149) mg/dL Blood Type Blood Type Recheck Antibody Screen Crossmatch IS Only 02/09/20 Range/Units 16:23 WBC (4.8-10.8) x10^3/uL RBC (4.70-6.10) 10^6/uL Hgb (14.0-18.0) g/dL Hct (42.0-52.0) % MCV (80.0-94.0) fL MCH (27.0-31.0) pg MCHC (32.0-36.0) g/dL RDW (12.0-15.0) % Plt Count (130-450) 10^3/uL MPV (7.4-11.4) fL Neut # (Auto) (1.5-6.6) 10^3/uL Lymph # (Auto) (1.5-3.5) 10^3/uL [place] # (Auto) (0.0-1.0) 10^3/uL Eos # (Auto) (0.0-0.7) 10^3/uL Baso # (Auto) (0.0-0.1) 10^3/uL Absolute Nucleated RBC x10^3/uL Nucleated RBC % /100WBC VBG pH (7.31-7.41) Ionized Calcium (1.15-1.33) mmol/L Sodium (135-145) mmol/L Potassium (3.5-5.0) mmol/L Chloride (101-111) mmol/L Carbon Dioxide (21-32) mmol/L Anion Gap (6-13) BUN (6-20) mg/dL Creatinine (0.6-1.2) mg/dL Estimated GFR (MDRD) (>89) Glucose (70-100) mg/dL POC Whole Bld Glucose 119 H (70 - 100) mg/dL Calcium (8.5-10.3) mg/dL Phosphorus (2.5-4.6) mg/dL Magnesium (1.7-2.8) mg/dL Total Bilirubin (0.2-1.0) mg/dL AST (10-42) IU/L ALT (10-60) IU/L Alkaline Phosphatase (42-121) IU/L Total Protein (6.7-8.2) g/dL Albumin (3.2-5.5) g/dL Globulin (2.1-4.2) g/dL Albumin/Globulin Ratio (1.0-2.2) Prealbumin (18-45) mg/dL Triglycerides ( - 149) mg/dL Blood Type Blood Type Recheck Antibody Screen Crossmatch IS Only ABX Reporting Has patient been on IV antibiotics over the past 48 hours?: No Assessment/Plan - Problem List (1) Anemia Impression: [facility] notes indicate they think he has anemia of chronic disease. B12, folate levels were rechecked since he has macrocytosis, and these were normal. With hemoglobin of 7.1 on admission and 6.2 today, Plan: Transfuse 2 units Monitor daily vitamins continue in TPN Qualifiers: Anemia type: unspecified type Qualified Code(s): D64.9 - Anemia, unspecified (2) Dehydration Impression: This patient's BUN/creatinine ratio went up. 26/2.1 >> 32/1.9 >> 29/1.7 today. [place] to be a result of several hours of being n.p.o. before going to the OR for Mediport placement. Continue with aggressive fluid replacement using TPN, IV fluids, replacement riders and oral intake at 125 cc an hour or more. He requires monitoring for pulmonary fluid overload however because of his cardiomyopathy. Follow BMP daily. (3) Acute renal failure superimposed on chronic kidney disease Assessment/Plan: As above in #1. Follow BMP daily Avoid nephrotoxins. (4) Short gut syndrome Assessment/Plan: This diagnosis was established at his recent inpatient stay at [facility] by his gastroenterology specialist. Had about 1 month of high-volume liquidy diarrhea, not in Crohn's flareup. He has tried different diets especially a low sugar diet and it did not help the high output fluid loss and diarrhea He will need TPN for greater than 90 days, possibly 6 months, for rehydration, electrolyte stabilization and for weight gain. He is not a candidate to try enteral nutrition like through a PEG tube because he actually can swallow and the problem is beyond the stomach and proximal small bowel. He has fluid losses and rapid transit associated with his colon. Peripheral PN was started with lipids, being adjusted by registered dietitian. He is tolerating this. The total fluid input of ppn, iv fluids and riders, is at approximately 125 cc/h, in order to correct his intravascular volume depletion and to start nourishing him with protein and calories. Placement of a Mediport done by the general surgeon 02/06, and was OKd to use. He will need training in using it as well. He has been started and is stable so far. The only adjustment today, after reviewing labs, is adding magnesium. Administering TPN as an outpatient is alvarado ng arranged by our ordnance mechanic, social workers and registered dietitian. Findings of early portal hypertension, seen on MRCP, are concerning and I have asked general surgery to comment on this, in light of needed TPN use. (5) Crohn's disease Assessment/Plan: This was diagnosed at age 13. He had surgery starting at age 17. He has multiple bowel surgeries. There is no flare up currently, as per the notes from [facility] from 1 week ago when he was hospitalized there. There is a fistula that is perianal and his diarrhea is probably exacerbating this from healing. He is getting Entyvio at [facility] here, managed by his snailer Dr. Ramos. [place] been working on that and he has identified and [facility] as the person he will establish care with. (6) Protein-calorie malnutrition, severe Assessment/Plan: This patient has had 9% weight loss over the past 3 months and also lost muscle and fat and developed weakness and deconditioning. He has tried replacing orally and has required multiple peripheral iv replacement strategies, none have worked. The plan is to treat with TPN as described above. With findings of early portal hypertension, TPN may add to liver disease. I have asked for General Surgery consult to comment on this. I spoke to Dr. Barnett who will see the pt. (7) Electrolyte and fluid disorder Assessment/Plan: Potassium was replaced and is normal today Magnesium was replaced and is low again today. Will add more Mag. Calcium is still low again and needs to be replaced. His pH is low again (7.3) on VBG today and bicarbonate is low. Another 1 L of sodium bicarbonate and D5 will be ordered He is also getting oral sodium bicarb 650mg twice daily Follow BMP and trace elements daily. Will follow VBG daily for his pH. (8) Cirrhosis with elevated LFT's and portal hypertension Assessment/Plan: Patient has a history of alcoholic pancreatitis in the past. LFTs are improving. The GI specialist had wanted MRCP which was done and was read as having early portal HTN. Gen Surgery consult bordered to comment on this. Note was appreciated. Patient heard what we had to say and says he will no longer drink at all. He is terrified of dying. (9) Hx MRSA infection Assessment/Plan: He had previous wound MRSA infections earlier this year. He is testing positive on his MRSA nasal swab here. We ordered Nozin nasal swabs twice daily.
[2020-02-10] MEDS: FAT EMULSION 20% 250 ML IV SCH (19:14)
[2020-02-10] MEDS: ZOLPIDEM 5 MG TABLET PO SCH (21:06)
[2020-02-10] MEDS: MIRTAZAPINE 15 MG TABLET PO SCH (21:06)
[2020-02-11] MEDS: SODIUM CHLORIDE FLUSH 0.9% 10 ML SYRINGE IVP SCH ×2 (01:58→12:04)
[2020-02-11] MEDS: SODIUM BICARBONATE 150 MEQ in DEXTROSE 5% 1,000 ML IV SCH (02:25)
[2020-02-11] MEDS: DIPHENOX/ATROPINE 2.5/0.025 MG TABLET PO SCH ×2 (06:02→13:14)
--- NOTE | 2020-02-11 07:19 | ADVANCE CARE PLANNING NOTE ---
Advance Care Planning - Planning Encounter Date: 02/11/20 Time: 07:17 Purpose: His mother wants to establish his code status in writing Parties in Attendance: Mother, patient, hospitalist Decisional Capacity of the Patient: alert, oriented, makes his own decisions and mom confirms that - Diagnosis for Encounter (1) Protein-calorie malnutrition, severe Summary: He has had multiple surgeries for Crohn's disease complications. This is resulted in a severe dumping syndrome. He is chronically malnourished because he cannot absorb food and has chronic diarrhea. This is resulted in multiple encounters with almost weekly visits for IV fluids for hydration. It is complicated by the fact that he has been abusing alcohol. With this admission, he is now to receive TPN for a minimum of 90 days. Dehydration has resolved. 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 He is eating mainly breakfast and snacking the rest of the day. - Encounter Subjective/Patient's Story: He is a adopted son of 2 parents who are now in their mid 80s. He was employed for over 20 years but eventually had to stop working because of complications of his Crohn's disease. He is never , has no children. He finds that he has lost contact with a lot of his friends from the workforce. 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 But because of illness and now living on [facility], he is lost touch with him. It is down to he and his elderly parents. The Crohn's developed so many complications resulting in chronic pain. He used alcohol to dull the pain as well as anxiety. He did not realize how badly the drinking was affecting his liver as well. In this hospitalization for severe protein calorie malnutrition and dehydration, he has been found to have cirrhosis, portal hypertension. He is now on the mend. Surprisingly his mother has asked him to fill out a physician order for life-sustaining treatment. She is recommending that he be DNR. He is startled. Tells me and his mom that he is never really thought about any of these things. He has not thought out for himself what a good quality of life means to him. He does know that if he were to become bedbound, not able to take care of himself anymore, completely dependent on people to feed him, bathe him, he would not want to live much more than that. But until that time comes, he thinks that he still wants everything done. He does state that if we were to be treating him for illness, and in spite of aggressive treatment, intubation, pressors, etc., but no response and it looks like he was going to , he would not want CPR at that point in time. Objective/Medical Story: 54-year-old white male with a history of Crohn's disease since childhood, several bowel resections, chronic kidney disease, frequent visits to the emergency room for dehydration and 2-3 admissions for acute kidney injury on chronic kidney injury, recent diagnosis with cardiomyopathy and ejection fraction of 40% that now presents again with severe diarrhea, unable to eat, very tired. In the emergency room severely dehydrated. He was admitted here January 22 through January 24 and he required transfer to [facility] for higher level of care with gastroenterology and nephrology because of continued high output liquid diarrhea multiple times a day and inability to manage dehydration without parenteral IVs. He was seen by gastroenterology there. Maintain on his remittive therapy. Cholestyramine was contraindicated and stopped. He was started on scheduled Lomotil. Also on loperamide. He was noted to have metabolic acidosis at that time without a gap presumed to be from diarrhea. He is to be on baseline p.o. bicarb at home. 1950 twice daily. He has a cardiomyopathy with an ejection fraction of 45%. He saw airframe and powerplant technician January 21 and he is to have a Lexiscan and an outpatient echo. He has chronic pancreatitis and malabsorption and is to be on pancrelipase. Elevated alk phos is been done in the past and an MRCP was normal November 2019. With this admission he has received aggressive IV fluid hydration, at times a bicarb drip, and was placed on TPN. General surgery feels that this patient will need to be on TPN for maintenance for minimum of 90 days if not more. He will need to follow-up with his outpatient tech intern. He is not happy with his tech intern at [facility] and is requesting a new tech intern. Goals of Care: 1. To maintain independence for as long as possible. His parents and he are concerned about the fact that they are elderly, and although healthy, will eventually not be in his life. He and they worry about what he will be like if he needs continued care and help. 2. To increase his nutrition to the point that he can come off TPN 3. To heal his anal fistula 4. To stop drinking alcohol permanently 5. To find a new tech intern 6. To find a new primary care provider Plan: 1. I explained to him that he could most likely stay with [facility] gastroenterology at the [place] office. Just switch tech intern from his previous tech intern to another colleague within that same office. If this does not work out for him, I have given him the name of [facility] gastroenterology since they have clinics in [place]. 2. Establish a power of real estate associate attorney. Will that be of friend, or an agency that is paid for this, he needs to at least start establishing those goals. 3. Sit down with a financial sales consultant. If his parents , and he is unable to make do with his current disability payments, how does he plan to faces future. 4. His identified and Pietro is his new primary care provider and we will send her discharge summary. 5. Fill out physician order for life-sustaining treatment form reflecting his desire to be fully resuscitated. However, if he has been aggressively treated with a long hospitalization, and no matter what we do he is still not responding and expected to , to let him go Code Status: Attempt Resuscitation Time spent on advance care plannin minutes
[2020-02-11 07:59] LABS: BASOPHILS % (AUTO) 0.5 %; EOSINOPHILS # (AUTO) 0.1 10^3/uL (0.0-0.7); EOSINOPHILS % (AUTO) 1.6 %; HGB - HEMOGLOBIN 8.8 g/dL (14.0-18.0); MEAN CORPUSCULAR HGB CONC 32.1 g/dL (32.0-36.0); MEAN CORPUSCULAR VOLUME 99.6 fL (80.0-94.0); MEAN PLATELET VOLUME 9.5 fL (7.4-11.4); MONOCYTES # (AUTO) 0.6 10^3/uL (0.0-1.0); MONOCYTES % (AUTO) 13.1 %; NEUTROPHILS # (AUTO) 2.6 10^3/uL (1.5-6.6); NEUTROPHILS % (AUTO) 61.3 %; PLT - PLATELET COUNT 96 10^3/uL (130-450); RED BLOOD COUNT 2.75 10^6/uL (4.70-6.10); RED CELL DISTRIBUTION WIDTH 14.6 % (12.0-15.0); WHITE BLOOD COUNT 4.3 x10^3/uL (4.8-10.8)
[2020-02-11] MEDS: LIPASE/PROTEASE/AMYLASE CAPSULE PO SCH ×2 (08:02→12:03)
[2020-02-11] MEDS: PRENATAL VITAMIN TABLET PO SCH (08:02)
[2020-02-11 08:10] LABS: CALCIUM 7.9 mg/dL (8.5-10.3); CREATININE 1.5 mg/dL (0.6-1.2); PHOSPHORUS 3.3 mg/dL (2.5-4.6)
--- NOTE | 2020-02-11 08:19 | Discharge Plan ---
Discharge Plan Problem Reviewed?: Yes Disposition: Home Health Service Condition: Fair Diet: Regular Activity Restrictions: Activity as Tolerated Shower Restrictions: Yes (follow instructions for [facility] care) Driving Restrictions: No Health Concerns: You came to our emergency room after being home for only a few days after discharge from [facility]. You were weak, dehydrated, kidney function was deteriorating, low potassium, low magnesium. All of this is due to short gut syndrome from Crohn's colitis and multiple bowel resections. Treatment consisted of aggressive IV fluids, replacement of calcium/magnesium phosphorus/potassium and starting intravenous nutrition in the form of total parenteral nutrition. You are also anemic and received 1 unit of packed cells. We also found you to have cirrhosis with elevated liver function studies and portal hypertension. Portal hypertension means you have high blood pressure in the venous system of your liver/spleen. You have been instructed to stop all alcohol intake. Depression with anxiety is a problem. He was supposed to be on an antidepressant but have been infrequent or erratic in your use with med ications. We are strongly encouraging you to take this medications. We also want you to take the pancreatic enzymes that were prescribed to you by [facility]. Plan of Treatment: 1. You will be on total parenteral nutrition for a minimum of [address] Ramos should be the one to followup on that. 2. He will need to follow-up with your stone processing machine operator, Dr. Ramos. You are considering changing to a different stone processing machine operator due to the logistics of Dr. Ramos moving his office from [place] to [facility]. We have discussed the logistics of how you would do that. My first recommendation is that you remain with [facility] and continue to see a colleague of Dr. Ramos at the [facility]. If that is not convenient for you, [facility] gastroenter[facility] has a clinic and [place]. You have asked me to send records to Dr. Henriquez in case you need to see him relatively quickly. 3. Follow-up with a primary care provider. You have chosen Kassie Westbrook as your new primary care provider. Please call her office as soon as possible to establish care. You have also filled out a medical release form and she will be getting a copy of your discharge summary and history and physical from this admission. 4. No alcohol intake whatsoever. Care Goals: To regain good nutrition status, improve endurance, and have Crohn's colitis be stable. Assessment: Patient understands care goals and will follow through. No Smoking: If you smoke, Please STOP! Call for help. Follow-up with: Ryan Bergeron MD [Primary Care Provider] - Jordy Ramos MD [Physician No Access] - Charles Henriquez MD [Provider Admit Priv/Credential] - Kassie Westbrook MD [Provider Admit Priv/Credential] -
[2020-02-11] MEDS: carvediloL 3.125 MG TABLET PO SCH (11:02)
[2020-02-11] MEDS: buPROPion XL 150 MG TABLET PO SCH (11:02)
[2020-02-11] MEDS: LOPERAMIDE 2 MG CAPSULE PO SCH ×2 (11:03→12:04)
[2020-02-11] MEDS: ethyl alcohoL 62% SWAB AMPULE NAS SCH (11:03)
[2020-02-11] MEDS: CALCIUM CARBONATE CHEW 500 MG TABLET PO SCH (11:03)
[2020-02-11] MEDS: SODIUM BICARBONATE 650 MG TABLET PO SCH (11:12)
[2020-02-11] MEDS: NS W/20 MEQ KCL 1,000 ML IV SCH (11:15)
[2020-02-11] MEDS: CITRIC ACID PO SCH (12:04)
[2020-02-11] MEDS: LACTATE PO SCH (12:04)
[2020-02-11] MEDS: MAGNESIUM PO SCH (12:04)
[2020-02-11] MEDS: POTASSIUM CITRATE PO SCH (12:04)
--- NOTE | 2020-02-11 12:24 | DISCHARGE SUMMARY ---
"Discharge Summary Admit Date: 02/04/20 Discharge Date: 02/11/20 Discharging Provider: Lorrie Baird MD Primary Care Provider: Kassie Westbrook MD Code Status: Attempt Resuscitation Condition at Discharge: Fair Discharge Disposition: Home Health Service - DIAGNOSES Discharge Diagnoses with Status of Each Condition: 1. Dehydration 2. Acute kidney injury superimposed on chronic kidney disease 3. Electrolyte and fluid disorder 4. Severe protein calorie malnutrition 5. Anemia of chronic disease 6. Short gut syndrome 7. Crohn's disease 8. History of MRSA infection 9. Alcohol abuse 10. Alcoholic cirrhosis 11. Pancreatic insufficiency 12. Alcoholic cardiomyopathy 13. Depression with anxiety - HPI History of Present Illness: 54-year-old white male with a history of severe dumping syndrome due to Crohn's disease, multiple small bowel resections. He has had Crohn's disease since childhood. His disease status is resulted in severe chronic kidney disease, frequent visits to the emergency room for dehydration and 2 or 3 admissions for acute kidney injury on chronic kidney disease. He was diagnosed with cardiomyopathy with ejection fraction of 45% in the last few months with 1 of his visits to [facility]. He is a chronic alcohol abuser and his myopathy may be due to alcohol abuse. He is due to get a Lexiscan and a repeat echo with a visit to a heel brusher. He was last admitted here January 22 through January 24 for severe liquid diarrhea resulting in severe dehydration. In spite of aggressive IV fluid hydration, he continued to have diarrhea multiple times a day, and he mentioned that his manager battery was thinking about putting in a port or PICC line for TPN. He was transferred to [facility] for higher level of care. They noted that he has a history of alcohol abuse, nicotine dependence. He is supposed to be on pancreatic enzymes and is not taking them. He is status post cholecystectomy in June 2019 complicated by MRSA in November 2019. Extended course of antibiotics with 4 days of Cipro prior to 20 days of Bactrim. Antibiotics seem to induce severe diarrhea in end of November beginning of December that is been nonstop. He last drank in December of this year. Cholestyramine was tried but stopped by [facility] since it is contraindicated. Metamucil was also used but stopped by [facility] and contraindicated. He lost 15 pounds in the month of December unintentionally. [facility] felt that he had fistulas and Crohn's disease, dumping syndrome, chronic pancreatitis, alcohol abuse, chronic dehydration with electrolyte abnormalities and acute on chronic renal injury. And nutrition risk behavior. In view reviewing their records he has nonobstructing bilateral renal stones. An echocardiogram December 25 with an ejection fraction of 40 to 45%. A colonoscopy April 2019 that has slight induration of the anus but no stenosis. Ileocolonic anastomosis. Few aphtha of the rectum. Anal fistula. Biopsies show patchy chronic active colitis in the descending colon. There are treatment of [facility] was to hold his cholestyramine and M etamucil. Increase his use of loperamide and Lomotil. This yielded improvement in the volume of diarrhea. He was also resuscitated with IV fluids and received I re-electrolyte replacement. He was seen by the nutrition team. Even though TPN was discussed, he did not receive central line access. His chronic renal failure improved with IV fluids. He was noted to have metabolic acidosis and was resumed on p.o. bicarb at home. He was seen by cardiology, Dr. Lazo January 21, and there was still an outpatient plan for Lexiscan and echo. Did not require transfusion. Was told to continue the pancrelipase. Continue bupropion and mirtazapine. Continue zolpidem. His elevated alk phos was evaluated with an MRCP that was -December 14. He had no signs of varices from his cirrhosis. After being sent home, he returns with continued diarrhea, weakness, dehydration. He is in again acute kidney failure. Electrolyte derangement is noted. Moderate protein calorie malnutrition is noted. - CONSULTS | PROCEDURES Consultations: General Surgery, Dr. Barnett Procedures: 1. Chest x-ray with left port placement. Right costophrenic angle blunting related to scarring versus trace effusion. 2. MRCP with elevated liver enzymes and alk phos shows diminutive pancreas with chronic pancreatitis. Possible pancreatic ductal calcification near ampulla. Potential pancreas divisum morphology. Fluid along the falciform ligament and focal thin-walled fluid collection adjacent to the caudal aspect of the liver. Residual postsurgical seroma versus biloma. Splenomegaly with hypointense and hypoenhancing splenic lesions. Splenic and portal vein engorgement. 3. Port placement, left chest Mediport 4. TPN - HOSPITAL COURSE Hospital Course: The patient was felt to have a very severe short gut syndrome with severe renal failure and dehydration secondary to that. Also significant protein calorie malnutrition. He was aggressively hydrated, and then transition to TPN. Because of his history it was felt that he should have central line access we will continue TPN for possibly up to 90 days. Electrolyte and fluid disorder was treated on a daily basis. He was identified as having cirrhosis with from his LFTs being elevated. He is a drinker. Also had portal hypertension. B ecause he had a previous history of MRSA he was treated with nose and nasal spray here. His Crohn's disease has been unable to respond to therapy in the past. He is hoping to get Gattex. Right now he is been on Entyvio.I have asked him to please resume his pancreatic enzymes for pancreatic insufficiency.During his stay advance care planning was discussed. His mother surprise him by asking him to please fill out a POLST form and asked that he make himself a DO NOT RESUSCITATE. After discussing with me, he says that he has not thought about such things up until now. He was not comfortable with DO NOT RESUSCITATE. As that she is a full code. He is discharged to follow-up with his primary care provider, manager battery. He will need his TPN followed. Temperature is 37, pulse is 57, blood pressure 108/70, respirations 16 and 100% on room air. At 5 foot 8 inches tall he is a cachectic 61.5 kg appearance. Alert oriented. Neck is supple. Lungs are clear with no increased respiratory effort. PMI normally placed. Abdomen benign with hypoactive bowel sounds. Extremities with decreased muscle mass and no edema. Greater than 30 minutes were spent coordinating discharge. - ALLERGIES Allergies/Adverse Reactions: Allergies Allergy/AdvReac Type Severity Reaction Status Date / Time No Known Drug Allergies Allergy Verified 02/04/20 10:39 - MEDICATIONS Home Medications: Ambulatory Orders Medication Instructions Recorded Confirmed Calcium Citrate 1,000 mg PO TID 09/17/19 02/04/20 Ergocalciferol (Vitamin D2) 1 cap ORAL .WEEKLY 11/12/19 02/04/20 [Vitamin D2] Mirtazapine 45 mg ORAL QPM PRN 11/12/19 02/04/20 Potassium Citrate/Citric Acid 10 ml ORAL BID 11/12/19 02/04/20 [Potassium Cit-Citric Acid Soln] Zolpidem Tartrate 10 mg PO QPM PRN 11/12/19 02/04/20 Magnesium l-Lactate [Magnesium 84 mg PO DAILY #30 tablet.er 12/30/19 02/04/20 l-Lactate Dihyd Sr] carvediloL [Coreg] 3.125 mg PO BID #60 tablet 12/30/19 02/04/20 Acetaminophen [Tylenol Extra 500 mg PO Q4HR PRN 01/24/20 02/05/20 Strength] Lactobacil 2-S.thermo-Bifido 1 1 cap PO BID 01/24/20 02/04/20 [High Potency Probiotic 112.5 B] Loperamide HCl [Imodium A-D] 2 mg PO Q6H PRN 01/24/20 02/04/20 Sodium Bicarbonate 1,950 mg PO BID 01/24/20 01/24/20 Lipase/Protease/Amylase [Creon Dr 3 cap PO TID 02/05/20 12,000 Units Capsule] Multivitamin [Daily Multiple 1 tab PO DAILY 02/05/20 Vitamin] buPROPion HCL [Bupropion HCl] 150 mg PO BID 02/05/20 Dextrose 5% [D5w] 1,000 ml IV .[id number] #30 bag 02/11/20 Fat Emulsion 20% [Intralipid 20%] 50 ml IV Q24H #30 bag 02/11/20 Magnesium Sulfate 2 gm IV Q24H vial 02/11/20 Multivitamin [Infuvite] 10 ml IV Q24H vial 02/11/20 Ns W/20 Meq KCl [Normal Saline 20 ml IV .Q25H #30 bag 02/11/20 0.9% W/20 Meq KCl] Sodium Bicarbonate 150 meq IV .[id number] vial 02/11/20 TPN (Clinimix E 5/15) [Clinimix E 2,000 ml IV Q24H #30 bag 02/11/20 5%-15% Solution] Trace Elements V Conc 1 ml IV Q24H vial 02/11/20 [Multitrace-5 Conc Vial] - LABS Result Diagrams: 02/11/20 07:45 02/11/20 07:45"
[2020-02-11] MEDS: TPN (CLINIMIX E 5/15) 2,000 ML with MULTIVITAMIN 10 ML, TRACE ELEMENTS V CONC 1 ML, MAG... IV SCH ×4 (12:52)
[2020-02-11] MEDS ORDERED: LIDOCAINE 1% 2 ML VIAL SUBQ SCH (15:16)
[2020-02-11 16:36] VITALS: BP 108/70
== END 2020-02-11 17:00 | disposition home health service (06) | DRG 673 ==
LOC: ED 10:28 → MS2 13:00
PROVIDERS: ADMIT Internal Medicine; ATTEND Specialist
PROC: 3E0436Z Introduction of Nutritional Substance into Central Vein, Percutaneous Approach (ICD-10-PCS; 2020-02-05)
PROC: 02HV33Z Insertion of Infusion Device into Superior Vena Cava, Percutaneous Approach (ICD-10-PCS; 2020-02-07)
PROC: 0JH60WZ Insertion of Totally Implantable Vascular Access Device into Chest Subcutaneous Tissue and Fascia, Open Approach (ICD-10-PCS; principal; 2020-02-07 12:00)
PROC: 30233N1 Transfusion of Nonautologous Red Blood Cells into Peripheral Vein, Percutaneous Approach (ICD-10-PCS; 2020-02-10)
DX: N17.9 Acute kidney failure, unspecified (principal); E86.9 Volume depletion, unspecified; E43 Unspecified severe protein-calorie malnutrition; K91.2 Postsurgical malabsorption, not elsewhere classified; K50.90 Crohn's disease, unspecified, without complications; I42.6 Alcoholic cardiomyopathy; K76.6 Portal hypertension; R64 Cachexia; F10.10 Alcohol abuse, uncomplicated; K70.30 Alcoholic cirrhosis of liver without ascites; K86.89 Other specified diseases of pancreas; E86.0 Dehydration; N18.9 Chronic kidney disease, unspecified; D63.8 Anemia in other chronic diseases classified elsewhere; F41.8 Other specified anxiety disorders; K60.3 Anal fistula; T45.3X Poisoning by, adverse effect of and underdosing of enzymes; Z91.128 Patient's intentional underdosing of medication regimen for other reason; Y92.009 Unspecified place in unspecified non-institutional (private) residence as the place of occurrence of the external cause; E83.42 Hypomagnesemia; E83.51 Hypocalcemia; R16.1 Splenomegaly, not elsewhere classified; E87.6 Hypokalemia; R74.8 Abnormal levels of other serum enzymes; E87.8 Other disorders of electrolyte and fluid balance, not elsewhere classified; Z72.89 Other problems related to lifestyle; Z98.0 Intestinal bypass and anastomosis status; Z90.49 Acquired absence of other specified parts of digestive tract; Z68.20 Body mass index [BMI] 20.0-20.9, adult; Z79.899 Other long term (current) drug therapy; Z86.14 Personal history of Methicillin resistant Staphylococcus aureus infection; Z87.891 Personal history of nicotine dependence; Z59.6 Low income
CPT/HCPCS: 36415; 71045; 74183; 80048; 80053; 82330; 82607; 82746; 82803; 83690; 83735; 84100; 84134; 84478; 85014; 85018; 85025; 85027; 86850; 86900; 86901; 86920; 87640; 96365; 96367; 99284; 99285; A9270; A9585; C1788; J2060; J3490; J7040; J7120; P9016

== ENCOUNTER 2020-05-11 08:43 | Outpatient (CLI) | payer MEDICARE, BC | END 2020-05-11 08:44 | disposition home or self-care (01) | LOC: DI 08:43 | PROVIDERS: ATTEND Internal Medicine | DX: R93.1 Abnormal findings on diagnostic imaging of heart and coronary circulation (principal) | CPT/HCPCS: 93306 ==

== ENCOUNTER 2020-06-01 12:52 | Outpatient (CLI) | payer MEDICARE, BC ==
[2020-06-01 14:16] LABS: % IRON SATURATION 5 % (20-50); IRON 23 ug/dL (45-182); TOTAL IRON BINDING CAPACITY 451 ug/dL (250-450); TRANSFERRIN 322 mg/dL (180-329)
== END 2020-06-01 12:53 | disposition home or self-care (01) ==
LOC: LAB 12:52
PROVIDERS: ATTEND Internal Medicine
DX: D64.9 Anemia, unspecified (principal); K50.90 Crohn's disease, unspecified, without complications
CPT/HCPCS: 36415; 82728; 83540; 84466

== ENCOUNTER 2020-06-15 09:22 | Outpatient (CLI) | payer MEDICARE, BC ==
[2020-06-15] MEDS ORDERED: REGADENOSON 0.4 MG/5 ML SYRINGE IVP ONE ×2 (11:46→13:36)
--- NOTE | 2020-06-15 17:03 | Nuclear Medicine Report ---
PROCEDURE: Rest and stress myocardial perfusion SPECT with gated imaging and ejection fraction INDICATIONS: 155LB/ LEXISCAN - LOW EF RADIOPHARMACEUTICAL: 16.0 mCi Tc-99m Myoview IV at rest and 43.5 mCi Tc-99m Myoview IV at peak exerc ise. [id number]-fwf-[id number] was performed. 0.5 mg Lexiscan was administered. TECHNIQUE: Radiopharmaceutical was injected at peak stress test, and also at rest. SPECT images wer e obtained. SPECT myocardial perfusion images were displayed in short axis, horizontal long axis, an d vertical long axis views. Gated images were reviewed using [employer] software. COMPARISON: None available. CARDIAC STRESS: Hemodynamic data: There is normal blood pressure and heart rate response to exercise stress. Symptoms: Patient denied chest pain during exercise. EKG: No diagnostic EKG changes of ischemia. FINDINGS: Raw data: There is good myocardial labeling by radiotracer. No significant motion artifacts. Lung- to-heart ratio is (normal is less than 0.38 for tetrafosmin tracer). Left ventricle function: Gated images demonstrate normal left ventricle wall thickening. No segment al wall motion abnormality. No transient ischemic dilation; TID is 0.94 (normal less than 1.3). The left ventricle resting end-diastolic volume is 112 mL. Left ventricle stress ejection fraction is 6 1%; normal values are above 45%. Myocardial perfusion: There is normal distribution of activity in the left and right ventricular shaye cardium. No fixed or reversible perfusion defects. IMPRESSION: 1. No stress perfusion defects to indicate ischemia. 2. No EKG changes diagnostic for ischemia. 3. Ejection fraction 61%. PQRS ATTESTATIONS: Measure 322 - Is this imaging test primarily performed on a low-risk surgery patient for preoperative evaluation within 30 days preceding their low-risk non-cardiac surgery? Low-risk surgery is defined as cardiac or myocardial infarction less than 1%, including (but not limited to) endoscopic pr ocedures, superficial procedures, cataract surgery, and excisional breast surgery: Answer: No Measure 323 - Is this imaging test performed primarily for the monitoring of an asymptomatic patient who had percutaneous coronary intervention on the visit date or within 2 years of the visit date? An swer: No Measure 324 - Is this imaging test performed primarily for the initial detection and risk assessment on an asymptomatic, low coronary heart disease patient? Low CHD risk definition = clinicians should consider the maximum number of available patient factors used to estimate risk based on [place] (A TP III criteria), typically age, gender, diabetes, smoking status, and use of blood pressure medicati on, and integrate age appropriate estimates for missing elements, such as LDL or standard blood press ure. Answer: No Reviewed by: Kathia Mane MD on 06/15/2020 5:01 PM PST Approved by: Kathia Mane MD on 06/15/2020 5:01 PM PST Station ID: [id number]
== END 2020-06-15 09:23 | disposition home or self-care (01) ==
LOC: DI 09:22
PROVIDERS: ATTEND Internal Medicine
DX: R93.1 Abnormal findings on diagnostic imaging of heart and coronary circulation (principal)
CPT/HCPCS: 78452; 93017; A9500; J2785

== ENCOUNTER 2020-09-16 11:35 | Outpatient (CLI) | payer MEDICARE, BC ==
[2020-09-16 13:09] LABS: FERRITIN 97.5 ng/mL (23.9-336.2)
[2020-09-16 13:12] LABS: FOLATE 9.88 ng/mL (5.90 - >24.8)
[2020-09-17 12:41] LABS: HEPATITIS B SURFACE ANTIGEN NON-REACTIVE (NON-REACTIVE)
[2020-09-17 12:55] LABS: HEPATITIS A AB TOTAL(IMMUNITY) NON-REACTIVE (NON-REACTIVE)
[2020-09-18 14:28] LABS: NIL 0.04 IU/mL
== END 2020-09-16 11:36 | disposition home or self-care (01) ==
LOC: LAB 11:35
PROVIDERS: ATTEND Internal Medicine
DX: K50.80 Crohn's disease of both small and large intestine without complications (principal); Z79.899 Other long term (current) drug therapy
CPT/HCPCS: 36415; 82306; 82607; 82728; 82746; 85651; 86140; 86317; 86480; 86708; 87340

== ENCOUNTER 2020-11-05 09:29 | Outpatient (CLI) | payer MEDICARE, BC ==
--- NOTE | 2020-11-05 10:21 | DEXA Report ---
PROCEDURE: Dexa Spine and/or Hip INDICATIONS: CROHN'S ILEOCOLITIS TECHNIQUE: Dual energy x-ray absorptiometry (DXA) was performed on a ams AG System. Regions measur ed are the AP Spine, femoral neck, and if needed forearm. COMPARISON: None. FINDINGS: Lumbar Spine: Bone Mineral Density 1.434 g/cm/cm,T score 1.8, normal Left Hip: Bone Mineral Density 0.852 g/cm/cm,T score -1.7, osteopenia Left Femoral Neck: Bone Mineral Density 0.842 g/cm/cm, T score -1.8, osteopenia (T score greater or equal to -1.0: NORMAL) (T score from -1.1 to -2.4: OSTEOPENIA) (T score less than or equal to -2.5 to: OSTEOPOROSIS) Impression: Normal bone mineral density of the lumbosacral spine overall, but osteopenia at the left hip region overall and the left femoral neck on targeted imaging. Patients with diagnosis of osteoporosis or osteopenia should have regular bone mineral density assess ment. For those eligible for Medicare, routine testing is allowed once every 2 years. Testing frequ ency can be increased for patients who have rapidly progressing disease or for those who are receivin g medical therapy to restore bone mass. Reviewed by: Ed Romo MD on 11/05/2020 10:20 AM PDT Approved by: Ed Romo MD on 11/05/2020 10:20 AM PDT Station ID: [id number]
== END 2020-11-05 09:30 | disposition home or self-care (01) ==
LOC: DI 09:29
PROVIDERS: ATTEND Internal Medicine
DX: M85.88 Other specified disorders of bone density and structure, other site (principal); Z79.52 Long term (current) use of systemic steroids

== ENCOUNTER 2021-02-07 13:34 | Outpatient (CLI) | payer MEDICARE, BC | END 2021-02-07 13:35 | disposition home or self-care (01) | LOC: LAB 13:34 | PROVIDERS: ATTEND Nurse Practitioner Family | DX: Z01.812 Encounter for preprocedural laboratory examination (principal); Z20.822 Contact with and (suspected) exposure to COVID-19 ==

== ENCOUNTER 2021-02-21 13:08 | Emergency (ER) | payer MEDICARE, BC ==
[2021-02-21] MEDS ORDERED: LIDOCAINE 1%-EPI 1:100000 20 ML MDV SUBQ STA (14:47)
--- NOTE | 2021-02-21 14:48 | ED Physician Documentation ---
PD HPI WOUND RECHECK - Stated complaint Stated Complaint: PORT DISCHARGE - Chief complaint Chief Complaint: Wound - Histroy obtained from History obtained from: Patient - Additional information Additional information: 55-year-old gentleman with Crohn's disease and multiple bowel resections subsequently developing short gut syndrome and now is TPN dependent although still takes oral intake for the last year because prior to that he was having significant electrolyte abnormalities. Over the last year with the help of supplemental TPN he is been doing quite well with weight gain and really has not needed to visit the emergency department for electrolyte repletion whereas previously he was here almost weekly. About 3 weeks ago his port was accessed and he accidentally stepped on the TPN line and it created a hole over the port and now this is infected and leaking purulent material over the last couple of days. No associated fevers or chills. Review of Systems Ten Systems: 10 systems reviewed and negative Constitutional: reports: Reviewed and negative Eyes: reports: Reviewed and negative Ears: reports: Reviewed and negative Nose: reports: Reviewed and negative PD PAST MEDICAL HISTORY - Past Medical History Cardiovascular: None Respiratory: None Neuro: None Endocrine/Autoimmune: None GI: Crohn's disease : None HEENT: None Psych: None Musculoskeletal: None Derm: None - Past Surgical History Past Surgical History: Yes General: Bowel surgery, Other HEENT: Detached retina repair - Present Medications Home Medications: Ambulatory Orders Medication Instructions Recorded Confirmed Calcium Citrate 1,000 mg PO TID 09/17/19 10/29/20 Ergocalciferol (Vitamin D2) 1 cap ORAL .WEEKLY 11/12/19 10/29/20 [Vitamin D2] Mirtazapine 45 mg ORAL QPM PRN 11/12/19 10/29/20 Potassium Citrate/Citric Acid 10 ml ORAL BID 11/12/19 10/29/20 [Potassium Cit-Citric Acid Soln] Zolpidem Tartrate 10 mg PO QPM PRN 11/12/19 10/29/20 carvediloL [Coreg] 3.125 mg PO BID #60 tablet 12/30/19 10/29/20 Acetaminophen [Tylenol Extra 500 mg PO Q4HR PRN 01/24/20 10/29/20 Strength] Loperamide HCl [Imodium A-D] 2 mg PO Q6H PRN 01/24/20 10/29/20 Sodium Bicarbonate 1,950 mg PO BID 01/24/20 10/29/20 Lipase/Protease/Amylase [Nick Yuan 3 cap PO TID 02/05/20 10/29/20 12,000 Units Capsule] Multivitamin [Daily Multiple 1 tab PO DAILY 02/05/20 10/29/20 Vitamin] Dextrose 5% [D5w] 1,000 ml IV .[id number] #30 bag 02/11/20 10/29/20 Sodium Bicarbonate 150 meq IV .[id number] vial 02/11/20 10/29/20 Doxycycline Hyclate 100 mg PO BID #14 tab 02/21/21 - Allergies Allergies/Adverse Reactions: Allergies Allergy/AdvReac Type Severity Reaction Status Date / Time No Known Drug Allergies Allergy Verified 02/21/21 13:39 - Social History Does the pt smoke?: No Smoking Status: Former smoker Does the pt drink ETOH?: Yes Does the pt have substance abuse?: Yes - Immunizations Immunizations are current?: Yes - POLST Patient has POLST: No PD ED PE NORMAL - Vitals Vital signs reviewed: Yes - General General: Alert and oriented X 3, No acute distress - Derm Derm: Other (There is some bruising over a left upper chest wall port and there is a defect of about 4 mm in diameter over the port through which purulent material was obtained and sent for culture.) - Neuro Neuro: Alert and oriented X 3, Normal speech Results - Vitals Vitals: Vital Signs - 24 hr 02/21/21 02/21/21 13:33 13:39 Temperature 36 C L 36.5 C Heart Rate 66 66 Respiratory 16 16 Rate Blood Pressure 133/77 H 133/77 H O2 Saturation 100 100 Oxygen O2 Source Room air - Labs Labs: Microbiology 02/21/21 11:40 Wound Culture - Preliminary Chest PD MEDICAL DECISION MAKING - ED course ED course: 55-year-old gentleman with a short gut syndrome presents with a port infection. Our on-call surgeon, Dr. Hale came in and took it out and plans to see him in the office to schedule for a new 1. Patient thinks he will be okay in the interim just doing oral intake. I spoke with his shelter advocate and he says it is okay for him to continue Entyvio despite the infection. Departure - Departure Disposition: 01 Home, Self Care Clinical Impression: Port or reservoir infection Condition: Good Record reviewed to determine appropriate education?: Yes Follow-Up: George Webb MD [Provider Admit Priv/Credential] - Prescriptions: Doxycycline Hyclate 100 mg PO BID #14 tab Comments: Prescription called into [facility] in [place]. Spoke with lb Mcbride to still do entyvio tomorrow You have an appointment with Dr. Webb on Sunday at 10:45 AM. Today or tomorrow you should still call her office at [phone] to confirm and to see if any arrangements are necessary. We are performing a wound culture, the results should be done in 48-72 hours. If antibiotic change is necessary we will call you. Return if worse in the meantime, especially if you develop increased pain, fevers, cannot keep down the medication. Otherwise follow-up with your physician in approximately 2-3 days.
[2021-02-21 15:50] VITALS: BP 143/76
--- NOTE | 2021-02-21 16:12 | POST OP PROGRESS NOTE ---
Subjective - General Procedure Date: 02/21/21 Post Op Days: 0 Procedure Performed: Removal of infected [id number] - Review of Systems General: positive: No symptoms HEENT: positive: No symptoms - Other Other Information/Narrative: Josue is a pleasant but unfortunate 55-year-old gentleman with Crohn's disease. He has been on TPN for the last year or so and it has improved his nutrition and turned his life around. He has developed an infection in his [id number]-x-Rjnl in his left chest. He presented to the emergency room today and was seen and evaluated by Dr. Mcgraw. I have been called to remove the Kfhfdg-c-Rbcz and help to make a plan regarding its replacement if needed. 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 Procedure: Following infiltration with local anesthetic to create a field block, the area over the port was opened at the site of the existing defect. The port was grasped and all sutures holding it to the chest wall were sharply removed. It then slid easily and completely from the vein with the tubing intact. No backbleeding was noted. The wound was irrigated with warm saline solution and closed loosely with 2 interrupted nylon sutures. Josue tolerated the procedure very well. A dry dressing was applied. Surgery Impression Plan - Problem List (1) Crohn's disease Impression/Plan: Crohn's disease with need for total parenteral nutrition in the setting of an infected [id number]. Dr. Mcgraw is going to place him on antibiotics and let him go home today. We will see him back in my office on Sunday. He has been instructed to shower as usual and pat the area over the port dry. He can expect it to drain some over the next couple of days and he can cover it with a dry dressing. I will see him back on Sunday in the office and will make a new plan to consider replacement of the port or to place a PICC line so that he can continue his TPN.
== END 2021-02-21 15:51 | disposition home or self-care (01) ==
LOC: ED 13:08
DX: T80.212A Local infection due to central venous catheter, initial encounter (principal); Y83.8 Other surgical procedures as the cause of abnormal reaction of the patient, or of later complication, without mention of misadventure at the time of the procedure; K91.2 Postsurgical malabsorption, not elsewhere classified; K50.90 Crohn's disease, unspecified, without complications; Z87.891 Personal history of nicotine dependence
CPT/HCPCS: 36590; 87070; 87205; 99283

== ENCOUNTER 2021-02-28 10:00 | Emergency (ER) | payer MEDICARE, BC ==
[2021-02-28 10:21] LABS: BASOPHILS % (AUTO) 0.3 %; EOSINOPHILS # (AUTO) 0.1 10^3/uL (0.0-0.7); EOSINOPHILS % (AUTO) 1.5 %; HCT - HEMATOCRIT 35.5 % (42.0-52.0); HGB - HEMOGLOBIN 11.2 g/dL (14.0-18.0); LYMPHOCYTES % (AUTO) 33.8 %; MEAN CORPUSCULAR HEMOGLOBIN 26.4 pg (27.0-31.0); MEAN CORPUSCULAR HGB CONC 31.5 g/dL (32.0-36.0); MEAN CORPUSCULAR VOLUME 83.7 fL (80.0-94.0); MEAN PLATELET VOLUME 9.2 fL (7.4-11.4); MONOCYTES # (AUTO) 0.6 10^3/uL (0.0-1.0); MONOCYTES % (AUTO) 9.7 %; NEUTROPHILS # (AUTO) 3.3 10^3/uL (1.5-6.6); NEUTROPHILS % (AUTO) 54.4 %; PLT - PLATELET COUNT 134 10^3/uL (130-450); RED BLOOD COUNT 4.24 10^6/uL (4.70-6.10); RED CELL DISTRIBUTION WIDTH 14.6 % (12.0-15.0)
[2021-02-28 10:39] LABS: ALBUMIN 4.2 g/dL (3.2-5.5); ALBUMIN/GLOBULIN RATIO 0.9 (1.0-2.2); BILIRUBIN,TOTAL 1.6 mg/dL (0.2-1.0); CALCIUM 9.5 mg/dL (8.5-10.3); MAGNESIUM 1.7 mg/dL (1.7-2.8); POTASSIUM 3.7 mmol/L (3.5-5.0); TOTAL PROTEIN 8.8 g/dL (6.7-8.2)
[2021-02-28] MEDS ORDERED: SODIUM CHLORIDE 0.9% 1,000 ML IV STA (11:50)
[2021-02-28 12:04] LABS: GLUCOSE, URINE (UA) NEGATIVE (NEGATIVE); KETONES,URINE (UA) NEGATIVE (NEGATIVE); LEUKOCYTE ESTERASE, URINE NEGATIVE (NEGATIVE); NITRITE,URINE NEGATIVE (NEGATIVE); OCCULT BLOOD,URINE NEGATIVE (NEGATIVE); PROTEIN,URINE 30 mg/dL (NEGATIVE); UROBILINOGEN,URINE 0.2 (NORMAL) E.U./dL (NORMAL)
[2021-02-28 12:07] LABS: AMORPHOUS SEDIMENT,UR Rare /LPF; BACTERIA,URINE Rare /HPF (None Seen); BILIRUBIN,URINE NEGATIVE (NEGATIVE); CLARITY,URINE CLEAR (CLEAR); ICTOTEST,URINE NEGATIVE; RBC,URINE 0-5 /HPF (0-5); SQUAMOUS EPITHELIAL CELL,UR FEW Squamous (<= Few); WBC,URINE 0-3 /HPF (0-3)
--- NOTE | 2021-02-28 13:04 | ED Physician Documentation ---
History of Present Illness - Stated complaint Stated Complaint: FEELING UNWELL - Chief complaint Chief Complaint: General - History obtained from History obtained from: Patient - Additonal information Additional information: Pt comes to the ED for CC of feeling "blah". He states that ever since he started the doxycycline nearly a week ago, he just has not quite felt himself. He had an infected port removed last week, and has an appt with Dr. Webb to have a new one placed, so he can continue to get supplementary TPN, secondary to Crohn's disease. He states he has been drinking about a gallon a day of an electrolyte solution, but is not producing a commensurate amount of urine. He is concerned he may be dehydrated, or that his calcium and mag may be off. No nausea or vomiting. Pt has chronic diarrhea. No fevers or chills. He otherwise feels normal, just a little lower on energy. Review of Systems Ten Systems: 10 systems reviewed and negative Constitutional: reports: Fatigue (slight) Eyes: reports: Reviewed and negative Ears: reports: Reviewed and negative Nose: reports: Reviewed and negative Throat: reports: Reviewed and negative Cardiac: reports: Reviewed and negative Respiratory: reports: Reviewed and negative GI: reports: Reviewed and negative : reports: Reviewed and negative Skin: reports: Reviewed and negative Musculoskeletal: reports: Reviewed and negative Neurologic: reports: Reviewed and negative Psychiatric: reports: Reviewed and negative Endocrine: reports: Reviewed and negative Immunocompromised: reports: Reviewed and negative PD PAST MEDICAL HISTORY - Past Medical History Cardiovascular: None Respiratory: None Neuro: None Endocrine/Autoimmune: None GI: Crohn's disease : None HEENT: None Psych: None Musculoskeletal: None Derm: None - Past Surgical History Past Surgical History: Yes General: Bowel surgery, Other HEENT: Detached retina repair - Present Medications Home Medications: Ambulatory Orders Medication Instructions Recorded Confirmed Calcium Citrate 1,000 mg PO TID 09/17/19 10/29/20 Ergocalciferol (Vitamin D2) 1 cap ORAL .WEEKLY 11/12/19 10/29/20 [Vitamin D2] Mirtazapine 45 mg ORAL QPM PRN 11/12/19 10/29/20 Potassium Citrate/Citric Acid 10 ml ORAL BID 11/12/19 10/29/20 [Potassium Cit-Citric Acid Soln] Zolpidem Tartrate 10 mg PO QPM PRN 11/12/19 10/29/20 carvediloL [Coreg] 3.125 mg PO BID #60 tablet 12/30/19 10/29/20 Acetaminophen [Tylenol Extra 500 mg PO Q4HR PRN 01/24/20 10/29/20 Strength] Loperamide HCl [Imodium A-D] 2 mg PO Q6H PRN 01/24/20 10/29/20 Sodium Bicarbonate 1,950 mg PO BID 01/24/20 10/29/20 Lipase/Protease/Amylase [Creon Dr 3 cap PO TID 02/05/20 10/29/20 12,000 Units Capsule] Multivitamin [Daily Multiple 1 tab PO DAILY 02/05/20 10/29/20 Vitamin] Dextrose 5% [D5w] 1,000 ml IV .[id number] #30 bag 02/11/20 10/29/20 Sodium Bicarbonate 150 meq IV .[id number] vial 02/11/20 10/29/20 Doxycycline Hyclate 100 mg PO BID #14 tab 02/21/21 - Allergies Allergies/Adverse Reactions: Allergies Allergy/AdvReac Type Severity Reaction Status Date / Time No Known Drug Allergies Allergy Verified 02/21/21 13:39 - Social History Does the pt smoke?: No Smoking Status: Never smoker Does the pt drink ETOH?: Yes Does the pt have substance abuse?: Yes - Immunizations Immunizations are current?: Yes - POLST Patient has POLST: No PD ED PE NORMAL - Vitals Vital signs reviewed: Yes - General General: Alert and oriented X 3, No acute distress, Well developed/nourished - HEENT HEENT: Atraumatic, PERRL, EOMI, Moist mucous membranes - Neck Neck: Supple, no meningeal sign - Cardiac Cardiac: RRR, No murmur, Strong equal pulses - Respiratory Respiratory: No respiratory distress, Clear bilaterally - Abdomen Abdomen: Soft, Non tender, Non distended - Derm Derm: Normal color, Warm and dry, No rash, Other (Port removal site is clean, dry in and intact.) - Extremities Extremities: No deformity, No edema - Neuro Neuro: Alert and oriented X 3, scrap hooker 2-12 intact, Normal speech - Psych Psych: Normal mood, Normal affect Results - Vitals Vitals: Vital Signs - 24 hr 02/28/21 02/28/21 02/28/21 10:03 11:05 13:16 Temperature 36 C L 36.6 C Heart Rate 77 61 68 Respiratory 16 16 16 Rate Blood Pressure 127/78 113/78 111/76 O2 Saturation 100 99 100 Oxygen O2 Source Room air - Labs Labs: Laboratory Tests 02/28/21 02/28/21 02/28/21 10:15 10:15 11:57 WBC 6.0 RBC 4.24 L Hgb 11.2 L Hct 35.5 L MCV 83.7 MCH 26.4 L MCHC 31.5 L RDW 14.6 Plt Count 134 MPV 9.2 Neut # (Auto) 3.3 Lymph # (Auto) 2.0 Curry # (Auto) 0.6 Eos # (Auto) 0.1 Baso # (Auto) 0.0 Absolute Nucleated RBC 0.00 Nucleated RBC % 0.0 Sodium 140 Potassium 3.7 Chloride 100 L Carbon Dioxide 27 Anion Gap 13.0 BUN 43 H Creatinine 3.0 H Estimated GFR (MDRD) 22 L Glucose 129 H Calcium 9.5 Magnesium 1.7 Total Bilirubin 1.6 H AST 49 H ALT 50 Alkaline Phosphatase 392 H Total Protein 8.8 H Albumin 4.2 Globulin 4.6 H Albumin/Globulin Ratio 0.9 L Lipase 27 Urine Color YELLOW Urine Clarity CLEAR Urine pH 6.0 Ur Specific [place] 1.025 Urine Protein 30 H Urine Glucose (UA) NEGATIVE Urine Ketones NEGATIVE Urine Occult Blood NEGATIVE Urine Nitrite NEGATIVE Urine Bilirubin NEGATIVE Urine Urobilinogen 0.2 (NORMAL) Ur Leukocyte Esterase NEGATIVE Urine RBC 0-5 Urine WBC 0-3 Ur Squamous Epith Cells FEW Squamous Amorphous Sediment Rare Urine Bacteria Rare Ur Microscopic Review INDICATED Urine Culture Comments NOT INDICATED PD MEDICAL DECISION MAKING - ED course Complexity details: reviewed old records, reviewed results, re-evaluated patient, considered differential, d/w patient ED course: Electrolytes were unremarkable, but creatinine was elevated at 3.0, compared to the pt's usual mid-2's. I felt he should be hydrated, and he was given a liter of NS. Pt felt better after this. Today is his last day of abx, and he is encouraged to take his last dose and see how he feels. I have encouraged him to continue the oral hydration, and keep his appt with Dr. Webb. He may return to the ED if he feels like he is getting dehydrated in the meantime. Departure - Departure Disposition: 01 Home, Self Care Clinical Impression: Dehydration Condition: Stable Instructions: ED Dehydration Comments: Your labs today show a mild elevation from your baseline creatinine, indicating a bit of dehydration. You have been given a liter of normal saline today which should correct this. Your calcium and magnesium are actually normal, as are your sodium and potassium. At this point in time, you should continue to drink plenty of fluids and follow-up for your appointment with Dr. Webb, as planned. If you get feeling worse again, please return to the emergency department. Discharge Date/Time: 02/28/21 13:18
[2021-02-28 13:16] VITALS: BP 111/76
== END 2021-02-28 13:18 | disposition home or self-care (01) ==
LOC: ED 10:00
DX: E86.0 Dehydration (principal)
CPT/HCPCS: 36415; 80053; 81001; 81003; 83690; 83735; 85025; 87086; 96360; 99284

== ENCOUNTER 2021-03-07 09:34 | Day surgery (SDC) | payer MEDICARE, BC ==
[~2021-03-07 09:34] MED LIST: CEFAZOLIN SODIUM IN 0.9 % NACL 2 GM/100 ML BAG IV ONE
[2021-03-07] MEDS ORDERED: LACTATED RINGERS 1,000 ML IV ONE ×2 (09:49→12:37)
[2021-03-07] MEDS ORDERED: BUPIVACAINE 0.5% PF 10 ML VIAL ONE (10:39)
[2021-03-07] MEDS ORDERED: LIDOCAINE 2%-EPI 1:100000 20 ML MDV ONE (10:39)
--- NOTE | 2021-03-07 10:43 | ANESTHESIA ---
Pre-Anesthesia VS, & Labs - Diagnosis short bowel syndrome - Procedure port placement Height: 5 ft 8 in Weight (kg): 70.6 kg Body Mass Index: 23.6 BMI Classification: Healthy weight - NPO >8 hours Home Medications and Allergies Calcium Citrate 1,000 mg PO TID 09/17/19 Ergocalciferol (Vitamin D2) [Vitamin D2] 1 cap ORAL .WEEKLY 11/12/19 Mirtazapine 45 mg ORAL QPM PRN 11/12/19 Potassium Citrate/Citric Acid [Potassium Cit-Citric Acid Soln] 10 ml ORAL BID 11/12/19 Zolpidem Tartrate 10 mg PO QPM PRN 11/12/19 Acetaminophen [Tylenol Extra Strength] 500 mg PO Q4HR PRN 01/24/20 Loperamide HCl [Imodium A-D] 2 mg PO Q6H PRN 01/24/20 Sodium Bicarbonate 1,950 mg PO BID 01/24/20 Lipase/Protease/Amylase [Creon Dr 12,000 Units Capsule] 3 cap PO TID 02/05/20 Multivitamin [Daily Multiple Vitamin] 1 tab PO DAILY 02/05/20 Allergies/Adverse Reactions: Allergies Allergy/AdvReac Type Severity Reaction Status Date / Time chlorhexidine AdvReac Unknown Verified 03/04/21 14:53 Anes History & Medical History - Anesthetic History Anesthesia Complications: reports: No previous complications - Medical History Cardiovascular: reports: None Pulmonary: reports: Other Gastrointestinal: reports: Colon polyps, Crohn's disease Urinary: reports: Renal insuffiency Neuro: reports: None Musculoskeletal: reports: None Endocrine/Autoimmune: reports: None Blood Disorders: reports: None Skin: reports: Eczema Smoking Status: Never smoker History of Cancer?: No - Surgical History General: reports: Cholecystectomy, Appendectomy, Bowel surgery, Colonoscopy, Other Eyes Ears Nose Throat (EENT): reports: Detached retina repair Urologic: reports: Ureterolithotomy (stones) Orthopedic: reports: Other Exam General: Alert Dental: Dentures full Upper, Dentures full Lower Mouth Opening: Greater than 4 Fingerbreadths Mallampati classification: II Respiratory: Lungs clear Cardiovascular: Regular rate, Normal S1, Normal S2 Plan Anesthesia Type: General, Total IV Consent for Procedure(s) Verified and Reviewed: Yes Code Status: Attempt Resuscitation ASA classification: 2-Mild systemic disease Is this case an emergency?: No
[2021-03-07] MEDS ORDERED: MIDAZOLAM 2 MG/2 ML VIAL ONE (11:45)
[2021-03-07] MEDS ORDERED: PROPOFOL 500 MG/50 ML 500 MG/50 ML VIAL ONE (11:45)
[2021-03-07] MEDS ORDERED: LIDOCAINE 1%-EPI 1:100000 20 ML MDV SUBQ ONE ×2 (12:07)
[2021-03-07] MEDS ORDERED: BUPIVACAINE 0.5% PF 30 ML VIAL SUBQ ONE ×2 (12:07)
--- NOTE | 2021-03-07 12:36 | OPERATIVE REPORT ---
Operative Report - General Procedure Date: 03/07/21 Planned Procedure: Right subclavian port Pre-Op Diagnosis: Short-bowel syndrome with malnutrition Procedure Performed: Right subclavian port Post Op Diagnosis: Short-bowel syndrome with malnutrition - Procedure Note Primary Surgeon: Tracey Anesthesia Provider: CHRISTINE Baxter Anesthesia Technique: MAC Pathology: None Estimated Blood Loss (mL): 10 Findings: Port in good position without evidence of pneumothorax Complications: None apparent - Other Other Information/Narrative: After obtaining informed consent, the patient is brought to the operating room and placed in supine position on the operating table. Following successful induction of sedation with monitored anesthesia care and appropriate padding of all bony prominences, the left chest and neck were prepped and draped in the standard surgical fashion. A timeout was held per scope protocol. All elements of the surgical safety checklist were followed before, during, and after the procedure. Following infiltration with local anesthetic to create a field block, the right subclavian vein was accessed in the deltopectoral groove. The J-wire was gently placed into the vein. Fluoroscopy was used to confirm the position of the wire and in the subclavian vein. We anesthetized the existing healed scar in the area around it for placement of the port itself. An incision was created here and carried down through the skin and subcutaneous tissue. A pocket was created with blunt dissection. The port tubing was attached to the tunneling device and passed from the access site of the vein into the pocket. It was trimmed to an appropriate length and the port attached. The port was sewn into place in the pocket. The dilator and introducer were then passed over the J-wire that was in the subclavian vein. The J-wire and dilator were removed leaving only the introducer. The tubing was then passed through the introducer and the introducer cracked and removed per bottle house quality control technician's directions. The port was then checked for function and flushed and vernon easily. Additional local anesthetic was applied to the chest wall. The port pocket was closed with interrupted Vicryl sutures and Monocryl stitches were placed in both skin incision sites. All sponge, needle, and instrument counts were correct at the conclusion of the case. Chest x-ray in the postanesthesia care unit revealed the port in good position in the superior vena cava without evidence of pneumothorax.
[2021-03-07 13:00] VITALS: BP 113/64
[2021-03-07 13:07] LABS: ALBUMIN 3.5 g/dL (3.2-5.5); BILIRUBIN,TOTAL 0.8 mg/dL (0.2-1.0); CALCIUM 8.7 mg/dL (8.5-10.3); CREATININE 2.8 mg/dL (0.6-1.2); MAGNESIUM 1.4 mg/dL (1.7-2.8); POTASSIUM 3.6 mmol/L (3.5-5.0)
--- NOTE | 2021-03-07 13:07 | XRAY Report ---
PROCEDURE: Chest for Line Placement INDICATIONS: Port placement TECHNIQUE: One view of the chest was acquired. COMPARISON: 02/07/2020 FINDINGS: Surgical changes and devices: Right chest wall central venous port catheter terminates in the inferio r aspect of the SVC near the cavoatrial junction. Lungs and pleura: No pleural effusions or pneumothorax. Lungs are clear. Mediastinum: Mediastinal contours appear normal. Heart size is normal. Bones and chest wall: No suspicious bony lesions. Overlying soft tissues appear unremarkable. IMPRESSION: Right chest wall central venous port catheter terminates near the cavoatrial junction. Reviewed by: Dionte Bowman MD on 03/07/2021 1:06 PM PDT Approved by: Dionte Bowman MD on 03/07/2021 1:06 PM PDT Station ID: [id number]
--- NOTE | 2021-03-07 16:02 | XRAY Report ---
PROCEDURE: OR Port-A-Cath INDICATIONS: PORT PLACEMENT TECHNIQUE: Single intraoperative fluoroscopic image of upper chest was obtained. COMPARISON: None. FINDINGS: Intraoperative fluoroscopic image of upper chest shows right-sided central venous catheter placement with the tip seen projecting in the expected location of upper SVC. IMPRESSION: Fluoroscopy guidance was provided intraoperatively for right sided port placement. Reviewed by: Richard Cade MD on 03/07/2021 4:01 PM PDT Approved by: Richard Cade MD on 03/07/2021 4:01 PM PDT Station ID: [id number]
--- NOTE | 2021-03-07 16:37 | ANESTHESIA POST OP EVALUATION ---
Anesthesia Post Eval - Post Anesthesia Eval Vitals: Last Vital Signs Temp 35.8 C L 03/07/21 12:58 Pulse 43 L 03/07/21 12:58 Resp 16 03/07/21 12:58 BP 113/64 03/07/21 12:58 Pulse Ox 100 03/07/21 12:58 CV Function Including HR & BP: Stable Pain Control: Satisfactory Nausea & Vomiting: Negative Mental Status: Baseline Respiratory Status: Airway Patent Hydration Status: Satisfactory Anesthesia Complications: None
== END 2021-03-07 09:35 | disposition home or self-care (01) ==
LOC: SDS 09:34
PROVIDERS: ATTEND Surgery
DX: K91.2 Postsurgical malabsorption, not elsewhere classified (principal); K50.90 Crohn's disease, unspecified, without complications; E46 Unspecified protein-calorie malnutrition; Z68.23 Body mass index [BMI] 23.0-23.9, adult; R16.1 Splenomegaly, not elsewhere classified; Z79.899 Other long term (current) drug therapy; Z86.010 Personal history of colon polyps
CPT/HCPCS: 36561; 71045; 80053; 83735; 84100; C1788; J0690; J7120

== ENCOUNTER 2021-04-27 09:49 | Outpatient (CLI) | payer MEDICARE, BC ==
--- NOTE | 2021-04-27 14:23 | XRAY Report ---
PROCEDURE: Chest 2 View X-Ray INDICATIONS: ABNORMAL CHEST XRAY TECHNIQUE: 2 view(s) of the chest. COMPARISON: 12/26/2019 FINDINGS: Surgical changes and devices: Right chest wall yunior catheter, tip of which is in the lower SVC. Lungs and pleura: No pleural effusions or pneumothorax. Lungs are clear. Mediastinum: Mediastinal contours are normal. Heart size is normal. Bones and chest wall: No suspicious bony abnormalities. Soft tissues appear unremarkable. IMPRESSION: No acute process. Reviewed by: Fabio Mcrae MD on 04/27/2021 2:21 PM PST Approved by: Fabio Mcrae MD on 04/27/2021 2:21 PM PST Station ID: [id number]
== END 2021-04-27 09:50 | disposition home or self-care (01) ==
LOC: DI 09:49
PROVIDERS: ATTEND Internal Medicine
DX: R93.89 Abnormal findings on diagnostic imaging of other specified body structures (principal)

== ENCOUNTER 2021-06-13 16:00 | Outpatient (CLI) | payer MEDICARE, BC ==
[2021-06-13 16:30] LABS: BASOPHILS % (AUTO) 0.2 %; EOSINOPHILS # (AUTO) 0.1 10^3/uL (0.0-0.7); EOSINOPHILS % (AUTO) 0.6 %; HCT - HEMATOCRIT 35.1 % (42.0-52.0); HGB - HEMOGLOBIN 11.2 g/dL (14.0-18.0); LYMPHOCYTES # (AUTO) 2.1 10^3/uL (1.5-3.5); LYMPHOCYTES % (AUTO) 22.2 %; MEAN CORPUSCULAR HEMOGLOBIN 27.1 pg (27.0-31.0); MEAN CORPUSCULAR HGB CONC 31.9 g/dL (32.0-36.0); MEAN PLATELET VOLUME 10.6 fL (7.4-11.4); MONOCYTES % (AUTO) 10.7 %; NEUTROPHILS # (AUTO) 6.3 10^3/uL (1.5-6.6); PLT - PLATELET COUNT 100 10^3/uL (130-450); RED BLOOD COUNT 4.13 10^6/uL (4.70-6.10); RED CELL DISTRIBUTION WIDTH 15.7 % (12.0-15.0); WHITE BLOOD COUNT 9.5 x10^3/uL (4.8-10.8)
[2021-06-13 16:39] LABS: ALBUMIN 3.4 g/dL (3.2-5.5); BILIRUBIN,TOTAL 0.9 mg/dL (0.2-1.0); CALCIUM 8.8 mg/dL (8.5-10.3); CREATININE 1.9 mg/dL (0.6-1.2); PHOSPHORUS 2.8 mg/dL (2.5-4.6); POTASSIUM 3.7 mmol/L (3.5-5.0); TOTAL PROTEIN 6.8 g/dL (6.7-8.2)
== END 2021-06-13 16:01 | disposition home or self-care (01) ==
LOC: LAB.R 16:00
PROVIDERS: ATTEND Internal Medicine
DX: K50.90 Crohn's disease, unspecified, without complications (principal); K91.2 Postsurgical malabsorption, not elsewhere classified
CPT/HCPCS: 80053; 83735; 84100; 85025

== ENCOUNTER 2021-06-20 16:43 | Outpatient (CLI) | payer MEDICARE, BC ==
[2021-06-20 17:21] LABS: ALBUMIN 3.7 g/dL (3.2-5.5); ALBUMIN/GLOBULIN RATIO 1.1 (1.0-2.2); BILIRUBIN,TOTAL 0.9 mg/dL (0.2-1.0); CALCIUM 9.1 mg/dL (8.5-10.3); POTASSIUM 3.7 mmol/L (3.5-5.0); TOTAL PROTEIN 7.1 g/dL (6.7-8.2)
== END 2021-06-20 16:44 | disposition home or self-care (01) ==
LOC: LAB 16:43
PROVIDERS: ATTEND Internal Medicine
DX: K50.90 Crohn's disease, unspecified, without complications (principal); K91.2 Postsurgical malabsorption, not elsewhere classified
CPT/HCPCS: 36415; 80053

== ENCOUNTER 2021-07-01 10:47 | Emergency (ER) | payer MEDICARE, BC ==
[2021-07-01 10:58] VITALS: BP 157/76
--- NOTE | 2021-07-01 11:11 | XRAY Report ---
PROCEDURE: Wrist 4 View RT INDICATIONS: Trauma TECHNIQUE: 4 views of the wrist were acquired. COMPARISON: None FINDINGS: Bones: No fractures or dislocations. No suspicious bony lesions. Scaphoid view: Negative Soft tissues: No suspicious soft tissue calcifications. IMPRESSION: No acute fracture. No osseous lesion. If symptoms and/or clinical suspicion for pathology continue, f urther assessment with repeat plain films, or advanced imaging (e.g., CT, MRI, or bone scan) is recom mended for further assessment. Reviewed by: Fabio Mcrae MD on 07/01/2021 11:10 AM [facility] Approved by: Fabio Mcrae MD on 07/01/2021 11:10 AM [facility] Station ID: [id number]
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
== END 2021-07-01 11:57 | disposition home or self-care (01) ==
LOC: ED 10:47
DX: S66.911A Strain of unspecified muscle, fascia and tendon at wrist and hand level, right hand, initial encounter (principal); X58.XXXA Exposure to other specified factors, initial encounter; Y92.410 Unspecified street and highway as the place of occurrence of the external cause; Y93.55 Activity, bike riding
CPT/HCPCS: 99282; 99283

== ENCOUNTER 2021-07-04 15:31 | Outpatient (CLI) | payer MEDICARE, BC ==
[2021-07-04 15:49] LABS: BASOPHILS % (AUTO) 0.1 %; EOSINOPHILS % (AUTO) 0.5 %; HCT - HEMATOCRIT 35.8 % (42.0-52.0); HGB - HEMOGLOBIN 11.2 g/dL (14.0-18.0); LYMPHOCYTES # (AUTO) 1.7 10^3/uL (1.5-3.5); LYMPHOCYTES % (AUTO) 23.5 %; MEAN CORPUSCULAR HEMOGLOBIN 27.2 pg (27.0-31.0); MEAN CORPUSCULAR HGB CONC 31.3 g/dL (32.0-36.0); MEAN CORPUSCULAR VOLUME 86.9 fL (80.0-94.0); MEAN PLATELET VOLUME 10.1 fL (7.4-11.4); MONOCYTES # (AUTO) 0.7 10^3/uL (0.0-1.0); NEUTROPHILS # (AUTO) 4.9 10^3/uL (1.5-6.6); NEUTROPHILS % (AUTO) 65.5 %; PLT - PLATELET COUNT 114 10^3/uL (130-450); RED BLOOD COUNT 4.12 10^6/uL (4.70-6.10); RED CELL DISTRIBUTION WIDTH 14.8 % (12.0-15.0); WHITE BLOOD COUNT 7.4 x10^3/uL (4.8-10.8)
[2021-07-04 16:02] LABS: ALBUMIN 3.2 g/dL (3.2-5.5); BILIRUBIN,TOTAL 0.8 mg/dL (0.2-1.0); CALCIUM 8.9 mg/dL (8.5-10.3); CREATININE 2.1 mg/dL (0.6-1.2); MAGNESIUM 2.1 mg/dL (1.7-2.8); POTASSIUM 3.7 mmol/L (3.5-5.0); TOTAL PROTEIN 6.3 g/dL (6.7-8.2)
== END 2021-07-04 15:32 | disposition home or self-care (01) ==
LOC: LAB.R 15:31
PROVIDERS: ATTEND Internal Medicine
DX: K50.90 Crohn's disease, unspecified, without complications (principal); K91.2 Postsurgical malabsorption, not elsewhere classified
CPT/HCPCS: 80053; 83735; 84100; 84478; 85025; 86140

== ENCOUNTER 2021-07-11 15:07 | Outpatient (CLI) | payer MEDICARE, BC ==
[2021-07-11 15:26] LABS: BASOPHILS % (AUTO) 0.1 %; EOSINOPHILS % (AUTO) 0.3 %; HGB - HEMOGLOBIN 10.6 g/dL (14.0-18.0); LYMPHOCYTES # (AUTO) 1.1 10^3/uL (1.5-3.5); LYMPHOCYTES % (AUTO) 14.1 %; MEAN CORPUSCULAR HEMOGLOBIN 26.8 pg (27.0-31.0); MEAN CORPUSCULAR HGB CONC 31.2 g/dL (32.0-36.0); MEAN CORPUSCULAR VOLUME 85.9 fL (80.0-94.0); MEAN PLATELET VOLUME 9.7 fL (7.4-11.4); MONOCYTES # (AUTO) 0.6 10^3/uL (0.0-1.0); MONOCYTES % (AUTO) 7.8 %; NEUTROPHILS # (AUTO) 6.1 10^3/uL (1.5-6.6); NEUTROPHILS % (AUTO) 76.9 %; PLT - PLATELET COUNT 107 10^3/uL (130-450); RED BLOOD COUNT 3.96 10^6/uL (4.70-6.10); RED CELL DISTRIBUTION WIDTH 14.5 % (12.0-15.0); WHITE BLOOD COUNT 7.9 x10^3/uL (4.8-10.8)
[2021-07-11 15:37] LABS: ALBUMIN 3.3 g/dL (3.2-5.5); ALBUMIN/GLOBULIN RATIO 1.1 (1.0-2.2); BILIRUBIN,TOTAL 0.7 mg/dL (0.2-1.0); CALCIUM 8.7 mg/dL (8.5-10.3); CREATININE 1.9 mg/dL (0.6-1.2); PHOSPHORUS 3.1 mg/dL (2.5-4.6); POTASSIUM 3.9 mmol/L (3.5-5.0); TOTAL PROTEIN 6.3 g/dL (6.7-8.2)
== END 2021-07-11 15:08 | disposition home or self-care (01) ==
LOC: LAB.R 15:07
PROVIDERS: ATTEND Internal Medicine
DX: K50.90 Crohn's disease, unspecified, without complications (principal); K91.2 Postsurgical malabsorption, not elsewhere classified
CPT/HCPCS: 80053; 83735; 84100; 85025

== ENCOUNTER 2021-07-18 16:25 | Outpatient (CLI) | payer MEDICARE, BC ==
[2021-07-18 16:50] LABS: BASOPHILS % (AUTO) 0.3 %; EOSINOPHILS # (AUTO) 0.1 10^3/uL (0.0-0.7); EOSINOPHILS % (AUTO) 0.4 %; HCT - HEMATOCRIT 35.7 % (42.0-52.0); HGB - HEMOGLOBIN 11.3 g/dL (14.0-18.0); LYMPHOCYTES # (AUTO) 2.5 10^3/uL (1.5-3.5); LYMPHOCYTES % (AUTO) 21.9 %; MEAN CORPUSCULAR HEMOGLOBIN 26.9 pg (27.0-31.0); MEAN CORPUSCULAR HGB CONC 31.7 g/dL (32.0-36.0); MEAN PLATELET VOLUME 10.1 fL (7.4-11.4); MONOCYTES # (AUTO) 1.2 10^3/uL (0.0-1.0); MONOCYTES % (AUTO) 10.3 %; NEUTROPHILS # (AUTO) 7.5 10^3/uL (1.5-6.6); NEUTROPHILS % (AUTO) 66.3 %; PLT - PLATELET COUNT 105 10^3/uL (130-450); RED CELL DISTRIBUTION WIDTH 13.9 % (12.0-15.0); WHITE BLOOD COUNT 11.3 x10^3/uL (4.8-10.8)
[2021-07-18 17:01] LABS: ALBUMIN 3.4 g/dL (3.2-5.5); BILIRUBIN,TOTAL 0.8 mg/dL (0.2-1.0); CREATININE 1.7 mg/dL (0.6-1.2); PHOSPHORUS 2.6 mg/dL (2.5-4.6); POTASSIUM 3.8 mmol/L (3.5-5.0); TOTAL PROTEIN 6.8 g/dL (6.7-8.2)
== END 2021-07-18 16:26 | disposition home or self-care (01) ==
LOC: LAB.R 16:25
PROVIDERS: ATTEND Internal Medicine
DX: K50.90 Crohn's disease, unspecified, without complications (principal); K91.2 Postsurgical malabsorption, not elsewhere classified
CPT/HCPCS: 80053; 83735; 84100; 85025

== ENCOUNTER 2021-07-25 08:26 | Outpatient (CLI) | payer MEDICARE, BC ==
--- NOTE | 2021-07-25 12:20 | MRI Report ---
PROCEDURE: Wrist RT W/O INDICATIONS: RIGHT WRIST PAIN TECHNIQUE: Noncontrast coronal proton density fast spin echo and T2 fast spin echo with fat saturation; coronal 3-D gradient echo, axial T1 spin echo and T2 fast spin echo with fat saturation, sagittal T1 spin ech o through the wrist. COMPARISON: None. FINDINGS: Image quality: Images are mildly degraded by patient motion on multiple sequences. Diagnostic informa tion is obtained. Bones and cartilage: Multiple foci of T2 hyperintense signal are seen within the bases of the second through fourth metacarpals, the majority of the distal carpal row, multiple locations within the pro ximal carpal row, and at the volar aspect of the distal radius and radial styloid that could represen t osteitis or early erosions versus less likely trabecular bone injury. Diffuse cartilage thinning is seen throughout the wrist. A small nonedematous ossification is seen adjacent to the proximal pole o f the scaphoid dorsally that may be secondary to a prior avulsion injury or less likely intra-articul ar loose body. Radiocarpal and mid carpal joint effusions are seen with moderate synovial hypertrophy . Carpal ligaments: There is likely complete disruption of the scapholunate ligament without significa nt widening of the scapholunate interval. The lunotriquetral ligament is intact. On sagittal images, the pisohamate ligament appears intact. Triangular fibrocartilage complex: The triangular fibrocartilage appears intact. Tendons and soft tissues: The carpal tunnel structures appear normal, including the median nerve. T he ulnar nerve appears normal within Guyon's canal. All six extensor tendon compartments demonstrate normal morphology, without pathologic tendon sheath fluid. No soft tissue ganglion cysts. IMPRESSION: 1.Multifocal T2 hyperintense signal throughout the carpal bones, distal radius, and the bases of the second through fourth carpometacarpal joints is suspicious for areas of osteitis or early erosions. M oderate joint effusions are seen with synovial hypertrophy. Overall, findings are most suspicious for an inflammatory arthritis such as rheumatoid arthritis. Septic arthritis could appear similarly and there are signs of infection, but is felt to be less likely. Other considerations such as complex reg ional pain syndrome the setting of prior trauma could possibly appear similarly. 2.Complete tearing of the scapholunate ligament without significant widening of the scapholunate inte rval. A nonedematous ossification adjacent to the dorsal scaphoid attachment of the ligament may be s econdary to an avulsion injury. Reviewed by: Noe Serra MD on 07/25/2021 12:19 PM PST Approved by: Noe Serra MD on 07/25/2021 12:19 PM PST Station ID: [id number]
== END 2021-07-25 08:27 | disposition home or self-care (01) ==
LOC: DI 08:26
PROVIDERS: ATTEND Internal Medicine
DX: M25.531 Pain in right wrist (principal); M25.431 Effusion, right wrist

== ENCOUNTER 2021-08-01 16:04 | Outpatient (CLI) | payer MEDICARE, BC ==
[2021-08-01 16:20] LABS: BASOPHILS % (AUTO) 0.2 %; EOSINOPHILS # (AUTO) 0.1 10^3/uL (0.0-0.7); EOSINOPHILS % (AUTO) 0.6 %; HCT - HEMATOCRIT 20.4 % (42.0-52.0); LYMPHOCYTES # (AUTO) 4.6 10^3/uL (1.5-3.5); LYMPHOCYTES % (AUTO) 26.4 %; MEAN CORPUSCULAR HEMOGLOBIN 27.2 pg (27.0-31.0); MEAN CORPUSCULAR HGB CONC 32.8 g/dL (32.0-36.0); MEAN CORPUSCULAR VOLUME 82.9 fL (80.0-94.0); MEAN PLATELET VOLUME 11.3 fL (7.4-11.4); MONOCYTES # (AUTO) 1.5 10^3/uL (0.0-1.0); MONOCYTES % (AUTO) 8.4 %; NEUTROPHILS # (AUTO) 10.8 10^3/uL (1.5-6.6); NEUTROPHILS % (AUTO) 62.6 %; NRBC ABSOLUTE COUNT (AUTO) 0.03 x10^3/uL; NUCLEATED RED BLOOD CELLS AUTO 0.2 /100WBC; PLT - PLATELET COUNT 133 10^3/uL (130-450); RED BLOOD COUNT 2.46 10^6/uL (4.70-6.10); RED CELL DISTRIBUTION WIDTH 14.4 % (12.0-15.0); WHITE BLOOD COUNT 17.3 x10^3/uL (4.8-10.8)
[2021-08-01 16:35] LABS: HGB - HEMOGLOBIN 6.7 g/dL (14.0-18.0)
[2021-08-01 16:43] LABS: ALBUMIN 2.9 g/dL (3.2-5.5); ALBUMIN/GLOBULIN RATIO 1.3 (1.0-2.2); ALKALINE PHOSPHATASE 126 IU/L (42-121); ALT ALANINE AMINOTRANSFERASE 17 IU/L (10-60); AST ASPARTATE AMINOTRANSFERASE 14 IU/L (10-42); BUN - BLOOD UREA NITROGEN 74 mg/dL (6-20); CALCIUM 8.5 mg/dL (8.5-10.3); CARBON DIOXIDE - CO2 25 mmol/L (21-32); CHLORIDE 93 mmol/L (101-111); GFR - MDRD 35 (>89); GLUCOSE 483 mg/dL (70-100); PHOSPHORUS 2.2 mg/dL (2.5-4.6); POTASSIUM 3.5 mmol/L (3.5-5.0); SODIUM 129 mmol/L (135-145); TOTAL PROTEIN 5.2 g/dL (6.7-8.2); TRIGLYCERIDES 125 mg/dL
[2021-08-01 17:20] LABS: CRP - C-REACTIVE PROTEIN < 1.0 mg/dL (0-1.0)
[2021-08-01 17:48] LABS: PLATELET ESTIMATE, MANUAL NORMAL (130-450,000) (NORMAL); PLATELET MORPHOLOGY NORMAL APPEARANCE (NORMAL); SLIDE REVIEW? Indicated; WBC MORPHOLOGY (MULTIPLE) NORMAL APPEARANCE (NORMAL)
== END 2021-08-01 16:05 | disposition home or self-care (01) ==
LOC: LAB.R 16:04
PROVIDERS: ATTEND Internal Medicine
DX: K50.90 Crohn's disease, unspecified, without complications (principal); K91.2 Postsurgical malabsorption, not elsewhere classified
CPT/HCPCS: 80053; 83735; 84100; 84478; 85025; 86140

== ENCOUNTER 2021-08-01 17:35 | Inpatient (IN) | payer MEDICARE, BC ==
--- NOTE | 2021-08-01 18:22 | ED Physician Documentation ---
PD HPI ABD PAIN - Stated complaint Stated Complaint: ANEMIC - Chief complaint Chief Complaint: Abd Pain - History obtained from History obtained from: Patient - Additional information Additional information: He has a long history of Crohn's disease and has been on TPN. Lately has been able to eat most of his calories by mouth. Few weeks ago he injured his wrist and was taking a lot of NSAIDs and aspirin. Subsequently about a week ago developed epigastric pain and chest pain after eating and dark tarry stools. He was seen at [facility] today and his hemoglobin was 6 so was referred here f or evaluation of likely upper GI bleeding. He has been on PPIs in the past, but was taken off of it because of problems with magnesium deficiency. Review of Systems Ten Systems: 10 systems reviewed and negative Constitutional: denies: Fever, Chills Nose: reports: Reviewed and negative Throat: reports: Reviewed and negative Cardiac: reports: Reviewed and negative Respiratory: reports: Reviewed and negative PD PAST MEDICAL HISTORY - Past Medical History Cardiovascular: None Respiratory: Other Neuro: None Endocrine/Autoimmune: None GI: Colon polyps, Crohn's disease : Renal insuffiency HEENT: Other Psych: Depression Musculoskeletal: None Derm: Eczema - Past Surgical History Past Surgical History: Yes General: Cholecystectomy, Appendectomy, Bowel surgery, Colonoscopy, Other Ortho: Other HEENT: Detached retina repair - Present Medications Home Medications: Ambulatory Orders Medication Instructions Recorded Confirmed Calcium Citrate 1,000 mg PO TID 09/17/19 03/04/21 Ergocalciferol (Vitamin D2) 1 cap ORAL .WEEKLY 11/12/19 03/04/21 [Vitamin D2] Mirtazapine 45 mg ORAL QPM PRN 11/12/19 03/04/21 Potassium Citrate/Citric Acid 10 ml ORAL BID 11/12/19 03/04/21 [Potassium Cit-Citric Acid Soln] Zolpidem Tartrate 10 mg PO QPM PRN 11/12/19 03/04/21 carvediloL [Coreg] 3.125 mg PO BID #60 tablet 12/30/19 03/04/21 Acetaminophen [Tylenol Extra 500 mg PO Q4HR PRN 01/24/20 03/04/21 Strength] Loperamide HCl [Imodium A-D] 2 mg PO Q6H PRN 01/24/20 03/04/21 Sodium Bicarbonate 1,950 mg PO BID 01/24/20 03/04/21 Lipase/Protease/Amylase [Creon Dr 3 cap PO TID 02/05/20 03/04/21 12,000 Unit Capsule] Multivitamin [Daily Multiple 1 tab PO DAILY 02/05/20 03/04/21 Vitamin] Ondansetron Odt [Zofran Odt] 4 mg TL Q6H PRN #10 tablet 03/07/21 oxyCODONE [Roxicodone] 5 mg PO Q4-6H PRN #20 tablet 03/07/21 Hydromorphone HCl [Dilaudid] 4 mg PO Q6HR PRN #14 tablet 07/01/21 - Allergies Allergies/Adverse Reactions: Allergies Allergy/AdvReac Type Severity Reaction Status Date / Time chlorhexidine AdvReac Unknown Verified 08/01/21 18:01 - Social History Does the pt smoke?: No Smoking Status: Never smoker Does the pt drink ETOH?: Yes Does the pt have substance abuse?: Yes - Immunizations Immunizations are current?: Yes - POLST Patient has POLST: No PD ED PE NORMAL - Vitals Vital signs reviewed: Yes - General General: Alert and oriented X 3, No acute distress - HEENT HEENT: PERRL, EOMI - Neck Neck: Supple, no meningeal sign, No bony TTP - Cardiac Cardiac: RRR, No murmur - Respiratory Respiratory: No respiratory distress, Clear bilaterally - Abdomen Abdomen: Soft, Non tender, Other (Extensive surgical scars) - Rectal Rectal: Other (He was able to produce a stool sample here that was clearly gross melena with the typical smell.) - Back Back: No CVA TTP, No spinal TTP - Derm Derm: Normal color, Warm and dry - Extremities Extremities: No edema, No calf tenderness / cord - Neuro Neuro: Alert and oriented X 3, Normal speech Results - Vitals Vitals: Vital Signs - 24 hr 08/01/21 17:53 Temperature 36.2 C L Heart Rate 108 H Respiratory 16 Rate Blood Pressure 135/85 H O2 Saturation 100 Oxygen O2 Source Room air - Labs Labs: Laboratory Tests 08/01/21 08/01/21 08/01/21 18:51 18:51 18:51 WBC 13.2 H RBC 2.14 L Hgb 5.9 L* Hct 17.7 L* MCV 82.7 MCH 27.6 MCHC 33.3 RDW 14.5 Plt Count 113 L MPV 10.1 Neut # (Auto) 8.3 H Lymph # (Auto) 3.5 Gosper # (Auto) 1.1 H Eos # (Auto) 0.1 Baso # (Auto) 0.0 Absolute Nucleated RBC 0.00 Nucleated RBC % 0.0 PT 14.0 H INR 1.3 H Sodium Potassium Chloride Carbon Dioxide Anion Gap BUN Creatinine Estimated GFR (MDRD) Glucose Estimat Average Glucose Hemoglobin A1c % Calcium Magnesium Iron TIBC % Saturation Transferrin Ferritin Total Bilirubin AST ALT Alkaline Phosphatase Total Protein Albumin Globulin Albumin/Globulin Ratio Lipase SARS-CoV-2 (PCR) Blood Type B POSITIVE Antibody Screen NEGATIVE Crossmatch IS Only See Detail 08/01/21 08/01/21 08/01/21 18:51 18:51 18:51 WBC RBC Hgb Hct MCV MCH MCHC RDW Plt Count MPV Neut # (Auto) Lymph # (Auto) Gosper # (Auto) Eos # (Auto) Baso # (Auto) Absolute Nucleated RBC Nucleated RBC % PT INR Sodium 131 L Potassium 3.2 L Chloride 96 L Carbon Dioxide 24 Anion Gap 11.0 BUN 70 H Creatinine 2.1 H Estimated GFR (MDRD) 33 L Glucose 422 H Estimat Average Glucose Hemoglobin A1c % Calcium 8.0 L Magnesium 1.8 Iron 34 L TIBC 321 % Saturation 11 L Transferrin 229 Ferritin 34.6 Total Bilirubin 0.9 AST 13 ALT 17 Alkaline Phosphatase 118 Total Protein 5.2 L Albumin 2.8 L Globulin 2.4 Albumin/Globulin Ratio 1.2 Lipase 27 SARS-CoV-2 (PCR) Blood Type Antibody Screen Crossmatch IS Only 08/01/21 08/01/21 18:51 19:45 WBC RBC Hgb Hct MCV MCH MCHC RDW Plt Count MPV Neut # (Auto) Lymph # (Auto) Gosper # (Auto) Eos # (Auto) Baso # (Auto) Absolute Nucleated RBC Nucleated RBC % PT INR Sodium Potassium Chloride Carbon Dioxide Anion Gap BUN Creatinine Estimated GFR (MDRD) Glucose Estimat Average Glucose 212 H Hemoglobin A1c % 9.0 H Calcium Magnesium Iron TIBC % Saturation Transferrin Ferritin Total Bilirubin AST ALT Alkaline Phosphatase Total Protein Albumin Globulin Albumin/Globulin Ratio Lipase SARS-CoV-2 (PCR) NOT DETECTED Blood Type Antibody Screen Crossmatch IS Only PD MEDICAL DECISION MAKING - ED course ED course: 56-year-old gentleman with upper GI bleed, hemodynamically okay but with significantly low H&H. The bleed is likely due to NSAIDs and aspirin taken in the last few weeks for a sprained right wrist. He was crossmatched for blood and 2 units are ordered to start. I did speak with our on-call surgeon, Dr. Camacho at approximately 7:15 PM and she will consult, defers to medicine for admission. His blood sugar is in the 400s. He does not have a formal diagnosis of diabetes and currently on steroids so it may just be a steroid side effect. A small dose of subcutaneous insulin was ordered. Subsequently spoke with Dr. Juarez the hospitalist for admission at approximately 7:40 PM. - Critical Care Time(min): 35 Time Includes: Direct patient care, Review records, Reassess patient, Document care, Coordinate care, Medical consult Data interpretation: Labs, Pulse ox Departure - Departure Disposition: 66 [facility] DC/Xfer Clinical Impression: Short gut syndrome, Crohn's disease, Upper GI bleed, Acute blood loss anemia, Hyperglycemia Condition: Serious Discharge Date/Time: 08/01/21 21:15
[2021-08-01] MEDS ORDERED: LORazepam 2 MG/ML VIAL IVP STA (18:45)
[2021-08-01] MEDS ORDERED: PANTOPRAZOLE 40 MG VIAL IVP STA (18:45)
[2021-08-01] MEDS ORDERED: ONDANSETRON 4 MG/2 ML VIAL IVP STA (18:45)
[2021-08-01 19:06] LABS: BASOPHILS % (AUTO) 0.2 %; EOSINOPHILS # (AUTO) 0.1 10^3/uL (0.0-0.7); EOSINOPHILS % (AUTO) 0.5 %; LYMPHOCYTES # (AUTO) 3.5 10^3/uL (1.5-3.5); LYMPHOCYTES % (AUTO) 26.2 %; MEAN CORPUSCULAR HEMOGLOBIN 27.6 pg (27.0-31.0); MEAN CORPUSCULAR HGB CONC 33.3 g/dL (32.0-36.0); MEAN CORPUSCULAR VOLUME 82.7 fL (80.0-94.0); MEAN PLATELET VOLUME 10.1 fL (7.4-11.4); MONOCYTES # (AUTO) 1.1 10^3/uL (0.0-1.0); MONOCYTES % (AUTO) 8.7 %; NEUTROPHILS # (AUTO) 8.3 10^3/uL (1.5-6.6); NEUTROPHILS % (AUTO) 62.7 %; PLT - PLATELET COUNT 113 10^3/uL (130-450); RED BLOOD COUNT 2.14 10^6/uL (4.70-6.10); RED CELL DISTRIBUTION WIDTH 14.5 % (12.0-15.0); WHITE BLOOD COUNT 13.2 x10^3/uL (4.8-10.8)
[2021-08-01 19:07] LABS: INR 1.3 (0.8-1.2)
[2021-08-01 19:10] LABS: HCT - HEMATOCRIT 17.7 % (42.0-52.0); HGB - HEMOGLOBIN 5.9 g/dL (14.0-18.0)
[2021-08-01 19:14] LABS: ALBUMIN 2.8 g/dL (3.2-5.5); ALBUMIN/GLOBULIN RATIO 1.2 (1.0-2.2); BILIRUBIN,TOTAL 0.9 mg/dL (0.2-1.0); CREATININE 2.1 mg/dL (0.6-1.2); MAGNESIUM 1.8 mg/dL (1.7-2.8); POTASSIUM 3.2 mmol/L (3.5-5.0); TOTAL PROTEIN 5.2 g/dL (6.7-8.2)
[2021-08-01] MEDS ORDERED: INSULIN REGULAR HUMAN 100 UNIT/1 ML 10 ML MDV SUBQ STA (19:16)
[2021-08-01] MEDS ORDERED: ONDANSETRON ODT 4 MG TABLET TL PRN (19:51)
[2021-08-01] MEDS ORDERED: ACETAMINOPHEN 325 MG TABLET PO PRN (19:51)
[2021-08-01] MEDS ORDERED: POTASSIUM CHLORIDE 20 MEQ TABLET PO STA (19:54)
--- NOTE | 2021-08-01 19:56 | HISTORY & PHYSICAL EXAMINATION ---
Chief Complaint - Chief Complaint Chief Complaint: Low blood counts History of Present Illness - Admitted From Admitted From:: Home - History Obtained From Records Reviewed: [facility] History obtained from: Patient, ER Physician, EMR - History of Present Illness HPI Comment/Other: 56-year-old male with a past medical history significant for Crohn's disease on Entyvio, short gut syndrome on TPN, chronic kidney disease stage III who presents today due to routine labs on outpatient basis that revealed anemia. He states his yarn worker from [facility] ordered routine labs yesterday and he came back anemic at less than 7. Patient states his stool has been dark/black since . He is also felt increasingly fatigued and weak over the past day or so. He is also felt short of breath with activity. Reports occasional nausea but no vomiting. He has had occasional odynophagia and dysphagia with liquid potassium which she is on chronically due to hypokalemia. He states he had a wrist injury about a month ago and he was taking ibuprofen as well as Advil on a regular basis. He has also been on prednisone 20 mg daily since February due to joint pain. He is no longer on a PPI as it was discontinued due to hypomagnesemia. He reports no bloody emesis or hematuria. He states he is also been on TPN for about 2 years now due to short gut syndrome. He does not have a diagnosis of diabetes. He does take Creon for pancreatic insufficiency. Given the GI bleed and anemia, medicine was consulted for admission. I discussed goals of care and he would like to be a full code. History - Past Medical History Cardiovascular: reports: None Neuro: reports: None Endocrine/Autoimmune: reports: None GI: reports: Colon polyps, Crohn's disease : reports: Renal insuffiency HEENT: reports: Other Psych: reports: Depression Musculoskeletal: reports: None Derm: reports: Eczema MRSA Hx?: Yes - Past Surgical History General: reports: Cholecystectomy, Appendectomy, Bowel surgery, Colonoscopy, Other HEENT: reports: Detached retina repair - Family & Social History Family History Comment/Other: Patient stated he was adopted so he does not know his family history. Social History Notes: He quit smoking about 5 years ago. 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 He was previously taking 1-6 beers a day. - POLST Patient has POLST: No Meds/Allgy - Home Medications Home Medications: Ambulatory Orders Medication Instructions Recorded Confirmed Calcium Citrate 1,000 mg PO TID 09/17/19 03/04/21 Ergocalciferol (Vitamin D2) 1 cap ORAL .WEEKLY 11/12/19 03/04/21 [Vitamin D2] Mirtazapine 45 mg ORAL QPM PRN 11/12/19 03/04/21 Potassium Citrate/Citric Acid 10 ml ORAL BID 11/12/19 03/04/21 [Potassium Cit-Citric Acid Soln] Zolpidem Tartrate 10 mg PO QPM PRN 11/12/19 03/04/21 carvediloL [Coreg] 3.125 mg PO BID #60 tablet 12/30/19 03/04/21 Acetaminophen [Tylenol Extra 500 mg PO Q4HR PRN 01/24/20 03/04/21 Strength] Loperamide HCl [Imodium A-D] 2 mg PO Q6H PRN 01/24/20 03/04/21 Sodium Bicarbonate 1,950 mg PO BID 01/24/20 03/04/21 Lipase/Protease/Amylase [Creon Dr 3 cap PO TID 02/05/20 03/04/21 12,000 Unit Capsule] Multivitamin [Daily Multiple 1 tab PO DAILY 02/05/20 03/04/21 Vitamin] Ondansetron Odt [Zofran Odt] 4 mg TL Q6H PRN #10 tablet 03/07/21 oxyCODONE [Roxicodone] 5 mg PO Q4-6H PRN #20 tablet 03/07/21 Hydromorphone HCl [Dilaudid] 4 mg PO Q6HR PRN #14 tablet 07/01/21 - Allergies Allergies/Adverse Reactions: Allergies Allergy/AdvReac Type Severity Reaction Status Date / Time chlorhexidine AdvReac Unknown Verified 08/01/21 18:01 Review of Systems - Constitutional Constitutional: denies: Fatigue, Fever, Chills, Poor appetite - Cardiovascular Cariovascular: reports: Exertional dyspnea, Decr. exercise tolerance. denies: Chest pain - Respiratory Respiratory: reports: SOB with exertion. denies: Cough, SOB at rest - Gastrointestinal Gastrointestinal: reports: Black stools, Nausea, Reflux/heartburn. denies: Abdominal pain, Diarrhea, Change in bowel habits, Bloody stools, Vomiting, Bile emesis, Chin blood emesis - Genitourinary Genitourinary: denies: Dysuria, Frequency, Urgency, Hematuria - Musculoskeletal Musculoskeletal: reports: Joint pain - Integumentary Integumentary: denies: Rash - Neurological Neurological: denies: General weakness, Focal weakness - Hematologic/Lymphatic Hematologic/Lymphatic: reports: Anemia. denies: Bleeding tendencies - All Other Systems All Other Systems: reports: Reviewed and negative Prior Level of Functionality: Independent with his ADLs. Exam - Vital Signs Reviewed Vital Signs: Yes Vital Signs: Vital Signs x48h Temp Pulse Resp BP Pulse Ox 08/01/21 17:53 36.2 C L 108 H 16 135/85 H 100 - Physical Exam General Appearance: positive: No acute distress, Alert Eyes Bilateral: positive: Normal inspection, Other (Conjuctival pallor.) ENT: positive: ENT inspection nml Neck: positive: Nml inspection Respiratory: positive: No respiratory distress. negative: Wheezes, Rales Cardiovascular: positive: Regular rate & rhythm, No murmur. negative: Tachycardia Abdomen: positive: Non-tender, No distention, Other (Prior surgical incisions noted.). negative: Tenderness Skin: positive: Warm, Dry, Pallor Extremities: positive: No pedal edema Neurologic/Psychiatric: positive: Motor nml. negative: Disoriented to person, Disoriented to place Conclusion/Plan - Problem List (1) Upper GI bleed Conclusion/Plan: For upper GI bleed given he is now anemic and presents with melena. He has also been using NSAIDs. We will make him n.p.o. at midnight and start on Protonix 40 mg IV twice daily. Trend hemoglobin every 8 hours. He will be getting 2 units of packed red blood cell today. Plan for endoscopy tomorrow with general surgery. (2) Acute blood loss anemia Conclusion/Plan: This is secondary to upper GI bleed. His hemoglobin is decreased today at 5.9 compared to baseline of 11. We will transfuse 2 units of packed red blood cell and monitor hemoglobin every 8 hours. SCDs for DVT prophylaxis. (3) Chronic kidney disease Conclusion/Plan: His renal function is at baseline with a creatinine of 2.1. We will gently hydrate him given he is n.p.o. Monitor her renal function and urine output. Qualifiers: Chronic kidney disease stage: stage 3 (moderate) Chronic kidney disease stage 3 subtype: stage 3b (GFR 30-44) Qualified Code(s): N18.32 - Chronic kidney disease, stage 3b (4) Hyperglycemia Conclusion/Plan: He is hyperglycemic with a blood glucose greater than 400. Suspect he will most certainly be diabeti.. He has been on steroids which may exacerbate this as well as his history of pancreatic insufficiency given he is on creon. We will give him Lantus this evening and place him on sliding scale. Check A1c. We will consult business development coordinator if A1c is elevated. (5) Crohn's disease Conclusion/Plan: He is a known history of Crohn's disease with multiple small bowel resection the past resulting in short gut syndrome. He is now on TPN. We will consult nutrition to help manage this in the morning. Continue outpatient follow-up with GI on discharge. (6) Short gut syndrome Conclusion/Plan: This is secondary to the Crohn's disease which has required multiple small bowel resections. Continue with liquid diet as tolerated as well as TPN. Imodium as needed. - Lab Results Lab results reviewed: Yes Mika Bones: 08/01/21 22:00 08/01/21 18:51 Core Measures - Anticipated LOS I expect patient to be DC'd or transferred within 96 hours.: Yes - Issues Hospital Issues and Management Plan: 56-year-old male with history of Crohn's disease and multiple small bowel resections resulting in short gut syndrome presents with anemia and melena. We will admit for transfusion of packed red blood cell and EGD. - DVT/VTE - Prophylaxis VTE/DVT Device ordered at admit?: Yes VTE/DVT Prophylaxis med ordered at admit?: No Not Ordered - Medical Reason: Contraindicated
[2021-08-01 20:38] LABS: % IRON SATURATION 11 % (20-50); IRON 34 ug/dL (45-182); TOTAL IRON BINDING CAPACITY 321 ug/dL (250-450); TRANSFERRIN 229 mg/dL (180-329)
[2021-08-01 20:52] LABS: ESTIMATED AVERAGE GLUCOSE 212 mg/dL (70-100)
[2021-08-01 22:05] LABS: HCT - HEMATOCRIT 20.2 % (42.0-52.0)
[2021-08-01 22:09] LABS: HGB - HEMOGLOBIN 6.9 g/dL (14.0-18.0)
--- NOTE | 2021-08-01 22:19 | CONSULTATION NOTE ---
Referring Provider Name of Referring Provider:: Daniepraneethhudson Chief Complaint - Chief Complaint Chief Complaint: Anemia History of Present Illness - History Obtained From History obtained from: Patient, ED provider, chart - History of Present Illness HPI Comment/Other: 56M with Crohn's (on Entyvio), history of multiple bowel resections complicated by short gut syndrome (on TPN via R subclavian port), and GERD, who presents with several days of dark stools. He suffered a R wrist injury 3 weeks ago and has been taking Aleve 2 tabs BID for about a week. He has known GERD (prior upper endoscopy at outside institutions, patient unsure of findings) however had previously stopped PPI due to electrolyte deficiency side effects. His last upper and lower endoscopy were in 02/2021 and he was told showed no active disease. He called his GI provider at [facility] today and was instructed to present to the ED due to the dark stools. Here, Hgb found to be 5.9. Tachycardic but normotensive. Receiving blood transfusion in the ED. 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) : reports: Renal insuffiency HEENT: reports: Other Psych: reports: Depression Musculoskeletal: reports: None Derm: reports: Eczema MRSA Hx?: Yes - Past Surgical History General: reports: Cholecystectomy, Appendectomy, Bowel surgery, Colonoscopy, Other Ortho: reports: Other HEENT: reports: Detached retina repair - Family & Social History Family History: Mother: Alive and Well, Father: Alive and Well Family History Comment/Other: Patient stated he was adopted so he does not know his parents medical condition Social History Notes: No longer smoking (quit 5 yrs ago), used to drink heavily, a few wkks ago DID have 1-6 beers but hasnt had a beer in several weeks. 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 Financially strapped due to his chronic illness - POLST Patient has POLST: No Meds/Allgy - Home Medications Home Medications: Ambulatory Orders Medication Instructions Recorded Confirmed Calcium Citrate 1,000 mg PO TID 09/17/19 03/04/21 Ergocalciferol (Vitamin D2) 1 cap ORAL .WEEKLY 11/12/19 03/04/21 [Vitamin D2] Mirtazapine 45 mg ORAL QPM PRN 11/12/19 03/04/21 Potassium Citrate/Citric Acid 10 ml ORAL BID 11/12/19 03/04/21 [Potassium Cit-Citric Acid Soln] Zolpidem Tartrate 10 mg PO QPM PRN 11/12/19 03/04/21 carvediloL [Coreg] 3.125 mg PO BID #60 tablet 12/30/19 03/04/21 Acetaminophen [Tylenol Extra 500 mg PO Q4HR PRN 01/24/20 03/04/21 Strength] Loperamide HCl [Imodium A-D] 2 mg PO Q6H PRN 01/24/20 03/04/21 Sodium Bicarbonate 1,950 mg PO BID 01/24/20 03/04/21 Lipase/Protease/Amylase [Creon Dr 3 cap PO TID 02/05/20 03/04/21 12,000 Unit Capsule] Multivitamin [Daily Multiple 1 tab PO DAILY 02/05/20 03/04/21 Vitamin] Ondansetron Odt [Zofran Odt] 4 mg TL Q6H PRN #10 tablet 03/07/21 oxyCODONE [Roxicodone] 5 mg PO Q4-6H PRN #20 tablet 03/07/21 Hydromorphone HCl [Dilaudid] 4 mg PO Q6HR PRN #14 tablet 07/01/21 - Allergies Allergies/Adverse Reactions: Allergies Allergy/AdvReac Type Severity Reaction Status Date / Time chlorhexidine AdvReac Unknown Verified 08/01/21 18:01 Review of Systems - Gastrointestinal Gastrointestinal: reports: Black stools, Reflux/heartburn - Musculoskeletal Musculoskeletal: reports: Other (R wrist pain from recent injury) Exam - Vital Signs Reviewed Vital Signs: Yes Vital Signs: Vital Signs x48h Temp Pulse Pulse Resp BP BP Pulse Ox 08/01/21 21:28 100 08/01/21 21:25 37 C 87 16 130/82 H 08/01/21 21:00 36.6 C 84 18 115/73 100 08/01/21 20:45 36.6 C 84 17 115/70 08/01/21 20:15 36.6 C 88 16 112/77 08/01/21 20:05 36.9 C 89 16 107/79 08/01/21 20:04 36.9 C 91 15 110/75 99 08/01/21 17:53 36.2 C L 108 H 16 135/85 H 100 - Physical Exam General Appearance: positive: No acute distress ENT: positive: ENT inspection nml Respiratory: positive: No respiratory distress Abdomen: positive: Non-tender, Other (Multiple healed scars. No masses.) Rectal: positive: Other (Multiple fistula tract scars. No inflammation or pain. AKIN with scant dark tarry stool.) Skin: positive: Color nml Extremities: positive: Nml appearance Neurologic/Psychiatric: positive: Oriented x3 Conclusion/Plan - Problem List (1) Acute blood loss anemia Conclusion/Plan: 56M with Crohn's (on Entyvio) c/b short gut on TPN, who presents with ABLA in setting of recent NSAID use. Hgb 5.9, PLT 113, INR 1.3. Medicine admission NPO, IVF, TPN Transfuse to goal Hgb 7.0 CBC q6hr Patient instructed to avoid NSAIDs in setting of IBD Will need follow up with IBD provider Possible EGD and c-scope tomorrow. Consented. Considering his complicated IBD, may need transfer to tertiary center with DARIEL Camacho MD - Lab Results Lab results reviewed: Yes Fish Bones: 08/01/21 22:00 08/01/21 18:51
[2021-08-01] MEDS: ONDANSETRON 4 MG/2 ML VIAL IVP PRN (22:28)
[2021-08-01] MEDS: INSULIN GLARGINE 300 UNIT/3 ML PEN SUBQ SCH (23:28)
[2021-08-01] MEDS: INSULIN REGULAR HUMAN 300 UNIT/3 ML VIAL SUBQ SCH (23:32)
[2021-08-02] MEDS: LACTATED RINGERS 1,000 ML IV SCH ×3 (01:24→21:57)
[2021-08-02] MEDS: SODIUM CHLORIDE FLUSH 0.9% 10 ML SYRINGE IVP SCH ×3 (01:24→15:43)
[2021-08-02 06:01] LABS: BASOPHILS % (AUTO) 0.2 %; EOSINOPHILS # (AUTO) 0.1 10^3/uL (0.0-0.7); EOSINOPHILS % (AUTO) 0.6 %; HCT - HEMATOCRIT 23.8 % (42.0-52.0); HGB - HEMOGLOBIN 8.1 g/dL (14.0-18.0); LYMPHOCYTES # (AUTO) 4.9 10^3/uL (1.5-3.5); LYMPHOCYTES % (AUTO) 30.1 %; MEAN CORPUSCULAR HEMOGLOBIN 28.9 pg (27.0-31.0); MEAN PLATELET VOLUME 9.5 fL (7.4-11.4); MONOCYTES # (AUTO) 1.2 10^3/uL (0.0-1.0); MONOCYTES % (AUTO) 7.6 %; NEUTROPHILS # (AUTO) 9.7 10^3/uL (1.5-6.6); NEUTROPHILS % (AUTO) 59.9 %; NRBC ABSOLUTE COUNT (AUTO) 0.04 x10^3/uL; NUCLEATED RED BLOOD CELLS AUTO 0.2 /100WBC; PLT - PLATELET COUNT 119 10^3/uL (130-450); RED CELL DISTRIBUTION WIDTH 15.1 % (12.0-15.0); WHITE BLOOD COUNT 16.2 x10^3/uL (4.8-10.8)
[2021-08-02 06:11] LABS: CREATININE 2.1 mg/dL (0.6-1.2)
[2021-08-02] MEDS: INSULIN REGULAR HUMAN 300 UNIT/3 ML VIAL SUBQ SCH ×3 (06:22→19:08)
[2021-08-02] MEDS ORDERED: metFORMIN 500 MG TABLET PO SCH (08:00)
[2021-08-02] MEDS: FERROUS SULFATE 325 MG TABLET PO SCH (09:22)
[2021-08-02] MEDS: PANTOPRAZOLE 40 MG VIAL IVP SCH ×2 (09:24→20:07)
[2021-08-02] MEDS: SODIUM CHLORIDE FLUSH 0.9% 10 ML SYRINGE IVP PRN ×3 (09:24→20:09)
[2021-08-02] MEDS ORDERED: LORazepam 0.5 MG TABLET PO PRN (10:16)
--- NOTE | 2021-08-02 11:13 | PHARMACY PROGRESS NOTE ---
- Best Possible Medication History Admit Date and Time: 08/01/211950 Processed by: Pharmacy Medication History completed: Yes Patient Interview: Completed Secondary Source(s): Pharmacy records, Insurance records, Previous admit records As the person ultimately responsible for medication therapy, providers are able to order a medication from an existing home medication list in [facility] via the "Reconcile Routine" prior to Confirmation of that medication by support specialist. Such practice is discouraged except when the physician, in their clinical judgment, deems that a medical need exists for a medication without regard to previous use.
[2021-08-02] MEDS ORDERED: DIPHENOX/ATROPINE 2.5/0.025 MG TABLET PO PRN (12:34)
[2021-08-02] MEDS: carvediloL 3.125 MG TABLET PO SCH ×2 (12:45→20:07)
[2021-08-02 14:02] LABS: HCT - HEMATOCRIT 20.4 % (42.0-52.0)
[2021-08-02] MEDS: ONDANSETRON 4 MG/2 ML VIAL IVP PRN (14:52)
--- NOTE | 2021-08-02 15:26 | PROVIDER PROGRESS NOTE ---
Assessment/Plan - Problem List (1) Upper GI bleed Assessment/Plan: 08/02 pt's HGB is still drop and still has black/red stool, will hold home steroid and NSAIDs, continue IV of Protonix, consult with surgeon and plan to have EGD on tomorrow. continue H&H. Now pt's HGB is 7, plan another unit of blood for pt. (2)anemia Conclusion/Plan: 08/02 pt has hx of iron Deficiency anemia, and he also has secondary to upper GI bleed. Patient had 2 units transfused, but her hemoglobin dropped again. continue iron supplement, transfusion of another unit of blood, Continue H&H monitor hemoglobin, SCDs for DVT prophylaxis. (3) Chronic kidney disease Conclusion/Plan: stable, His renal function is at baseline with a creatinine of 2.1. We will gently hydrate him given he is n.p.o. Monitor her renal function and urine output. (4) Hyperglycemia with new diabetes Conclusion/Plan: He is hyperglycemic with a blood glucose greater than 400 at the admission. his A1C is 9.0. Called patient's PCP lexa Schumacher. lexa Schumacher state pt has Rheumatoid arthritis, So she ordered steroid beginning last year March. Patient report his bilateral shoulder pain is resolved. Patient state he will refuse to take any more steroid. lexa Schumacher agree hold his steroid Prednisone and agree to have metformin at d/c, and followup with her office to manage his DM. order diabetes education for pt. (5) Crohn's disease Conclusion/Plan: pt denies abdominal pain. He is a known history of Crohn's disease with multiple small bowel resection the past resulting in short gut syndrome. He is on TPN at home, at the same time, pt report eating meal as well. pt refused to have TPN at hospital. We will consult nutrition to help manage this. Continue outpatient follow-up with GI on discharge. (6) Short gut syndrome Conclusion/Plan: we will continue to TPN for pt, full liquid diet on tonight and NPO for tomorrow breakfast for EGD. pt has hx of Crohn's disease which has required multiple small bowel resections. Continue with liquid diet as tolerated as well as TPN. Imodium as needed. (7)Rheumatoid arthritis lexa Schumacher state pt has hx of Rheumatoid arthritis, she ordered steroid beginning last year March.Patient report his bilateral shoulder pain is resolved. Patient state he will refuse to take any more steroid. lexa Schumacher agree pt hold steroid. Patient may follow-up with her office after discharge. - Current Meds Current Meds: Current Medications Generic Name Dose Route Start Last Admin Trade Name Freq PRN Reason Stop Dose Admin Carvedilol 3.125 mg 08/02/21 13:00 08/02/21 12:45 Carvedilol 3.125 Mg Tablet PO 3.125 mg BID KAROLYN Administration Ferrous Sulfate 325 mg 08/02/21 08:00 08/02/21 09:22 Ferrous Sulfate 325 Mg Tablet PO 325 mg DAILYWM KAROLYN Administration Lactated Ringer's 1,000 mls @ 100 mls/hr 08/01/21 20:00 08/02/21 10:44 Lr IV 100 mls/hr .Q10H KAROLYN Administration Insulin Glargine 5 unit 08/01/21 21:00 08/01/21 23:28 Insulin Glargine 300 Unit/3 Ml Pen SUBQ 5 unit QPM KAROLYN Administration Insulin Human Regular 1 - 5 unit 08/02/21 00:00 08/02/21 12:46 Insulin Regular Human 300 Unit/3 Ml Vial SUBQ Not Given Q6HR KAROLYN Protocol Lorazepam 0.5 mg 08/02/21 10:16 08/02/21 10:42 Lorazepam 0.5 Mg Tablet PO 0.5 mg Q12H PRN Administration Anxiety Ondansetron HCl 4 mg 08/01/21 19:51 08/02/21 14:52 Ondansetron 4 Mg/2 Ml Vial IVP 4 mg Q6HR PRN Administration Nausea / Vomiting Pantoprazole Sodium 40 mg 08/02/21 09:00 08/02/21 09:24 Pantoprazole 40 Mg Vial IVP 40 mg BID KAROLYN Administration Sodium Chloride 10 ml 08/01/21 19:51 08/02/21 14:52 Sodium Chloride Flush 0.9% 10 Ml Syringe IVP 10 ml PRN PRN Administration NEEDED PER PROVIDER ORDERS Sodium Chloride 10 ml 08/02/21 01:00 08/02/21 09:24 Sodium Chloride Flush 0.9% 10 Ml Syringe IVP 10 ml 0100,[id number],1700 KAROLYN Administration - Lab Result Fish Bone Diagrams: 08/02/21 14:00 08/02/21 05:57 - Additional Planning My Orders: My Active Orders 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/21 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 [CONS] Routine RBC, LEUKOREDUCED Stat TYPE AND SCREEN Stat Diabetes Outpatient Education MAC [MAC] Routine 08/02/21 07:30 Nutrition Consult [CONS] Routine 08/02/21 10:16 LORazepam [Ativan] 0.5 mg PO Q12H PRN 08/02/21 12:34 Diphenoxylate/Atropine [Lomotil] 1 tab PO BID PRN 08/02/21 13:00 carvediloL [Coreg] 3.125 mg PO BID 08/02/21 14:55 Transfuse RBCs Leukoreduced [RC] .ONCE 08/02/21 Dinner Full Liquid Diet [DIET] 08/02/21 21:00 Mirtazapine [Remeron] 45 mg PO QPM 08/02/21 22:00 H&H [HEMOGLOBIN AND HEMATOCRIT] [HEME] Q8H Subjective - Subjective Patient Reports: Resting Comfortably Objective Vital Signs: Vital Signs - 24 hr 08/01/21 08/01/21 08/01/21 17:53 20:04 20:05 Temperature 36.2 C L 36.9 C 36.9 C Heart Rate 108 H 91 89 Heart Rate [ Brachial] Respiratory 16 15 16 Rate Blood Pressure 135/85 H 110/75 107/79 Blood Pressure [Right Brachial artery] O2 Saturation 100 99 08/01/21 08/01/21 08/01/21 20:15 20:45 21:00 Temperature 36.6 C 36.6 C 36.6 C Heart Rate 88 84 84 Heart Rate [ Brachial] Respiratory 16 17 18 Rate Blood Pressure 112/77 115/70 115/73 Blood Pressure [Right Brachial artery] O2 Saturation 100 08/01/21 08/01/21 08/01/21 21:25 21:28 22:21 Temperature 37 C 37 C Heart Rate 81 Heart Rate [ 87 Brachial] Respiratory 16 12 Rate Blood Pressure 111/68 Blood Pressure 130/82 H [Right Brachial artery] O2 Saturation 100 08/01/21 08/02/21 08/02/21 22:37 01:00 06:03 Temperature 37 C 36.9 C 36.6 C Heart Rate 80 75 Heart Rate [ 67 Brachial] Respiratory 16 16 18 Rate Blood Pressure 127/77 107/66 Blood Pressure 100/63 [Right Brachial artery] O2 Saturation 100 08/02/21 08/02/21 08:50 12:47 Temperature 36.5 C 36.9 C Heart Rate Heart Rate [ 68 71 Brachial] Respiratory 18 18 Rate Blood Pressure Blood Pressure 137/72 H 115/61 [Right Brachial artery] O2 Saturation 98 100 Oxygen O2 Source Room air I&O (Last 24 Hrs): Intake and Output Totals x24h 07/31/21 08/01/21 08/02/21 23:59 23:59 23:59 Intake Total 500 1313.333 Output Total 0 175 Balance 500 1138.333 General: Alert, Oriented x3, No acute distress HEENT: Atraumatic Neck: Supple Lymphatic: no adenopathy Neuro: Alert, Non Focal, Oriented Times 3 Cardiovascular: Regular rate, Normal S1, Normal S2 Respiratory: Chest non-tender, No respiratory distress Abdomen: Normal bowel sounds, Soft Extremities: Normal pulses - Results Results: Laboratory Results WBC 16.2 x10^3/uL (4.8-10.8) H 08/02/21 05:57 RBC 2.80 10^6/uL (4.70-6.10) L 08/02/21 05:57 Hgb 7.0 g/dL (14.0-18.0) L* 08/02/21 14:00 Hct 20.4 % (42.0-52.0) L 08/02/21 14:00 MCV 85.0 fL (80.0-94.0) 08/02/21 05:57 MCH 28.9 pg (27.0-31.0) 08/02/21 05:57 MCHC 34.0 g/dL (32.0-36.0) 08/02/21 05:57 RDW 15.1 % (12.0-15.0) H 08/02/21 05:57 Plt Count 119 10^3/uL (130-450) L 08/02/21 05:57 MPV 9.5 fL (7.4-11.4) 08/02/21 05:57 Neut # (Auto) 9.7 10^3/uL (1.5-6.6) H 08/02/21 05:57 Lymph # (Auto) 4.9 10^3/uL (1.5-3.5) H 08/02/21 05:57 [place] # (Auto) 1.2 10^3/uL (0.0-1.0) H 08/02/21 05:57 Eos # (Auto) 0.1 10^3/uL (0.0-0.7) 08/02/21 05:57 Baso # (Auto) 0.0 10^3/uL (0.0-0.1) 08/02/21 05:57 Absolute Nucleated RBC 0.04 x10^3/uL 08/02/21 05:57 Nucleated RBC % 0.2 /100WBC 08/02/21 05:57 PT 14.0 secs (9.9-12.6) H 08/01/21 18:51 INR 1.3 (0.8-1.2) H 08/01/21 18:51 Sodium 141 mmol/L (135-145) 08/02/21 05:57 Potassium 4.0 mmol/L (3.5-5.0) 08/02/21 05:57 Chloride 105 mmol/L (101-111) 08/02/21 05:57 Carbon Dioxide 25 mmol/L (21-32) 08/02/21 05:57 Anion Gap 11.0 (6-13) 08/02/21 05:57 BUN 60 mg/dL (6-20) H 08/02/21 05:57 Creatinine 2.1 mg/dL (0.6-1.2) H 08/02/21 05:57 Estimated GFR (MDRD) 33 (>89) L 08/02/21 05:57 Glucose 103 mg/dL (70-100) H 08/02/21 05:57 POC Whole Bld Glucose 122 mg/dL (70 - 100) H 08/02/21 12:41 Estimat Average Glucose 212 mg/dL (70-100) H 08/01/21 18:51 Hemoglobin A1c % 9.0 % (4.27-6.07) H 08/01/21 18:51 Calcium 8.0 mg/dL (8.5-10.3) L 08/02/21 05:57 Magnesium 1.8 mg/dL (1.7-2.8) 08/01/21 18:51 Iron 34 ug/dL (45-182) L 08/01/21 18:51 TIBC 321 ug/dL (250-450) 08/01/21 18:51 % Saturation 11 % (20-50) L 08/01/21 18:51 Transferrin 229 mg/dL (180-329) 08/01/21 18:51 Ferritin 34.6 ng/mL (23.9-336.2) 08/01/21 18:51 Total Bilirubin 0.9 mg/dL (0.2-1.0) 08/01/21 18:51 AST 13 IU/L (10-42) 08/01/21 18:51 ALT 17 IU/L (10-60) 08/01/21 18:51 Alkaline Phosphatase 118 IU/L (42-121) 08/01/21 18:51 Total Protein 5.2 g/dL (6.7-8.2) L 08/01/21 18:51 Albumin 2.8 g/dL (3.2-5.5) L 08/01/21 18:51 Globulin 2.4 g/dL (2.1-4.2) 08/01/21 18:51 Albumin/Globulin Ratio 1.2 (1.0-2.2) 08/01/21 18:51 Lipase 27 U/L (22-51) 08/01/21 18:51 SARS-CoV-2 (PCR) NOT DETECTED 08/01/21 19:45 Blood Type B POSITIVE 08/01/21 18:51 Antibody Screen NEGATIVE 08/01/21 18:51 Crossmatch IS Only See Detail 08/01/21 18:51 - Procedures Procedures: Procedures INSERT VAD RESERVOIR IN CHEST SUBCU/FASCIA, OPEN (02/04/20) INSERTION OF INFUSION DEV INTO SUP VENA CAVA, PERC APPROACH (02/04/20) INTRODUCTION OF NUTRITIONAL INTO CENTRAL VEIN, PERC APPROACH (02/04/20) TRANSFUSE NONAUT RED BLOOD CELLS IN PERIPH VEIN, PERC (02/04/20) Sepsis Event Note (H) - Evaluation Current Stage of Sepsis: Ruled out ABX Reporting Has patient been on IV antibiotics over the past 48 hours?: No Current Medications - Current Medications Current Medications: Active Medications Acetaminophen (Acetaminophen 325 Mg Tablet) 650 mg PO Q4HR PRN PRN Reason: Pain 1 to 4 Carvedilol (Carvedilol 3.125 Mg Tablet) 3.125 mg PO BID [facility] Last Admin: 08/02/21 12:45 Dose: 3.125 mg Diphenoxylate HCl/Atropine (Diphenox/Atropine 2.5/0.025 Mg Tablet) 1 tab PO BID PRN PRN Reason: Diarrhea Ferrous Sulfate (Ferrous Sulfate 325 Mg Tablet) 325 mg PO DAILYWM [facility] Last Admin: 08/02/21 09:22 Dose: 325 mg Lactated Ringer's (Lr) 1,000 mls @ 100 mls/hr IV .Q10H [facility] Last Infusion: 08/02/21 15:55 Dose: 0 mls/hr Insulin Glargine (Insulin Glargine 300 Unit/3 Ml Pen) 5 unit SUBQ QPM [facility] Last Admin: 08/01/21 23:28 Dose: 5 unit Insulin Human Regular (Insulin Regular Human 300 Unit/3 Ml Vial) 1 - 5 unit SUBQ Q6HR [facility]; Protocol Last Admin: 08/02/21 12:46 Dose: Not Given Lorazepam (Lorazepam 0.5 Mg Tablet) 0.5 mg PO Q12H PRN PRN Reason: Anxiety Last Admin: 08/02/21 10:42 Dose: 0.5 mg Mirtazapine (Mirtazapine 15 Mg Tablet) 45 mg PO QPM [facility] Ondansetron HCl (Ondansetron Odt 4 Mg Tablet) 4 mg TL Q6HR PRN PRN Reason: Nausea / Vomiting Ondansetron HCl (Ondansetron 4 Mg/2 Ml Vial) 4 mg IVP Q6HR PRN PRN Reason: Nausea / Vomiting Last Admin: 08/02/21 14:52 Dose: 4 mg Pantoprazole Sodium (Pantoprazole 40 Mg Vial) 40 mg IVP BID [facility] Last Admin: 08/02/21 09:24 Dose: 40 mg Sodium Chloride (Sodium Chloride Flush 0.9% 10 Ml Syringe) 10 ml IVP PRN PRN PRN Reason: NEEDED PER PROVIDER ORDERS Last Admin: 08/02/21 14:52 Dose: 10 ml Sodium Chloride (Sodium Chloride Flush 0.9% 10 Ml Syringe) 10 ml IVP 0100,0900,1700 [facility] Last Admin: 08/02/21 15:43 Dose: Not Given Calcium Citrate 400 mg PO BID 08/02/21 Cholecalciferol (Vitamin D3) [Vitamin D3] 1,250 mcg PO [place] 08/02/21 Diphenoxylate/Atropine [Lomotil] 1 each PO BID 08/02/21 Mirtazapine [Remeron] 45 mg PO QPM 08/02/21 Pantoprazole [Protonix] 40 mg PO DAILY 08/02/21 Potassium Citrate/Citric Acid [Potassium Cit-Citric Acid Sln] 10 ml PO BID 08/02/21 Sodium Bicarbonate 1,950 mg PO BID 08/02/21 carvediloL [Coreg] 3.125 mg PO BID 08/02/21 predniSONE [Deltasone] 20 mg PO DAILY 08/02/21
--- NOTE | 2021-08-02 16:19 | PROVIDER PROGRESS NOTE ---
Subjective - General Admit Date: 08/01/21 Procedure Date: 03/07/21 Post Op Days: 148 - Review of Systems General: positive: No symptoms HEENT: positive: No symptoms Gastrointestinal: positive: Nausea. negative: Vomiting, Abdominal pain All Other Systems: positive: Reviewed and negative - Other Other Information/Narrative: Mr. Peñaloza is feeling frustrated that we did get his scope done today. He says he knows he would not have been able to go home but at least he would know exactly what is going on inside his belly.I notified him that we are planning to do his EGD tomorrow afternoon. If possible, we will do it first thing in the morning instead. Objective - Patient Data Reviewed Vital Signs: Yes Vital Signs: Vital Signs x48h Temp Pulse Pulse Resp BP BP Pulse Ox 08/02/21 16:10 37 C 69 18 108/60 08/02/21 16:00 37 C 69 19 111/63 08/02/21 15:53 37 C 72 18 108/62 08/02/21 15:41 37 C 68 19 108/62 99 08/02/21 12:47 36.9 C 71 18 115/61 100 08/02/21 08:50 36.5 C 68 18 137/72 H 98 Weight: Weight 07/31/21 08/01/21 08/02/21 23:59 23:59 23:59 Weight (kg) 69.5 kg 69.5 kg Intake & Output: Intake and Output Totals x24h 07/31/21 08/01/21 08/02/21 23:59 23:59 23:59 Intake Total 500 1831.666 Output Total 0 175 Balance 500 1656.666 - Lab Results Lab Results: 08/02/21 14:00 08/02/21 05:57 Other Lab Results: Lab Results x24hrs 08/02/21 08/02/21 08/02/21 Range/Units 14:00 12:41 05:58 WBC (4.8-10.8) x10^3/uL RBC (4.70-6.10) 10^6/uL Hgb 7.0 L* (14.0-18.0) g/dL Hct 20.4 L (42.0-52.0) % MCV (80.0-94.0) fL MCH (27.0-31.0) pg MCHC (32.0-36.0) g/dL RDW (12.0-15.0) % Plt Count (130-450) 10^3/uL MPV (7.4-11.4) fL Neut # (Auto) (1.5-6.6) 10^3/uL Lymph # (Auto) (1.5-3.5) 10^3/uL [place] # (Auto) (0.0-1.0) 10^3/uL Eos # (Auto) (0.0-0.7) 10^3/uL Baso # (Auto) (0.0-0.1) 10^3/uL Absolute Nucleated RBC x10^3/uL Nucleated RBC % /100WBC PT (9.9-12.6) secs INR (0.8-1.2) Sodium (135-145) mmol/L Potassium (3.5-5.0) mmol/L Chloride (101-111) mmol/L Carbon Dioxide (21-32) mmol/L Anion Gap (6-13) BUN (6-20) mg/dL Creatinine (0.6-1.2) mg/dL Estimated GFR (MDRD) (>89) Glucose (70-100) mg/dL POC Whole Bld Glucose 122 H 94 (70 - 100) mg/dL Estimat Average Glucose (70-100) mg/dL Hemoglobin A1c % (4.27-6.07) % Calcium (8.5-10.3) mg/dL Magnesium (1.7-2.8) mg/dL Iron (45-182) ug/dL TIBC (250-450) ug/dL % Saturation (20-50) % Transferrin (180-329) mg/dL Ferritin (23.9-336.2) ng/mL Total Bilirubin (0.2-1.0) mg/dL AST (10-42) IU/L ALT (10-60) IU/L Alkaline Phosphatase (42-121) IU/L Total Protein (6.7-8.2) g/dL Albumin (3.2-5.5) g/dL Globulin (2.1-4.2) g/dL Albumin/Globulin Ratio (1.0-2.2) Lipase (22-51) U/L SARS-CoV-2 (PCR) Blood Type Antibody Screen Crossmatch IS Only 08/02/21 08/02/21 08/01/21 Range/Units 05:57 05:57 23:31 WBC 16.2 H (4.8-10.8) x10^3/uL RBC 2.80 L (4.70-6.10) 10^6/uL Hgb 8.1 L (14.0-18.0) g/dL Hct 23.8 L (42.0-52.0) % MCV 85.0 (80.0-94.0) fL MCH 28.9 (27.0-31.0) pg MCHC 34.0 (32.0-36.0) g/dL RDW 15.1 H (12.0-15.0) % Plt Count 119 L (130-450) 10^3/uL MPV 9.5 (7.4-11.4) fL Neut # (Auto) 9.7 H (1.5-6.6) 10^3/uL Lymph # (Auto) 4.9 H (1.5-3.5) 10^3/uL [place] # (Auto) 1.2 H (0.0-1.0) 10^3/uL Eos # (Auto) 0.1 (0.0-0.7) 10^3/uL Baso # (Auto) 0.0 (0.0-0.1) 10^3/uL Absolute Nucleated RBC 0.04 x10^3/uL Nucleated RBC % 0.2 /100WBC PT (9.9-12.6) secs INR (0.8-1.2) Sodium 141 (135-145) mmol/L Potassium 4.0 (3.5-5.0) mmol/L Chloride 105 (101-111) mmol/L Carbon Dioxide 25 (21-32) mmol/L Anion Gap 11.0 (6-13) BUN 60 H (6-20) mg/dL Creatinine 2.1 H (0.6-1.2) mg/dL Estimated GFR (MDRD) 33 L (>89) Glucose 103 H (70-100) mg/dL POC Whole Bld Glucose 113 H (70 - 100) mg/dL Estimat Average Glucose (70-100) mg/dL Hemoglobin A1c % (4.27-6.07) % Calcium 8.0 L (8.5-10.3) mg/dL Magnesium (1.7-2.8) mg/dL Iron (45-182) ug/dL TIBC (250-450) ug/dL % Saturation (20-50) % Transferrin (180-329) mg/dL Ferritin (23.9-336.2) ng/mL Total Bilirubin (0.2-1.0) mg/dL AST (10-42) IU/L ALT (10-60) IU/L Alkaline Phosphatase (42-121) IU/L Total Protein (6.7-8.2) g/dL Albumin (3.2-5.5) g/dL Globulin (2.1-4.2) g/dL Albumin/Globulin Ratio (1.0-2.2) Lipase (22-51) U/L SARS-CoV-2 (PCR) Blood Type Antibody Screen Crossmatch IS Only 08/01/21 08/01/21 08/01/21 Range/Units 22:00 19:45 18:51 WBC (4.8-10.8) x10^3/uL RBC (4.70-6.10) 10^6/uL Hgb 6.9 L* (14.0-18.0) g/dL Hct 20.2 L (42.0-52.0) % MCV (80.0-94.0) fL MCH (27.0-31.0) pg MCHC (32.0-36.0) g/dL RDW (12.0-15.0) % Plt Count (130-450) 10^3/uL MPV (7.4-11.4) fL Neut # (Auto) (1.5-6.6) 10^3/uL Lymph # (Auto) (1.5-3.5) 10^3/uL [place] # (Auto) (0.0-1.0) 10^3/uL Eos # (Auto) (0.0-0.7) 10^3/uL Baso # (Auto) (0.0-0.1) 10^3/uL Absolute Nucleated RBC x10^3/uL Nucleated RBC % /100WBC PT (9.9-12.6) secs INR (0.8-1.2) Sodium (135-145) mmol/L Potassium (3.5-5.0) mmol/L Chloride (101-111) mmol/L Carbon Dioxide (21-32) mmol/L Anion Gap (6-13) BUN (6-20) mg/dL Creatinine (0.6-1.2) mg/dL Estimated GFR (MDRD) (>89) Glucose (70-100) mg/dL POC Whole Bld Glucose (70 - 100) mg/dL Estimat Average Glucose 212 H (70-100) mg/dL Hemoglobin A1c % 9.0 H (4.27-6.07) % Calcium (8.5-10.3) mg/dL Magnesium (1.7-2.8) mg/dL Iron (45-182) ug/dL TIBC (250-450) ug/dL % Saturation (20-50) % Transferrin (180-329) mg/dL Ferritin (23.9-336.2) ng/mL Total Bilirubin (0.2-1.0) mg/dL AST (10-42) IU/L ALT (10-60) IU/L Alkaline Phosphatase (42-121) IU/L Total Protein (6.7-8.2) g/dL Albumin (3.2-5.5) g/dL Globulin (2.1-4.2) g/dL Albumin/Globulin Ratio (1.0-2.2) Lipase (22-51) U/L SARS-CoV-2 (PCR) NOT DETECTED Blood Type Antibody Screen Crossmatch IS Only 08/01/21 08/01/21 08/01/21 Range/Units 18:51 18:51 18:51 WBC (4.8-10.8) x10^3/uL RBC (4.70-6.10) 10^6/uL Hgb (14.0-18.0) g/dL Hct (42.0-52.0) % MCV (80.0-94.0) fL MCH (27.0-31.0) pg MCHC (32.0-36.0) g/dL RDW (12.0-15.0) % Plt Count (130-450) 10^3/uL MPV (7.4-11.4) fL Neut # (Auto) (1.5-6.6) 10^3/uL Lymph # (Auto) (1.5-3.5) 10^3/uL [place] # (Auto) (0.0-1.0) 10^3/uL Eos # (Auto) (0.0-0.7) 10^3/uL Baso # (Auto) (0.0-0.1) 10^3/uL Absolute Nucleated RBC x10^3/uL Nucleated RBC % /100WBC PT (9.9-12.6) secs INR (0.8-1.2) Sodium 131 L (135-145) mmol/L Potassium 3.2 L (3.5-5.0) mmol/L Chloride 96 L (101-111) mmol/L Carbon Dioxide 24 (21-32) mmol/L Anion Gap 11.0 (6-13) BUN 70 H (6-20) mg/dL Creatinine 2.1 H (0.6-1.2) mg/dL Estimated GFR (MDRD) 33 L (>89) Glucose 422 H (70-100) mg/dL POC Whole Bld Glucose (70 - 100) mg/dL Estimat Average Glucose (70-100) mg/dL Hemoglobin A1c % (4.27-6.07) % Calcium 8.0 L (8.5-10.3) mg/dL Magnesium 1.8 (1.7-2.8) mg/dL Iron 34 L (45-182) ug/dL TIBC 321 (250-450) ug/dL % Saturation 11 L (20-50) % Transferrin 229 (180-329) mg/dL Ferritin 34.6 (23.9-336.2) ng/mL Total Bilirubin 0.9 (0.2-1.0) mg/dL AST 13 (10-42) IU/L ALT 17 (10-60) IU/L Alkaline Phosphatase 118 (42-121) IU/L Total Protein 5.2 L (6.7-8.2) g/dL Albumin 2.8 L (3.2-5.5) g/dL Globulin 2.4 (2.1-4.2) g/dL Albumin/Globulin Ratio 1.2 (1.0-2.2) Lipase 27 (22-51) U/L SARS-CoV-2 (PCR) Blood Type Antibody Screen Crossmatch IS Only 08/01/21 08/01/21 08/01/21 Range/Units 18:51 18:51 18:51 WBC 13.2 H (4.8-10.8) x10^3/uL RBC 2.14 L (4.70-6.10) 10^6/uL Hgb 5.9 L* (14.0-18.0) g/dL Hct 17.7 L* (42.0-52.0) % MCV 82.7 (80.0-94.0) fL MCH 27.6 (27.0-31.0) pg MCHC 33.3 (32.0-36.0) g/dL RDW 14.5 (12.0-15.0) % Plt Count 113 L (130-450) 10^3/uL MPV 10.1 (7.4-11.4) fL Neut # (Auto) 8.3 H (1.5-6.6) 10^3/uL Lymph # (Auto) 3.5 (1.5-3.5) 10^3/uL [place] # (Auto) 1.1 H (0.0-1.0) 10^3/uL Eos # (Auto) 0.1 (0.0-0.7) 10^3/uL Baso # (Auto) 0.0 (0.0-0.1) 10^3/uL Absolute Nucleated RBC 0.00 x10^3/uL Nucleated RBC % 0.0 /100WBC PT 14.0 H (9.9-12.6) secs INR 1.3 H (0.8-1.2) Sodium (135-145) mmol/L Potassium (3.5-5.0) mmol/L Chloride (101-111) mmol/L Carbon Dioxide (21-32) mmol/L Anion Gap (6-13) BUN (6-20) mg/dL Creatinine (0.6-1.2) mg/dL Estimated GFR (MDRD) (>89) Glucose (70-100) mg/dL POC Whole Bld Glucose (70 - 100) mg/dL Estimat Average Glucose (70-100) mg/dL Hemoglobin A1c % (4.27-6.07) % Calcium (8.5-10.3) mg/dL Magnesium (1.7-2.8) mg/dL Iron (45-182) ug/dL TIBC (250-450) ug/dL % Saturation (20-50) % Transferrin (180-329) mg/dL Ferritin (23.9-336.2) ng/mL Total Bilirubin (0.2-1.0) mg/dL AST (10-42) IU/L ALT (10-60) IU/L Alkaline Phosphatase (42-121) IU/L Total Protein (6.7-8.2) g/dL Albumin (3.2-5.5) g/dL Globulin (2.1-4.2) g/dL Albumin/Globulin Ratio (1.0-2.2) Lipase (22-51) U/L SARS-CoV-2 (PCR) Blood Type B POSITIVE Antibody Screen NEGATIVE Crossmatch IS Only See Detail - Current Medications Current Medications: Current Medications Generic Name Dose Route Start Last Admin Trade Name Freq PRN Reason Stop Dose Admin Carvedilol 3.125 mg 08/02/21 13:00 08/02/21 12:45 Carvedilol 3.125 Mg Tablet PO 3.125 mg BID KAROLYN Administration Ferrous Sulfate 325 mg 08/02/21 08:00 08/02/21 09:22 Ferrous Sulfate 325 Mg Tablet PO 325 mg DAILYWM KAROLYN Administration Lactated Ringer's 1,000 mls @ 100 mls/hr 08/01/21 20:00 08/02/21 15:55 Lr IV 0 mls/hr .Q10H KAROLYN Infusion Insulin Glargine 5 unit 08/01/21 21:00 08/01/21 23:28 Insulin Glargine 300 Unit/3 Ml Pen SUBQ 5 unit QPM KAROLYN Administration Insulin Human Regular 1 - 5 unit 08/02/21 00:00 08/02/21 12:46 Insulin Regular Human 300 Unit/3 Ml Vial SUBQ Not Given Q6HR KAROLYN Protocol Lorazepam 0.5 mg 08/02/21 10:16 08/02/21 10:42 Lorazepam 0.5 Mg Tablet PO 0.5 mg Q12H PRN Administration Anxiety Ondansetron HCl 4 mg 08/01/21 19:51 08/02/21 14:52 Ondansetron 4 Mg/2 Ml Vial IVP 4 mg Q6HR PRN Administration Nausea / Vomiting Pantoprazole Sodium 40 mg 08/02/21 09:00 08/02/21 09:24 Pantoprazole 40 Mg Vial IVP 40 mg BID KAROLYN Administration Sodium Chloride 10 ml 08/01/21 19:51 08/02/21 14:52 Sodium Chloride Flush 0.9% 10 Ml Syringe IVP 10 ml PRN PRN Administration NEEDED PER PROVIDER ORDERS Sodium Chloride 10 ml 08/02/21 01:00 08/02/21 15:43 Sodium Chloride Flush 0.9% 10 Ml Syringe IVP Not Given 0100,0900,1700 [facility] Impression/Plan - Problem List Problem List: Hemoglobin continuing to drift down. He is receiving a unit of blood currently. We will plan for EGD in the morning.
[2021-08-02] MEDS ORDERED: TEMAZEPAM 15 MG CAPSULE PO PRN (17:31)
[2021-08-02] MEDS ORDERED: FAT EMULSION 20% 250 ML IV SCH (19:00)
[2021-08-02] MEDS ORDERED: TPN (CLINIMIX E 5/15) 2,000 ML with MULTIVITAMIN 10 ML, TRACE ELEMENTS 1 ML IV SCH ×3 (19:00)
[2021-08-02] MEDS: INSULIN GLARGINE 300 UNIT/3 ML PEN SUBQ SCH (20:20)
[2021-08-02] MEDS ORDERED: MIRTAZAPINE 15 MG TABLET PO SCH (21:00)
[2021-08-02 22:08] LABS: HGB - HEMOGLOBIN 7.9 g/dL (14.0-18.0)
[2021-08-03] MEDS: INSULIN REGULAR HUMAN 300 UNIT/3 ML VIAL SUBQ SCH ×3 (02:53→11:16)
[2021-08-03] MEDS: SODIUM CHLORIDE FLUSH 0.9% 10 ML SYRINGE IVP SCH ×2 (02:54→08:25)
[2021-08-03] MEDS: LACTATED RINGERS 1,000 ML IV SCH (02:54)
[2021-08-03 05:29] LABS: BASOPHILS % (AUTO) 0.2 %; EOSINOPHILS # (AUTO) 0.1 10^3/uL (0.0-0.7); HCT - HEMATOCRIT 23.3 % (42.0-52.0); HGB - HEMOGLOBIN 7.6 g/dL (14.0-18.0); LYMPHOCYTES # (AUTO) 1.4 10^3/uL (1.5-3.5); LYMPHOCYTES % (AUTO) 24.1 %; MEAN CORPUSCULAR HEMOGLOBIN 27.9 pg (27.0-31.0); MEAN CORPUSCULAR HGB CONC 32.6 g/dL (32.0-36.0); MEAN CORPUSCULAR VOLUME 85.7 fL (80.0-94.0); MEAN PLATELET VOLUME 9.5 fL (7.4-11.4); MONOCYTES # (AUTO) 0.5 10^3/uL (0.0-1.0); MONOCYTES % (AUTO) 8.5 %; NEUTROPHILS # (AUTO) 3.8 10^3/uL (1.5-6.6); PLT - PLATELET COUNT 76 10^3/uL (130-450); RED BLOOD COUNT 2.72 10^6/uL (4.70-6.10); RED CELL DISTRIBUTION WIDTH 15.4 % (12.0-15.0); WHITE BLOOD COUNT 5.9 x10^3/uL (4.8-10.8)
[2021-08-03 05:42] LABS: CALCIUM 7.7 mg/dL (8.5-10.3); CREATININE 2.2 mg/dL (0.6-1.2); MAGNESIUM 1.7 mg/dL (1.7-2.8); PHOSPHORUS 3.1 mg/dL (2.5-4.6); POTASSIUM 3.5 mmol/L (3.5-5.0)
[2021-08-03] MEDS ORDERED: D5.45NS W/20 MEQ KCL 1,000 ML IV SCH (08:00)
[2021-08-03] MEDS: carvediloL 3.125 MG TABLET PO SCH (08:22)
[2021-08-03] MEDS: FERROUS SULFATE 325 MG TABLET PO SCH (08:22)
[2021-08-03] MEDS: PANTOPRAZOLE 40 MG VIAL IVP SCH (08:26)
--- NOTE | 2021-08-03 09:03 | ANESTHESIA ---
Pre-Anesthesia VS, & Labs - Diagnosis anemia - Procedure EGD Vital Signs: Temp Pulse Resp BP Pulse Ox 36.5 C 67 14 107/55 L 97 08/03/21 00:25 08/03/21 00:25 08/03/21 00:25 08/03/21 00:25 08/03/21 00:25 Height: 5 ft 8 in Weight (kg): 69.5 kg Body Mass Index: 23.3 BMI Classification: Healthy weight - Lab Results Current Lab Results: Laboratory Tests 08/03/21 05:15: Sodium 139, Potassium 3.5, Chloride 105, Carbon Dioxide 26, Anion Gap 8.0, BUN 41 H, Creatinine 2.2 H, Estimated GFR (MDRD) 31 L, Glucose 104 H, Calcium 7.7 L, Phosphorus 3.1, Magnesium 1.7, Prealbumin 14 L 08/03/21 05:15: WBC 5.9, RBC 2.72 L, Hgb 7.6 L, Hct 23.3 L, MCV 85.7, MCH 27.9, MCHC 32.6, RDW 15.4 H, Plt Count 76 L, MPV 9.5, Neut # (Auto) 3.8, Lymph # (Auto) 1.4 L, [place] # (Auto) 0.5, Eos # (Auto) 0.1, Baso # (Auto) 0.0, Absolute Nucleated RBC 0.00, Nucleated RBC % 0.0 08/03/21 05:13: POC Whole Bld Glucose 79 08/03/21 00:10: POC Whole Bld Glucose 100 08/02/21 22:04: Hgb 7.9 L, Hct 23.0 L 08/02/21 20:17: POC Whole Bld Glucose 109 H 08/02/21 18:12: POC Whole Bld Glucose 110 H 08/02/21 14:00: Hgb 7.0 L*, Hct 20.4 L 08/02/21 12:41: POC Whole Bld Glucose 122 H 08/02/21 05:58: POC Whole Bld Glucose 94 08/02/21 05:57: Sodium 141, Potassium 4.0, Chloride 105, Carbon Dioxide 25, Anion Gap 11.0, BUN 60 H, Creatinine 2.1 H, Estimated GFR (MDRD) 33 L, Glucose 103 H, Calcium 8.0 L 08/02/21 05:57: WBC 16.2 H, RBC 2.80 L, Hgb 8.1 L, Hct 23.8 L, MCV 85.0, MCH 28.9, MCHC 34.0, RDW 15.1 H, Plt Count 119 L, MPV 9.5, Neut # (Auto) 9.7 H, Lymph # (Auto) 4.9 H, [place] # (Auto) 1.2 H, Eos # (Auto) 0.1, Baso # (Auto) 0.0, Absolute Nucleated RBC 0.04, Nucleated RBC % 0.2 08/01/21 23:31: POC Whole Bld Glucose 113 H 08/01/21 22:00: Hgb 6.9 L*, Hct 20.2 L 08/01/21 18:51: Estimat Average Glucose 212 H, Hemoglobin A1c % 9.0 H 08/01/21 18:51: Ferritin 34.6 08/01/21 18:51: Iron 34 L, TIBC 321, % Saturation 11 L, Transferrin 229 08/01/21 18:51: Sodium 131 L, Potassium 3.2 L, Chloride 96 L, Carbon Dioxide 24, Anion Gap 11.0, BUN 70 H, Creatinine 2.1 H, Estimated GFR (MDRD) 33 L, Glucose 422 H, Calcium 8.0 L, Magnesium 1.8, Total Bilirubin 0.9, AST 13, ALT 17, Alkaline Phosphatase 118, Total Protein 5.2 L, Albumin 2.8 L, Globulin 2.4, Albumin/Globulin Ratio 1.2, Lipase 27 08/01/21 18:51: PT 14.0 H, INR 1.3 H 08/01/21 18:51: WBC 13.2 H, RBC 2.14 L, Hgb 5.9 L*, Hct 17.7 L*, MCV 82.7, MCH 27.6, MCHC 33.3, RDW 14.5, Plt Count 113 L, MPV 10.1, Neut # (Auto) 8.3 H, Lymph # (Auto) 3.5, [place] # (Auto) 1.1 H, Eos # (Auto) 0.1, Baso # (Auto) 0.0, Absolute Nucleated RBC 0.00, Nucleated RBC % 0.0 08/01/21 18:51: Blood Type B POSITIVE, Antibody Screen NEGATIVE, Crossmatch IS Only See Detail Fish Bones: 08/03/21 11:05 08/03/21 05:15 Home Medications and Allergies Home Medications: Ambulatory Orders Calcium Citrate 400 mg PO BID 08/02/21 Cholecalciferol (Vitamin D3) [Vitamin D3] 1,250 mcg PO STEVENS 08/02/21 Diphenoxylate/Atropine [Lomotil] 1 each PO BID 08/02/21 Mirtazapine [Remeron] 45 mg PO QPM 08/02/21 Pantoprazole [Protonix] 40 mg PO DAILY 08/02/21 Potassium Citrate/Citric Acid [Potassium Cit-Citric Acid Sln] 10 ml PO BID 08/02/21 Sodium Bicarbonate 1,950 mg PO BID 08/02/21 carvediloL [Coreg] 3.125 mg PO BID 08/02/21 predniSONE [Deltasone] 20 mg PO DAILY 08/02/21 Active Medications Acetaminophen (Acetaminophen 325 Mg Tablet) 650 mg PO Q4HR PRN PRN Reason: Pain 1 to 4 Carvedilol (Carvedilol 3.125 Mg Tablet) 3.125 mg PO BID [facility] Last Admin: 08/03/21 08:22 Dose: 3.125 mg Diphenoxylate HCl/Atropine (Diphenox/Atropine 2.5/0.025 Mg Tablet) 1 tab PO BID PRN PRN Reason: Diarrhea Ferrous Sulfate (Ferrous Sulfate 325 Mg Tablet) 325 mg PO DAILYWM [facility] Last Admin: 08/03/21 08:22 Dose: 325 mg Potassium Chloride/Dextrose/Sod Cl (D5.45ns W/20 Meq Kcl) 1,000 mls @ 83.333 mls/hr IV .Q12H [facility] Last Admin: 08/03/21 08:23 Dose: 83.333 mls/hr Insulin Glargine (Insulin Glargine 300 Unit/3 Ml Pen) 5 unit SUBQ QPM [facility] Last Admin: 08/02/21 20:20 Dose: 5 unit Insulin Human Regular (Insulin Regular Human 300 Unit/3 Ml Vial) 1 - 5 unit SUBQ Q6HR [facility]; Protocol Last Admin: 08/03/21 05:57 Dose: Not Given Lorazepam (Lorazepam 0.5 Mg Tablet) 0.5 mg PO Q12H PRN PRN Reason: Anxiety Last Admin: 08/02/21 10:42 Dose: 0.5 mg Mirtazapine (Mirtazapine 15 Mg Tablet) 45 mg PO QPM [facility] Last Admin: 08/02/21 20:07 Dose: 45 mg Ondansetron HCl (Ondansetron Odt 4 Mg Tablet) 4 mg TL Q6HR PRN PRN Reason: Nausea / Vomiting Ondansetron HCl (Ondansetron 4 Mg/2 Ml Vial) 4 mg IVP Q6HR PRN PRN Reason: Nausea / Vomiting Last Admin: 08/02/21 14:52 Dose: 4 mg Pantoprazole Sodium (Pantoprazole 40 Mg Vial) 40 mg IVP BID [facility] Last Admin: 08/03/21 08:26 Dose: 40 mg Sodium Chloride (Sodium Chloride Flush 0.9% 10 Ml Syringe) 10 ml IVP PRN PRN PRN Reason: NEEDED PER PROVIDER ORDERS Last Admin: 08/02/21 20:09 Dose: 10 ml Sodium Chloride (Sodium Chloride Flush 0.9% 10 Ml Syringe) 10 ml IVP 0100,0900,1700 [facility] Last Admin: 08/03/21 08:25 Dose: 10 ml Temazepam (Temazepam 15 Mg Capsule) 15 mg PO QPM PRN PRN Reason: Insomnia Last Admin: 08/02/21 20:09 Dose: 15 mg Calcium Citrate 400 mg PO BID 08/02/21 Cholecalciferol (Vitamin D3) [Vitamin D3] 1,250 mcg PO STEVENS 08/02/21 Diphenoxylate/Atropine [Lomotil] 1 each PO BID 08/02/21 Mirtazapine [Remeron] 45 mg PO QPM 08/02/21 Pantoprazole [Protonix] 40 mg PO DAILY 08/02/21 Potassium Citrate/Citric Acid [Potassium Cit-Citric Acid Sln] 10 ml PO BID 08/02/21 Sodium Bicarbonate 1,950 mg PO BID 08/02/21 carvediloL [Coreg] 3.125 mg PO BID 08/02/21 predniSONE [Deltasone] 20 mg PO DAILY 08/02/21 Allergies/Adverse Reactions: Allergies Allergy/AdvReac Type Severity Reaction Status Date / Time chlorhexidine AdvReac Unknown Verified 08/01/21 18:01 Anes History & Medical History - Medical History Cardiovascular: reports: None Pulmonary: reports: Other Gastrointestinal: reports: Colon polyps, Crohn's disease Urinary: reports: Renal insuffiency Neuro: reports: None Musculoskeletal: reports: None Endocrine/Autoimmune: reports: None Blood Disorders: reports: None Skin: reports: Eczema Smoking Status: Never smoker - Surgical History General: reports: Cholecystectomy, Appendectomy, Bowel surgery, Colonoscopy, Other Eyes Ears Nose Throat (EENT): reports: Detached retina repair Urologic: reports: Ureterolithotomy (stones) Orthopedic: reports: Other Exam General: Alert, Oriented x3 Dental: WNL, Dentures full Upper, Dentures full Lower Mouth Opening: Greater than 4 Fingerbreadths Neck Mobility: Normal Mallampati classification: II Thyromental Distance: greater than 6 cm Respiratory: Lungs clear Cardiovascular: Regular rate Plan Anesthesia Type: Total IV Consent for Procedure(s) Verified and Reviewed: Yes Code Status: Attempt Resuscitation ASA classification: 3-Severe systemic disease Is this case an emergency?: No
[2021-08-03] MEDS: ONDANSETRON 4 MG/2 ML VIAL IVP PRN (09:21)
[2021-08-03] MEDS: SODIUM CHLORIDE FLUSH 0.9% 10 ML SYRINGE IVP PRN (09:21)
--- NOTE | 2021-08-03 10:36 | PROVIDER PROGRESS NOTE ---
Assessment/Plan - Problem List (1) Upper GI bleed Assessment/Plan: 08/03 pt report he still had once black stool on last night (but was not documented). His HGB is 7.6 now, from 7.9 after one unit of blood transfused. Patient has a plan to have EGD on today, We will follow up. we will continue Protonix twice daily intravenous, Continue H&H to monitor. 08/02 pt's HGB is still drop and still has black/red stool, will hold home steroid and NSAIDs, continue IV of Protonix, consult with surgeon and plan to have EGD on tomorrow. continue H&H. Now pt's HGB is 7, plan another unit of blood for pt. (2)anemia Conclusion/Plan: 08/03 Patient's hemoglobin is 7.6 now, patient had a total of 3 units of blood transfusion. Continue iron supplemental, continue H&H monitor 08/02 pt has hx of iron Deficiency anemia, and he also has secondary to upper GI bleed. Patient had 2 units transfused, but her hemoglobin dropped again. continue iron supplement, transfusion of another unit of blood, Continue H&H monitor hemoglobin, SCDs for DVT prophylaxis. (3) Chronic kidney disease Conclusion/Plan: stable, His renal function is at baseline with a creatinine of 2.1. We will gently hydrate him given he is n.p.o. Monitor her renal function and urine output. (4) Hyperglycemia with new diabetes Conclusion/Plan: He is hyperglycemic with a blood glucose greater than 400 at the admission. his A1C is 9.0. Called patient's PCP lexa Schumacher. lexa Schumacher state pt has Rheumatoid arthritis, So she ordered steroid beginning last year March. Patient report his bilateral shoulder pain is resolved. Patient state he will refuse to take any more steroid. lexa Schumacher agree hold his steroid Prednisone and agree to have metformin at d/c, and followup with her office to manage his DM. order diabetes education for pt. (5) Crohn's disease Conclusion/Plan: pt denies abdominal pain. He is a known history of Crohn's disease with multiple small bowel resection the past resulting in short gut syndrome. He is on TPN at home, at the same time, pt report eating meal as well. pt refused to have TPN at hospital. We will consult nutrition to help manage this. Continue outpatient follow-up with GI on discharge. (6) Short gut syndrome Conclusion/Plan: we will continue to TPN for pt, full liquid diet on tonight and NPO for tomorrow breakfast for EGD. pt has hx of Crohn's disease which has required multiple small bowel resections. Continue with liquid diet as tolerated as well as TPN. Imodium as needed. (7)Rheumatoid arthritis lexa Schumacher state pt has hx of Rheumatoid arthritis, she ordered steroid beginning last year March.Patient report his bilateral shoulder pain is resolved. Patient state he will refuse to take any more steroid. lexa Schumacher agree pt hold steroid. Patient may follow-up with her office after discharge. - Current Meds Current Meds: Current Medications Generic Name Dose Route Start Last Admin Trade Name Freq PRN Reason Stop Dose Admin Carvedilol 3.125 mg 08/02/21 13:00 08/03/21 08:22 Carvedilol 3.125 Mg Tablet PO 3.125 mg BID KAROLYN Administration Ferrous Sulfate 325 mg 08/02/21 08:00 08/03/21 08:22 Ferrous Sulfate 325 Mg Tablet PO 325 mg DAILYWM KAROLYN Administration Potassium Chloride/Dextrose/Sod Cl 1,000 mls @ 83.333 mls/hr 08/03/21 08:00 08/03/21 08:23 D5.45ns W/20 Meq Kcl IV 83.333 mls/hr .Q12H KAROLYN Administration Insulin Glargine 5 unit 08/01/21 21:00 08/02/21 20:20 Insulin Glargine 300 Unit/3 Ml Pen SUBQ 5 unit QPM KAROLYN Administration Insulin Human Regular 1 - 5 unit 08/02/21 00:00 08/03/21 05:57 Insulin Regular Human 300 Unit/3 Ml Vial SUBQ Not Given Q6HR KAROLYN Protocol Lorazepam 0.5 mg 08/02/21 10:16 08/02/21 10:42 Lorazepam 0.5 Mg Tablet PO 0.5 mg Q12H PRN Administration Anxiety Mirtazapine 45 mg 08/02/21 21:00 08/02/21 20:07 Mirtazapine 15 Mg Tablet PO 45 mg QPM KAROLYN Administration Ondansetron HCl 4 mg 08/01/21 19:51 08/03/21 09:21 Ondansetron 4 Mg/2 Ml Vial IVP 4 mg Q6HR PRN Administration Nausea / Vomiting Pantoprazole Sodium 40 mg 08/02/21 09:00 08/03/21 08:26 Pantoprazole 40 Mg Vial IVP 40 mg BID KAROLYN Administration Sodium Chloride 10 ml 08/01/21 19:51 08/03/21 09:21 Sodium Chloride Flush 0.9% 10 Ml Syringe IVP 10 ml PRN PRN Administration NEEDED PER PROVIDER ORDERS Sodium Chloride 10 ml 08/02/21 01:00 08/03/21 08:25 Sodium Chloride Flush 0.9% 10 Ml Syringe IVP 10 ml 0100,0900,1700 KAROLYN Administration Temazepam 15 mg 08/02/21 17:31 08/02/21 20:09 Temazepam 15 Mg Capsule PO 15 mg QPM PRN Administration Insomnia - Lab Result Fish Bone Diagrams: 08/03/21 05:15 08/03/21 05:15 - Additional Planning My Orders: My Active Orders 08/02/21 10:16 LORazepam [Ativan] 0.5 mg PO Q12H PRN 08/02/21 12:34 Diphenoxylate/Atropine [Lomotil] 1 tab PO BID PRN 08/02/21 13:00 carvediloL [Coreg] 3.125 mg PO BID 08/02/21 15:37 Blood Glucose Checks - NPO [RC] 0600,1200,1800,0000 Daily Weight [RC] DAILY 08/02/21 17:31 Temazepam [Restoril] 15 mg PO QPM PRN 08/02/21 21:00 Mirtazapine [Remeron] 45 mg PO QPM 08/03/21 08:00 D5.45ns W/20 Meq KCl 1,000 ml IV 83.333 mls/hr 08/03/21 11:00 H&H [HEMOGLOBIN AND HEMATOCRIT] [HEME] Q6H 08/03/21 17:00 H&H [HEMOGLOBIN AND HEMATOCRIT] [HEME] Q6H 08/03/21 23:00 H&H [HEMOGLOBIN AND HEMATOCRIT] [HEME] Q6H Subjective - Subjective Patient Reports: Resting Comfortably Objective Vital Signs: Vital Signs - 24 hr 08/02/21 08/02/21 08/02/21 12:47 15:41 15:53 Temperature 36.9 C 37 C 37 C Heart Rate 72 Heart Rate [ 71 68 Brachial] Respiratory 18 19 18 Rate Blood Pressure 108/62 Blood Pressure 115/61 108/62 [Right Brachial artery] O2 Saturation 100 99 08/02/21 08/02/21 08/02/21 16:00 16:10 18:34 Temperature 37 C 37 C 37 C Heart Rate 69 69 65 Heart Rate [ Brachial] Respiratory 19 18 19 Rate Blood Pressure 111/63 108/60 107/65 Blood Pressure [Right Brachial artery] O2 Saturation 08/02/21 08/03/21 20:08 00:25 Temperature 36.5 C Heart Rate Heart Rate [ 64 67 Brachial] Respiratory 14 Rate Blood Pressure Blood Pressure 107/65 107/55 L [Right Brachial artery] O2 Saturation 97 Oxygen O2 Source Room air I&O (Last 24 Hrs): Intake and Output Totals x24h 08/01/21 08/02/21 08/03/21 23:59 23:59 23:59 Intake Total 500 3001.666 1200 Output Total 0 175 Balance 500 2826.666 1200 General: Alert, Oriented x3, No acute distress HEENT: Atraumatic Neck: Supple Lymphatic: no adenopathy Neuro: Alert, Non Focal, Oriented Times 3 Cardiovascular: Regular rate, Normal S1, Normal S2 Respiratory: Chest non-tender, No respiratory distress Abdomen: Normal bowel sounds, Soft Extremities: Normal pulses - Results Results: Laboratory Results WBC 5.9 x10^3/uL (4.8-10.8) 08/03/21 05:15 RBC 2.72 10^6/uL (4.70-6.10) L 08/03/21 05:15 Hgb 7.6 g/dL (14.0-18.0) L 08/03/21 05:15 Hct 23.3 % (42.0-52.0) L 08/03/21 05:15 MCV 85.7 fL (80.0-94.0) 08/03/21 05:15 MCH 27.9 pg (27.0-31.0) 08/03/21 05:15 MCHC 32.6 g/dL (32.0-36.0) 08/03/21 05:15 RDW 15.4 % (12.0-15.0) H 08/03/21 05:15 Plt Count 76 10^3/uL (130-450) L 08/03/21 05:15 MPV 9.5 fL (7.4-11.4) 08/03/21 05:15 Neut # (Auto) 3.8 10^3/uL (1.5-6.6) 08/03/21 05:15 Lymph # (Auto) 1.4 10^3/uL (1.5-3.5) L 08/03/21 05:15 [place] # (Auto) 0.5 10^3/uL (0.0-1.0) 08/03/21 05:15 Eos # (Auto) 0.1 10^3/uL (0.0-0.7) 08/03/21 05:15 Baso # (Auto) 0.0 10^3/uL (0.0-0.1) 08/03/21 05:15 Absolute Nucleated RBC 0.00 x10^3/uL 08/03/21 05:15 Nucleated RBC % 0.0 /100WBC 08/03/21 05:15 PT 14.0 secs (9.9-12.6) H 08/01/21 18:51 INR 1.3 (0.8-1.2) H 08/01/21 18:51 Sodium 139 mmol/L (135-145) 08/03/21 05:15 Potassium 3.5 mmol/L (3.5-5.0) 08/03/21 05:15 Chloride 105 mmol/L (101-111) 08/03/21 05:15 Carbon Dioxide 26 mmol/L (21-32) 08/03/21 05:15 Anion Gap 8.0 (6-13) 08/03/21 05:15 BUN 41 mg/dL (6-20) H 08/03/21 05:15 Creatinine 2.2 mg/dL (0.6-1.2) H 08/03/21 05:15 Estimated GFR (MDRD) 31 (>89) L 08/03/21 05:15 Glucose 104 mg/dL (70-100) H 08/03/21 05:15 POC Whole Bld Glucose 79 mg/dL (70 - 100) 08/03/21 05:13 Estimat Average Glucose 212 mg/dL (70-100) H 08/01/21 18:51 Hemoglobin A1c % 9.0 % (4.27-6.07) H 08/01/21 18:51 Calcium 7.7 mg/dL (8.5-10.3) L 08/03/21 05:15 Phosphorus 3.1 mg/dL (2.5-4.6) 08/03/21 05:15 Magnesium 1.7 mg/dL (1.7-2.8) 08/03/21 05:15 Iron 34 ug/dL (45-182) L 08/01/21 18:51 TIBC 321 ug/dL (250-450) 08/01/21 18:51 % Saturation 11 % (20-50) L 08/01/21 18:51 Transferrin 229 mg/dL (180-329) 08/01/21 18:51 Ferritin 34.6 ng/mL (23.9-336.2) 08/01/21 18:51 Total Bilirubin 0.9 mg/dL (0.2-1.0) 08/01/21 18:51 AST 13 IU/L (10-42) 08/01/21 18:51 ALT 17 IU/L (10-60) 08/01/21 18:51 Alkaline Phosphatase 118 IU/L (42-121) 08/01/21 18:51 Total Protein 5.2 g/dL (6.7-8.2) L 08/01/21 18:51 Albumin 2.8 g/dL (3.2-5.5) L 08/01/21 18:51 Globulin 2.4 g/dL (2.1-4.2) 08/01/21 18:51 Albumin/Globulin Ratio 1.2 (1.0-2.2) 08/01/21 18:51 Prealbumin 14 mg/dL (18-45) L 08/03/21 05:15 Lipase 27 U/L (22-51) 08/01/21 18:51 SARS-CoV-2 (PCR) NOT DETECTED 08/01/21 19:45 Blood Type B POSITIVE 08/01/21 18:51 Antibody Screen NEGATIVE 08/01/21 18:51 Crossmatch IS Only See Detail 08/01/21 18:51 - Procedures Procedures: Procedures INSERT VAD RESERVOIR IN CHEST SUBCU/FASCIA, OPEN (02/04/20) INSERTION OF INFUSION DEV INTO SUP VENA CAVA, PERC APPROACH (02/04/20) INTRODUCTION OF NUTRITIONAL INTO CENTRAL VEIN, PERC APPROACH (02/04/20) TRANSFUSE NONAUT RED BLOOD CELLS IN PERIPH VEIN, PERC (02/04/20) Sepsis Event Note (H) - Evaluation Current Stage of Sepsis: Ruled out ABX Reporting Has patient been on IV antibiotics over the past 48 hours?: No Current Medications - Current Medications Current Medications: Active Medications Acetaminophen (Acetaminophen 325 Mg Tablet) 650 mg PO Q4HR PRN PRN Reason: Pain 1 to 4 Carvedilol (Carvedilol 3.125 Mg Tablet) 3.125 mg PO BID [facility] Last Admin: 08/03/21 08:22 Dose: 3.125 mg Diphenoxylate HCl/Atropine (Diphenox/Atropine 2.5/0.025 Mg Tablet) 1 tab PO BID PRN PRN Reason: Diarrhea Ferrous Sulfate (Ferrous Sulfate 325 Mg Tablet) 325 mg PO DAILYWM [facility] Last Admin: 08/03/21 08:22 Dose: 325 mg Potassium Chloride/Dextrose/Sod Cl (D5.45ns W/20 Meq Kcl) 1,000 mls @ 83.333 mls/hr IV .Q12H [facility] Last Admin: 08/03/21 08:23 Dose: 83.333 mls/hr Insulin Glargine (Insulin Glargine 300 Unit/3 Ml Pen) 5 unit SUBQ QPM [facility] Last Admin: 08/02/21 20:20 Dose: 5 unit Insulin Human Regular (Insulin Regular Human 300 Unit/3 Ml Vial) 1 - 5 unit SUBQ Q6HR [facility]; Protocol Last Admin: 08/03/21 05:57 Dose: Not Given Lorazepam (Lorazepam 0.5 Mg Tablet) 0.5 mg PO Q12H PRN PRN Reason: Anxiety Last Admin: 08/02/21 10:42 Dose: 0.5 mg Mirtazapine (Mirtazapine 15 Mg Tablet) 45 mg PO QPM [facility] Last Admin: 08/02/21 20:07 Dose: 45 mg Ondansetron HCl (Ondansetron Odt 4 Mg Tablet) 4 mg TL Q6HR PRN PRN Reason: Nausea / Vomiting Ondansetron HCl (Ondansetron 4 Mg/2 Ml Vial) 4 mg IVP Q6HR PRN PRN Reason: Nausea / Vomiting Last Admin: 08/03/21 09:21 Dose: 4 mg Pantoprazole Sodium (Pantoprazole 40 Mg Vial) 40 mg IVP BID [facility] Last Admin: 08/03/21 08:26 Dose: 40 mg Sodium Chloride (Sodium Chloride Flush 0.9% 10 Ml Syringe) 10 ml IVP PRN PRN PRN Reason: NEEDED PER PROVIDER ORDERS Last Admin: 08/03/21 09:21 Dose: 10 ml Sodium Chloride (Sodium Chloride Flush 0.9% 10 Ml Syringe) 10 ml IVP 0100,0900,1700 [facility] Last Admin: 08/03/21 08:25 Dose: 10 ml Temazepam (Temazepam 15 Mg Capsule) 15 mg PO QPM PRN PRN Reason: Insomnia Last Admin: 08/02/21 20:09 Dose: 15 mg Calcium Citrate 400 mg PO BID 08/02/21 Cholecalciferol (Vitamin D3) [Vitamin D3] 1,250 mcg PO STEVENS 08/02/21 Diphenoxylate/Atropine [Lomotil] 1 each PO BID 08/02/21 Mirtazapine [Remeron] 45 mg PO QPM 08/02/21 Pantoprazole [Protonix] 40 mg PO DAILY 08/02/21 Potassium Citrate/Citric Acid [Potassium Cit-Citric Acid Sln] 10 ml PO BID 08/02/21 Sodium Bicarbonate 1,950 mg PO BID 08/02/21 carvediloL [Coreg] 3.125 mg PO BID 08/02/21 predniSONE [Deltasone] 20 mg PO DAILY 08/02/21
[2021-08-03 11:08] LABS: HCT - HEMATOCRIT 24.1 % (42.0-52.0); HGB - HEMOGLOBIN 8.1 g/dL (14.0-18.0)
[2021-08-03] MEDS ORDERED: CALCIUM CARBONATE CHEW 500 MG TABLET PO SCH (12:00)
[2021-08-03 12:56] VITALS: BP 121/70
[2021-08-03] MEDS ORDERED: PROPOFOL 200 MG/20 ML VIAL IVP ONE ×2 (15:47→16:51)
[2021-08-03] MEDS ORDERED: LIDOCAINE-MPF 2% 5 ML VIAL ONE (15:48)
[2021-08-03 17:29] LABS: HCT - HEMATOCRIT 24.5 % (42.0-52.0); HGB - HEMOGLOBIN 8.4 g/dL (14.0-18.0)
--- NOTE | 2021-08-03 17:56 | Discharge Plan ---
Discharge Plan Problem Reviewed?: Yes Disposition: Home, Self Care Condition: Stable Prescriptions: Sucralfate [Carafate] 1 tablet PO ACHS #60 tablet Ferrous Sulfate [Feosol] 325 mg PO DAILYWM #30 tablet Pantoprazole [Protonix] 40 mg PO BID #60 tablet Diet: Diabetic Activity Restrictions: Activity as Tolerated Shower Restrictions: No (fall precaution) Instruction Topics: Gastric Duodenal Ulcer Ch, Pantoprazole tablets, Sucralfate tablets Health Concerns: Upper GI bleed/Gastric duodenal ulcer, new diabetes Plan of Treatment: Your hemoglobin continue increased. Your upper GI bleeding is likely stopped. You had a EGD was done on today which show you had significantly gastroduodenal ulcer. Surgeon Did the biopsy for you, Please follow-up with the biopsy study result. Please you do not take any NSAIDs Such as ibuprofen Or drink alcohol. You are prescribed Protonix and Carafate to help healing of your gastroduodenal ulcer. You may follow-up with your PCP in 1 week to recheck hemoglobin and follow-up with sonogram technician as outpatient to monitor your gastric ulcer healing. You had elevated glucose level in the admission, your A1c is 9.0. Discussed with your primary care, she agreed hold your home meds steroid Prednisone now. you have diabetes management education at hospital. You are prescribed Metformin, you may follow-up with your PCP to continue to manage your diabetes. Care Goals: Stabilization and improvement of your medical conditions Assessment: Discussed the care plan in detail with you, answered your questions, you understood and agreed Additional Instructions or Follow Up instructions: You may follow-up with your PCP in 1 week and recheck your hemoglobin level, follow-up with sonogram technician as outpatient. should your symptoms return or worse, you may present to the ER or call 911 for help No Smoking: If you smoke, Please STOP! Call for help. Follow-up with: Kassie Westbrook MD [Primary Care Provider] -
--- NOTE | 2021-08-03 18:11 | DISCHARGE SUMMARY ---
"Discharge Summary Admit Date: 08/01/21 Discharge Date: 08/03/21 Discharging Provider: Dustin Chang Primary Care Provider: Kassie Westbrook Condition at Discharge: Stable Discharge Disposition: 01 Home, Self Care Discharge Facility Name: home - DIAGNOSES Discharge Diagnoses with Status of Each Condition: (1) Upper GI bleed pt's Hemoglobin continue increases. Patient has no bowel movement on the day discharge. EGD done in the hospital show significantly size Duodenal ulcer which was likely to cause pt's bleeding but no more bleeding at EGD study, per surgeon's report. It is likely patient's upper GI bleeding is stopped. Patient is prescript of Protonix, Carafate. Strongly advised the patient not to take any NSAID, no alcohol. Follow up his PCP to recheck his hemoglobin in 1 week and to follow-up with guest services lead as outpatient to monitor his duodenal ulcer healing. (2)anemia Improved, patient is prescribed iron supplement. 3 units of blood transfusion was taken in the hospital, patient's anemia is likely caused by acute blood loss and chronic disease and iron deficiency. Patient may follow-up his PCP in 1 week to recheck your hemoglobin level. (3) Chronic kidney disease stable, Keep hydration in the home, follow-up his PCP to monitor, And to follow- up with ground crewman mission support as outpatient (4) Hyperglycemia with new diabetes Patient had a significant hyperglycemia at admission, patient's A1c is 9.0. Patient take 20 mg prednisone in the home for control of his rheumatoid arthritis. In the hospital course, patient glucose level is good in the control, Patient does not need insulin in the hospital after hold of patient's Prednisone. I Called patient's primary care doctor Kassie Schumacher, She agreed hold patient's Prednisone, And agree to prescribe low dosage of Metformin now, and follow-up with her office to continue manage of patient's new diabetes. Patient had diabetic education in the hospital. (5) Crohn's disease Stable, patient denies abdominal pain, patient declined to have TPN in the hospital, patient may resume his home diet schedule and will resume his home TPN. (6) Short gut syndrome Stable, patient may resume his home diet schedule and TPN schedule. Patient may follow-up with guest services lead as outpatient (7)Rheumatoid arthritis Patient reported he has no more bilateral shoulder pain, he want to hold his prednisone. I Called patient's primary care doctor Kassie Schumacher, She agreed hold patient's Prednisone. Patient may follow-up with his PCP to continue management. - HPI History of Present Illness: refer from Dr. Juarez's HPI on 08/01/21 56-year-old male with a past medical history significant for Crohn's disease on Entyvio, short gut syndrome on TPN, chronic kidney disease stage III who presents today due to routine labs on outpatient basis that revealed anemia. He states his guest services lead from [facility] ordered routine labs yesterday and he came back anemic at less than 7. Patient states his stool has been dark/black since . He is also felt increasingly fatigued and weak over the past day or so. He is also felt short of breath with activity. Reports occasional nausea but no vomiting. He has had occasional odynophagia and dysphagia with liquid potassium which she is on chronically due to hypokalemia. He states he had a wrist injury about a month ago and he was taking ibuprofen as well as Advil on a regular basis. He has also been on prednisone 20 mg daily since February due to joint pain. He is no longer on a PPI as it was discontinu ed due to hypomagnesemia. He reports no bloody emesis or hematuria. He states he is also been on TPN for about 2 years now due to short gut syndrome. He does not have a diagnosis of diabetes. He does take Creon for pancreatic insufficiency. Given the GI bleed and anemia, medicine was consulted for admission. I discussed goals of care and he would like to be a full code. - CONSULTS | PROCEDURES Consultations: Dr. Webb Procedures: EGD - ALLERGIES Allergies/Adverse Reactions: Allergies Allergy/AdvReac Type Severity Reaction Status Date / Time chlorhexidine AdvReac Unknown Verified 08/01/21 18:01 - MEDICATIONS Home Medications: Ambulatory Orders Medication Instructions Recorded Confirmed Calcium Citrate 400 mg PO BID 08/02/21 08/02/21 Cholecalciferol (Vitamin D3) 1,250 mcg PO STEVENS 08/02/21 08/02/21 [Vitamin D3] Diphenoxylate/Atropine [Lomotil] 1 each PO BID 08/02/21 08/02/21 Mirtazapine [Remeron] 45 mg PO QPM 08/02/21 08/02/21 Potassium Citrate/Citric Acid 10 ml PO BID 08/02/21 08/02/21 [Potassium Cit-Citric Acid Soln] Sodium Bicarbonate 1,950 mg PO BID 08/02/21 08/02/21 carvediloL [Coreg] 3.125 mg PO BID 08/02/21 08/02/21 Ferrous Sulfate [Feosol] 325 mg PO DAILYWM #30 tablet 08/03/21 Pantoprazole [Protonix] 40 mg PO BID #60 tablet 08/03/21 Sucralfate [Carafate] 1 tablet PO ACHS #60 tablet 08/03/21 metFORMIN [Glucophage] 500 mg PO BIDWM #60 tablet 08/03/21 - PHYSICAL EXAM AT DISCHARGE General Appearance: positive: No acute distress, Alert. negative: Lethargic Eyes Bilateral: positive: Normal inspection, No lid inflammation ENT: positive: ENT inspection nml, No signs of dehydration. negative: Purulent nasal drainage Neck: positive: Nml inspection, Trachea midline. negative: Tracheal deviation Respiratory: positive: Chest non-tender, No respiratory distress. negative: Wheezes Cardiovascular: positive: Regular rate & rhythm. negative: Tachycardia, Bradycardia, Systolic murmur Peripheral Pulses: positive: 2+ Abdomen: positive: Non-tender, Nml bowel sounds, No distention. negative: Tenderness Back: positive: Nml inspection Skin: positive: Color nml, Warm, Dry. negative: Cyanosis Extremities: positive: Non-tender, Full ROM, Nml appearance Neurologic/Psychiatric: positive: Oriented x3, Motor nml, Sensation nml. negative: Weakness, Sensory loss, Facial droop, Slurred/abnml speech, Depressed mood/affect - LABS Result Diagrams: 08/03/21 17:15 08/03/21 05:15 - SEPSIS Current Stage of Sepsis: Ruled out - FOLLOW UP Follow Up: Your hemoglobin continue increased. Your upper GI bleeding is likely stopped. You had a EGD was done on today which show you had significantly gastroduodenal ulcer. Surgeon Did the biopsy for you, Please follow-up with the biopsy study result. Please you do not take any NSAIDs Such as ibuprofen Or drink alcohol. You are prescribed Protonix and Carafate to help healing of your gastroduodenal ulcer. You may follow-up with your PCP in 1 week to recheck hemoglobin and follow-up with guest services lead as outpatient to monitor your gastric ulcer healing. You had elevated glucose level in the admission, your A1c is 9.0. Discussed with your primary care, she agreed hold your home meds steroid Prednisone now. you have diabetes management education at hospital. You are prescribed Metformin, you may follow-up with your PCP to continue to manage your diabetes. You may follow-up with your PCP in 1 week and recheck your hemoglobin level, follow-up with guest services lead as outpatient. should your symptoms return or worse, you may present to the ER or call 911 for help - TIME SPENT Time Spent in Discharge (Minutes): 30"
[2021-08-03] MEDS ORDERED: SUCRALFATE 1 GM/10 ML UDC PO SCH (22:00)
== END 2021-08-03 18:35 | disposition home or self-care (01) | DRG 378 ==
LOC: ED 17:35 → MS2 19:51
PROVIDERS: ADMIT Internal Medicine; ATTEND Nurse Practitioner Gerontology
PROC: 30243N1 Transfusion of Nonautologous Red Blood Cells into Central Vein, Percutaneous Approach (ICD-10-PCS; 2021-08-01)
PROC: 0DB98ZX Excision of Duodenum, Via Natural or Artificial Opening Endoscopic, Diagnostic (ICD-10-PCS; principal; 2021-08-03 16:00)
DX: K92.2 Gastrointestinal hemorrhage, unspecified (principal); K26.4 Chronic or unspecified duodenal ulcer with hemorrhage; K90.9 Intestinal malabsorption, unspecified; D62 Acute posthemorrhagic anemia; R73.9 Hyperglycemia, unspecified; Z20.822 Contact with and (suspected) exposure to COVID-19; K50.90 Crohn's disease, unspecified, without complications; N18.32 Chronic kidney disease, stage 3b; Z90.49 Acquired absence of other specified parts of digestive tract; D63.1 Anemia in chronic kidney disease; D50.9 Iron deficiency anemia, unspecified; K21.9 Gastro-esophageal reflux disease without esophagitis; E11.65 Type 2 diabetes mellitus with hyperglycemia; Z87.891 Personal history of nicotine dependence; T39.395A Adverse effect of other nonsteroidal anti-inflammatory drugs [NSAID], initial encounter
CPT/HCPCS: 36415; 80048; 80053; 82728; 83036; 83540; 83690; 83735; 84100; 84134; 84466; 84478; 85014; 85018; 85025; 85610; 86140; 86850; 86900; 86901; 86920; 87635; 96374; 96375; 99283; 99285; 99291; A9270; J1815; J2060; J7120; P9016

== ENCOUNTER 2021-08-15 16:23 | Outpatient (CLI) | payer MEDICARE, BC ==
[2021-08-15 16:33] LABS: BASOPHILS % (AUTO) 0.2 %; EOSINOPHILS # (AUTO) 0.1 10^3/uL (0.0-0.7); EOSINOPHILS % (AUTO) 1.1 %; HCT - HEMATOCRIT 24.7 % (42.0-52.0); HGB - HEMOGLOBIN 7.6 g/dL (14.0-18.0); LYMPHOCYTES # (AUTO) 1.3 10^3/uL (1.5-3.5); MEAN CORPUSCULAR HGB CONC 30.8 g/dL (32.0-36.0); MEAN CORPUSCULAR VOLUME 87.9 fL (80.0-94.0); MEAN PLATELET VOLUME 9.7 fL (7.4-11.4); MONOCYTES # (AUTO) 0.4 10^3/uL (0.0-1.0); MONOCYTES % (AUTO) 9.2 %; NEUTROPHILS # (AUTO) 2.9 10^3/uL (1.5-6.6); NEUTROPHILS % (AUTO) 61.6 %; PLT - PLATELET COUNT 154 10^3/uL (130-450); RED BLOOD COUNT 2.81 10^6/uL (4.70-6.10); RED CELL DISTRIBUTION WIDTH 15.3 % (12.0-15.0); WHITE BLOOD COUNT 4.7 x10^3/uL (4.8-10.8)
[2021-08-15 16:49] LABS: ALBUMIN 2.8 g/dL (3.2-5.5); BILIRUBIN,TOTAL 0.5 mg/dL (0.2-1.0); CALCIUM 8.2 mg/dL (8.5-10.3); CREATININE 1.8 mg/dL (0.6-1.2); MAGNESIUM 1.8 mg/dL (1.7-2.8); PHOSPHORUS 1.6 mg/dL (2.5-4.6); POTASSIUM 3.7 mmol/L (3.5-5.0); TOTAL PROTEIN 5.6 g/dL (6.7-8.2)
== END 2021-08-15 16:24 | disposition home or self-care (01) ==
LOC: LAB.R 16:23
DX: K50.90 Crohn's disease, unspecified, without complications (principal); K91.2 Postsurgical malabsorption, not elsewhere classified
CPT/HCPCS: 80053; 83735; 84100; 85025

== ENCOUNTER 2021-08-29 08:00 | Outpatient (CLI) | payer MEDICARE, BC ==
[2021-08-29 17:37] LABS: HCT - HEMATOCRIT 21.5 % (42.0-52.0); LYMPHOCYTES % (AUTO) 25.7 %; MEAN CORPUSCULAR HEMOGLOBIN 26.3 pg (27.0-31.0); MEAN CORPUSCULAR HGB CONC 31.2 g/dL (32.0-36.0); MEAN CORPUSCULAR VOLUME 84.3 fL (80.0-94.0); MEAN PLATELET VOLUME 11.5 fL (7.4-11.4); MONOCYTES % (AUTO) 8.1 %; NEUTROPHILS % (AUTO) 65.5 %; RED BLOOD COUNT 2.55 10^6/uL (4.70-6.10); RED CELL DISTRIBUTION WIDTH 15.4 % (12.0-15.0)
[2021-08-29 18:01] LABS: ALBUMIN 2.7 g/dL (3.2-5.5); BILIRUBIN,TOTAL 2.9 mg/dL (0.2-1.0); CREATININE 2.1 mg/dL (0.6-1.2); CRP - C-REACTIVE PROTEIN 12.5 mg/dL (0-1.0); MAGNESIUM 1.5 mg/dL (1.7-2.8); PHOSPHORUS 1.7 mg/dL (2.5-4.6); POTASSIUM 3.7 mmol/L (3.5-5.0); TOTAL PROTEIN 5.3 g/dL (6.7-8.2)
[2021-08-29 18:12] LABS: HGB - HEMOGLOBIN 6.7 g/dL (14.0-18.0); PLT - PLATELET COUNT 33 10^3/uL (130-450); WHITE BLOOD COUNT 1.4 x10^3/uL (4.8-10.8)
[2021-08-29 18:14] LABS: ABNORMAL LYMPHS % (MANUAL) 0 %
[2021-08-29 19:27] LABS: BAND NEUTROPHILS % (MANUAL) 9 %; BASOPHILS % (MANUAL) 1 %; LYMPHOCYTES # (MANUAL) 0.3 10^3/uL (1.5-3.5); LYMPHOCYTES % (MANUAL) 23 %; MONOCYTES # (MANUAL) 0.2 10^3/uL (0.0-1.0); NEUTROPHILS # (MANUAL) 0.9 10^3/uL (1.5-6.6)
[2021-08-29 19:28] LABS: DIFFERENTIAL COMMENT MANUAL DIFFERENTIAL; PLATELET ESTIMATE, MANUAL DECREASED (<130,000) (NORMAL); PLATELET MORPHOLOGY NORMAL APPEARANCE (NORMAL); WBC MORPHOLOGY (MULTIPLE) NORMAL APPEARANCE (NORMAL)
== END 2021-08-29 23:59 | disposition home or self-care (01) ==
LOC: LAB.R 08:00
PROVIDERS: ATTEND Internal Medicine
DX: K50.90 Crohn's disease, unspecified, without complications (principal); K91.2 Postsurgical malabsorption, not elsewhere classified
CPT/HCPCS: 80053; 83735; 84100; 84478; 85025; 86140

== ENCOUNTER 2021-09-07 13:08 | Outpatient (CLI) | payer MEDICARE, BC ==
[2021-09-07 13:28] LABS: BASOPHILS % (AUTO) 0.2 %; EOSINOPHILS # (AUTO) 0.1 10^3/uL (0.0-0.7); HCT - HEMATOCRIT 29.7 % (42.0-52.0); LYMPHOCYTES # (AUTO) 1.2 10^3/uL (1.5-3.5); LYMPHOCYTES % (AUTO) 26.7 %; MEAN CORPUSCULAR HEMOGLOBIN 25.9 pg (27.0-31.0); MEAN CORPUSCULAR HGB CONC 30.3 g/dL (32.0-36.0); MEAN CORPUSCULAR VOLUME 85.3 fL (80.0-94.0); MEAN PLATELET VOLUME 8.9 fL (7.4-11.4); MONOCYTES # (AUTO) 0.5 10^3/uL (0.0-1.0); MONOCYTES % (AUTO) 10.2 %; NEUTROPHILS # (AUTO) 2.7 10^3/uL (1.5-6.6); PLT - PLATELET COUNT 200 10^3/uL (130-450); RED BLOOD COUNT 3.48 10^6/uL (4.70-6.10); RED CELL DISTRIBUTION WIDTH 15.3 % (12.0-15.0); WHITE BLOOD COUNT 4.4 x10^3/uL (4.8-10.8)
[2021-09-07 13:48] LABS: ALBUMIN 3.6 g/dL (3.2-5.5); ALBUMIN/GLOBULIN RATIO 0.9 (1.0-2.2); BILIRUBIN,TOTAL 1.3 mg/dL (0.2-1.0); CALCIUM 8.6 mg/dL (8.5-10.3); POTASSIUM 3.6 mmol/L (3.5-5.0); TOTAL PROTEIN 7.4 g/dL (6.7-8.2)
== END 2021-09-07 13:09 | disposition home or self-care (01) ==
LOC: LAB 13:08
PROVIDERS: ATTEND Internal Medicine
DX: K50.90 Crohn's disease, unspecified, without complications (principal)
CPT/HCPCS: 36415; 80053; 82728; 85025; 85651; 86140

== ENCOUNTER 2021-09-13 06:10 | Day surgery (SDC) | payer MEDICARE, BC ==
[2021-09-13] MEDS ORDERED: LACTATED RINGERS 1,000 ML IV ONE ×2 (06:37→10:10)
--- NOTE | 2021-09-13 06:59 | ANESTHESIA ---
Pre-Anesthesia VS, & Labs - Diagnosis infected port - Procedure removal infected port and replacement of port Height: 5 ft 8 in Weight (kg): 72 kg Body Mass Index: 24.1 BMI Classification: Healthy weight - NPO >8 hours Home Medications and Allergies Home Medications: Ambulatory Orders Lipase/Protease/Amylase [Creon Dr 12,000 Unit Capsule] 1,200 units PO TID 09/08/21 Cholecalciferol (Vitamin D3) [Vitamin D3] 1,250 mcg PO STEVENS 08/02/21 Diphenoxylate/Atropine [Lomotil] 1 each PO BID 08/02/21 Mirtazapine [Remeron] 45 mg PO QPM 08/02/21 Potassium Citrate/Citric Acid [Potassium Cit-Citric Acid Soln] 10 ml PO BID 08/02/21 Sodium Bicarbonate 1,950 mg PO BID 08/02/21 carvediloL [Coreg] 3.125 mg PO BID 08/02/21 Lipase/Protease/Amylase [Creon Dr 12,000 Unit Capsule] 1,200 units PO TID 09/08/21 Allergies/Adverse Reactions: Allergies Allergy/AdvReac Type Severity Reaction Status Date / Time chlorhexidine AdvReac Unknown Verified 09/08/21 13:46 Anes History & Medical History - Anesthetic History Anesthesia Complications: reports: No previous complications - Medical History Cardiovascular: reports: None, Hypertension Pulmonary: reports: Other Gastrointestinal: reports: Colon polyps, Crohn's disease Urinary: reports: Renal insuffiency Neuro: reports: None Musculoskeletal: reports: None Endocrine/Autoimmune: reports: None Blood Disorders: reports: None Skin: reports: Eczema Smoking Status: Never smoker History of Cancer?: Yes (skin) - Surgical History General: reports: Cholecystectomy, Appendectomy, Bowel surgery, Colonoscopy, Other Eyes Ears Nose Throat (EENT): reports: Detached retina repair Urologic: reports: Ureterolithotomy (stones) Orthopedic: reports: Other Exam General: Alert, Oriented x3 Dental: Dentures full Upper, Dentures full Lower Mouth Opening: Greater than 4 Fingerbreadths Neck Mobility: Normal Mallampati classification: II Respiratory: Lungs clear Cardiovascular: Regular rate Plan Anesthesia Type: General, MAC Consent for Procedure(s) Verified and Reviewed: Yes Code Status: Attempt Resuscitation ASA classification: 3-Severe systemic disease Is this case an emergency?: No
[2021-09-13] MEDS ORDERED: BUPIVACAINE 0.25% PF 10 ML VIAL ONE ×2 (07:21→08:15)
[2021-09-13] MEDS ORDERED: MIDAZOLAM 2 MG/2 ML VIAL ONE (07:21)
[2021-09-13] MEDS ORDERED: PROPOFOL 200 MG/20 ML VIAL IVP ONE (07:21)
[2021-09-13] MEDS ORDERED: fentaNYL 100 MCG/2 ML VIAL ONE ×2 (07:21→09:18)
[2021-09-13] MEDS ORDERED: LIDOCAINE 2%-EPI 1:100000 20 ML MDV ONE (07:21)
[2021-09-13] MEDS ORDERED: BUPIVACAINE 0.25% PF 10 ML VIAL SUBQ ONE ×2 (08:05)
[2021-09-13] MEDS ORDERED: LIDOCAINE 2%-EPI 1:100000 20 ML MDV SUBQ ONE (08:06)
[2021-09-13] MEDS ORDERED: ONDANSETRON 4 MG/2 ML VIAL ONE (08:36)
[2021-09-13] MEDS ORDERED: DEXAMETHASONE 4 MG/ML VIAL ONE (08:36)
[2021-09-13] MEDS ORDERED: ceFAZolin 1 GM VIAL ONE (08:46)
[2021-09-13] MEDS ORDERED: ATROPINE ABBOJECT 1 MG/10 ML SYRINGE IVP PRN (08:52)
[2021-09-13] MEDS ORDERED: ONDANSETRON 4 MG/2 ML VIAL IVP PRN ×2 (08:52→09:25)
[2021-09-13] MEDS ORDERED: fentaNYL 100 MCG/2 ML VIAL IVP PRN (08:52)
[2021-09-13] MEDS ORDERED: METOCLOPRAMIDE 10 MG/2 ML VIAL IVP PRN (08:52)
[2021-09-13] MEDS ORDERED: ePHEDrine 50 MG/ML VIAL IVP PRN (08:52)
[2021-09-13] MEDS ORDERED: MORPHINE 2 MG/ML CARPUJECT IVP PRN (08:52)
[2021-09-13] MEDS ORDERED: NALOXONE 0.4 MG/ML VIAL IVP PRN (08:52)
[2021-09-13] MEDS ORDERED: HYDROmorphone 0.5 MG/0.5 ML SYRINGE IVP PRN ×2 (08:52→09:25)
[2021-09-13] MEDS ORDERED: LACTATED RINGERS 1,000 ML IV SCH (09:00)
--- NOTE | 2021-09-13 09:21 | OPERATIVE REPORT ---
Operative Report - General Procedure Date: 09/13/21 Planned Procedure: Removal and replacement of exposed [id number] Pre-Op Diagnosis: Short-bowel syndrome secondary to Crohn's disease Procedure Performed: Removal of right PowerPort and placement of left PowerPort Post Op Diagnosis: Short-bowel syndrome secondary to Crohn's disease - Procedure Note Primary Surgeon: Tracey Anesthesia Provider: CHRISTINE Cummings Anesthesia Technique: General LMA Pathology: None Estimated Blood Loss (mL): 5 Indications: TPN dependence for nutritional support Findings: Left port in good position in the superior vena cava Complications: None apparent - Other Other Information/Narrative: After obtaining informed consent, the patient is brought to the operating room and placed in supine position on the operating table. Following successful induction of sedation with monitored anesthesia care and appropriate padding of all bony prominences, the left chest and neck were prepped and draped in the standard surgical fashion. A timeout was held per scope protocol. All elements of the surgical safety checklist were followed before, during, and after the procedure. Following infiltration with local anesthetic to create a field block, the left subclavian vein was accessed in the deltopectoral groove. The J-wire was gently placed into the vein. Fluoroscopy was used to confirm the position of the wire and in the subclavian vein. We anesthetized the existing healed scar in the area around it for placement of the port itself. An incision was created here and carried down through the skin and subcutaneous tissue. A pocket was created with blunt dissection. The port tubing was attached to the tunneling device and passed from the access site of the vein into the pocket. It was trimmed to an appropriate length and the port attached. The port was sewn into place in the pocket. The dilator and introducer were then passed over the J-wire that was in the subclavian vein. The J-wire and dilator were removed leaving only the introducer. The tubing was then passed through the introducer and the introducer cracked and removed per fast food crew member's directions. The port was then checked for function and flushed and vernon easily. Additional local anesthetic was applied to the chest wall. The port pocket was closed with interrupted Vicryl sutures and Monocryl stitches were placed in both skin incision sites. The incision was covered with Dermabond and allowed to dry completely. I turned my attention to the right chest. The infected and exposed port had been covered with an OpSite. This was removed and the entire area prepped with Betadine solution. The port was easily dissected from the pocket from a central opening both Prolene sutures were easily clipped and the port slid out without any resistance. The pocket was then checked for hemostasis. Pressure was held in the right deltopectoral groove for approximately 5 minutes. The area was chiqui cked for backbleeding and none was appreciated. The pocket was then closed with a single interrupted Prolene suture and the entire wound painted with Betadine. A dry pressure dressing was applied. All sponge, needle, and instrument counts were correct at the conclusion of the case. Chest x-ray in the postanesthesia care unit revealed the port in good position in the superior vena cava without evidence of pneumothorax.
[2021-09-13] MEDS ORDERED: LACTATED RINGERS 200 ML IV ONE (09:24)
[2021-09-13] MEDS ORDERED: oxyCODONE 5 MG TABLET PO PRN (09:25)
[2021-09-13] MEDS ORDERED: SODIUM CHLORIDE 0.9% 100 ML BAG IV ONE (09:49)
--- NOTE | 2021-09-13 10:19 | XRAY Report ---
PROCEDURE: Post Port Placement 1V CXR INDICATIONS: NEW LEFT PORT TECHNIQUE: One view of the chest was acquired. COMPARISON: April 27, 2021. FINDINGS: SUPPORT DEVICES: Left CT injectable yunior catheter with tip overlying the mid to low SVC region. LUNGS/PLEURA: Small airspace opacity in the right upper lung zone, concerning for pneumonic infiltrat e. No pleural effusion or pneumothorax. MEDIASTINUM: The cardiomediastinal silhouette is within normal limits. BONES/SOFT TISSUES: No acute abnormality. IMPRESSION: 1.Small airspace opacity in the right upper lung zone, concerning for pneumonic infiltrate. 2.Left yunior catheter as detailed above. Reviewed by: Wilfrido Gordon MD on 09/13/2021 10:17 AM PDT Approved by: Wilfrido Gordon MD on 09/13/2021 10:17 AM PDT Station ID: [id number]
--- NOTE | 2021-09-13 10:24 | ANESTHESIA POST OP EVALUATION ---
Anesthesia Post Eval - Post Anesthesia Eval Vitals: Last Vital Signs Temp 36.5 C 09/13/21 10:05 Pulse 64 09/13/21 10:05 Resp 16 09/13/21 10:05 BP 119/77 09/13/21 10:05 Pulse Ox 97 09/13/21 10:05 CV Function Including HR & BP: Stable Pain Control: Satisfactory Nausea & Vomiting: Negative Mental Status: Baseline Respiratory Status: Airway Patent Hydration Status: Satisfactory Anesthesia Complications: None
[2021-09-13 10:51] VITALS: BP 128/78
--- NOTE | 2021-09-13 13:38 | XRAY Report ---
PROCEDURE: OR Port-A-Cath INDICATIONS: CHEMO TECHNIQUE: Single intraoperative fluoroscopic low-resolution spot film was obtained COMPARISON: 03/07/2021 FINDINGS: Low-resolution fluoroscopic spot films shows a right-sided central venous catheter extending into the SVC. Catheter tip is not included on the image. Left vascular J-wire also present in the SVC IMPRESSION: Fluoroscopic guidance Reviewed by: Bharathi Lovelace MD on 09/13/2021 12:37 PM [id number] Approved by: Bharathi Lovelace MD on 09/13/2021 12:37 PM AKDT Station ID: [id number]
== END 2021-09-13 06:11 | disposition home or self-care (01) ==
LOC: SDS 06:10
PROVIDERS: ATTEND Surgery
DX: T80.212A Local infection due to central venous catheter, initial encounter (principal); K91.2 Postsurgical malabsorption, not elsewhere classified; K50.90 Crohn's disease, unspecified, without complications
CPT/HCPCS: 36561; 36590; C1788; J7120

== ENCOUNTER 2023-01-22 11:36 | Outpatient (CLI) | payer MEDICARE, BC ==
[2023-01-22 11:52] LABS: BASOPHILS % (AUTO) 0.3 %; EOSINOPHILS # (AUTO) 0.1 10^3/uL (0.0-0.7); EOSINOPHILS % (AUTO) 1.7 %; HCT - HEMATOCRIT 30.5 % (42.0-52.0); HGB - HEMOGLOBIN 9.4 g/dL (14.0-18.0); LYMPHOCYTES # (AUTO) 1.2 10^3/uL (1.5-3.5); LYMPHOCYTES % (AUTO) 19.7 %; MEAN CORPUSCULAR HEMOGLOBIN 25.5 pg (27.0-31.0); MEAN CORPUSCULAR HGB CONC 30.8 g/dL (32.0-36.0); MEAN CORPUSCULAR VOLUME 82.7 fL (80.0-94.0); MEAN PLATELET VOLUME 9.7 fL (7.4-11.4); MONOCYTES # (AUTO) 0.9 10^3/uL (0.0-1.0); MONOCYTES % (AUTO) 14.1 %; NEUTROPHILS % (AUTO) 63.7 %; PLT - PLATELET COUNT 109 10^3/uL (130-450); RED BLOOD COUNT 3.69 10^6/uL (4.70-6.10); RED CELL DISTRIBUTION WIDTH 14.6 % (12.0-15.0); WHITE BLOOD COUNT 6.3 x10^3/uL (4.8-10.8)
[2023-01-22 12:04] LABS: ALBUMIN/GLOBULIN RATIO 1.4 (1.0-2.2); BILIRUBIN,TOTAL 1.1 mg/dL (0.2-1.0); CALCIUM 9.2 mg/dL (8.5-10.3); CREATININE 2.2 mg/dL (0.6-1.3); MAGNESIUM 1.8 mg/dL (1.7-2.3); PHOSPHORUS 3.5 mg/dL (2.5-5.0); POTASSIUM 4.8 mmol/L (3.5-4.5); TOTAL PROTEIN 6.9 g/dL (6.4-8.9)
== END 2023-01-22 11:37 | disposition home or self-care (01) ==
LOC: LAB.R 11:36
PROVIDERS: ATTEND Internal Medicine
DX: K91.2 Postsurgical malabsorption, not elsewhere classified (principal)
CPT/HCPCS: 80053; 83735; 84100; 84134; 84478; 85025; 86140

== ENCOUNTER 2023-07-16 10:06 | Day surgery (SDC) | payer MEDICARE, BC ==
[~2023-07-16 10:06] MED LIST changes: -CEFAZOLIN SODIUM IN 0.9 % NACL 2 GM/100 ML BAG IV ONE; +ceFAZolin 2 GM VIAL ONE
[2023-07-16] MEDS: LACTATED RINGERS 1,000 ML IV ONE (10:11)
[2023-07-16] MEDS: ACETAMINOPHEN 500 MG TABLET PO ONE (10:25)
[2023-07-16 10:32] VITALS: O2SAT 100
[2023-07-16] MEDS ORDERED: fentaNYL 100 MCG/2 ML VIAL ONE (12:38)
[2023-07-16] MEDS ORDERED: MIDAZOLAM 2 MG/2 ML VIAL ONE (12:38)
[2023-07-16] MEDS ORDERED: PROPOFOL 500 MG/50 ML 500 MG/50 ML VIAL ONE (12:38)
[2023-07-16] MEDS ORDERED: LIDOCAINE 1%-EPI 1:100000 20 ML MDV ONE (12:54)
[2023-07-16] MEDS ORDERED: BUPIVACAINE 0.5% PF 10 ML VIAL ONE (12:55)
--- NOTE | 2023-07-16 13:23 | ANESTHESIA ---
Pre-Anesthesia VS, & Labs - Diagnosis Short bowel syndrome - Procedure removal and replacement of portacath Vital Signs: Temp Pulse Resp BP Pulse Ox O2 Flow Rate 36 C L 64 18 132/79 H 100 07/16/23 10:16 07/16/23 10:16 07/16/23 10:16 07/16/23 10:16 07/16/23 10:16 Height: 5 ft 8 in Weight (kg): 72.3 kg Body Mass Index: 24.2 BMI Classification: Normal - NPO >8 hours Home Medications and Allergies Home Medications: Ambulatory Orders Pantoprazole [Protonix] 40 mg PO DAILY 07/12/23 Diphenoxylate/Atropine [Lomotil] 1 each PO BID 08/02/21 Mirtazapine [Remeron] 45 mg PO QPM 08/02/21 Sodium Bicarbonate 1,950 mg PO BID 08/02/21 carvediloL [Coreg] 3.125 mg PO BID 08/02/21 Teduglutide [Gattex] 1.9 mg SUBQ DAILY 05/29/23 Pantoprazole [Protonix] 40 mg PO DAILY 07/12/23 Allergies/Adverse Reactions: Allergies Allergy/AdvReac Type Severity Reaction Status Date / Time No Known Drug Allergies Allergy Verified 07/12/23 14:50 Anes History & Medical History - Anesthetic History Anesthesia Complications: reports: No previous complications - Medical History Cardiovascular: reports: Hypertension Pulmonary: reports: None Gastrointestinal: reports: Colon polyps, Crohn's disease, Other (TPN) Urinary: reports: Renal insuffiency, Kidney stones Neuro: reports: None Musculoskeletal: reports: None Endocrine/Autoimmune: reports: None Blood Disorders: reports: None Skin: reports: Eczema Smoking Status: Never smoker Psychosocial: reports: Cannabis (daily use) History of Cancer?: No - Surgical History General: reports: Cholecystectomy, Appendectomy, Bowel surgery, Colonoscopy, EGD, Other Eyes Ears Nose Throat (EENT): reports: Detached retina repair Urologic: reports: Ureterolithotomy (stones) Orthopedic: reports: Other Exam General: Alert, Oriented x3, Cooperative, No acute distress Dental: WNL Mouth Openin Fingerbreadth Neck Mobility: Normal Mallampati classification: II Thyromental Distance: 4-6 cm Mental/Cognitive Status: Alert/Oriented X3, Normal for patient Plan Anesthesia Type: General, MAC Consent for Procedure(s) Verified and Reviewed: Yes Code Status: Attempt Resuscitation ASA classification: 3-Severe systemic disease Is this case an emergency?: No
[2023-07-16] MEDS ORDERED: PROPOFOL 200 MG/20 ML VIAL IVP ONE (13:27)
[2023-07-16] MEDS: LIDOCAINE 1%-EPI 1:100000 20 ML MDV SUBQ ONE ×2 (13:48)
[2023-07-16] MEDS: BUPIVACAINE 0.5% PF 10 ML VIAL IM ONE ×3 (13:48)
[2023-07-16] MEDS ORDERED: ACETAMINOPHEN 500 MG TABLET PO PRN (14:27)
[2023-07-16] MEDS: LACTATED RINGERS 800 ML IV ONE (14:29)
--- NOTE | 2023-07-16 14:30 | OPERATIVE REPORT ---
Operative Report - General Procedure Date: 07/16/23 Planned Procedure: PAC placement and removal of old PAC Pre-Op Diagnosis: crohn's disease, short bowel syndrome, tpn dependent Procedure Performed: R IJ PAC placement with ultrasound and fluoroscopy guidance and removal of L SC PAC Post Op Diagnosis: crohn's disease, short bowel syndrome, tpn dependent - Procedure Note Primary Surgeon: Dr. Penelope Steiner Anesthesia Provider: Aj Goff CRNA Anesthesia Technique: Local, MAC Pathology: port removed and discarded Estimated Blood Loss (mL): 5 Indications: The patient requires TPN for nutrition given short-bowel syndrome and history of severe Crohn's disease. For this he requires a portacatheter. His current portacatheter has extensive eschar over it and nearly an exposed port. It is not infected, but very high risk for becoming infected. He has to access the port daily for TPN. A new port is required to allow him to continue TPN treatment and prevent infection. He was seen and evaluated in the clinic where we discussed the risks, benefits, and alternatives of this procedure including bleeding, infection, damage to surrounding structures including the lung, infection or dysfunction of the port requiring removal or replacement, and the possible need for further surgeries or procedures. The patient voiced understanding, his questions were answered, and he wished to proceed. A consent was signed by the patient prior to the procedure. Findings: 1. Patent right internal jugular vein 2. catheter flushes and draws easily 3. Port accessed with 100 units/mL heparin, 2 mL placed in line 4. Left subclavian port removed, intact Complications: None - Other Other Information/Narrative: The patient was taken to the operative suite and placed in the supine position preoperative ERAS medications given. Preoperative antibiotics given. MAC anesthesia was induced to the appropriate level of consciousness. An ultrasound was used to verify the right internal jugular vein was widely patent. The patient was then prepped and draped in the usual, sterile fashion. Next, a sterile ultrasound probe was used to visualize the right internal jugular vein local anesthetic was injected into the skin and subcutaneous tissues overlying this vessel and an 11 blade scalpel was used to make a small skin estefanía. Next, under direct ultrasound guidance, a Cook needle was used to gain access to the right internal jugular vein. This was successful on the first attempt. There was excellent return of dark red nonpulsatile blood. A guidewire was passed through the Cook needle without resistance. Fluoroscopy was used to verify the position of the wire. Ultrasound was also used to verify the position of the wire. Next, attention was turned to the right chest. The location was chosen on the right anterior chest wall for the portacatheter to sit. The skin and subcutaneous tissues in this area were anesthetized with local as was the path which the catheter would follow up to the neck incision. A 15 blade scalpel was used to make a 2 cm incision in the which was carried down through the skin and subcutaneous tissues to the level of the clavipectoral fascia. A pocket was made with blunt dissection to accommodate the port. Port easily fit within the pocket. 2 interrupted sutures of 3-0 PDS were placed through the port to tack it to the clavipectoral fascia. These were tied into place and then the port was tunneled from the inferior chest wall incision to the superior neck incision. Next, the catheter was cut to the appropriate length, 24cm under direct fluoroscopic guidance. A dilator and sheath were passed over the guidewire under direct fluoroscopic guidance and the dilator and guidewire were removed leaving only the breakaway sheath in place. The catheter was passed through the sheath and the sheath was broken away. The catheter was the only thing that remained within the vessel. Fluoroscopy confirmed that the catheter tip was in good position and that there were no kinks at the neck. The catheter flushed and vernon easily. Next, 3-0 Vicryl was used in an interrupted fashion to reapproximate the deep dermal tissues at the chest incision. Then, 4-0 Monocryl was used in an interrupted subcuticular fashion to reapproximate the skin at the neck incision and in a running subcuticular fashion to reapproximate the skin at the chest incision. The port left accessed and was flushed with 2 mL 100 units/mL heparinized saline. Next, attention was turned to the left chest and local anesthesia was used to anesthetize the skin and subcutaneous tissues at the patient's previous incision overlying his portacatheter. Next, a 15 blade scalpel was used to open the incision and a hemostat was used to spread the tissues down to the level of the portacatheter. The portacatheter was freed from the surrounding tissues with blunt and sharp dissection with electrocautery. 2 sutures were identified and removed. Once free, the port itself was removed and digital pressure was held externally over the left subclavian vein where the catheter previously entered the vein. The catheter was then removed and noted to be completely intact. Manual pressure was held for approximately 5 minutes. Excellent hemostasis was confirmed. Next, 3-0 Vicryl was used to reapproximate the deep dermal tissues in an interrupted fashion. Next, 4-0 Monocryl was used in a running subcuticular fashion to reapproximate the skin edges. The skin and eschar over the previous port was very thin and was allowed to continue to drain and closed by secondary intention. A sterile dressing of skin glue was placed over each of the surgical incisions. The patient tolerated the procedure well. There were no complications. The patient tolerated the procedure well and there were no complications. A postoperative chest x-ray is pending at this time.
[2023-07-16 14:48] VITALS: BP 135/76
--- NOTE | 2023-07-16 14:53 | ANESTHESIA POST OP EVALUATION ---
Anesthesia Post Eval - Post Anesthesia Eval Vitals: Last Vital Signs Temp 36.1 C L 07/16/23 14:45 Pulse 52 L 07/16/23 14:45 Resp 18 07/16/23 14:45 BP 135/76 H 07/16/23 14:45 Pulse Ox 100 07/16/23 14:45 O2 Flow Rate CV Function Including HR & BP: Stable Pain Control: Satisfactory Nausea & Vomiting: Negative Mental Status: Baseline Respiratory Status: Airway Patent Hydration Status: Satisfactory Anesthesia Complications: None
--- NOTE | 2023-07-16 14:57 | XRAY Report ---
PROCEDURE: OR Port-A-Cath INDICATIONS: PORT REMOVAL AND REPLACEMENT FLUORO TIME: 0.2 MIN TECHNIQUE: Real time fluoroscopy was performed of the thorax. COMPARISON: None. FINDINGS: 2 intraoperative fluoroscopic procedures demonstrate right port placement with distal tip projecting over the right atrium. IMPRESSION: 2 intraoperative fluoroscopic images demonstrate right port catheter with tip projecting over the rig ht atrium. Please see separately dictated operative report for full details. Reviewed by: Kenia Tomlin MD on 07/16/2023 2:56 PM PST Approved by: Kenia Tomlin MD on 07/16/2023 2:56 PM PST Station ID: [id number]
--- NOTE | 2023-07-16 14:58 | XRAY Report ---
PROCEDURE: Post Port Placement 1V CXR INDICATIONS: PAC placement TECHNIQUE: One view of the chest was acquired. COMPARISON: None. FINDINGS: Surgical changes and devices: Right chest wall port catheter with distal tip projecting over the low er SVC. Lungs and pleura: No pleural effusions or pneumothorax. Lungs are clear. Mediastinum: Mediastinal contours appear normal. Heart size is normal. Bones and chest wall: No suspicious bony lesions. Overlying soft tissues appear unremarkable. IMPRESSION: Right chest wall wall port catheter with distal tip projecting over the lower SVC. No pneumothorax. Reviewed by: Kenia Tomlin MD on 07/16/2023 2:57 PM PST Approved by: Kenia Tomlin MD on 07/16/2023 2:57 PM PST Station ID: [id number]
== END 2023-07-16 10:07 | disposition home or self-care (01) ==
LOC: SDS 10:06
PROVIDERS: ATTEND Surgery
DX: K90.829 Short bowel syndrome, unspecified (principal); K50.90 Crohn's disease, unspecified, without complications; I10 Essential (primary) hypertension
CPT/HCPCS: 36561; 36590; A9270; C1788; J7120